=== PATIENT | male | born 1975 | race Caucasian/White ===

== ENCOUNTER 2018-11-05 13:05 | Emergency (ER) | payer SELFPAY ==
[~2018-11-05] VITALS: Ht 182.9 cm; Wt 63.5 kg
--- NOTE | 2018-11-05 13:29 | ED General ---
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 He noted a popping sensation. He's had pain with deep inspiration no shortness of breath. No cough or hemoptysis reported. No fever or chills. He states he has broken ribs in the past. Has history of insulin- dependent diabetes which she states has been well-controlled. He is here for evaluation of ribs only. Allergies and Home Medications Allergies Coded Allergies: aspirin (Unverified Adverse Reaction, Severe, swelling throat, 11/05/18) Home Medications Atorvastatin Calcium 20 Mg Tablet, 20 MG PO DAILY, (Reported) Cyclobenzaprine HCl 10 Mg Tablet, 10 MG PO Q8H PRN for SPASMS, (Reported) Duloxetine HCl 30 Mg Capsule.dr, 30 MG PO DAILY, (Reported) Gabapentin 100 Mg Capsule, 100 MG PO Q8H, (Reported) Insulin Aspart 100 Unit/1 Ml Susp, 8 UNIT SQ BIDAC, (Reported) Insulin Determir 1,000 Units/10 Ml Soln, 15 UNITS SQ BID, (Reported) Lisinopril 20 Mg Tablet, 20 MG PO HS, (Reported) Meloxicam 15 Mg Tablet, 15 MG PO DAILY, (Reported) Metformin HCl 500 Mg Tablet, 500 MG PO BID, (Reported) Ranitidine HCl 150 Mg Tablet, 300 MG PO DAILY, (Reported) Sennosides 8.6 Mg Tablet, 8.6 MG PO BID PRN for CONSTIPATION-1ST LINE, (Reported ) Tamsulosin HCl 0.4 Mg Cap, 0.4 MG PO DAILY, (Reported) Patient Home Medication List Home Medication List Reviewed: Yes Review of Systems Review of Systems Constitutional: No chills, No fever; malaise EENTM: see HPI Respiratory: see HPI Cardiovascular: no symptoms reported Gastrointestinal: no symptoms reported Genitourinary: no symptoms reported Musculoskeletal: no symptoms reported Skin: no symptoms reported Psychiatric/Neurological: No Symptoms Reported Hematologic/Lymphatic: No Symptoms Reported Past Mihjlul-Buqjpq-Vliryv Hx Past Med/Social Hx: Reviewed Nursing Past Med/Soc Hx Physical Exam Vital Signs Vital Signs - First Documented 11/05/18 13:10 Temp 98.8 Pulse 108 Resp 16 B/P (MAP) 128/82 (97) Pulse Ox 98 O2 Delivery Room Air Capillary Refill : Height, Weight, BMI Height: '" Weight: lbs. oz. kg; BMI Method: General Appearance: No Apparent Distress, Anxious, Cachetic Eyes: Bilateral Eye Normal Inspection, Bilateral Eye PERRL, Bilateral Eye EOMI , Bilateral Eye Abnormal EOM HEENT: PERRL/EOMI, TMs Normal, Normal ENT Inspection, Pharynx Normal Neck: Full Range of Motion, Normal Inspection, Non Tender, Supple, Carotid Bruit Respiratory: No Accessory Muscle Use, No Respiratory Distress, Decreased Breath Sounds (bilat), Rhonci Cardiovascular: Regular Rate, Rhythm, No Edema, No Gallop, No JVD, No Murmur, Normal Peripheral Pulses Gastrointestinal: Normal Bowel Sounds, No Organomegaly, No Pulsatile Mass, Non Tender, Soft Back: Normal Inspection, No CVA Tenderness Extremity: Normal Capillary Refill, Normal Inspection, Normal Range of Motion, Non Tender Neurologic/Psychiatric: Alert, Oriented x3, No Motor/Sensory Deficits Skin: Normal Color, Warm/Dry, Tattoos/Piercings Lymphatic: No Adenopathy Progress/Results/Core Measures Suspected Sepsis SIRS Temperature: Pulse: Respiratory Rate: Blood Pressure / Mean: Results/Orders My Orders Orders - MIKEY VIVAS MD Chest Pa/Lat (2 View) (11/05/18 13:25) Ribs 2-3 View Left (11/05/18 13:25) Vital Signs/I&O 11/05/18 13:10 Temp 98.8 Pulse 108 Resp 16 B/P (MAP) 128/82 (97) Pulse Ox 98 O2 Delivery Room Air Capillary Refill : Progress Note : Time: 13:29 Progress Note We'll limit evaluation to chest x-ray and rib x-rays per his request. 1412 we discussed his likely rib fracture, likely clinical course and need to follow-up his other medical conditions with his primary care physician. He takes responsibility for doing so. He understands and accepts the plan and agrees with it. Diagnostic Imaging Diagonstic Imaging: Xray (chest and left ribs) Comments NAME: ROBLES CHANDLER REC#: [id number] PT STATUS: REG ER : 1975 PHYSICIAN: MIKEY VIVAS MD ADMIT DATE: 11/05/18/ER FS Draft Date of Exam:11/05/18 CHEST PA/LAT (2 VIEW) INDICATION: Left rib pain. TIME OF EXAM: 01:21 p.m. COMPARISON: No prior studies are available for comparison. FINDINGS: Heart size is normal. Lungs are clear. No infiltrates are seen. There is no effusion or pneumothorax. IMPRESSION: No acute cardiopulmonary process is detected. Dictated on workstation # [id number] Dict: 11/05/18 1351 Trans: 11/05/18 1357 [id number] Interpreted by: DARYN CEEDÑO MD Electronically signed by: NAME: ROBLES CHANDLER [facility] REC#: [id number] PT STATUS: REG ER : 1975 PHYSICIAN: MIKEY VIVAS MD ADMIT DATE: 11/05/18/ER FS Draft Date of Exam:11/05/18 RIBS 2-3 VIEW LEFT INDICATION: Left rib pain. TIME OF EXAM: 01:25 p.m. FINDINGS: Multiple views of left ribs were obtained. There is an age-indeterminate fracture involving the anterior aspect of the left seventh rib near the costochondral junction. No other fractures are seen. Posterior ribs are unremarkable. There is no parenchymal contusion, effusion, or pneumothorax. IMPRESSION: Questionable fracture anterior aspect of left seventh rib, age indeterminate. The study is otherwise unremarkable. Dictated on workstation # [id number] Dict: 11/05/18 1352 Trans: 11/05/18 1403 [id number] Interpreted by: DARYN CEDEÑO MD Electronically signed by: Reviewed: Reviewed/Discussed Departure Impression Primary Impression: Closed rib fracture Qualified Codes: S22.32XA - Fracture of one rib, left side, initial encounter for closed fracture Disposition: HOME, SELF-CARE Condition: Stable Departure-Patient Inst. Decision time for Depature: 14:12 Referrals: NO,LOCAL PHYSICIAN (PCP/Family) Primary Care Physician 2-3 days, sooner as needed Patient Instructions: Rib Fracture (DC) Add. Discharge Instructions: Watch for sudden increase in pain or difficulty breathing. If this should occur , seek immediate care. All discharge instructions reviewed with patient and/or family. Voiced understanding. Scripts Hydrocodone Bit/Acetaminophen (Hydrocodone/Acetaminophen 5/325mg Tablet) 1 Tab Tab 1 EACH PO Q4-6HR PRN for PAIN-MODERATE MDD 10 for 3 Days, TAB Prov: MIKEY VIVAS MD 11/05/18 Hydrocodone Bit/Acetaminophen (Hydrocodone/Acetaminophen 5/325mg Tablet) 1 Tab Tab 1 EACH PO Q4-6HR PRN for PAIN-MODERATE MDD 10 for 3 Days, TAB Prov: MIKEY VIVAS MD 11/05/18 MIKEY VIVAS MD November 05, 2018 13:29
--- OUTSIDE RECORDS SUMMARY | 2018-11-05 13:31 | XMS REPORT ---
Author Author Tabby Bernal Organization [facility] Address [address] [place] [address] Care Team Providers Care Records Section Supervisor Name Role Phone GabeCarriTabby Unavailable PROBLEMS Type Condition ICD9-CM Code ADD11-CG Code Onset Dates Condition Status SNOMED Code Problem Hypertension I10 Active 27499634 Problem Diabetes E11.9 Active 709044672 Problem Constipation K59.00 Active 23038391 Problem Mixed hyperlipidemia E78.2 Active 868554195 Problem Seizure disorder G40.909 Active 750193002 Problem Neuropathy G62.9 Active 721389883 Problem GERD (gastroesophageal reflux disease) K21.9 Active 345376129 ALLERGIES No Information ENCOUNTERS Encounter Location Date Diagnosis [address] [place] [id number] Oct, [facility] [address] [place], [place] [phone] Aug, [facility] [address] [facility] [address] [place] [phone] Jun, [facility] [address] [place] [id number] May, [address] [place] [id number] Jan, Constipation K59.00 [address] [place] [id number] Dec, Diabetes E11.9 [facility] [address] [place] [id number] Dec, [address] [place] [id number] Dec, Diabetes E11.9 ; Hypertension I10 ; Neuropathy G62.9 ; Seizure disorder G40.909 ; Mixed hyperlipidemia E78.2 ; GERD (gastroesophageal reflux disease) K21.9 and Bilateral low back pain without sciatica, unspecified chronicity M54.5 [facility] [address] [place], [place] [phone] Mar, [facility] [address] [place] [phone] Mar, [facility] [address] [place] [phone] Dec, [place] [address] [place] [id number] Dec, Diabetes E11.9 ; Hypertension I10 ; Neuropathy G62.9 ; Seizure disorder G40.909 ; Mixed hyperlipidemia E78.2 ; GERD (gastroesophageal reflux disease) K21.9 and Tinea cruris B35.6 IMMUNIZATIONS No Known Immunizations SOCIAL HISTORY Never Assessed REASON FOR VISIT pap meds PLAN OF CARE VITAL SIGNS MEDICATIONS Unknown Medications RESULTS No Results PROCEDURES No Known procedures INSTRUCTIONS MEDICATIONS ADMINISTERED No Known Medications MEDICAL (GENERAL) HISTORY Type Description Date Medical History Hypertension Medical History Diabetes Medical History Neuropathy Medical History Seizure disorder Medical History Mixed hyperlipidemia Medical History GERD (gastroesophageal reflux disease) Surgical History cholecystectomy Hospitalization History diabetes 12/2016
--- OUTSIDE RECORDS SUMMARY | 2018-11-05 13:31 | XMS REPORT ---
Author Author Tabby Bernal [facility] Address [address] [place] [address] Care Team Providers Care Compensation Manager Name Role Phone Tabby Bernal Unavailable PROBLEMS Type Condition ICD9-CM Code ICU04-AV Code Onset Dates Condition Status SNOMED Code Problem Hypertension I10 Active 48714081 Problem Diabetes E11.9 Active 403350631 Problem Constipation K59.00 Active 43982705 Problem Mixed hyperlipidemia E78.2 Active 139512119 Problem Seizure disorder G40.909 Active 389858573 Problem Neuropathy G62.9 Active 572251740 Problem GERD (gastroesophageal reflux disease) K21.9 Active 699606738 ALLERGIES No Information ENCOUNTERS Encounter Location Date Diagnosis [facility] [address] [place], [place] [phone] Aug, [facility] [address] [place], [place] [phone] Jun, [facility] [address] [place] [phone] May, [address] [place] [id number] Jan, Constipation K59.00 [address] [place] [id number] Dec, Diabetes E11.9 [facility] [address] [place] [phone] Dec, [address] [place] [id number] Dec, Diabetes E11.9 ; Hypertension I10 ; Neuropathy G62.9 ; Seizure disorder G40.909 ; Mixed hyperlipidemia E78.2 ; GERD (gastroesophageal reflux disease) K21.9 and Bilateral low back pain without sciatica, unspecified chronicity M54.5 [facility] [address] [place] [id number] Mar, [facility] [address] [place] [id number] Mar, [facility] [address] [place] [id number] Dec, Anni [facility] [address] [place] [id number] Dec, Diabetes E11.9 ; Hypertension I10 ; Neuropathy G62.9 ; Seizure disorder G40.909 ; Mixed hyperlipidemia E78.2 ; GERD (gastroesophageal reflux disease) K21.9 and Tinea cruris B35.6 IMMUNIZATIONS No Known Immunizations SOCIAL HISTORY Never Assessed REASON FOR VISIT Medical records request PLAN OF CARE VITAL SIGNS MEDICATIONS Unknown [...]
--- OUTSIDE RECORDS SUMMARY | 2018-11-05 13:31 | XMS REPORT ---
Author Author Tabby Bernal Organization [facility] Address [address] [place] [address] Care Team Providers Care Inspector Pawnshop Detail Name Role Phone Tabby Bernal Unavailable PROBLEMS Type Condition ICD9-CM Code WQF77-DA Code Onset Dates Condition Status SNOMED Code Problem Hypertension I10 Active 14129065 Problem Constipation K59.00 Active 71877891 Problem Diabetes E11.9 Active 937841722 Problem Seizure disorder G40.909 Active 829627033 Problem Mixed hyperlipidemia E78.2 Active 832456114 Problem GERD (gastroesophageal reflux disease) K21.9 Active 783567470 Problem Neuropathy G62.9 Active 335524211 ALLERGIES No Information ENCOUNTERS Encounter Location Date Diagnosis [facility] [address] [place], [place] [phone] Jun, [facility] [address] [place], [place] [phone] May, [place] [address] [place] [id number] Jan, Constipation K59.[address] [place] [id number] Dec, Diabetes E11.9 [facility] [address] [place], [place] [id number] Dec, [place] [address] [place] [id number] Dec, Diabetes E11.9 ; Hypertension I10 ; Neuropathy G62.9 ; Seizure disorder G40.909 ; Mixed hyperlipidemia E78.2 ; GERD (gastroesophageal reflux disease) K21.9 and Bilateral low back pain without sciatica, unspecified chronicity M54.5 [facility] [address] [place], [place] [id number] Mar, [facility] [address] [place] [id number] Mar, [facility] [address] [place], [place] [id number] Dec, [address] [place] [id number] Dec, Diabetes E11.9 ; Hypertension I10 ; Neuropathy G62.9 ; Seizure disorder G40.909 ; Mixed hyperlipidemia E78.2 ; GERD (gastroesophageal reflux disease) K21.9 and Tinea cruris B35.6 IMMUNIZATIONS No Known Immunizations SOCIAL HISTORY Never Assessed REASON FOR VISIT pap samy PLAN OF CARE VITAL SIGNS MEDICATIONS Unknown [...]
--- OUTSIDE RECORDS SUMMARY | 2018-11-05 13:32 | XMS REPORT ---
Author Author Tabby Bernal [facility] Address [address] [place] [address] Care Team Providers Care Lunch Wagon Operator Name Role Phone Tabby Bernal Unavailable PROBLEMS Type Condition ICD9-CM Code VIR78-YH Code Onset Dates Condition Status SNOMED Code Problem Mixed hyperlipidemia E78.2 Active 703669827 Problem Hypertension I10 Active 21141214 Problem Neuropathy G62.9 Active 579230649 Problem Seizure disorder G40.909 Active 951975575 Problem Diabetes E11.9 Active 489993131 Problem GERD (gastroesophageal reflux disease) K21.9 Active 200165843 ALLERGIES No Information ENCOUNTERS Encounter Location Date Diagnosis [address] [place] [id number] Dec, Diabetes E11.9 [facility] [address] [place], [place] [id number] Dec, [address] [place] [id number] Dec, Diabetes E11.9 ; Hypertension I10 ; Neuropathy G62.9 ; Seizure disorder G40.909 ; Mixed hyperlipidemia E78.2 ; GERD (gastroesophageal reflux disease) K21.9 and Bilateral low back pain without sciatica, unspecified chronicity M54.5 [facility] [address] [place], [place] [id number] Mar, [facility] [address] [place] [id number] Mar, [facility] [address] [place], [place] [id number] Dec, [address] [place] [id number] Dec, Diabetes E11.9 ; Hypertension I10 ; Neuropathy G62.9 ; Seizure disorder G40.909 ; Mixed hyperlipidemia E78.2 ; GERD (gastroesophageal reflux disease) K21.9 and Tinea cruris B35.6 IMMUNIZATIONS No Known Immunizations SOCIAL HISTORY Never Assessed REASON FOR VISIT Lab results PLAN OF CARE VITAL SIGNS MEDICATIONS Medication Instructions Dosage Frequency Start Date End Date Duration Status Levemir 100 UNIT/ML Subcutaneous in evening 20 units Dec, 30 days Active RESULTS No Results PROCEDURES No Known procedures INSTRUCTIONS MEDICATIONS ADMINISTERED No Known Medications MEDICAL (GENERAL) HISTORY Type Description Date Surgical History cholecystectomy Hospitalization History diabetes 12/2016
--- OUTSIDE RECORDS SUMMARY | 2018-11-05 13:32 | XMS REPORT ---
Author Author Tabby Bernal [facility] Address [address] [place] [address] Care Team Providers Care Street Light Wirer Name Role Phone Tabby Bernal Unavailable PROBLEMS Type Condition ICD9-CM Code WXI18-NK Code Onset Dates Condition Status SNOMED Code Problem Hypertension I10 Active 17879010 Problem Constipation K59.00 Active 55564468 Problem Diabetes E11.9 Active 912886409 Problem Seizure disorder G40.909 Active 838783645 Problem Mixed hyperlipidemia E78.2 Active 181554893 Problem GERD (gastroesophageal reflux disease) K21.9 Active 003108472 Problem Neuropathy G62.9 Active 984035796 ALLERGIES No Information ENCOUNTERS Encounter Location Date Diagnosis [facility] [address] [place], [place] [phone] May, [address] [place] [id number] Jan, Constipation K59.00 [address] [place] [id number] Dec, Diabetes E11.9 [facility] [address] [place] [id number] Dec, [address] [place] [id number] Dec, Diabetes E11.9 ; Hypertension I10 ; Neuropathy G62.9 ; Seizure disorder G40.909 ; Mixed hyperlipidemia E78.2 ; GERD (gastroesophageal reflux disease) K21.9 and Bilateral low back pain without sciatica, unspecified chronicity M54.5 [facility] [address] [place] [id number] Mar, [facility] [address] [place] [id number] Mar, [facility] [address] [place] [id number] Dec, [facility] [address] [place] [id number] Dec, Diabetes E11.9 ; Hypertension I10 ; Neuropathy G62.9 ; Seizure disorder G40.909 ; Mixed hyperlipidemia E78.2 ; GERD (gastroesophageal reflux disease) K21.9 and Tinea cruris B35.6 IMMUNIZATIONS No Known Immunizations SOCIAL HISTORY Never Assessed REASON FOR VISIT PAP Meds PLAN OF CARE VITAL SIGNS MEDICATIONS Unknown [...]
--- OUTSIDE RECORDS SUMMARY | 2018-11-05 13:32 | XMS REPORT ---
Author Author Tabby Bernal [facility] Address [address] [place] [address] Care Team Providers Care Supervisor [employer] Name Role Phone Tabby Bernal Unavailable PROBLEMS Type Condition ICD9-CM Code QEL62-DQ Code Onset Dates Condition Status SNOMED Code Problem Mixed hyperlipidemia E78.2 Active 304956450 Problem Hypertension I10 Active 21467187 Problem Neuropathy G62.9 Active 927198651 Problem Seizure disorder G40.909 Active 266461514 Problem Diabetes E11.9 Active 880858217 Problem GERD (gastroesophageal reflux disease) K21.9 Active 708667925 ALLERGIES No Information ENCOUNTERS Encounter Location Date Diagnosis [facility] [address] [place], [place] [phone] Dec, [address] [place] [id number] Dec, Diabetes E11.9 ; Hypertension I10 ; Neuropathy G62.9 ; Seizure disorder G40.909 ; Mixed hyperlipidemia E78.2 ; GERD (gastroesophageal reflux disease) K21.9 and Bilateral low back pain without sciatica, unspecified chronicity M54.5 [facility] [address] [place] [id number] Mar, [facility] [address] [place] [id number] Mar, [facility] [address] [place], [place] [id number] Dec, [address] [place] [id number] Dec, Diabetes E11.9 ; Hypertension I10 ; Neuropathy G62.9 ; Seizure disorder G40.909 ; Mixed hyperlipidemia E78.2 ; GERD (gastroesophageal reflux disease) K21.9 and Tinea cruris B35.6 IMMUNIZATIONS No Known Immunizations SOCIAL HISTORY Never Assessed REASON FOR VISIT PLAN OF CARE VITAL SIGNS MEDICATIONS Unknown Medications RESULTS No Results PROCEDURES No Known procedures INSTRUCTIONS MEDICATIONS ADMINISTERED No Known Medications MEDICAL (GENERAL) HISTORY Type Description Date Surgical History cholecystectomy Hospitalization History diabetes 12/2016
--- OUTSIDE RECORDS SUMMARY | 2018-11-05 13:32 | XMS REPORT ---
Author Author Tabby Bernal [facility] Address [address] [place] [address] Care Team Providers Care Senior Sales Director Name Role Phone Tabby Bernal Unavailable PROBLEMS Type Condition ICD9-CM Code [id number] Code Onset Dates Condition Status SNOMED Code Problem Hypertension I10 Active 77654304 Problem Constipation K59.00 Active 56042002 Problem Diabetes E11.9 Active 519656247 Problem Seizure disorder G40.909 Active 439854283 Problem Mixed hyperlipidemia E78.2 Active 342279961 Problem GERD (gastroesophageal reflux disease) K21.9 Active 380617438 Problem Neuropathy G62.9 Active 875130624 ALLERGIES Substance Reaction Event Type Date Status Aspirin Unknown Drug Allergy Dec, Active ENCOUNTERS Encounter Location Date Diagnosis [address] [place] [id number] Jan, Constipation K59.00 [address] [id number] Dec, Diabetes E11.9 [facility] [address] [place], [place] [phone] Dec, [facility] [address] [place] [id number] Dec, Diabetes E11.9 ; Hypertension I10 ; Neuropathy G62.9 ; Seizure disorder G40.909 ; Mixed hyperlipidemia E78.2 ; GERD (gastroesophageal reflux disease) K21.9 and Bilateral low back pain without sciatica, unspecified chronicity M54.5 [facility] [address] [place], [place] [phone] Mar, [facility] [address] [place], [place] [id number] Mar, [facility] [address] [place], [place] [phone] Dec, [facility] [address] [place] [id number] 26 Ander, 2017 Diabetes E11.9 ; Hypertension I10 ; Neuropathy G62.9 ; Seizure disorder G40.909 ; Mixed hyperlipidemia E78.2 ; GERD (gastroesophageal reflux disease) K21.9 and Tinea cruris B35.6 IMMUNIZATIONS Vaccine Route Administration Date Status Toradol IM Intramuscular January 25, 2018 Administered SOCIAL HISTORY Never Assessed REASON FOR VISIT bp, nausea and headache PLAN OF CARE Activity Details Follow Up 4 Weeks Reason:f/u multiple problems Pending Test MRI : Lumbar and Thoracic Spines VITAL SIGNS Heart Rate 87 /min 2018-01-25 Respiratory Rate 16 /min 2018-01-25 Temperature 97.7 degrees Fahrenheit 2018-01-25 Oximetry 99 % 2018-01-25 BMI 17.72 kg/m2 2018-01-25 Height 74 in 2018-01-25 Weight 138 lbs 2018-01-25 Blood pressure systolic 136 mm Hg 2018-01-25 Blood pressure diastolic 87 mm Hg 2018-01-25 MEDICATIONS Medication Instructions Dosage Frequency Start Date End Date Duration Status Meloxicam 15 MG Orally Once a day 1 tablet 24h Dec, Aug, 30 day(s) Active Duloxetine HCl 30 MG Orally Once a day 1 capsule 24h Dec, 30 day(s) Active Lisinopril 20 MG Orally Once a day 1 tablet 24h 30 days Active Atorvastatin Calcium 20 MG Orally Once a day 1 tablet 24h Dec, 30 day(s) Active Ranitidine HCl 300 MG Orally Once a day 1 tablet at bedtime 24h Dec, 30 day(s) Active Cyclobenzaprine HCl 10 MG Orally Three times a day 1 tablet as needed 8h Dec, Apr, 10 days Active Phenytoin Sodium Extended 100 MG Orally Three times a day 1 capsule 8h 30 days Active Amitriptyline HCl 10 MG Orally Once a day at bedtime 1 tablet Dec, 30 day(s) Active Metformin HCl 500 MG Orally Twice a day 2 tablet with meals 12h 30 days Active Levemir 100 UNIT/ML Subcutaneous in evening 20 units Dec, 30 days Active RESULTS Name Result Date Reference Range Hemoglobin A1c 2018-01-25 Hemoglobin A1c >15.5 4.8-5.6 CBC with Differential/Platelet 2018-01-25 WBC 10.1 3.4-10.8 RBC 5.13 4.14-5.80 Hemoglobin 15.6 13.0-17.7 Hematocrit 48.7 37.5-51.0 MCV 95 79-97 MCH 30.4 26.6-33.0 MCHC 32.0 31.5-35.7 RDW 13.3 12.3-15.4 Platelets 440 150-379 Neutrophils 66 Not Estab. Lymphs 23 Not Estab. Monocytes 7 Not Estab. Eos 2 Not Estab. Basos 1 Not Estab. Immature Cells MACHINE SPRAYER Neutrophils (Absolute) 6.7 1.4-7.0 Lymphs (Absolute) 2.3 0.7-3.1 Monocytes(Absolute) 0.7 0.1-0.9 Eos (Absolute) 0.2 0.0-0.4 Baso (Absolute) 0.1 0.0-0.2 Immature Granulocytes 1 Not Estab. Immature Grans (Abs) 0.1 0.0-0.1 NRBC MACHINE SPRAYER Hematology Comments: MACHINE SPRAYER Microalb/Creat Ratio, Randm Ur 2018-01-25 Creatinine, Urine 32.5 Not Estab. Albumin, Urine 42.2 Not Estab. Alb/Creat Ratio 129.8 0.0-30.0 Lipid Panel 2018-01-25 Cholesterol, Total 222 100-199 Triglycerides 180 0-149 HDL Cholesterol 46 >39 VLDL Cholesterol Saeed 36 5-40 LDL Cholesterol Calc 140 0-99 Comment: MACHINE SPRAYER CMP (Comprehensive Metabolic Panel) 2018-01-25 Glucose 469 65-99 BUN 15 6-24 Creatinine 0.80 0.76-1.27 eGFR If NonAfricn Am 109 >59 eGFR If Africn Am 126 >59 BUN/Creatinine Ratio 19 9-20 Sodium 134 134-144 Potassium 4.3 3.5-5.2 Chloride 93 96-106 Carbon Dioxide, Total 22 20-29 Calcium 9.5 8.7-10.2 Protein, Total 7.2 6.0-8.5 Albumin 4.4 3.5-5.5 Globulin, Total 2.8 1.5-4.5 A/G Ratio 1.6 1.2-2.2 Bilirubin, Total 0.3 0.0-1.2 Alkaline Phosphatase 121 39-117 AST (SGOT) 9 0-40 ALT (SGPT) 15 0-44 TSH Rfx on Abnormal to Free T4 2018-01-25 TSH 0.900 0.450-4.500 PROCEDURES Procedure Date Ordered Result Body Site VENIPUNCT, ROUTINE January 25, 2018 Toradol January 25, 2018 Outside Labs Self-Pay Patients Only January 25, 2018 FOOT EXAM PERFORMED January 25, 2018 THERPROPHDIAG INJ SCIM THERAPEUTIC, PROPHYLACTIC, OR DIAGNOSTIC INJECTION ( SPECIFY SUBSTANCE OR DRUG); SUBCUTANEOUS OR INTRAMUSCULAR January 25, 2018 INSTRUCTIONS MEDICATIONS ADMINISTERED No Known Medications MEDICAL (GENERAL) HISTORY Type Description Date Medical History Hypertension Medical History Diabetes Medical History Neuropathy Medical History Seizure disorder Medical History Mixed hyperlipidemia Medical History GERD (gastroesophageal reflux disease) Surgical History cholecystectomy Hospitalization History diabetes 12/2016
--- OUTSIDE RECORDS SUMMARY | 2018-11-05 13:32 | XMS REPORT ---
Author Author Tabby Bernal [facility] Address [address] [place] [address] Care Team Providers Care Stations Superintendent Name Role Phone Tabby Bernal Unavailable PROBLEMS Type Condition ICD9-CM Code [id number] Code Onset Dates Condition Status SNOMED Code Problem Hypertension I10 Active 69217704 Problem Diabetes E11.9 Active 975825860 Problem Mixed hyperlipidemia E78.2 Active 459948307 Problem GERD (gastroesophageal reflux disease) K21.9 Active 790913572 Problem Neuropathy G62.9 Active 956913572 Problem Seizure disorder G40.909 Active 364680999 ALLERGIES Unknown Allergies SOCIAL HISTORY No smoking Hx information available PLAN OF CARE VITAL SIGNS MEDICATIONS Unknown Medications RESULTS No Results PROCEDURES No Known procedures IMMUNIZATIONS No Known Immunizations
--- OUTSIDE RECORDS SUMMARY | 2018-11-05 13:32 | XMS REPORT ---
Author Author Tabby Bernal [facility] Address [address] [place] [address] Care Team Providers Care Coil Cleaner Name Role Phone Tabby Bernal Unavailable PROBLEMS Type Condition ICD9-CM Code [id number] Code Onset Dates Condition Status SNOMED Code Problem Hypertension I10 Active 36503523 Problem Diabetes E11.9 Active 233659490 Problem Mixed hyperlipidemia E78.2 Active 018303605 Problem GERD (gastroesophageal reflux disease) K21.9 Active 815206097 Problem Neuropathy G62.9 Active 698026792 Problem Seizure disorder G40.909 Active 295408648 ALLERGIES Unknown Allergies SOCIAL HISTORY No smoking Hx information available PLAN OF CARE VITAL SIGNS MEDICATIONS Unknown Medications RESULTS No Results PROCEDURES No Known procedures IMMUNIZATIONS No Known Immunizations
--- OUTSIDE RECORDS SUMMARY | 2018-11-05 13:32 | XMS REPORT ---
Author Author Tabby Bernal [facility] Address [address] [place] [address] Care Team Providers Care Trestle Mainternance Laborer Name Role Phone Tabby Bernal Unavailable PROBLEMS Type Condition ICD9-CM Code [id number] Code Onset Dates Condition Status SNOMED Code Problem Hypertension I10 Active 23963373 Problem Diabetes E11.9 Active 461515813 Problem Mixed hyperlipidemia E78.2 Active 809377228 Problem GERD (gastroesophageal reflux disease) K21.9 Active 240101341 Problem Neuropathy G62.9 Active 969269852 Problem Seizure disorder G40.909 Active 312160972 ALLERGIES Unknown Allergies SOCIAL HISTORY No smoking Hx information available PLAN OF CARE VITAL SIGNS MEDICATIONS Medication Instructions Dosage Frequency Start Date End Date Duration Status Gemfibrozil 600 MG Orally Twice a day 1 tablet 12h Dec, 30 day( s) Active RESULTS No Results PROCEDURES No Known procedures IMMUNIZATIONS No Known Immunizations
--- OUTSIDE RECORDS SUMMARY | 2018-11-05 13:32 | XMS REPORT | Continuity of Care Document ---
Author Organization Unknown Address Unknown Allergies Active Description Code Type Severity Reaction Onset Reported/Identified Relationship to Patient Clinical Status Yes aspirin Drug Allergy N/A N/A 07/16/2013 Medications There is no data. Problems Date Dx Coded Attending Type Code Diagnosis Diagnosed By 07/16/2013 JOHNNIE CARLTON DO 250.60 DIABETES WITH NEUROLOGICAL MANIFESTATIONS TYPE II OR UNSPECIFIED TYPE NOT STATED UNCONTROLLED 07/16/2013 JOHNNIE CARLTON DO V15.81 PERSONAL HISTORY OF NONCOMPLIANCE WITH MEDICAL TREATMENT PRESENTING HAZARDS TO HEALTH Procedures There is no data. Results There is no data. Encounters ACCT No. Visit Date/Time Discharge Status Pt. Type Provider Facility Loc./Unit Complaint [id number] 07/16/2013 10:11:00 07/16/2013 23:59:59 CLS Outpatient JOHNNIE CARLTON DO
--- OUTSIDE RECORDS SUMMARY | 2018-11-05 13:32 | XMS REPORT ---
Author Author Tabby Bernal [facility] Address [address] [place] [address] Care Team Providers Care Securities Counselor Name Role Phone Tabby Bernal Unavailable PROBLEMS Type Condition ICD9-CM Code [id number] Code Onset Dates Condition Status SNOMED Code Problem Hypertension I10 Active 58698964 Problem Constipation K59.00 Active 67534910 Problem Diabetes E11.9 Active 373904339 Problem Seizure disorder G40.909 Active 275544153 Problem Mixed hyperlipidemia E78.2 Active 010555396 Problem GERD (gastroesophageal reflux disease) K21.9 Active 707621975 Problem Neuropathy G62.9 Active 357439886 ALLERGIES Substance Reaction Event Type Date Status Aspirin Unknown Drug Allergy Jan, Active ENCOUNTERS Encounter Location Date Diagnosis [address] [address] [id number] Jan, Constipation K59.00 [address] [address] [id number] Dec, Diabetes E11.9 [facility] [address] [place], [place] [phone] Dec, [facility] [address] [place] [id number] Dec, Diabetes E11.9 ; Hypertension I10 ; Neuropathy G62.9 ; Seizure disorder G40.909 ; Mixed hyperlipidemia E78.2 ; GERD (gastroesophageal reflux disease) K21.9 and Bilateral low back pain without sciatica, unspecified chronicity M54.5 [facility] [address] [place], [place] [phone] Mar, [facility] [address] [place], [place] [phone] Mar, [facility] [address] [place], [place] [id number] Dec, [facility] [address] [place] [id number] 26 [place], 2017 Diabetes E11.9 ; Hypertension I10 ; Neuropathy G62.9 ; Seizure disorder G40.909 ; Mixed hyperlipidemia E78.2 ; GERD (gastroesophageal reflux disease) K21.9 and Tinea cruris B35.6 IMMUNIZATIONS No Known Immunizations SOCIAL HISTORY Never Assessed REASON FOR VISIT Was seen on 01-25-18 after that he re started all his medication, now he is very very consipated since restarting medication, leg pain is gone PLAN OF CARE Activity Details Follow Up as scheduled Reason: VITAL SIGNS Heart Rate 106 /min 2018-02-09 BMI 18.08 kg/m2 2018-02-09 Height 74 in 2018-02-09 Weight 140.8 lbs 2018-02-09 Blood pressure systolic 144 mm Hg 2018-02-09 Blood pressure diastolic 113; 140 mm Hg 2018-02-09 MEDICATIONS Medication Instructions Dosage Frequency Start Date End Date Duration Status Lisinopril 20 MG Orally Once a day 1 tablet 24h 30 days Active Amitriptyline HCl 10 MG Orally Once a day at bedtime 1 tablet Dec, 30 day(s) Active Ranitidine HCl 300 MG Orally Once a day 1 tablet at bedtime 24h Dec, 30 day(s) Active Meloxicam 15 MG Orally Once a day 1 tablet 24h Dec, Aug, 30 day(s) Active Phenytoin Sodium Extended 100 MG Orally Three times a day 1 capsule 8h 30 days Active Metformin HCl 500 MG Orally Twice a day 2 tablet with meals 12h 30 days Active Cyclobenzaprine HCl 10 MG Orally Three times a day 1 tablet as needed 8h Dec, Apr, 10 days Active Duloxetine HCl 30 MG Orally Once a day 1 capsule 24h Dec, 30 day(s) Active Levemir 100 UNIT/ML Subcutaneous in evening 20 units Dec, 30 days Active Atorvastatin Calcium 20 MG Orally Once a day 1 tablet 24h Dec, 30 day(s) Active RESULTS No Results PROCEDURES No Known procedures INSTRUCTIONS MEDICATIONS ADMINISTERED No Known Medications MEDICAL (GENERAL) HISTORY Type Description Date Medical History Hypertension Medical History Diabetes Medical History Neuropathy Medical History Seizure disorder Medical History Mixed hyperlipidemia Medical History GERD (gastroesophageal reflux disease) Surgical History cholecystectomy Hospitalization History diabetes 12/2016
[2018-11-05] MEDS ORDERED: TAMS0.4C98 PO (13:54)
[2018-11-05] MEDS ORDERED: MELO15TA39 PO (13:54)
[2018-11-05] MEDS ORDERED: SENN-141 PO (13:54)
[2018-11-05] MEDS ORDERED: INSU100V16 SQ (13:54)
[2018-11-05] MEDS ORDERED: ATOR20TA66 PO (13:54)
[2018-11-05] MEDS ORDERED: DULO30CA3 PO (13:54)
[2018-11-05] MEDS ORDERED: CYCL10TA9 PO (13:54)
[2018-11-05] MEDS ORDERED: RANI-515 PO (13:54)
[2018-11-05] MEDS ORDERED: PHENYTOIN (13:54)
[2018-11-05] MEDS ORDERED: GABA-486 PO (13:54)
[2018-11-05] MEDS ORDERED: METF-397 PO (13:54)
[2018-11-05] MEDS ORDERED: INSU100V5 SQ (13:54)
[2018-11-05] MEDS ORDERED: LISI-552 PO (13:54)
--- NOTE | 2018-11-05 13:57 | Diagnostic Imaging Report ---
INDICATION: Left rib pain. TIME OF EXAM: 01:21 p.m. COMPARISON: No prior studies are available for comparison. FINDINGS: Heart size is normal. Lungs are clear. No infiltrates are seen. There is no effusion or pneumothorax. IMPRESSION: No acute cardiopulmonary process is detected. Dictated by: Dictated on workstation # [id number]
--- NOTE | 2018-11-05 14:03 | Diagnostic Imaging Report ---
INDICATION: Left rib pain. TIME OF EXAM: 01:25 p.m. FINDINGS: Multiple views of left ribs were obtained. There is an age-indeterminate fracture involving the anterior aspect of the left seventh rib near the costochondral junction. No other fractures are seen. Posterior ribs are unremarkable. There is no parenchymal contusion, effusion, or pneumothorax. IMPRESSION: Questionable fracture anterior aspect of left seventh rib, age indeterminate. The study is otherwise unremarkable. Dictated by: Dictated on workstation # [id number]
[2018-11-05] MEDS ORDERED: ACHD5005 PO ×2 (14:13→14:15)
[2018-11-05 14:22] VITALS: BP 122/79
== END 2018-11-05 14:22 | disposition home or self-care (01) ==
LOC: ER FS 13:07
DX: S22.32XA Fracture of one rib, left side, initial encounter for closed fracture (principal); Z79.4 Long term (current) use of insulin; Z88.6 Allergy status to analgesic agent; X50.1XXA Overexertion from prolonged static or awkward postures, initial encounter
CPT/HCPCS: 71046; 71100

== ENCOUNTER 2019-03-05 11:42 | Emergency (ER) | payer SELFPAY ==
[~2019-03-05] VITALS: Ht 182.9 cm; Wt 67.1 kg
[~2019-03-05 11:42] MED LIST: ACHD5005 PO; ATOR20TA66 PO; CYCL10TA9 PO; DULO30CA3 PO; GABA-486 PO; INSU100V16 SQ; INSU100V5 SQ; LISI-552 PO; MELO15TA39 PO; METF-397 PO; PHENYTOIN; RANI-515 PO; SENN-141 PO; TAMS0.4C98 PO
[2019-03-05] MEDS ORDERED: TETANUS,DIPTH,PERTUSS P/F (BOOSTRIX) 0.5 ML VIAL IM ONE (12:00)
[2019-03-05] MEDS ORDERED: HYDROcodone/APAP 7.5 MG/325 MG (LORTAB, LORCET PLUS) TABLET PO ONE (12:00)
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
[2019-03-05] MEDS ORDERED: LORazepam INJ 2 MG/ML (ATIVAN) VIAL ONE (12:57)
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
[2019-03-05] MEDS ORDERED: HYDR-4226 PO (13:59)
[2019-03-05 14:50] VITALS: BP 112/72
== END 2019-03-05 14:50 | disposition home or self-care (01) ==
LOC: EDUNIT# 11:42 → ER FS 11:44
DX: S09.90XA Unspecified injury of head, initial encounter (principal); S22.41XA Multiple fractures of ribs, right side, initial encounter for closed fracture; S51.801A Unspecified open wound of right forearm, initial encounter; S00.83XA Contusion of other part of head, initial encounter; I10 Essential (primary) hypertension; E78.00 Pure hypercholesterolemia, unspecified; G40.909 Epilepsy, unspecified, not intractable, without status epilepticus; E11.40 Type 2 diabetes mellitus with diabetic neuropathy, unspecified; K21.9 Gastro-esophageal reflux disease without esophagitis; F41.9 Anxiety disorder, unspecified; F32.9 Major depressive disorder, single episode, unspecified; F17.210 Nicotine dependence, cigarettes, uncomplicated; Z88.6 Allergy status to analgesic agent; Z79.4 Long term (current) use of insulin; Y04.0XXA Assault by unarmed brawl or fight, initial encounter
CPT/HCPCS: 70450; 70486; 71100; 72125; 90715

== ENCOUNTER 2019-08-10 12:47 | Emergency (ER) | payer SELFPAY ==
[~2019-08-10] VITALS: Ht 182 cm; Wt 54.0 kg
[~2019-08-10 12:47] MED LIST changes: +HYDR-4226 PO; -RANI-515 PO; +RANI-609 PO; -TAMS0.4C98 PO; +TMSL.4C PO
[2019-08-10 13:14] VITALS: BP 188/106
--- NOTE | 2019-08-10 13:17 | NUR ---
PT HAD A SIZURE LASTING APPX 15 SECS WHILE IN TRIAGE. S/O STATES HE HAS BEEN HAVING THEM MORE FREQUENTLY. HAS NOT BEEN TAKING HIS SIEZURE OR DIABETIC MEDS TO TO FINACHIAL REASONS. PT TAKEN TO ROOM 08.
[2019-08-10] MEDS ORDERED: NS IV 1000 ML 1,000 ML IV SCH ×2 (13:18→14:56)
[2019-08-10] MEDS ORDERED: inSUlin (REGULAR) HUMAN 1 UNIT/0.01 ML (CHARGE PER UNIT) SC STA ×2 (13:19→15:07)
[2019-08-10 13:37] LABS: BASOPHILS # (AUTO) 0.1 10^3/uL (0.0-0.1); BASOPHILS % (AUTO) 1 % (0-10); EOSINOPHILS # (AUTO) 0.2 10^3/uL (0.0-0.3); EOSINOPHILS % (AUTO) 2 % (0-10); HEMATOCRIT 44 % (40-54); HEMOGLOBIN 15.7 G/DL (13.3-17.7); LYMPHOCYTES # (AUTO) 2.3 X 10^3 (1.0-4.0); LYMPHOCYTES % (AUTO) 20 % (12-44); MEAN CORPUSCULAR HEMOGLOBIN 30 PG (25-34); MEAN CORPUSCULAR HGB CONC 36 G/DL (32-36); MEAN CORPUSCULAR VOLUME 84 FL (80-99); MEAN PLATELET VOLUME 10.6 FL (7.4-10.4); MONOCYTES % (AUTO) 9 % (0-12); NEUTROPHILS # (AUTO) 8.1 X 10^3 (1.8-7.8); NEUTROPHILS % (AUTO) 69 % (42-75); PLATELET COUNT 458 10^3/uL (130-400); RED CELL DISTRIBUTION WIDTH 13.1 % (10.0-14.5); WHITE BLOOD COUNT 11.8 10^3/uL (4.3-11.0)
[2019-08-10 13:56] LABS: CARBON DIOXIDE 23 MMOL/L (21-32); CHLORIDE 97 MMOL/L (98-107); CREATININE SERUM 1.17 MG/DL (0.60-1.30); POTASSIUM 3.8 MMOL/L (3.6-5.0); SODIUM 133 MMOL/L (135-145)
[2019-08-10 13:57] LABS: ALANINE AMINOTRANSFERASE 12 U/L (0-55); ALBUMIN 4.2 GM/DL (3.2-4.5); ALKALINE PHOSPHATASE 105 U/L (40-136); AMYLASE 105 U/L (25-125); BILIRUBIN,TOTAL 0.4 MG/DL (0.1-1.0); BUN/CREATININE RATIO 12; CALCIUM 9.5 MG/DL (8.5-10.1); GFR ESTIMATED > 60; LIPASE 154 U/L (8-78); TOTAL PROTEIN 7.2 GM/DL (6.4-8.2)
[2019-08-10 14:04] LABS: GLUCOSE 634 MG/DL (70-105)
[2019-08-10] MEDS ORDERED: LACTATED RINGERS 1,000 ML IV ONE (14:05)
[2019-08-10 14:38] LABS: BILIRUBIN,URINE NEGATIVE (NEGATIVE); CLARITY,URINE CLEAR; COLOR,URINE YELLOW; GLUCOSE, URINE (UA) 3+ (NEGATIVE); KETONES,URINE NEGATIVE (NEGATIVE); LEUKOCYTE ESTERASE ,URINE NEGATIVE (NEGATIVE); NITRITE,URINE NEGATIVE (NEGATIVE); PROTEIN,URINE NEGATIVE (NEGATIVE)
[2019-08-10 14:49] LABS: BACTERIA,URINE TRACE /HPF; WBC,URINE RARE /HPF
[2019-08-10] MEDS ORDERED: fentaNYL INJECTION 100 MCG/2 ML AMP IVP ONE (15:00)
--- NOTE | 2019-08-10 15:18 | Diagnostic Imaging Report ---
INDICATION: Pain all over, unable to swallow well. EXAMINATION: Chest dated 08/10/2019. Comparison to chest from 11/05/2018. FINDINGS: The lungs are minimally hyperinflated. Heart and pulmonary vasculature are stable. No focal infiltrates. No effusions. No pneumothorax. IMPRESSION: 1. Chronic change as above. Mild prominence of the pulmonary vasculature stable from previous, correlate clinically. 2. Not mentioned above there appears to be a fracture involving a right lateral rib in the lower chest but likely old. Dictated by: Dictated on workstation # [id number]
--- NOTE | 2019-08-10 15:19 | Diagnostic Imaging Report ---
INDICATION: Pain, unable to swallow for the last couple of days. Air pocket felt in the stomach region. EXAMINATION: Abdomen dated 08/10/2019. FINDINGS: Two views of the abdomen. Scattered air and stool throughout the colon is seen to the rectosigmoid. No free air. There are clips in the right upper quadrant. IMPRESSION: 1. Findings of mild constipation. Dictated by: Dictated on workstation # [id number]
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
[2019-08-10 15:40] LABS: AMPHETAMINE SCREEN, URINE POSITIVE (NEGATIVE); BARBITURATE SCREEN URINE NEGATIVE (NEGATIVE); BENZODIAZEPINES SCREEN URINE NEGATIVE (NEGATIVE); CANNABINOID SCREEN, URINE POSITIVE (NEGATIVE); COCAINE SCREEN URINE NEGATIVE (NEGATIVE); METHADONE STAT NEGATIVE (NEGATIVE); METHAMPHETAMINE SCREEN URINE S POSITIVE (NEGATIVE); OPIATE SCREEN URINE NEGATIVE (NEGATIVE); OXYCODONE STAT NEGATIVE (NEGATIVE); PROPOXYPHENE STAT NEGATIVE (NEGATIVE); TRICYCLIC ANTIDEPRESSANTS SCRE NEGATIVE (NEGATIVE)
== END 2019-08-10 15:30 | disposition left against medical advice (07) ==
LOC: EDUNIT# 12:47 → ER 12:48
DX: E10.65 Type 1 diabetes mellitus with hyperglycemia (principal); R10.84 Generalized abdominal pain; G40.909 Epilepsy, unspecified, not intractable, without status epilepticus; I10 Essential (primary) hypertension; E10.40 Type 1 diabetes mellitus with diabetic neuropathy, unspecified; E78.00 Pure hypercholesterolemia, unspecified; F41.9 Anxiety disorder, unspecified; F32.9 Major depressive disorder, single episode, unspecified; F17.210 Nicotine dependence, cigarettes, uncomplicated; Z79.4 Long term (current) use of insulin; Z88.6 Allergy status to analgesic agent
CPT/HCPCS: 36415; 71045; 74018; 80053; 80306; 80320; 81000; 82150; 82962; 83605; 83690; 83880; 85025; 87040; 87804; 93005; 96372; 96374

== ENCOUNTER 2019-09-07 15:25 | Observation (INO) | payer SELFPAY ==
[~2019-09-07] VITALS: Ht 182.9 cm; Wt 59.2 kg
--- NOTE | 2019-09-07 15:47 | ED General ---
General Stated Complaint: GEN PAIN/DIFFICULTY SWALLOWING NAUSEA WEAKNESS Source of Information: Patient, Family History of Present Illness Date Seen by Provider: Sep 07, 2019 Time Seen by Provider: 15:47 Initial Comments Patient is a 44-year-old male with past medical history significant for methamphetamine abuse, insulin-dependent diabetes, hypertension, and seizure disorder. He presents to the emergency department today complaining of hurting all over. He does not have any one area of more severe pain that another although he does complain of some swelling in the groin area and lower abdomen. Patient is accompanied by a significant other who also states he has been having seizures and he cannot afford his high blood pressure medicine or meds for diabetes or seizure disorder. Denies fever or chills but does endorse persistent nausea and vomiting over the last 3 days and inability to keep down any food or fluids. Allergies and Home Medications Allergies Coded Allergies: aspirin (Unverified Adverse Reaction, Severe, swelling throat, 11/05/18) Home Medications Atorvastatin Calcium 20 Mg Tablet, 20 MG PO DAILY, (Reported) Cyclobenzaprine HCl 10 Mg Tablet, 10 MG PO Q8H PRN for SPASMS, (Reported) Duloxetine HCl 30 Mg Capsule.dr, 30 MG PO DAILY, (Reported) Gabapentin 100 Mg Capsule, 100 MG PO Q8H, (Reported) Hydrocodone Bit/Acetaminophen 1 Tab Tab, 1 EACH PO Q4-6HR PRN for PAIN-MODERATE Prescribed by: MIKEY VIVAS on 11/05/18 1413 Hydrocodone Bit/Acetaminophen 1 Tab Tab, 1 EACH PO Q4-6HR PRN for PAIN-MODERATE Prescribed by: MIKEY VIVAS on 11/05/18 1415 Hydrocodone/Acetaminophen 1 Each Tablet, 1 TAB PO Q4-6HR Prescribed by: GUILLE CASTELAN on 03/05/19 1359 Insulin Aspart 100 Unit/1 Ml Susp, 8 UNIT SQ BIDAC, (Reported) Insulin Determir 1,000 Units/10 Ml Soln, 15 UNITS SQ BID, (Reported) Lisinopril 20 Mg Tablet, 20 MG PO HS, (Reported) Meloxicam 15 Mg Tablet, 15 MG PO DAILY, (Reported) Metformin HCl 500 Mg Tablet, 500 MG PO BID, (Reported) Ranitidine HCl 150 Mg Tablet, 300 MG PO DAILY, (Reported) Sennosides 8.6 Mg Tablet, 8.6 MG PO BID PRN for CONSTIPATION-1ST LINE, (Reported) Tamsulosin HCl 0.4 Mg Cap, 0.4 MG PO DAILY, (Reported) Patient Home Medication List Home Medication List Reviewed: Yes Review of Systems Review of Systems Constitutional: see HPI, dizziness EENTM: see HPI Respiratory: no symptoms reported Cardiovascular: no symptoms reported Gastrointestinal: see HPI Genitourinary: see HPI Musculoskeletal: no symptoms reported Skin: no symptoms reported Psychiatric/Neurological: Seizure All Other Systems Reviewed Negative Unless Noted: Yes Past Woxcglc-Nochja-Fetlgl Hx Patient Social History Type Used: Cigarettes 2nd Hand Smoke Exposure: Yes Recent Foreign Travel: No Contact w/Someone Who Travel: No Recent Hopitalizations: No Seasonal Allergies Seasonal Allergies: No Past Medical History Surgeries: Yes (Abscess buttocks-MRSA, jaw fx) Gallbladder Respiratory: No Cardiac: Yes High Cholesterol, Hypertension Neurological: Yes Neuropathy, Seizure Disorder Genitourinary: No Gastrointestinal: Yes Gastroesophageal Reflux Musculoskeletal: Yes (chronic pain/neuropathy also from "feet to shoulders") Endocrine: Yes Diabetes, Insulin dep HEENT: No Cancer: No Psychosocial: Yes Anxiety, Depression Integumentary: Yes (MRSA buttocks ) Blood Disorders: No Physical Exam Vital Signs Vital Signs - First Documented 09/07/19 16:19 Temp 37.0 Pulse 107 Resp 22 B/P (MAP) 153/105 (121) Pulse Ox 96 Capillary Refill : Height, Weight, BMI Height: 6'0" Weight: 148lbs. oz. 67.467402op; 16.00 BMI Method:Stated General Appearance: WD/WN, Anxious, Chronically ill, Cachetic HEENT: PERRL/EOMI, Pharynx Normal, Other (Mucous membranes dry) Neck: Supple Respiratory: Lungs Clear, Normal Breath Sounds Cardiovascular: Regular Rate, Rhythm, No Murmur Gastrointestinal: Soft, Other (diffusely tender over lower abdomen but no guarding or rebound tenderness) Extremity: Normal Capillary Refill Neurologic/Psychiatric: Alert, Oriented x3, No Motor/Sensory Deficits, Normal Mood/Affect Skin: Normal Color, Warm/Dry Progress/Results/Core Measures Suspected Sepsis SIRS Temperature: Pulse: Respiratory Rate: Laboratory Tests 09/07/19 16:33: White Blood Count 13.4H Blood Pressure / Mean: Laboratory Tests 09/07/19 16:33: Creatinine 0.59L, Platelet Count 545H, Total Bilirubin 0.2 Results/Orders Lab Results Laboratory Tests Test 09/07/19 16:33 09/07/19 17:55 Range/Units White Blood Count 13.4 H 4.3-11.0 10^3/uL Red Blood Count 4.74 4.35-5.85 10^6/uL Hemoglobin 14.3 13.3-17.7 G/DL Hematocrit 41 40-54 % Mean Corpuscular Volume 86 80-99 FL Mean Corpuscular Hemoglobin 30 25-34 PG Mean Corpuscular Hemoglobin Concent 35 32-36 G/DL Red Cell Distribution Width 12.2 10.0-14.5 % Platelet Count 545 H 130-400 10^3/uL Mean Platelet Volume 9.6 7.4-10.4 FL Neutrophils (%) (Auto) 67 42-75 % Lymphocytes (%) (Auto) 22 12-44 % Monocytes (%) (Auto) 8 0-12 % Eosinophils (%) (Auto) 2 0-10 % Basophils (%) (Auto) 1 0-10 % Neutrophils # (Auto) 9.0 H 1.8-7.8 X 10^3 Lymphocytes # (Auto) 2.9 1.0-4.0 X 10^3 Monocytes # (Auto) 1.1 H 0.0-1.0 X 10^3 Eosinophils # (Auto) 0.3 0.0-0.3 10^3/uL Basophils # (Auto) 0.1 0.0-0.1 10^3/uL Sodium Level 133 L 135-145 MMOL/L Potassium Level 4.1 3.6-5.0 MMOL/L Chloride Level 98 98-107 MMOL/L Carbon Dioxide Level 25 21-32 MMOL/L Anion Gap 10 5-14 MMOL/L Blood Urea Nitrogen 17 7-18 MG/DL Creatinine 0.59 L 0.60-1.30 MG/DL Estimat Glomerular Filtration Rate > 60 BUN/Creatinine Ratio 29 Glucose Level 304 H 70-105 MG/DL Calcium Level 9.3 8.5-10.1 MG/DL Corrected Calcium 9.5 8.5-10.1 MG/DL Magnesium Level 1.9 1.6-2.4 MG/DL Total Bilirubin 0.2 0.1-1.0 MG/DL Aspartate Amino Transf (AST/SGOT) 7 5-34 U/L Alanine Aminotransferase (ALT/SGPT) 9 0-55 U/L Alkaline Phosphatase 98 40-136 U/L Total Protein 6.6 6.4-8.2 GM/DL Albumin 3.7 3.2-4.5 GM/DL Lipase 41 8-78 U/L My Orders Orders - FEMRIN PUGH DO Ed Iv/Invasive Line Start (09/07/19 15:58) Cbc With Automated Diff (09/07/19 15:58) Comprehensive Metabolic Panel (09/07/19 15:58) Lipase (09/07/19 15:58) Urinalysis (09/07/19 15:58) Ns Iv 1000 Ml (Sodium Chloride 0.9%) (09/07/19 16:00) Magnesium (09/07/19 15:58) Phosphorus (09/07/19 15:58) Ondansetron Injection (Zofran Injectio (09/07/19 16:00) Lorazepam Injection (Ativan Injection) (09/07/19 16:00) Ct Abdomen/Pelvis W (09/07/19 17:12) Iohexol Injection (Omnipaque 350 Mg/Ml 1 (09/07/19 17:15) Received Contrast (Hold Metformin- Contr (09/07/19 17:15) Sodium Chloride Flush (Catheter Flush Sy (09/07/19 17:15) Ns (Ivpb) (Sodium Chloride 0.9% Ivpb Bag (09/07/19 17:15) Ns Iv 1000 Ml (Sodium Chloride 0.9%) (09/07/19 17:15) Medications Given in ED Current Medications Medications Dose Ordered Sig/Josef Route Start Time Stop Time Status Last Admin Dose Admin Iohexol 100 ml ONCE ONCE IV 09/07/19 17:15 09/07/19 17:16 DC 09/07/19 17:42 85 ML Lorazepam 1 mg ONCE ONCE IVP 09/07/19 16:00 09/07/19 16:01 DC 09/07/19 16:40 1 MG Ondansetron HCl 4 mg ONCE ONCE IVP 09/07/19 16:00 09/07/19 16:01 DC 09/07/19 16:40 4 MG Sodium Chloride 10 ml NEEDED PRN IV 09/07/19 17:15 09/07/19 17:42 10 ML Sodium Chloride 100 ml ONCE ONCE IV 09/07/19 17:15 09/07/19 17:16 DC 09/07/19 17:42 100 ML Vital Signs/I&O 09/07/19 16:19 Temp 37.0 Pulse 107 Resp 22 B/P (MAP) 153/105 (121) Pulse Ox 96 Capillary Refill : Progress Note : Time: 16:04 Progress Note Patient is seen and examined. Labs ordered along with IVF's and medications for symptom relief. Will give some ativan and zofran. 17:55: Patient is currently feeling improved and resting comfortably on the gurney. CT scan and UA results pending. THALIA to Dr. Smiley. Departure Impression Primary Impression: Diabetes mellitus Additional Impression: Seizure disorder Disposition: HOME, SELF-CARE Condition: Improved Departure-Patient Inst. Referrals: NO,LOCAL PHYSICIAN (PCP/Family) Primary Care Physician FERMIN PUGH DO Sep 07, 2019 15:47
[2019-09-07] MEDS ORDERED: ONDANSETRON 4 MG/2 ML (SDV) Z0FRAN IVP ONE (16:00)
[2019-09-07] MEDS ORDERED: LORazepam INJ 2 MG/ML (ATIVAN) VIAL IVP ONE (16:00)
[2019-09-07] MEDS: NS IV 1000 ML 1,000 ML IV SCH ×2 (16:40→23:00)
[2019-09-07 16:48] LABS: WHITE BLOOD COUNT 13.4 10^3/uL (4.3-11.0)
[2019-09-07 16:49] LABS: BASOPHILS # (AUTO) 0.1 10^3/uL (0.0-0.1); BASOPHILS % (AUTO) 1 % (0-10); EOSINOPHILS # (AUTO) 0.3 10^3/uL (0.0-0.3); EOSINOPHILS % (AUTO) 2 % (0-10); HEMATOCRIT 41 % (40-54); HEMOGLOBIN 14.3 G/DL (13.3-17.7); LYMPHOCYTES # (AUTO) 2.9 X 10^3 (1.0-4.0); LYMPHOCYTES % (AUTO) 22 % (12-44); MEAN CORPUSCULAR HEMOGLOBIN 30 PG (25-34); MEAN CORPUSCULAR HGB CONC 35 G/DL (32-36); MEAN CORPUSCULAR VOLUME 86 FL (80-99); MEAN PLATELET VOLUME 9.6 FL (7.4-10.4); MONOCYTES # (AUTO) 1.1 X 10^3 (0.0-1.0); MONOCYTES % (AUTO) 8 % (0-12); NEUTROPHILS % (AUTO) 67 % (42-75); PLATELET COUNT 545 10^3/uL (130-400); RED CELL DISTRIBUTION WIDTH 12.2 % (10.0-14.5)
[2019-09-07 17:07] LABS: CARBON DIOXIDE 25 MMOL/L (21-32); CHLORIDE 98 MMOL/L (98-107); POTASSIUM 4.1 MMOL/L (3.6-5.0); SODIUM 133 MMOL/L (135-145)
[2019-09-07 17:08] LABS: ALANINE AMINOTRANSFERASE 9 U/L (0-55); ALBUMIN 3.7 GM/DL (3.2-4.5); ALKALINE PHOSPHATASE 98 U/L (40-136); BILIRUBIN,TOTAL 0.2 MG/DL (0.1-1.0); BUN/CREATININE RATIO 29; CALCIUM 9.3 MG/DL (8.5-10.1); CREATININE SERUM 0.59 MG/DL (0.60-1.30); GFR ESTIMATED > 60; GLUCOSE 304 MG/DL (70-105); LIPASE 41 U/L (8-78); MAGNESIUM 1.9 MG/DL (1.6-2.4); TOTAL PROTEIN 6.6 GM/DL (6.4-8.2)
[2019-09-07] MEDS ORDERED: HOLD METFORMIN - RECEIVED CONTRAST 20 ML VIAL IV SCH (17:15)
[2019-09-07] MEDS ORDERED: IOHEXOL 350 MG/ML 100 ML (OMNIPAQUE 350) VIAL IV ONE (17:15)
[2019-09-07] MEDS ORDERED: CATHETER FLUSH 10 ML SYR IV PRN (17:15)
[2019-09-07] MEDS ORDERED: NS IV 1000 ML 1,000 ML IV SCH (17:15)
[2019-09-07] MEDS ORDERED: NS 100 ML (IVPB) BAG IV ONE (17:15)
--- NOTE | 2019-09-07 18:06 | Diagnostic Imaging Report ---
PROCEDURE: CT abdomen and pelvis with contrast. TECHNIQUE: Multiple contiguous axial images were obtained through the abdomen and pelvis after administration of intravenous contrast. Auto Exposure Controls were utilized during the CT exam to meet ALARA standards for radiation dose reduction. INDICATION: Nausea, vomiting and generalized abdominal pain all over for year. History of diabetic neuropathy and elevated white cell count. No normal bowel movement for 2 weeks. Previous cholecystectomy. FINDINGS: The lung bases are clear. The gallbladder is absent. The liver, spleen, pancreas, adrenal glands and kidneys are normal. Urinary bladder is mildly distended. Minimal arterial sclerosis is present. There are no aneurysms. No hernias are present. There is a questionable mass in the transverse colon just to the left of midline. No obstruction is present. There is no abnormal adenopathy. Small bowel loops in the left upper quadrant demonstrate mild wall thickening suggestive of an enteritis. The osseous structures appear normal. IMPRESSION: 1. There is a questionable mass in the transverse colon just to the left of midline. Recommend colonoscopy for further evaluation. 2. Small bowel loops in the left upper quadrant demonstrate wall thickening consistent with an enteritis. 3. The urinary bladder is mildly distended. Dictated by: Dictated on workstation # [id number]
[2019-09-07 18:07] LABS: BILIRUBIN,URINE NEGATIVE (NEGATIVE); CLARITY,URINE CLEAR; COLOR,URINE YELLOW; GLUCOSE, URINE (UA) 3+ (NEGATIVE); KETONES,URINE NEGATIVE (NEGATIVE); LEUKOCYTE ESTERASE ,URINE NEGATIVE (NEGATIVE); NITRITE,URINE NEGATIVE (NEGATIVE); PH,URINE 7.5 (5-9); PROTEIN,URINE NEGATIVE (NEGATIVE); SQUAMOUS EPITHELIAL CELL,UR RARE /HPF
--- NOTE | 2019-09-07 18:55 | Diagnostic Imaging Report ---
INDICATION: Generalized pain with nausea and vomiting for one year. FINDINGS: Frontal and lateral views of the chest demonstrate the lungs to be clear. Heart, mediastinum, pulmonary vascularity and the visualized bony thorax are normal. IMPRESSION: Normal chest. Dictated by: Dictated on workstation # [id number]
[2019-09-07 19:14] VITALS: BP_SYST 138; BP_SYST 175; BP_SYST 180; BP_DIAS 112; BP_DIAS 113; BP_DIAS 97
[2019-09-07] MEDS ORDERED: cloNIDine 0.1 MG (CATAPRES) TAB PO ONE (19:30)
--- NOTE | 2019-09-07 19:48 | NUR ---
pt refusing ems transport states significant other will take pt to [place] for admission.
[2019-09-07 22:07] VITALS: BP 162/99
[2019-09-07] MEDS ORDERED: diphenhydrAMINE 25 MG TAB (BENADRYL) PO PRN (22:15)
[2019-09-07] MEDS ORDERED: MELATONIN 3 MG TABLET PO PRN (22:15)
[2019-09-07] MEDS ORDERED: ONDANSETRON 4 MG/2 ML (SDV) Z0FRAN IV PRN (22:15)
[2019-09-07] MEDS ORDERED: ALPRAZolam 0.25 MG (XANAX) TAB PO PRN (22:15)
[2019-09-07] MEDS ORDERED: ONDANSETRON 4 MG (ZOFRAN) ORAL DISSOLVE TAB PO PRN (22:15)
[2019-09-07] MEDS ORDERED: NS IV ONE (22:15)
[2019-09-07] MEDS ORDERED: BISACODYL 10 MG SUPP (DULCOLAX) PR PRN (22:15)
[2019-09-07] MEDS ORDERED: ANTACID SUSP 30 ML UDC (MYLANTA) PO PRN (22:15)
[2019-09-07] MEDS ORDERED: guaiFENesin/DM (ROBITUSSIN DM) 10 ML UDC PO PRN (22:15)
[2019-09-07] MEDS ORDERED: ACETAMINOPHEN 325 MG TABLET PO PRN (22:15)
[2019-09-07] MEDS ORDERED: LEVETIRACETAM IV ONE (22:15)
[2019-09-07] MEDS ORDERED: polyethylene glycoL POWDER 17 GM (MIRALAX) PACK PO PRN (22:15)
[2019-09-07] MEDS ORDERED: ENOXAPARIN 40 MG/0.4 ML (LOVENOX) SYR SC SCH (22:15)
--- NOTE | 2019-09-07 22:20 | NUR ---
ROBLES CHANDLER SR admitted to room 416-1, with an admitting diagnosis of GASTROENTERITIS, on 09/07/19 from ED, ARRIVING BY PRIVATE VEHICLE, accompanied by [facility] IN W/C.ROBLES CHANDLER SR introduced to surroundings, call light, bed controls, phone, TV, temperature control, lights, meal times, smoking policy, visitor policy, side rail policy, bathrooms and showers. Patient Rights given to patient in the handbook. ROBLES CHANDLER SR verbalizes understanding that [facility] is not responsible for the loss or damage to any personal effects or valuables that are kept in the patients posession during their hospitalization.
[2019-09-07] MEDS ORDERED: LEVETIRACETAM INJECTION 1,000 MG in NS (IVPB) 100 ML IV SCH (22:30)
[2019-09-07] MEDS ORDERED: LEVETIRACETAM 500 MG/5 ML (KEPPRA) VIAL IV ONE (22:51)
[2019-09-07] MEDS ORDERED: NS IV 500 ML 500 ML ONE (22:57)
[2019-09-07] MEDS: LORazepam INJ 2 MG/ML (ATIVAN) VIAL IVP PRN (22:58)
[2019-09-08] VITALS: BP 126/81
[2019-09-08 00:57] LABS: PHOSPHORUS 3.5 MG/DL (2.3-4.7)
[2019-09-08] MEDS: hydrALAZINE (APESOLINE) 20 MG/ML VIAL IV PRN ×2 (04:54→12:19)
[2019-09-08 04:58] VITALS: BP 190/106
[2019-09-08 04:59] LABS: BASOPHILS # (AUTO) 0.1 10^3/uL (0.0-0.1); BASOPHILS % (AUTO) 0 % (0-10); EOSINOPHILS # (AUTO) 0.3 10^3/uL (0.0-0.3); EOSINOPHILS % (AUTO) 3 % (0-10); HEMATOCRIT 38 % (40-54); HEMOGLOBIN 13.3 G/DL (13.3-17.7); LYMPHOCYTES # (AUTO) 3.2 X 10^3 (1.0-4.0); LYMPHOCYTES % (AUTO) 28 % (12-44); MEAN CORPUSCULAR HEMOGLOBIN 30 PG (25-34); MEAN CORPUSCULAR HGB CONC 35 G/DL (32-36); MEAN CORPUSCULAR VOLUME 85 FL (80-99); MEAN PLATELET VOLUME 9.6 FL (7.4-10.4); MONOCYTES % (AUTO) 9 % (0-12); NEUTROPHILS # (AUTO) 7.1 X 10^3 (1.8-7.8); NEUTROPHILS % (AUTO) 61 % (42-75); PLATELET COUNT 482 10^3/uL (130-400); RED CELL DISTRIBUTION WIDTH 12.9 % (10.0-14.5); WHITE BLOOD COUNT 11.6 10^3/uL (4.3-11.0)
--- NOTE | 2019-09-08 05:04 | NUR ---
DR ZAMBRANO NOTIFIED OF CONSULT.
[2019-09-08] MEDS: LORazepam INJ 2 MG/ML (ATIVAN) VIAL IVP PRN (05:10)
[2019-09-08 05:25] LABS: BUN/CREATININE RATIO 16; CALCIUM 8.4 MG/DL (8.5-10.1); CARBON DIOXIDE 21 MMOL/L (21-32); CHLORIDE 104 MMOL/L (98-107); GFR ESTIMATED > 60; GLUCOSE 235 MG/DL (70-105); POTASSIUM 3.7 MMOL/L (3.6-5.0); SODIUM 136 MMOL/L (135-145)
[2019-09-08] MEDS: inSUlin ASPART (NovoLOG) 1 UNIT/0.01 ML (CHARGE PER UNIT) SC SCH ×2 (05:55→12:12)
[2019-09-08 06:45] VITALS: BP 160/100
--- NOTE | 2019-09-08 08:00 | NUR ---
B/P 179/107. GAVE AM BP MEDS. Addendum: 09/08/19 at 1215 by LAURA MCGRATH RN BRENDA FIERRO
[2019-09-08 08:18] VITALS: BP 158/104
--- NOTE | 2019-09-08 08:45 | NUR ---
DRESSING CHANGED LEFT FOOT. SATURATED WITH SEROSANG DRAINAGE. JORDAN JOHN. Addendum: 09/08/19 at 1215 by LAURA MCGRATH RN WRONG CHART
[2019-09-08] MEDS ORDERED: SENNOSIDES 8.6 MG (SENOKOT) TAB PO SCH (09:00)
[2019-09-08] MEDS ORDERED: LEVETIRACETAM INJECTION 1,000 MG in NS (IVPB) 100 ML IV SCH ×2 (09:00→13:00)
[2019-09-08] MEDS ORDERED: DOCUSATE SODIUM 100 MG (COLACE) CAP PO SCH (09:00)
--- NOTE | 2019-09-08 10:00 | NUR ---
DR. STEARNS HERE AND NOTIFIED OF ELEVATED B/P. Addendum: 09/08/19 at 1215 by LAURA MCGRATH RN BRENDA FIERRO
--- NOTE | 2019-09-08 10:30 | NUR ---
LASIX IV X1 AND IV CHANGED TO HL Addendum: 09/08/19 at 1214 by LAURA MCGRATH RN BRENDA FIERRO
[2019-09-08] MEDS: NS IV 1000 ML 1,000 ML IV SCH (11:54)
--- NOTE | 2019-09-08 12:00 | NUR ---
OXYIR 5MG PO FOR ABD PAIN.
--- NOTE | 2019-09-08 12:00 | NUR ---
B/P 181/118. APRESOLINE 10MG IV ORDERED.
[2019-09-08 12:16] VITALS: BP 181/118
--- NOTE | 2019-09-08 12:45 | History & Physical-Hospitalist ---
History of Present Illness HPI/Chief Complaint Jass Ward is a 44-year-old male with past medical history of hypertension, diabetes, seizure disorder, possible Crohn's, who presented to with generalized weakness. He reports that he has been going downhill over the past year. He has difficulty and pain with swallowing and is not able to eat much. He reports having nausea and vomiting with hematemesis. He reports having diarrhea and constipation with hematochezia. He reports having chills. He reports abdominal pain diffusely. He denies any chest pain or shortness of breath. He has not been on any medications for at least the past year. He has not been able to afford his medications and does not currently have a primary care physician. He reports that he had previously been prescribed Asacol for his Crohn's. He is not sure of the last time he had a colonoscopy. He has not been taking his antiseizure medications either. He does not drink alcohol. He denies any illicit drug use. Source: patient, family Exam Limitations: no limitations Date Seen 09/08/19 Time Seen by a Provider: 10:50 Attending Physician Alice Crum MD PCP No,Local Physician Referring Physician Date of Admission Sep 07, 2019 at 19:48 Home Medications & Allergies Home Medications Reviewed patient Home Medication Reconciliation performed by pharmacy medication reconciliations mechanical design technician and/or nursing. Patients Allergies have been reviewed. Allergies Allergies Coded Allergies aspirin (Unverified Adverse Reaction, Severe, swelling throat, 11/05/18) Past Mvpegor-Kihfkt-Lwtzcq Hx Past Med/Social Hx: Reviewed Nursing Past Med/Soc Hx Patient Social History Alcohol Use: Denies Use Recreational Drug Use: No Type Used: Cigarettes 2nd Hand Smoke Exposure: Yes Recent Foreign Travel: No Contact w/other who traveled: No Recent Hopitalizations: No Recent Infectious Disease Expo: No Seasonal Allergies Seasonal Allergies: No Past Medical History Surgeries: Gallbladder Cardiac: High Cholesterol, Hypertension Neurological: Neuropathy, Seizure Disorder Gastrointestinal: Gastroesophageal Reflux Endocrine: Diabetes, Insulin dep Psychosocial: Anxiety, Depression History of Blood Disorders: No Review of Systems Constitutional: chills, malaise, weakness, weight loss EENTM: throat pain Respiratory: no symptoms reported Cardiovascular: no symptoms reported Gastrointestinal: abdominal pain, constipation, diarrhea, dysphagia, hematemesis, nausea, vomiting Genitourinary: no symptoms reported Musculoskeletal: no symptoms reported Skin: no symptoms reported Psychiatric/Neurological: No Symptoms Reported Physical Exam Physical Exam Vital Signs Vital Signs - First Documented 09/07/19 09/07/19 16:19 19:55 Temp 37.0 Pulse 107 Resp 22 B/P (MAP) 153/105 (121) Pulse Ox 96 O2 Delivery Room Air Capillary Refill : Less Than 3 SecondsLess Than 3 Seconds Height, Weight, BMI Height: 6'0" Weight: 148lbs. oz. 67.066655yf; 17.69 BMI Method:Stated General Appearance: No Apparent Distress, Chronically ill, Cachetic HEENT: PERRL/EOMI, Other (Poor dentition) Neck: Normal Inspection, Supple Respiratory: Lungs Clear, Normal Breath Sounds, No Respiratory Distress Cardiovascular: Regular Rate, Rhythm, No Edema, No Murmur Gastrointestinal: Normal Bowel Sounds, Soft, Tenderness, Other (Scaphoid) Extremity: Normal Inspection, Non Tender, No Pedal Edema Neurologic/Psychiatric: Alert, Oriented x3, No Motor/Sensory Deficits, Normal Mood/Affect Skin: Normal Color, Warm/Dry Results Results/Procedures Labs Laboratory Tests 09/07/19 16:33 09/08/19 04:47 Patient resulted labs reviewed. Imaging: Reviewed Imaging Report Assessment/Plan Admission Diagnosis Failure to thrive Admission Status: Observation Assessment and Plan Failure to thrive in adult Possible Crohn's Severe protein calorie malnutrition Dysphagia Possible colonic mass CT abdomen with questionable enteritis and possible transverse colon mass Surgery consulted, appreciate assistance Will likely require endoscopic evaluation Consult nutrition with malnutrition Seizures Not taking meds at home Loaded with IV Keppra Continue oral Keppra Ativan as needed for breakthrough seizures Type II diabetes mellitus Levemir Sliding scale insulin Hypertension Hydralazine as needed DVT prophylaxis: Lovenox Diagnosis/Problems Diagnosis/Problems (1) Severe protein-calorie malnutrition Status: Chronic (2) Mass of colon Status: Acute (3) Enteritis Status: Acute (4) Dysphagia Status: Chronic (5) Failure to thrive in adult Status: Chronic (6) Seizure disorder Status: Acute Clinical Quality Measures DVT/VTE Risk/Contraindication: Risk Factor Score Per Nursin RFS Level Per Nursing on Admit: 4+=Very High ALICE CRUM MD Sep 08, 2019 12:45
[2019-09-08] MEDS: LEVETIRACETAM 1,000 MG (KEPPRA) TABLET PO ONE ×2 (12:50→12:54)
--- NOTE | 2019-09-08 12:50 | NUR ---
ATTEMPTED TO GIVE PT KEPRA PO ORDERED. THREW PILL AT THIS ARCHITECTURAL MANAGER STATING "I CAN'T FUCKING SWALLOW, HOW AM I SUPPOSED TO TAKE THIS?" RADAMES MITCHELL NOTIFIED AND KEGIOVANNI CHANGED TO IV.
--- NOTE | 2019-09-08 13:30 | NUR ---
DR. ZAMBRANO HERE AND SPOKE WITH PT. STATES PT REQUESTING TO GO AMA. PAPER TAKEN TO PT ROOM. PT CUSSING AND YELLING AT MYSELF AND SO IN ROOM. WANTING FOOD. INFORMED THAT WAS GOING TO LET HIM HAVE CLEAR LIQUIDS. BECAME VERBALLY BELIGERENT AND INFORMED HIM THAT WE WERE A ZERO TOLERANCE FACILITY. NURSING CONVEYOR MECHANIC NASIMA ON FLOOR. SPOKE WITH ATTENDING DR. CRUM AND CONCURS THAT WOULD HAVE TO REMAIN ON CLEAR LIQUID DIET AT THIS TIME. NASIMA NURSING CONVEYOR MECHANIC SPOKE WITH PT AND REMOVED IV. PT LEFT AMA. PPD ARRRIVED TO FLOOR AFTER PT HAD LEFT.
--- NOTE | 2019-09-08 13:40 | NUR ---
in room to speak with pt. pt demanding food. belligerent. using foul language with staff et family members. attempted to reinforce with pt that he needs clear liquid diet to prep for testing tomorrow. pt cont angry, yelling at staff. refuses to stay if he can't have food. dr fields et dr walker aware of situation. pt agrees to sign out ama. papers signed. pt refused wheelchair. gait unsteady. this rn et lesley rn remain at pt's side along with SO. pt ambulating in hallway across from pharmacy, gait very unsteady. this RN caught pt et guided him to the floor. he fell forward, no significant impact, but he laid face down on the floor for a couple of minutes, non-verbal. not responding to SO or staff. pt more alert, assisted to wheelchair et assisted to ER.
--- NOTE | 2019-09-08 13:55 | Consultation - Hospitalist ---
[facility] 09/08/19 1354: HPI History of Present Illness: HPI/Chief Complaint Jass Ward is a 44-year-old male with past medical history of hypertension, diabetes, seizure disorder, possible Crohn's, who presented to with generalized weakness. He reports that he has been going downhill over the past year. He has difficulty and pain with swallowing and is not able to eat much. He reports having nausea and vomiting with hematemesis. He reports having diarrhea and constipation with hematochezia. He reports having chills. He reports abdominal pain diffusely. He denies any chest pain or shortness of breath. He has not been on any medications for at least the past year. He has not been able to afford his medications and does not currently have a primary care physician. He reports that he had previously been prescribed Asacol for his Crohn's. He is not sure of the last time he had a colonoscopy. He has not been taking his antiseizure medications either. He does not drink alcohol. He denies any illicit drug use. Surgery was consulted for dysphagia, epigastric pain, and suspicious point in the transverse colon that was found on CT. Upon talking with the patient this morning at 1130, he seemed willing to undergo the appropriate diagnostic testing, EGD was agreed upon, as well as any other necessary tests. He states that he has the desired to get his medical care back under control and find a solution for his dysphagia. The patient states that he constantly has a metallic taste in his mouth, epigastric pain, progressive dysphagia, and weight loss exceeding 50 lbs due to his inability to eat. He did state that he had a colonoscopy four years ago for melena, but didn't state what was found. He is currently unable to afford medications, and is only able to use Sherri-Adams cold and flu + acid control for his symptoms, using it frequently to help his symptoms, but stating that it has become less effective. He states that his pain is a 10/10 at its worst and occasionally radiates to his back. He denies and hematemesis, but states that he experiences nausea, vomiting, constipation and diarrhea. Upon seeing the patient with Dr. Zambrano at 1322, he was belligerent. Plan of possible EGD and colonoscopy were recommended for the patient, he refused any further treatment at that time. Source: patient, family Exam Limitations: no limitations Date Seen 09/08/19 Attending Physician Alice Babcock MD PCP No,Local Physician Referring Physician Date of Admission Sep 07, 2019 at 19:48 Home Medications & Allergies Home Medications Reviewed patient Home Medication Reconciliation performed by pharmacy medication reconciliations vehicle glass technician and/or nursing. Patients Allergies have been reviewed. Allergies Allergies Coded Allergies aspirin (Unverified Adverse Reaction, Severe, swelling throat, 11/05/18) Past Veiobgo-Vgtdvc-Qxqerl Hx Past Med/Social Hx: Reviewed Nursing Past Med/Soc Hx Patient Social History Marrital Status: Number of Children: 2 Number of living children: 2 Employed/Student: unemployed Alcohol Use: Denies Use Recreational Drug Use: No Smoking Status: Current Everyday Smoker (Smoke 1 cigarette a day; 30 pack year history prior to two years ago) Cigaretts per day: 1 Type Used: Cigarettes 2nd Hand Smoke Exposure: Yes Recent Foreign Travel: No Contact w/other who traveled: No Recent Hopitalizations: No Recent Infectious Disease Expo: No Immunizations Up To Date Tetanus Booster (TDap): Unknown Seasonal Allergies Seasonal Allergies: No Past Medical History Surgeries: Gallbladder Cardiac: High Cholesterol, Hypertension Neurological: Neuropathy, Seizure Disorder Gastrointestinal: Gastroesophageal Reflux Musculoskeletal: Chronic Back Pain Endocrine: Diabetes, Insulin dep Are Your Blood Sugars Over 250: Yes (admission was 304 ) HEENT: Dysphagia Loss of Vision: Denies Hearing Impairment: Denies Psychosocial: Anxiety, Depression Several MRSA Positive Abscesses History of Blood Disorders: No Family History Cancer (Mother: Bone Cancer; Father: unspecified cancer), Diabetes (Mother) Review of Systems Constitutional: chills; No fever; malaise, weakness, weight loss (50 lbs past year ) EENTM: throat pain (swallowing food illicits pain ); No hearing loss, No blurred vision, No vision loss Respiratory: cough, short of breath Cardiovascular: chest pain (Acid Reflux ); No palpitations, No syncope Gastrointestinal: abdominal pain (Epigastric ), constipation, diarrhea, dysphagia; No hematemesis; heartburn, nausea, vomiting Genitourinary: No discharge; dysuria; No frequency, No hematuria, No hesitancy; other Musculoskeletal: back pain, muscle stiffness (In Upper and Lower Extremities ) Skin: other Psychiatric/Neurological: Anxiety, Depressed, Numbness, Weakness Physical Exam Physical Exam Vital Signs Vital Signs - First Documented 09/07/19 09/07/19 16:19 19:55 Temp 37.0 Pulse 107 Resp 22 B/P (MAP) 153/105 (121) Pulse Ox 96 O2 Delivery Room Air Capillary Refill : Less Than 3 SecondsLess Than 3 Seconds Height, Weight, BMI Height: 6'0" Weight: 148lbs. oz. [id number]; 17.69 BMI Method:Stated General Appearance: Chronically ill, Cachetic, Moderate Distress Eyes: Bilateral Eye PERRL, Bilateral Eye EOMI HEENT: PERRL/EOMI, Other (Poor dentition) Neck: Normal Inspection, Supple Respiratory: Lungs Clear, Normal Breath Sounds, No Accessory Muscle Use, No R espiratory Distress Cardiovascular: Regular Rate, Rhythm, No Edema, No Gallop, No Murmur, Normal Peripheral Pulses Gastrointestinal: Normal Bowel Sounds, No Organomegaly, No Pulsatile Mass, Soft, Tenderness, Other (Scaphoid) Extremity: Normal Capillary Refill, Normal Inspection, Non Tender, No Calf Tenderness, No Pedal Edema Neurologic/Psychiatric: Alert, Oriented x3, No Motor/Sensory Deficits, Normal Mood/Affect, dancing master II-XII Norm as Tested Skin: Normal Color, Warm/Dry Results Results/Procedures Labs Laboratory Tests 09/07/19 16:33 09/08/19 04:47 Patient resulted labs reviewed. Imaging: Reviewed Imaging Report Assessment/Plan Assessment and Plan Assess & Plan/Chief Complaint Progressive Dysphagia: - Start PPI, H2 abilio, and Carafate - EGD outpatient possible biopsy - Colonoscopy for suspicious CT finding Malnutrition: - IVF NS 100 mL/hr - Liquid Diet and progress as tolerated - Nutrition consult DM: - Restart insulin regiment and oral medication - AccuStick postprandial 2 hours - Diabetic Diet and education Seizure Disorder: - Restart Keppra and seizure maintenance. Clinical Quality Measures DVT/VTE Risk/Contraindication: Risk Factor Score Per Nursin RFS Level Per Nursing on Admit: 4+=Very High DANIKA ZAMBRANO DO 09/08/19 1417: HPI History of Present Illness: HPI/Chief Complaint When I saw pt he became very belligerent, stated he wasn't doing anything but eat and didn't want to answer any questions. Date Seen 09/08/19 at 13:[address] Oneill Past Apyhylb-Jiudrq-Dmgfth Hx Past Medical History Surgeries: Gallbladder Currently Using CPAP: No Currently Using BIPAP: No Cardiac: Hypertension Gastrointestinal: Crohns Disease Family History Cancer (Mother: Bone Cancer; Father: unspecified cancer), Diabetes (Mother) Physical Exam Physical Exam General Appearance: No Apparent Distress, Thin HEENT: Moist Mucous Membranes, Other (Poor dentition) Neck: Normal Inspection, Supple Respiratory: Lungs Clear, Normal Breath Sounds, No Accessory Muscle Use Cardiovascular: Regular Rate, Rhythm, No Murmur Gastrointestinal: Normal Bowel Sounds, Soft, Tenderness, Other (Scaphoid) Skin: Normal Color, Warm/Dry, Tattoos/Piercings Lymphatic: No Adenopathy (neck, axilla or groin) Assessment/Plan Assessment and Plan Assess & Plan/Chief Complaint Dysphagia Colon Mass Hx of Crohns Pt stated he wanted to eat and that was it. I went over his options; 1) do not ayde 2) start liquid diet and prep with plan for EGD and colonoscopy tomorrow 3) liquid diet (because of dysphagia) and schedule endoscopy as an outpt. Pt signed out AMA Supervisory-Addendum Brief Verification & Attestation Participated in pt care: history, MDM, physical Personally performed: exam, history, MDM Care discussed with: Medical Student Procedures: n/a Verification and Attestation of Medical Student E/M Service A medical student performed and documented this service. I then reviewed and verified all information documented by the medical student and made modifications to such information, when appropriate. I personally performed a physical exam, medical decision making and then discussed any differences between the notes and made revisions as necessary to create one note. Danika Zambrano , 09/08/19 , 14:18 [facility] Sep 08, 2019 13:54 DANIKA ZAMBRANO DO Sep 08, 2019 14:17
--- NOTE | 2019-09-08 14:43 | Discharge Summary ---
Discharge Summary Hospital Course Was the Problem List Reviewed?: Yes Problems/Dx: (1) Severe protein-calorie malnutrition Status: Chronic (2) Mass of colon Status: Acute (3) Enteritis Status: Acute (4) Dysphagia Status: Chronic (5) Failure to thrive in adult Status: Chronic (6) Seizure disorder Status: Acute Hospital Course Date of Admission: Sep 07, 2019 at 19:48 Admission Diagnosis : Failure to thrive in adult Family Physician/Provider: No,Local Physician Date of Discharge: 09/08/19 Discharge Diagnosis: Failure to thrive in adult Hospital Course: Jass Ward is a 44-year-old male who presented with weakness and was admitted with failure to thrive. He has had significant weight loss over the past year. He has many complaints including dysphagia, diarrhea, abdominal pain, hematemesis, and hematochezia. He had a CT abdomen which revealed a possible transverse colon mass. He reports that he has a history of Crohn's disease but has not been on any medications as he cannot afford them. He is also not following with her primary care physician. General surgery was consulted and plan to do an endoscopic evaluation. The patient was upset because he wanted to eat and decided to leave AGAINST MEDICAL ADVICE. His course was complicated by a seizure for which he has not been taking his antiepi leptic drugs at home and he was given Keppra while inpatient. Labs and Pending Lab Test: Laboratory Tests 09/07/19 16:33: White Blood Count 13.4H, Red Blood Count 4.74, Hemoglobin 14.3, Hematocrit 41, Mean Corpuscular Volume 86, Mean Corpuscular Hemoglobin 30, Mean Corpuscular Hemoglobin Concent 35, Red Cell Distribution Width 12.2, Platelet Count 545H, Mean Platelet Volume 9.6, Neutrophils (%) (Auto) 67, Lymphocytes (%) (Auto) 22, Monocytes (%) (Auto) 8, Eosinophils (%) (Auto) 2, Basophils (%) (Auto) 1, Neutrophils # (Auto) 9.0H, Lymphocytes # (Auto) 2.9, Monocytes # (Auto) 1.1H, Eosinophils # (Auto) 0.3, Basophils # (Auto) 0.1, Sodium Level 133L, Potassium Level 4.1, Chloride Level 98, Carbon Dioxide Level 25, Anion Gap 10, Blood Urea Nitrogen 17, Creatinine 0.59L, Estimat Glomerular Filtration Rate > 60, BUN/Creatinine Ratio 29, Glucose Level 304H, Calcium Level 9.3, Corrected Calcium 9.5, Phosphorus Level 3.5, Magnesium Level 1.9, Total Bilirubin 0.2, Aspartate Amino Transf (AST/SGOT) 7, Alanine Aminotransferase (ALT/SGPT) 9, Alkaline Phosphatase 98, Total Protein 6.6, Albumin 3.7, Lipase 41 09/07/19 17:55: Urine Color YELLOW, Urine Clarity CLEAR, Urine pH 7.5, Urine Specific [place] 1.015L, Urine Protein NEGATIVE, Urine Glucose (UA) 3+H, Urine Ketones NEGATIVE, Urine Nitrite NEGATIVE, Urine Bilirubin NEGATIVE, Urine Urobilinogen 0.2, Urine Leukocyte Esterase NEGATIVE, Urine RBC (Auto) NEGATIVE, Urine RBC NONE, Urine WBC NONE, Urine Squamous Epithelial Cells RARE, Urine Crystals NONE, Urine Bacteria NONE, Urine Casts NONE, Urine Mucus NEGATIVE, Urine Culture Indicated NO 09/07/19 18:38: Lactic Acid Level 0.56 09/08/19 04:47: White Blood Count 11.6H, Red Blood Count 4.49, Hemoglobin 13.3, Hematocrit 38L, Mean Corpuscular Volume 85, Mean Corpuscular Hemoglobin 30, Mean Corpuscular Hemoglobin Concent 35, Red Cell Distribution Width 12.9, Platelet Count 482H, Mean Platelet Volume 9.6, Neutrophils (%) (Auto) 61, Lymphocytes (%) (Auto) 28, Monocytes (%) (Auto) 9, Eosinophils (%) (Auto) 3, Basophils (%) (Auto) 0, Neutrophils # (Auto) 7.1, Lymphocytes # (Auto) 3.2, Monocytes # (Auto) 1.0, Eosi nophils # (Auto) 0.3, Basophils # (Auto) 0.1, Sodium Level 136, Potassium Level 3.7, Chloride Level 104, Carbon Dioxide Level 21, Anion Gap 11, Blood Urea Nitrogen 13, Creatinine 0.80, Estimat Glomerular Filtration Rate > 60, BUN/Creatinine Ratio 16, Glucose Level 235H, Calcium Level 8.4L, Thyroid Stimulating Hormone (TSH) 0.49, HIV (1&2) Ag and Ab Screen Referral [Pending] 09/08/19 11:54: Glucometer 113H 09/08/19 13:05: Erythrocyte Sedimentation Rate 9, Mean Blood Glucose [Pending], Hemoglobin A1c [Pending], Iron Level [Pending], Total Iron Binding Capacity [Pending], Unsa turated Iron Binding Capacity [Pending], Transferrin % Saturation [Pending], Ferritin [Pending], C-Reactive Protein High Sensitivity 0.14, Vitamin B12 Level [Pending], Vitamin D 25-Hydroxy [Pending] Home Meds Active [place] 5-325 Tablet (Hydrocodone/Acetaminophen) 1 Each Tablet 1 Tab PO Q4-6HR MDD 10 TABS 5 Days Hydrocodone/Acetaminophen 5/325mg Tablet (Acetaminophen/Hydrocodone Bitart) 1 Tab Tab 1 Each PO Q4-6HR PRN MDD 10 3 Days Hydrocodone/Acetaminophen 5/325mg Tablet (Acetaminophen/Hydrocodone Bitart) 1 Tab Tab 1 Each PO Q4-6HR PRN MDD 10 3 Days Reported Levemir (Insulin Determir) 1,000 Units/10 Ml Soln 15 Units SQ BID Novolog (Insulin Aspart) 100 Unit/1 Ml Susp 8 Unit SQ BIDAC Senna (Sennosides) 8.6 Mg Tablet 8.6 Mg PO BID PRN Flomax (Tamsulosin HCl) 0.4 Mg Cap 0.4 Mg PO DAILY Gabapentin 100 Mg Capsule 100 Mg PO Q8H [Phenytoin] Cyclobenzaprine HCl 10 Mg Tablet 10 Mg PO Q8H PRN Cymbalta (Duloxetine HCl) 30 Mg Capsule.dr 30 Mg PO DAILY Metformin HCl 500 Mg Tablet 500 Mg PO BID Lisinopril 20 Mg Tablet 20 Mg PO HS Acid Loom Operator (RANITIDINE) (Ranitidine HCl) 150 Mg Tablet 300 Mg PO DAILY Meloxicam 15 Mg Tablet 15 Mg PO DAILY Atorvastatin Calcium 20 Mg Tablet 20 Mg PO DAILY Assessment/Pt Instructions Patient left AGAINST MEDICAL ADVICE Discharge Planning: <30 minutes discharge planning Discharge Instructions Pneumonia Vaccine Order Indica: Yes Consultations General surgery Discharge Physical Examination Vital Signs Vital Signs Date Time Temp Pulse Resp B/P (MAP) Pulse Ox O2 Delivery O2 Flow Rate FiO2 09/08/19 12:16 36.6 91 20 181/118 (139) 97 Room Air Allergies: Coded Allergies: aspirin (Unverified Adverse Reaction, Severe, swelling throat, 11/05/18) Discharge Summary Date of Admission Sep 07, 2019 at 19:48 Date of Discharge Sep 08, 2019 at 13:57 Discharge Date: Sep 08, 2019 Discharge Time: 13:57 Admission Diagnosis Failure to thrive Consults/Procedures [facility] [place] General surgery Discharge Diagnosis Failure to thrive in adult (1) Severe protein-calorie malnutrition Status: Chronic (2) Mass of colon Status: Acute (3) Enteritis Status: Acute (4) Dysphagia Status: Chronic (5) Failure to thrive in adult Status: Chronic (6) Seizure disorder Status: Acute Clinical Quality Measures DVT/VTE Risk/Contraindication: Risk Factor Score Per Nursin RFS Level Per Nursing on Admit: 4+=Very High BERNARDO CRUM MD Sep 08, 2019 14:43
[2019-09-08] MEDS ORDERED: LEVETIRACETAM 1,000 MG (KEPPRA) TABLET PO SCH (21:00)
--- OUTSIDE RECORDS SUMMARY | 2019-09-11 02:05 | XMS REPORT ---
Author Author Jass Merrill Organization [facility] Address [address] [place] [address] Care Team Providers Care Probation Manager Name Role Phone CATHY Merrill Unavailable PROBLEMS Type Condition ICD9-CM Code [id number] Code Onset Dates Condition S tatus SNOMED Code Problem Hematuria, unspecified R31.9 October, 0 94167144 Problem Staph skin infection 686.9 Mar, 0 311902774 Problem Epigastric pain R10.13 October, 0 7 7025278 Problem Diabetes mellitus type II, uncontrolled 250.02 Jun, 0 197389083 Problem Diverticulosis 562.10 May, 0 39 9275265 Problem Chronic abdominal pain 789.00 October, 0 318451070 Problem Epigastric pain 789.06 October, 0 7 6061779 Problem Pain in joint, lower leg M25.569 10 Aug, 2010 0 176923250 Problem Seizure disorder G40.909 October, 0 759566033 Problem Cigarette nicotine dependence, uncomplicated F17.2 10 Jan, 0 633950314 Problem Abscess L02.91 Aug, 0 0426318 6 Problem Tobacco use Z72.0 Jan, 0 95567 3000 Problem HTN (hypertension) I10 10 Aug, 2010 0 58351834 Problem Seizure disorder 345.90 October, 0 361219764 Problem HTN (hypertension) 401.9 10 Aug, 2010 0 57395663 Problem Personal history of noncompl iance with medical treatment, presenting hazards to health V15.81 Active 961677225 Problem Abscess 682.9 Aug, 0 5790158 6 Problem Pain in joint, lower leg 719.46 10 Aug, 2010 0 472209343 Problem Nausea with vomiting 787.01 October, 0 75101622 Problem Diabetes with neurological m anifestations, type II or unspecified type, not stated as uncontrolled 250.60 Active 4 77546222 Problem Cellulitis L03.90 03 Mar, 2011 0 829780 006 Problem Hematuria, unspecified 599.70 October, 0 98712751 Problem Leukocytosis D72.829 October, 0 1115 02184 Problem Diverticulosis K57.90 May, 0 39 4445892 Problem Diabetes mellitus type II, uncontrolled E11.65 Jun, 0 533702528 Problem Staple removal V58.32 Dec, 0 30 522484 Problem Uncontrolled type 2 diabetes mellitus with hyperglycemia E11.65 Active 189909566 Problem Cellulitis 682.9 Mar, 0 950363 006 Problem Diabetic polyneuropathy associated with type 2 d iabetes mellitus E11.42 Active 49824696 Problem Leukocytosis 288.60 October, 0 1115 71969 Problem Tobacco use 305.1 Jan, 0 47832 3000 Problem Staph skin infection L08.9 Mar, 0 036375563 Problem Chronic abdominal pain R10.9 October, 0 821481342 Problem Nausea with vomiting R11.2 October, 0 42208673 Problem Cigarette nicotine dependence, uncomplicated 305.1 Jan, 0 480128308 ALLERGIES No Information ENCOUNTERS Encounter Location Date Diagnosis [address] [place] [address] Aug, [address] [place] [address] Aug, Uncontrolled type 2 diabetes mellitus with hyperglycemia E11.65 and Diabetic polyneuropathy associated with type 2 diabetes mellitus E11.42 [facility] [place] [address] [id number] [place] [address] Jun, [facility] [place] [address] [id number] [place] [address] Mar, [facility] [place] [id number] [place] [address] 14 Oct, 2014 [facility] [place] [address] [id number] [place] [address] Oct, [facility] [place] [address] [id number] [place] [address] Aug, [facility] [place] [address] [facility] [id number] [place] [address] Jul, [facility] [place] [address] [facility] [id number] [place] [address] Jul, IMMUNIZATIONS No Known Immunizations SOCIAL HISTORY Never Assessed REASON FOR VISIT PLAN OF CARE VITAL SIGNS MEDICATIONS Unknown Medications RESULTS No Results PROCEDURES No Known procedures INSTRUCTIONS MEDICATIONS ADMINISTERED No Known Medications MEDICAL (GENERAL) HISTORY Type Description Date Medical History DM 2 Medical History HTN Medical History seizures Medical History neuropathy Medical History depression Medical History Crohns Medical History GERD Medical History sleep disorder Medical History broken ribs Surgical History MRSA, wound, cut out infection Surgical History colonoscopy Surgical History cholecystectomy Surgical History EGD Hospitalization History surgeries Hospitalization History MRSA
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
== END 2019-09-08 13:57 | disposition left against medical advice (07) ==
LOC: EDUNIT# 15:25 → ER FS 15:28 → 4TH 19:48
PROVIDERS: ADMIT Internal Medicine; ATTEND Internal Medicine
DX: R62.7 Adult failure to thrive (principal); E43 Unspecified severe protein-calorie malnutrition; K63.89 Other specified diseases of intestine; K52.9 Noninfective gastroenteritis and colitis, unspecified; R13.10 Dysphagia, unspecified; G40.909 Epilepsy, unspecified, not intractable, without status epilepticus; E11.40 Type 2 diabetes mellitus with diabetic neuropathy, unspecified; K21.9 Gastro-esophageal reflux disease without esophagitis; I10 Essential (primary) hypertension; E78.00 Pure hypercholesterolemia, unspecified; F41.9 Anxiety disorder, unspecified; F32.9 Major depressive disorder, single episode, unspecified; Z79.4 Long term (current) use of insulin; Z79.891 Long term (current) use of opiate analgesic; Z79.899 Other long term (current) drug therapy; Z88.6 Allergy status to analgesic agent; Z68.1 Body mass index [BMI] 19.9 or less, adult; Z87.19 Personal history of other diseases of the digestive system
CPT/HCPCS: 36415; 71046; 74177; 80048; 80053; 81000; 82306; 82607; 82728; 82962; 83036; 83540; 83605; 83690; 83735; 84100; 84443; 85025; 85652; 86141; 86703; G0378

== ENCOUNTER 2019-09-08 14:04 | Inpatient (IN) | payer SELFPAY ==
[~2019-09-08] VITALS: Ht 182.9 cm; Wt 62.8 kg
[2019-09-08] MEDS ORDERED: LACTATED RINGERS 1,000 ML IV ONE (14:30)
--- NOTE | 2019-09-08 14:32 | NUR ---
Pt attempts to leave AMA et refuses to sign AMA papers. This RN dc'd iv to L a/c. Family member, provider, casting house laborer, et this RN attempt to de-escalate pt. Pt amb to back to room #5 with staff assist et agrees to further evaluation et tx.
[2019-09-08 14:38] LABS: BASOPHILS # (AUTO) 0.1 10^3/uL (0.0-0.1); BASOPHILS % (AUTO) 1 % (0-10); EOSINOPHILS # (AUTO) 0.2 10^3/uL (0.0-0.3); EOSINOPHILS % (AUTO) 1 % (0-10); HEMATOCRIT 43 % (40-54); HEMOGLOBIN 15.2 G/DL (13.3-17.7); LYMPHOCYTES # (AUTO) 3.2 X 10^3 (1.0-4.0); LYMPHOCYTES % (AUTO) 19 % (12-44); MEAN CORPUSCULAR HEMOGLOBIN 30 PG (25-34); MEAN CORPUSCULAR HGB CONC 36 G/DL (32-36); MEAN CORPUSCULAR VOLUME 84 FL (80-99); MEAN PLATELET VOLUME 10.1 FL (7.4-10.4); MONOCYTES # (AUTO) 1.3 X 10^3 (0.0-1.0); MONOCYTES % (AUTO) 7 % (0-12); NEUTROPHILS # (AUTO) 12.7 X 10^3 (1.8-7.8); NEUTROPHILS % (AUTO) 73 % (42-75); PLATELET COUNT 556 10^3/uL (130-400); WHITE BLOOD COUNT 17.5 10^3/uL (4.3-11.0)
[2019-09-08] MEDS ORDERED: LORazepam INJ 2 MG/ML (ATIVAN) VIAL ONE (14:41)
[2019-09-08] MEDS ORDERED: LORazepam INJ 2 MG/ML (ATIVAN) VIAL IVP ONE (14:45)
[2019-09-08] MEDS ORDERED: NICOTINE 21 MG (NICODERM) PATCH TD ONE (14:45)
[2019-09-08 14:50] LABS: ALANINE AMINOTRANSFERASE 8 U/L (0-55); ALBUMIN 3.8 GM/DL (3.2-4.5); ALKALINE PHOSPHATASE 81 U/L (40-136); BILIRUBIN,TOTAL 0.4 MG/DL (0.1-1.0); BUN/CREATININE RATIO 15; CARBON DIOXIDE 20 MMOL/L (21-32); CHLORIDE 103 MMOL/L (98-107); CREATININE SERUM 0.75 MG/DL (0.60-1.30); GFR ESTIMATED > 60; GLUCOSE 103 MG/DL (70-105); POTASSIUM 3.5 MMOL/L (3.6-5.0); SODIUM 136 MMOL/L (135-145); TOTAL PROTEIN 6.6 GM/DL (6.4-8.2)
[2019-09-08 15:00] LABS: BAND NEUTROPHILS 0 %; BASOPHILS % (MANUAL) 0 %; EOSINOPHILS % (MANUAL) 1 %; LYMPHOCYTES % (MANUAL) 25 %; MONOCYTES % (MANUAL) 5 %; NEUTROPHILS % (MANUAL) 69 %; RBC MORPH NORMAL
--- NOTE | 2019-09-08 15:53 | NUR ---
1553: Called to pt room by family members r/t seizure like activity. Upon entering room, pt in position with clenched extremities. 1559: Pt remains in position. Pt alert to person, place, time, et situation with no distress noted. 3mm PERRLA. Provider in room with pt.
[2019-09-08] MEDS: LORazepam INJ 2 MG/ML (ATIVAN) VIAL IVP PRN (16:02)
--- NOTE | 2019-09-08 16:08 | ED General ---
General Chief Complaint: Dizziness/Syncope Stated Complaint: SYNCOPE, COLON MASS, AGITATION Nursing Triage Note: Pt assisted to room #6 via w/c by laborer hide house et [place] police dept. grease refining supervisor reports pt was admitted to #416 awaiting EGD surgical procedure to be preformed by Dr. Harper on this day. grease refining supervisor reports pt became aggressive and belligerent d/t clear liquid diet et signed out AMA. While ambulating out of room #416 pt experienced syncopal episode and was assisted to floor by loco sup. RN. Upon arrival pt a&ox4 with hostile et agitated demeanor noted. Provider in room during triage. Nursing Sepsis Screen: No Definite Risk Source of Information: Patient, Family Exam Limitations: No Limitations History of Present Illness Date Seen by Provider: Sep 08, 2019 Time Seen by Provider: 14:04 Initial Comments Patient here with nursing curing room supervisor after he left AMA from the floor a few minutes earlier. He is apparently admitted for surgical evaluation for mass in his transverse colon as well as seizure disorder. He was quite angry because he could not eat and got quite belligerent on the floor per nursing report and then decided to leave AMA. He refused wheelchair or assistance and was walking out when he was getting weaker and weaker and ultimately had near syncopal episode. He was guided to the ground by the nurse. No injury and nothing had a hard on the syncopal episode. He was brought to the emergency department for further evaluation. In review of his records, he was admitted through [facility] and had CT scan done. There is question of Crohn's disease and then mass in the transverse colon. Also had some difficulty with swallowing. Patient is still quite agitated. The nurses were unable to start IV and he ultimately decided to leave again but made it about 5 feet before he became quite weak again. His girlfriend was able to talk him into staying and patient was unable to ambulate out anyway. Ultimately placed back in bed and we reestablished line. Patient is quite agitated and wants to smoke. He ultimately relented due to weakness with the understanding that we would treat anxiety with Ativan. He denies new complaints from history this morning or last night. Timing/Duration: 1/2 Hour Severity: Moderate, Severe Modifying Factors: worse with Movement Associated Systoms: No Fever/Chills; Syncope, Weakness Allergies and Home Medications Allergies Coded Allergies: aspirin (Unverified Adverse Reaction, Severe, swelling throat, 11/05/18) Home Medications Atorvastatin Calcium 20 Mg Tablet, 20 MG PO DAILY, (Reported) Cyclobenzaprine HCl 10 Mg Tablet, 10 MG PO Q8H PRN for SPASMS, (Reported) Duloxetine HCl 30 Mg Capsule.dr, 30 MG PO DAILY, (Reported) Gabapentin 100 Mg Capsule, 100 MG PO Q8H, (Reported) Hydrocodone Bit/Acetaminophen 1 Tab Tab, 1 EACH PO Q4-6HR PRN for PAIN-MODERATE Prescribed by: MIKEY VIVAS on 11/05/18 1413 Hydrocodone Bit/Acetaminophen 1 Tab Tab, 1 EACH PO Q4-6HR PRN for PAIN-MODERATE Prescribed by: MIKEY VIVAS on 11/05/18 1415 Hydrocodone/Acetaminophen 1 Each Tablet, 1 TAB PO Q4-6HR Prescribed by: GUILLE CASTELAN on 03/05/19 1359 Insulin Aspart 100 Unit/1 Ml Susp, 8 UNIT SQ BIDAC, (Reported) Insulin Determir 1,000 Units/10 Ml Soln, 15 UNITS SQ BID, (Reported) Lisinopril 20 Mg Tablet, 20 MG PO HS, (Reported) Meloxicam 15 Mg Tablet, 15 MG PO DAILY, (Reported) Metformin HCl 500 Mg Tablet, 500 MG PO BID, (Reported) Ranitidine HCl 150 Mg Tablet, 300 MG PO DAILY, (Reported) Sennosides 8.6 Mg Tablet, 8.6 MG PO BID PRN for CONSTIPATION-1ST LINE, (Reported) Tamsulosin HCl 0.4 Mg Cap, 0.4 MG PO DAILY, (Reported) Patient Home Medication List Home Medication List Reviewed: Yes Review of Systems Review of Systems Constitutional: see HPI; No chills, No fever; weakness EENTM: no symptoms reported Respiratory: no symptoms reported Cardiovascular: see HPI Gastrointestinal: see HPI, abdominal pain Psychiatric/Neurological: See HPI, Emotional Problems; Denies Headache; Weakness Difficult review of systems due to patient's compliance with answering questions. Past Xeyugvu-Rjgkhd-Qhqafc Hx Past Med/Social Hx: Reviewed Nursing Past Med/Soc Hx Patient Social History Alcohol Use: Denies Use Recreational Drug Use: Yes Drug of Choice: HX METH Smoking Status: Current Everyday Smoker Type Used: Cigarettes 2nd Hand Smoke Exposure: Yes Recent Foreign Travel: No Contact w/Someone Who Travel: No Recent Infectious Disease Expo: No Recent Hopitalizations: No Seasonal Allergies Seasonal Allergies: No Past Medical History Surgeries: Yes (Abscess buttocks-MRSA, jaw fx) Gallbladder Respiratory: No Cardiac: Yes High Cholesterol, Hypertension Neurological: Yes Neuropathy, Seizure Disorder Genitourinary: No Gastrointestinal: Yes Gastroesophageal Reflux Musculoskeletal: Yes (chronic pain/neuropathy also from "feet to shoulders") Endocrine: Yes Diabetes, Insulin dep HEENT: No Cancer: No Psychosocial: Yes Anxiety, Depression Integumentary: Yes (MRSA buttocks ) Blood Disorders: No Family Medical History Reviewed Nursing Family Hx Physical Exam Vital Signs Vital Signs - First Documented 09/08/19 14:04 Temp 36.8 Pulse 93 Resp 18 B/P (MAP) 136/96 (109) Pulse Ox 96 O2 Delivery Room Air Capillary Refill : Less Than 3 Seconds Height, Weight, BMI Height: 6'0" Weight: 148lbs. oz. 67.443390mf; 21.00 BMI Method:Stated General Appearance: Anxious, Chronically ill, Thin, Other (irritable and lucille etimes belligerent) HEENT: PERRL/EOMI, Pharynx Normal Neck: Non Tender, Supple Respiratory: Lungs Clear, Normal Breath Sounds Cardiovascular: Regular Rate, Rhythm, No Murmur Gastrointestinal: Non Tender, Soft Back: Normal Inspection, No CVA Tenderness, No Vertebral Tenderness Extremity: Normal Range of Motion, Non Tender Neurologic/Psychiatric: Alert, Oriented x3 Skin: Normal Color, Warm/Dry Progress/Results/Core Measures Suspected Sepsis Recent Fever Within 48 Hours: No Infection Criteria Present: None New/Unexplained Altered Menta: No Sepsis Screen: No Definite Risk SIRS Temperature: Pulse: 93 Respiratory Rate: 18 Laboratory Tests 09/08/19 14:08: White Blood Count 17.5H Blood Pressure 136 /96 Mean: 109 Laboratory Tests 09/08/19 14:08: Creatinine 0.75, Platelet Count 556H, Total Bilirubin 0.4 Results/Orders Lab Results Laboratory Tests Test 09/08/19 14:08 09/08/19 14:10 Range/Units White Blood Count 17.5 H 4.3-11.0 10^3/uL Red Blood Count 5.05 4.35-5.85 10^6/uL Hemoglobin 15.2 13.3-17.7 G/DL Hematocrit 43 40-54 % Mean Corpuscular Volume 84 80-99 FL Mean Corpuscular Hemoglobin 30 25-34 PG Mean Corpuscular Hemoglobin Concent 36 32-36 G/DL Red Cell Distribution Width 13.0 10.0-14.5 % Platelet Count 556 H 130-400 10^3/uL Mean Platelet Volume 10.1 7.4-10.4 FL Neutrophils (%) (Auto) 73 42-75 % Lymphocytes (%) (Auto) 19 12-44 % Monocytes (%) (Auto) 7 0-12 % Eosinophils (%) (Auto) 1 0-10 % Basophils (%) (Auto) 1 0-10 % Neutrophils # (Auto) 12.7 H 1.8-7.8 X 10^3 Lymphocytes # (Auto) 3.2 1.0-4.0 X 10^3 Monocytes # (Auto) 1.3 H 0.0-1.0 X 10^3 Eosinophils # (Auto) 0.2 0.0-0.3 10^3/uL Basophils # (Auto) 0.1 0.0-0.1 10^3/uL Neutrophils % (Manual) 69 % Lymphocytes % (Manual) 25 % Monocytes % (Manual) 5 % Eosinophils % (Manual) 1 % Basophils % (Manual) 0 % Band Neutrophils 0 % Blood Morphology Comment NORMAL Sodium Level 136 135-145 MMOL/L Potassium Level 3.5 L 3.6-5.0 MMOL/L Chloride Level 103 98-107 MMOL/L Carbon Dioxide Level 20 L 21-32 MMOL/L Anion Gap 13 5-14 MMOL/L Blood Urea Nitrogen 11 7-18 MG/DL Creatinine 0.75 0.60-1.30 MG/DL Estimat Glomerular Filtration Rate > 60 BUN/Creatinine Ratio 15 Glucose Level 103 70-105 MG/DL Calcium Level 9.0 8.5-10.1 MG/DL Corrected Calcium 9.2 8.5-10.1 MG/DL Total Bilirubin 0.4 0.1-1.0 MG/DL Aspartate Amino Transf (AST/SGOT) 11 5-34 U/L Alanine Aminotransferase (ALT/SGPT) 8 0-55 U/L Alkaline Phosphatase 81 40-136 U/L C-Reactive Protein High Sensitivity 0.15 0.00-0.50 MG/DL Total Protein 6.6 6.4-8.2 GM/DL Albumin 3.8 3.2-4.5 GM/DL Glucometer 105 70-110 MG/DL My Orders Orders - KERI TAVAREZ MD Lactated Ringers (Lr 1000 Ml Iv Solution (09/08/19 14:30) Cbc With Automated Diff (09/08/19 14:31) Comprehensive Metabolic Panel (09/08/19 14:31) Hs C Reactive Protein (09/08/19 14:31) Manual Differential (09/08/19 14:08) Lorazepam Injection (Ativan Injection) (09/08/19 14:45) Nicotine Patch (Nicoderm Patch) (09/08/19 14:45) Lorazepam Injection (Ativan Injection) (09/08/19 14:41) Medications Given in ED Current Medications Medications Dose Ordered Sig/Josef Route Start Time Stop Time Status Last Admin Dose Admin Lactated Ringer's 1,000 ml @ 0 mls/hr Q0M ONCE IV 09/08/19 14:30 09/08/19 14:31 DC 09/08/19 14:49 0 MLS/HR Lorazepam 0.5 mg ONCE ONCE IVP 09/08/19 14:45 09/08/19 14:46 DC 09/08/19 14:49 0.5 MG Nicotine 21 mg ONCE ONCE TD 09/08/19 14:45 09/08/19 14:46 DC 09/08/19 15:04 21 MG Vital Signs/I&O 09/08/19 14:04 Temp 36.8 Pulse 93 Resp 18 B/P (MAP) 136/96 (109) Pulse Ox 96 O2 Delivery Room Air Capillary Refill : Less Than 3 Seconds Blood Pressure Mean: 109 Progress Note : Progress Note Seen and evaluated. I did discuss the case with Dr. Babcock as well as Dr. Solitario at approximately 1445. Patient will stay. Ativan 0.5 mg IV and nicotine patch ordered. We will recheck labs and give 1 L bolus of LR. He has elected to stay although still is somewhat agitated. 1615: Patient had episode of shaking that may or may not have been a seizure but we went ahead and gave 0.5 of Ativan IV. This seems to have helped. Patient then transferred to the floor. Sliding scale insulin ordered. Admit, inpatient status. Colonoscopy prep ordered. Patient agreed to plan. Departure Communication (Admissions) Time/Spoke to Admitting Phy: 14:45 Time/Spoke to Consulting Phy: 14:45 Impression Primary Impression: Abdominal mass Qualified Codes: R19.00 - Intra-abdominal and pelvic swelling, mass and lump, unspecified site Additional Impression: Syncope Qualified Codes: R55 - Syncope and collapse Disposition: 01 HOME, SELF-CARE Condition: Stable Admissions Decision to Admit Reason: Admit from ER (General) Decision to Admit/Date: Sep 08, 2019 Time/Decision to Admit Time: 14:45 Departure-Patient Inst. Referrals: NO,LOCAL PHYSICIAN (PCP/Family) Primary Care Physician KERI TAVAREZ MD Sep 08, 2019 16:08
[2019-09-08 16:15] VITALS: BP 193/102
--- NOTE | 2019-09-08 16:29 | NUR ---
ROBLES CHANDLER SR admitted to room 408-1, with an admitting diagnosis of SYNCOPE, COLON MASS, AND AGITATION, on 09/08/19 from ED via BED, accompanied by STAFF. ROBLES CHANDLER SR introduced to surroundings, call light, bed controls, phone, TV, temperature control, lights, meal times, smoking policy, visitor policy, side rail policy, bathrooms and showers. Patient Rights given to patient in the handbook. ROBLES CHANDLER SR verbalizes understanding that [facility] is not responsible for the loss or damage to any personal effects or valuables that are kept in the patients posession during their hospitalization. The following Patient Care Plans were discussed with the PATIENT: Discharge Planning, INJURY, PAIN AND KNOWLEDGE. ROBLES CHANDLER SR verbalizes understanding of Interdisciplinary Patient Education.
[2019-09-08] MEDS ORDERED: LORazepam INJ 2 MG/ML (ATIVAN) VIAL IV PRN (16:30)
--- NOTE | 2019-09-08 16:30 | NUR ---
PATIENT IS NOT COOPERATIVE WITH ADMISSION PROCESS, NURSE USED MEDICAL CHART FROM [facility] TODAY TO GET INFORMATION
[2019-09-08] MEDS: LACTATED RINGERS 1,000 ML IV SCH (16:32)
--- NOTE | 2019-09-08 17:30 | NUR ---
DR ZAMBRANO NOTIFIED OF ADMISSION AND ORDERS GIVEN TO SCHEDULE EDG AND COLONOSCOPY FOR AM
--- NOTE | 2019-09-08 17:33 | NUR ---
AGITATED, STATES HE IS LEAVING, REFUSED CLEAR LIQUID DIET, BED RAILS PADDED, SEIZURE PRECAUTION, LR INFUSING AT 125 ML HOUR, PATIENT ORIENTED TO ROOM AND EGD AND COLONOSCOPY PREP, CALL LIGHT WITHIN REACH
[2019-09-08] MEDS ORDERED: MELATONIN 3 MG TABLET PO PRN (18:00)
[2019-09-08] MEDS ORDERED: ACETAMINOPHEN 325 MG TABLET PO PRN (18:00)
[2019-09-08] MEDS ORDERED: diphenhydrAMINE 50 MG/ML INJ (BENADRYL) IVP PRN (18:00)
[2019-09-08] MEDS ORDERED: ANTACID SUSP 30 ML UDC (MYLANTA) PO PRN (18:00)
[2019-09-08] MEDS ORDERED: polyethylene glycoL Bowel Prep(MIRALAX) 238 GM PO SCH (18:00)
[2019-09-08] MEDS ORDERED: LORazepam INJ 2 MG/ML (ATIVAN) VIAL IVP PRN (18:00)
[2019-09-08] MEDS ORDERED: ONDANSETRON 4 MG (ZOFRAN) ORAL DISSOLVE TAB PO PRN (18:00)
[2019-09-08] MEDS ORDERED: inSUlin ASPART (NovoLOG) 1 UNIT/0.01 ML (CHARGE PER UNIT) SC SCH (18:00)
--- NOTE | 2019-09-08 18:00 | NUR ---
PATIENT ASLEEP WITH COVERS OVER HEAD, DOES NOT WANT HIM WOKE UP TO START MIRALAX BOWEL PREP. WILL CHECK BACK
[2019-09-08 18:28] VITALS: BP 193/102
[2019-09-08] MEDS: inSUlin ASPART (NovoLOG) 1 UNIT/0.01 ML (CHARGE PER UNIT) SC SCH ×2 (18:33→21:31)
[2019-09-08] MEDS: LEVETIRACETAM INJECTION 1,000 MG in NS (IVPB) 100 ML IV SCH (18:34)
[2019-09-08 19:54] VITALS: BP 163/106
[2019-09-08] MEDS: PANTOPRAZOLE 40 MG (PROTONIX) VIAL IV SCH (20:24)
[2019-09-08] MEDS ORDERED: ENOXAPARIN 40 MG/0.4 ML (LOVENOX) SYR SC SCH (21:00)
[2019-09-08] MEDS: ONDANSETRON 4 MG/2 ML (SDV) Z0FRAN IV PRN (21:25)
[2019-09-09] VITALS (8 sets, daily range): BP systolic 108–178; BP diastolic 60–97
[2019-09-09] MEDS: LACTATED RINGERS 1,000 ML IV SCH ×3 (01:19→16:00)
[2019-09-09 05:35] LABS: BASOPHILS # (AUTO) 0.1 10^3/uL (0.0-0.1); BASOPHILS % (AUTO) 1 % (0-10); EOSINOPHILS # (AUTO) 0.3 10^3/uL (0.0-0.3); EOSINOPHILS % (AUTO) 3 % (0-10); HEMATOCRIT 38 % (40-54); HEMOGLOBIN 12.9 G/DL (13.3-17.7); LYMPHOCYTES # (AUTO) 3.1 X 10^3 (1.0-4.0); LYMPHOCYTES % (AUTO) 33 % (12-44); MEAN CORPUSCULAR HEMOGLOBIN 30 PG (25-34); MEAN CORPUSCULAR HGB CONC 34 G/DL (32-36); MEAN CORPUSCULAR VOLUME 86 FL (80-99); MEAN PLATELET VOLUME 10.1 FL (7.4-10.4); MONOCYTES # (AUTO) 0.8 X 10^3 (0.0-1.0); MONOCYTES % (AUTO) 8 % (0-12); NEUTROPHILS # (AUTO) 5.3 X 10^3 (1.8-7.8); NEUTROPHILS % (AUTO) 56 % (42-75); PLATELET COUNT 479 10^3/uL (130-400); RED CELL DISTRIBUTION WIDTH 12.8 % (10.0-14.5); WHITE BLOOD COUNT 9.6 10^3/uL (4.3-11.0)
[2019-09-09] MEDS: ONDANSETRON 4 MG/2 ML (SDV) Z0FRAN IV PRN (05:37)
[2019-09-09 06:12] LABS: ALANINE AMINOTRANSFERASE 7 U/L (0-55); ALBUMIN 3.2 GM/DL (3.2-4.5); ALKALINE PHOSPHATASE 69 U/L (40-136); BILIRUBIN,TOTAL 0.5 MG/DL (0.1-1.0); BUN/CREATININE RATIO 15; CALCIUM 8.7 MG/DL (8.5-10.1); CARBON DIOXIDE 24 MMOL/L (21-32); CHLORIDE 104 MMOL/L (98-107); CREATININE SERUM 0.73 MG/DL (0.60-1.30); GFR ESTIMATED > 60; GLUCOSE 108 MG/DL (70-105); POTASSIUM 3.5 MMOL/L (3.6-5.0); SODIUM 137 MMOL/L (135-145); TOTAL PROTEIN 5.4 GM/DL (6.4-8.2)
[2019-09-09] MEDS: PANTOPRAZOLE 40 MG (PROTONIX) VIAL IV SCH ×2 (06:17→16:00)
[2019-09-09] MEDS: inSUlin ASPART (NovoLOG) 1 UNIT/0.01 ML (CHARGE PER UNIT) SC SCH ×2 (06:17→13:03)
[2019-09-09] MEDS: LEVETIRACETAM INJECTION 1,000 MG in NS (IVPB) 100 ML IV SCH (08:12)
[2019-09-09] MEDS ORDERED: PATCH REMOVAL TP SCH (09:00)
[2019-09-09] MEDS ORDERED: NICOTINE 21 MG (NICODERM) PATCH TD SCH (09:00)
--- NOTE | 2019-09-09 09:00 | Occ Therapy Progress Note ---
Therapy Progress Note OT order received, chart reviewed. OT to attempt evaluation. Pt. light on. OT answered call light. Pt. rocking in bed back/forth. Requested Ativan. Nursing notified. Will attempt back when pt. more calm. 1, visit [id number] MIGUEL A CASAS OT Sep 09, 2019 09:00
[2019-09-09] MEDS: LORazepam INJ 2 MG/ML (ATIVAN) VIAL IVP PRN (09:13)
--- NOTE | 2019-09-09 10:03 | Physical Therapy Progress Note ---
Therapy Progress Note Patient's family adamantly declined PT secondary to patient resting and they did not want him disturbed. Dr. Robles notified. 1 ref ([phone]) JUAN ANTONIO BARRETT PT Sep 09, 2019 10:03
--- NOTE | 2019-09-09 11:17 | Physical Therapy Progress Note ---
Therapy Progress Note Patient adamantly declined PT intervention. notified. PT to dismiss patient from services at this time. 1 ref ([phone]) JUAN ANTONIO BARRETT PT Sep 09, 2019 11:17
--- NOTE | 2019-09-09 11:22 | History & Physical-Hospitalist ---
History of Present Illness HPI/Chief Complaint 44-year-old male who was admitted to the hospital yesterday due to weakness, nausea, intermittent constipation and diarrhea with hematochezia. He left AMA prior to EGD being able to be done because he wanted to eat. In an attempt to leave he was too weak to get to his car and had a near syncopal episode and so was brought back to the emergency room. He attempted to leave AMA from the emergency room again but was too weak to walk himself out. He was admitted after his girlfriend talked into staying. Imaging that was done on first presentation revealed a possible transverse colon mass. A bowel prep was ordered for colonoscopy today but he refused to drink it yesterday. He is currently nothing by mouth in preparation for EGD. He will not answer my questions and only states he is irritated. Source: patient Date Seen 09/09/19 Time Seen by a Provider: 10:30 Attending Physician Alice Babcock MD PCP No,Local Physician Referring Physician Date of Admission Sep 08, 2019 at 14:58 Home Medications & Allergies Home Medications Reviewed patient Home Medication Reconciliation performed by pharmacy medication reconciliations management technician and/or nursing. Patients Allergies have been reviewed. Allergies Allergies Coded Allergies aspirin (Unverified Adverse Reaction, Severe, swelling throat, 11/05/18) Past Bxxpuwg-Mlkldp-Ocammx Hx Past Med/Social Hx: Reviewed Nursing Past Med/Soc Hx Patient Social History Alcohol Use: Denies Use Recreational Drug Use: Yes Drug of Choice: HX METH Smoking Status: Current Everyday Smoker Type Used: Cigarettes 2nd Hand Smoke Exposure: Yes Recent Foreign Travel: No Contact w/other who traveled: No Recent Hopitalizations: No Recent Infectious Disease Expo: No Seasonal Allergies Seasonal Allergies: No Past Medical History Surgeries: Gallbladder Cardiac: High Cholesterol, Hypertension Neurological: Neuropathy, Seizure Disorder Gastrointestinal: Gastroesophageal Reflux Endocrine: Diabetes, Insulin dep Psychosocial: Anxiety, Depression History of Blood Disorders: No Family History Reviewed Nursing Family Hx Review of Systems ROS-Unable to Obtain: limited due to agitation Constitutional: weight loss Gastrointestinal: No abdominal pain Psychiatric/Neurological: See HPI Physical Exam Physical Exam Vital Signs Vital Signs - First Documented 09/08/19 09/09/19 14:04 13:30 Temp 36.8 Pulse 93 Resp 18 B/P (MAP) 136/96 (109) Pulse Ox 96 O2 Delivery Room Air O2 Flow Rate 10 Capillary Refill : Less Than 3 SecondsLess Than 3 Seconds Height, Weight, BMI Height: 6'0" Weight: 148lbs. oz. 67.276257uv; 18.77 BMI Method:Stated General Appearance: No Apparent Distress, Chronically ill, Thin Respiratory: Lungs Clear, No Respiratory Distress Cardiovascular: Regular Rate, Rhythm, No Murmur Gastrointestinal: Normal Bowel Sounds, Non Tender, Soft Extremity: No Calf Tenderness, No Pedal Edema Neurologic/Psychiatric: Alert, Oriented x3, Normal Mood/Affect Results Results/Procedures Labs Laboratory Tests 09/08/19 14:08 09/09/19 04:20 Patient resulted labs reviewed. Imaging: Reviewed Imaging Report Assessment/Plan Admission Diagnosis Failure to thrive in adult Possible Crohn's Severe protein calorie malnutrition Dysphagia Possible colonic mass CT abdomen with questionable enteritis and possible transverse colon mass on 09/06 - Plan for EGD today with Dr Solitario - Unable to do colonoscopy as he refused the prep - Will need as an outpatient Surgery consulted, appreciate assistance Consult nutrition with malnutrition -PT/OT Seizures Not taking meds at home Continue Keppra Ativan as needed for breakthrough seizures Type II diabetes mellitus Levemir Sliding scale insulin Hypertension Hydralazine as needed DVT prophylaxis: Lovenox Admission Status: Observation Clinical Quality Measures DVT/VTE Risk/Contraindication: Risk Factor Score Per Nursin RFS Level Per Nursing on Admit: 4+=Very High ANUP MARTINEZ MD Sep 09, 2019 11:22
[2019-09-09] MEDS ORDERED: BISACODYL 5 MG (DULCOLAX) TABLET PO SCH ×2 (12:00→15:00)
[2019-09-09 12:28] LABS: AMPHETAMINE SCREEN, URINE POSITIVE (NEGATIVE); BARBITURATE SCREEN URINE NEGATIVE (NEGATIVE); BENZODIAZEPINES SCREEN URINE POSITIVE (NEGATIVE); CANNABINOID SCREEN, URINE POSITIVE (NEGATIVE); COCAINE SCREEN URINE NEGATIVE (NEGATIVE); METHADONE STAT NEGATIVE (NEGATIVE); METHAMPHETAMINE SCREEN URINE S POSITIVE (NEGATIVE); OPIATE SCREEN URINE NEGATIVE (NEGATIVE); OXYCODONE STAT POSITIVE (NEGATIVE); PROPOXYPHENE STAT NEGATIVE (NEGATIVE); TRICYCLIC ANTIDEPRESSANTS SCRE NEGATIVE (NEGATIVE)
[2019-09-09] MEDS ORDERED: MIDAZOLAM 2 MG/2 ML (VERSED) VIAL ONE (13:07)
[2019-09-09] MEDS ORDERED: proPOfol 200 MG/20 ML (DIPRIVAN) VIAL IV ONE (13:07)
--- NOTE | 2019-09-09 13:14 | Progress Note - Surgery ---
Subjective Time Seen by a Provider: 13:01 Subjective/Events-last exam Pt seen and examined, still has some abdominal pain and mainly complains of weakness. Review of Systems General: Fatigue, Malaise Pulmonary: No Dyspnea, No Cough Cardiovascular: No: Chest Pain, Palpitations Gastrointestinal: Nausea, Vomiting, Abdominal Pain Objective Exam Vital Signs Date Time Temp Pulse Resp B/P (MAP) Pulse Ox O2 Delivery O2 Flow Rate FiO2 09/09/19 12:00 36.9 75 20 157/97 (117) 97 Room Air 09/09/19 08:00 98 Room Air 09/09/19 08:00 37.2 88 20 161/94 (116) 98 Room Air 09/09/19 06:14 36.8 09/09/19 05:37 36.8 09/09/19 04:00 36.8 94 18 130/88 (102) 98 Room Air 09/09/19 00:00 36.8 93 18 139/92 (108) 98 09/08/19 22:43 36.9 09/08/19 22:12 36.9 09/08/19 20:30 98 Room Air 09/08/19 19:54 36.9 94 22 163/106 (125) 98 Room Air 09/08/19 18:28 36.7 89 18 193/102 99 Room Air 09/08/19 18:00 Room Air 09/08/19 16:15 36.7 89 18 193/102 (132) 99 Room Air 09/08/19 16:10 36.8 94 18 182/119 (109) 98 Room Air 09/08/19 14:04 36.8 93 18 136/96 (109) 96 Room Air I & O 09/09/19 07:00 Intake Total 1100 ml Balance 1100 ml Capillary Refill : Less Than 3 SecondsLess Than 3 Seconds General Appearance: Anxious, Chronically ill, Thin, Other (irritable and sometimes belligerent) HEENT: PERRL/EOMI, Pharynx Normal Respiratory: Lungs Clear, Normal Breath Sounds Cardiovascular: Regular Rate, Rhythm, No Murmur Gastrointestinal: soft; No distended; tenderness (mild diffuse) Neurologic/Psychiatric: Alert, Oriented x3 Skin: Cool, Pallor, Tattoos/Piercings Results Lab Laboratory Tests 09/08/19 14:08: White Blood Count 17.5H, Red Blood Count 5.05, Hemoglobin 15.2, Hematocrit 43, Mean Corpuscular Volume 84, Mean Corpuscular Hemoglobin 30, Mean Corpuscular Hemoglobin Concent 36, Red Cell Distribution Width 13.0, Platelet Count 556H, Mean Platelet Volume 10.1, Neutrophils (%) (Auto) 73, Lymphocytes (%) (Auto) 19, Monocytes (%) (Auto) 7, Eosinophils (%) (Auto) 1, Basophils (%) (Auto) 1, Neutrophils # (Auto) 12.7H, Lymphocytes # (Auto) 3.2, Monocytes # (Auto) 1.3H, Eosinophils # (Auto) 0.2, Basophils # (Auto) 0.1, Neutrophils % (Manual) 69, Lymphocytes % (Manual) 25, Monocytes % (Manual) 5, Eosinophils % (Manual) 1, Basophils % (Manual) 0, Band Neutrophils 0, Blood Morphology Comment NORMAL, Sodium Level 136, Potassium Level 3.5L, Chloride Level 103, Carbon Dioxide Level 20L, Anion Gap 13, Blood Urea Nitrogen 11, Creatinine 0.75, Estimat Glomerular Filtration Rate > 60, BUN/Creatinine Ratio 15, Glucose Level 103, Calcium Level 9.0, Corrected Calcium 9.2, Total Bilirubin 0.4, Aspartate Amino Transf (AST/SGOT) 11, Alanine Aminotransferase (ALT/SGPT) 8, Alkaline Phosphatase 81, C-Reactive Protein High Sensitivity 0.15, Total Protein 6.6, Albumin 3.8 09/08/19 14:10: Glucometer 105 09/08/19 21:01: Glucometer 127H 09/09/19 04:20: White Blood Count 9.6, Red Blood Count 4.38, Hemoglobin 12.9L, Hematocrit 38L, Mean Corpuscular Volume 86, Mean Corpuscular Hemoglobin 30, Mean Corpuscular Hemoglobin Concent 34, Red Cell Distribution Width 12.8, Platelet Count 479H, Mean Platelet Volume 10.1, Neutrophils (%) (Auto) 56, Lymphocytes (%) (Auto) 33, Monocytes (%) (Auto) 8, Eosinophils (%) (Auto) 3, Basophils (%) (Auto) 1, Neutrophils # (Auto) 5.3, Lymphocytes # (Auto) 3.1, Monocytes # (Auto) 0.8, Eosinophils # (Auto) 0.3, Basophils # (Auto) 0.1, Sodium Level 137, Potassium Level 3.5L, Chloride Level 104, Carbon Dioxide Level 24, Anion Gap 9, Blood Urea Nitrogen 11, Creatinine 0.73, Estimat Glomerular Filtration Rate > 60, BUN/Creatinine Ratio 15, Glucose Level 108H, Calcium Level 8.7, Corrected Calcium 9.3, Total Bilirubin 0.5, Aspartate Amino Transf (AST/SGOT) 13, Alanine Aminotransferase (ALT/SGPT) 7, Alkaline Phosphatase 69, Total Protein 5.4L, Albumin 3.2 09/09/19 08:21: Glucometer 109 09/09/19 12:08: Urine Opiates Screen NEGATIVE, Urine Oxycodone Screen POSITIVEH, Urine Methadone Screen NEGATIVE, Urine Propoxyphene Screen NEGATIVE, Urine Barbiturates Screen NEGATIVE, Ur Tricyclic Antidepressants Screen NEGATIVE, Urine Phencyclidine Screen NEGATIVE, Urine Amphetamines Screen POSITIVEH, Urine Methamphetamines Screen POSITIVEH, Urine Benzodiazepines Screen POSITIVEH, Urine Cocaine Screen NEGATIVE, Urine Cannabinoids Screen POSITIVEH Assessment/Plan Assessment/Plan Assessment/Plan Dysphagia ??Colon mass Pt refused to do prep yesterday, so can't do colonoscopy but will do EGD. All questions answered to his satisfaction, discussed risks and complications not limited to pain, bleeding, esophageal perforation. Clinical Quality Measures DVT/VTE Risk/Contraindication: Risk Factor Score Per Nursin RFS Level Per Nursing on Admit: 4+=Very High DANIKA ZAMBRANO DO Sep 09, 2019 13:14
--- NOTE | 2019-09-09 13:40 | Progress Note-Post Operative ---
Post-Operative Progess Note Surgeon (s)/Ventilating Equipment Installer (s) Surgeon DANIKA ZAMBRANO DO Ventilating Equipment Installer: none Pre-Operative Diagnosis Dysphagia Post-Operative Diagnosis Esophageal ulceration Gastritis Hiatal hernia Procedure & Operative Findings Date of Procedure 09/09/19 Procedure Performed/Findings EGD with bx and brushings Anesthesia Type IV sedation by Anesthesia Estimated Blood Loss Estimated blood loss (mL): scant Specimens/Packing Specimens Removed antral bx Body of stomach bx Lower esophagus bx Esophageal brushings DANIKA ZAMBRANO DO Sep 09, 2019 13:40
--- NOTE | 2019-09-09 13:56 | Anesthesia-General Post-Op ---
MAC Patient Condition Mental Status/LOC: Same as Preop Cardiovascular: Satisfactory Nausea/Vomiting: Absent Respiratory: Satisfactory Pain: Controlled Complications: Absent Post Op Complications Complications None Follow Up Care/Instructions Patient Instructions None needed. Anesthesiology Discharge Order Discharge Order Patient is doing well, no complaints, stable vital signs, no apparent adverse anesthesia problems. TITI WATSON DO Sep 09, 2019 13:56
[2019-09-09] MEDS ORDERED: HURRICAINE EXT TUBE (BENZOCAINE) XX PRN (14:15)
--- NOTE | 2019-09-09 14:26 | NUR ---
SPOKE WITH THE PTS TO COMPLETE THE MED REC. SHE INDICATED THE PT DID NOT TAKE ANY PRESCRIPTION OR OTC MEDS AT THIS TIME. I DID UPDATE THE PREFERRED PHARMACY
--- NOTE | 2019-09-09 14:26 | NUR ---
"RD ASSESSMENT PMHx: hypercholesterolemia; HTN; GERD; DM; hx of methamphetamine use PT INTERACTION: Pt was very asleep during consult for MST score. Note present at bedside. states pt's current appetite as poor, and has been for the past 3d. Note pt had refused 1 meal, per chart review. states pt follows regular diet at home, and has some difficulty chewing/swallowing food. would not elaborate on those issues. states pt has had some recent issues with nausea/vomiting. states pt has had no recent issues with constipation/diarrhea and that his last BM was 3/7. states pt has had some recent wt loss, but unsure of amount/timeframe. Note unable to determine recent wt hx, per chart review. states pt's current DM management is pretty good, with averages between 120-130. Note unable to determine recent HbA1c, per chart review. Note unable to assess nutrition from visual exam, as pt was covered heavily under blankets. Note pt has BMI of 18.8, which is within normal range given pt age. However it is on the lower end of the normal range. Though pt has had poor PO intake, given unknown wt hx and difficulty to perform visual exam, pt does not meet criteria for malnutrition per ASPEN guidelines. ABNORMAL NUTRITION-RELATED LAB VALUES LOW: K 3.5; Pro 5.4; HIGH: glu 108 Est. kcal needs: 1459-4163 kcal | 25-30 kcal/kg Est. Pro needs: 50-63 g Pro | 0.8-1.0 g Pro/kg PES STATEMENT: Inadequate oral intake (NI-2.1) related to loss of appetite | nausea | vomiting | NPO status as evidenced by pt () interview | chart review | Pt refused 1meal INTERVENTION: Note pt currently NPO. When medically able, would recommend advancing to consistent CHO diet, based on level of glucose control. Pt may benefit from nutrition supplementation if PO intake remains low after diet advancement. Will continue to follow and reassess as pt needs, intake, and status change. MONITOR/EVALUATE: PO Intake; Plan of Care; Hydration Status; Weight Status; Lab Values Yrn Patel, MS, RD, LD"
--- NOTE | 2019-09-09 15:05 | Occ Therapy Progress Note ---
Therapy Progress Note Pt. had procedure this afternoon. Will attempt back in a.m. 1505 MIGUEL A CASAS OT Sep 09, 2019 15:05
[2019-09-09] MEDS ORDERED: SUCRALFATE 1 GM (CARAFATE) TAB PO SCH (16:00)
--- NOTE | 2019-09-09 16:05 | NUR ---
Pt requested IV be taken out and requested to leave AMA. This RN notified pump house operator and took proper paperwork in to patient. This RN removed pt's IV and requested that pt sign AMA paperwork, pt refused to sign. This RN further explained to pt and asked of pt if he understood that he was leaving against medical advice, pt verbally confirmed that he understood. This RN notified pump house operator that he was refusing to sign, this RN got a second nurse witness on documentation. This RN asked pt if he would like to go down in a wheelchair, pt refused. This RN walked pt out.
--- NOTE | 2019-09-09 16:15 | NUR ---
This RN notified Dr. Robles that pt left AMA.
[2019-09-09] MEDS ORDERED: ENOXAPARIN 30 MG/0.3 ML (LOVENOX) SYR SC SCH (21:00)
--- NOTE | 2019-09-09 22:12 | OPERATIVE REPORT ---
DATE OF SERVICE: PREOPERATIVE DIAGNOSIS: Dysphagia. POSTOPERATIVE DIAGNOSES: Gastritis, hiatal hernia, esophagitis with esophageal ulcers. PROCEDURE: EGD with biopsy and EGD with brushing. SURGEON: Mian Solitario DO SHIPWRIGHT HELPER: None. ANESTHESIA: IV sedation by the anesthesiologist. BLOOD LOSS: Scant. FLUIDS: Per anesthesia. SPECIMEN: Biopsy from the antrum, biopsy from the body of stomach and biopsy from the lower esophagus. INDICATION FOR PROCEDURE: The patient is a 44-year-old male, who has been having some dysphagia, needed a workup. FINDINGS: The patient had esophageal ulcers, some mild gastritis and a mild hiatal hernia, did some brushings in the esophagus. PROCEDURE NOTE: After informed consent was obtained, the patient was brought to the endoscopy suite, placed in bed in left lateral decubitus position. He was administered IV sedation by the anesthesiologist who then monitored his vitals the entire time, heart rate, blood pressure and pulse ox and the scope was inserted down the mouth and through the esophagus into the lower portion of the esophagus, saw severe esophagitis and ulcerations. Pushed pass this into the stomach, saw some mild gastritis; pushed towards the antrum, did a biopsy of the antrum, pushing the duodenum, duodenum looked fine, did a biopsy of body of stomach and then retroflexed the scope, saw a small hiatal hernia and then pulled the scope up into the esophagus and did biopsies in the lower esophagus and then because of there were likely some plaques, did not quite looked like Deborah but just to be safe, we did some brushing in this area. At this point, then pushed the scope into the stomach, suctioned the air out of the stomach and then pulled the scope up the esophagus and out the mouth. The patient tolerated the procedure and was recovered in endoscopy suite. Job ID: [id number] DocumentID: [id number] Dictated Date: 09/09/2019 15:55:05 Search Marketing Coordinator Date: 09/09/2019 22:12:23 Dictated By: MIAN SOLITARIO DO
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
--- NOTE | 2019-09-17 08:51 | Physician Query Clarification ---
PQ-Further Specificity Admission/Discharge Admission Date: Sep 08, 2019 at 14:58 Discharge Date: Sep 09, 2019 at 16:05 The medical record reflects the following clinical scenario: History/Risk Factors: GERD, Diabetes, HTN, seizure disorder Clinical Findings: weakness, near syncope, nausea, intermittent constipation, diarrhea with hematochezia, esophageal brushings - xavier Treatment: IVF, IVP Ativan, IV zofran, IV Protonix Question: Can you further specify the etiology of the hematochezia per the clinical indicators above? Please document a response in the Progress Notes or Discharge Summary. 1. Xavier esophagitis 2. esophageal ulcer 3. mass transverse colon 4. gastritis 5. hematochezia etiology undetermined 6. Other, with explanation of the clinical findings. 7. Clinically undetermined, no explanation for the clinical findings. PHYSICIAN RESPONSE Can you specify per above: Clinically undetermined (it is possible that the Esophageal xavier and ulcers could cause hematochezia, it is more likely something from the lower GI tract. However, pt left AMA and refused to do the colon prep and therefore colonscopy was not performed. He was made aware that something serious could be going on in the Colon. In addition patient has a history of Crohn's and is not taking his medications.) Please remember a lack of response to the above will prompt a phone page by CDI/Coding staff. In responding to this query, please exercise your independent professional judgment. The purpose of this communication is to more accurately reflect the complexity of your patients condition. The fact that a question is asked does not imply that any particular answer is desired or expected. Thank you for your timely response to this clarification. Requestors name: Mirela THIS PHYSICIAN QUERY FORM IS A PERMANENT PART OF THE MEDICAL RECORD MIRELA HARDING Sep 17, 2019 08:51 DANIKA ZAMBRANO DO Sep 17, 2019 13:16
--- NOTE | 2019-09-18 17:20 | Physician Query-Final Dx ---
CASEY CEDEÑO 09/18/19 1720: Final Diagnosis Give Final Diagnosis Please give Final Diagnosis DANIKA ZAMBRANO DO 09/19/19 1336: Final Diagnosis Give Final Diagnosis Esophageal Ulcers Esophageal Candidiasis Hematochezia Hx of Crohn's CASEY CEDEÑO Sep 18, 2019 17:20 DANIKA ZAMBRANO DO Sep 19, 2019 13:36
== END 2019-09-09 16:05 | disposition left against medical advice (07) | DRG 377 ==
LOC: EDUNIT# 14:04 → ER 14:05 → 4TH 14:58
PROVIDERS: ADMIT Internal Medicine; ATTEND Internal Medicine
PROC: 0DB68ZX Excision of Stomach, Via Natural or Artificial Opening Endoscopic, Diagnostic (ICD-10-PCS; 2019-09-09)
PROC: 0DB38ZX Excision of Lower Esophagus, Via Natural or Artificial Opening Endoscopic, Diagnostic (ICD-10-PCS; 2019-09-09)
PROC: 0DD38ZX Extraction of Lower Esophagus, Via Natural or Artificial Opening Endoscopic, Diagnostic (ICD-10-PCS; 2019-09-09)
PROC: 0DB78ZX Excision of Stomach, Pylorus, Via Natural or Artificial Opening Endoscopic, Diagnostic (ICD-10-PCS; principal; 2019-09-09 13:10)
DX: K92.1 Melena (principal); K63.9 Disease of intestine, unspecified; K22.10 Ulcer of esophagus without bleeding; K29.70 Gastritis, unspecified, without bleeding; B37.81 Candidal esophagitis; E43 Unspecified severe protein-calorie malnutrition; K50.90 Crohn's disease, unspecified, without complications; G40.909 Epilepsy, unspecified, not intractable, without status epilepticus; F17.210 Nicotine dependence, cigarettes, uncomplicated; R13.10 Dysphagia, unspecified; K44.9 Diaphragmatic hernia without obstruction or gangrene; K21.9 Gastro-esophageal reflux disease without esophagitis; E11.9 Type 2 diabetes mellitus without complications; F41.9 Anxiety disorder, unspecified; F32.9 Major depressive disorder, single episode, unspecified; I10 Essential (primary) hypertension; E78.00 Pure hypercholesterolemia, unspecified; Z79.4 Long term (current) use of insulin; Z91.14 Patient's other noncompliance with medication regimen
CPT/HCPCS: 36415; 80053; 80306; 80307; 82962; 85007; 85025; 85027; 86141; 87101; 87106; 88305; 88312; 88342; 96361; 96374

== ENCOUNTER 2019-09-11 14:40 | Emergency (ER) | payer SELFPAY ==
[~2019-09-11] VITALS: Ht 182.8 cm; Wt 71.0 kg
[2019-09-11 14:40] VITALS: BP 195/101
[2019-09-11] MEDS ORDERED: LABETALOL HCL 20 MG/4 ML VIAL IV STA (14:53)
--- NOTE | 2019-09-11 15:01 | ED Neurological Problem ---
General Stated Complaint: SEIZURE History of Present Illness Date Seen by Provider: Sep 11, 2019 Time Seen by Provider: 14:50 Initial Comments This patient is a 44-year-old male that presents to the emergency department with complaint of questionable seizure. And hypertension. Patient reportedly has a long history of noncompliance and has a history of seizures. Patient really recently left AMA from [facility]. On Monday this past week. Patient apparently got up to go to the bathroom and stumbled and the nurse had a syncopal episode versus seizure like activity. But they do not describe any convulsions per family. EMS report describes the patient is being postictal with confusion upon their arrival. This slowly improved his mental status. Patient does somewhat appear to be altered but answers questions appropriately. Concerning possible might be medicated but EMS did not give patient medications. Patient has significant high blood pressure 212/110 bilaterally. Patient again has a history of noncompliance with medications. We'll do a medical evaluation treatment is needed. Timing/Duration: 1/2 hour Severity: severe Associated Symptoms: confusion, loss of consciousness, seizures Allergies and Home Medications Allergies Coded Allergies: aspirin (Unverified Adverse Reaction, Severe, swelling throat, 11/05/18) Home Medications No Active Prescriptions or Reported Meds Patient Home Medication List Home Medication List Reviewed: Yes Review of Systems Review of Systems Constitutional: No no symptoms reported; see HPI; No chills, No diaphoresis, No dizziness, No fever, No malaise; weakness; No weight gain, No weight loss, No other Eyes: Denies No Symptoms Reported; See HPI; Denies Blindness, Denies Blurred Vision, Denies Drainage, Denies Decreased Acuity, Denies Foreign Body Sensation, Denies Inflammation, Denies Pain, Denies Photophobia, Denies Previous Injury, Denies Shadows, Denies Tunnel Vision, Denies Vision Changes, Denies Contact Lenses, Denies Glasses, Denies Other Ears, Nose, Mouth, Throat: no symptoms reported; denies see HPI, denies ear pain, denies ear discharge, denies nose pain, denies nose discharge, denies epistaxis, denies mouth pain, denies mouth swelling, denies loose teeth, denies throat pain, denies throat swelling Respiratory: no symptoms reported; No see HPI, No cough, No dyspnea on exertion, No hemoptysis, No orthopnea, No phlegm, No short of breath, No stridor, No wheezing, No other Cardiovascular: no symptoms reported; No see HPI, No chest pain, No edema, No Hx of Intervention, No palpitations; syncope; No vascular heart diseas, No other Gastrointestinal: No RUQ, No LUQ, No RLQ, No LLQ; no symptoms reported; No see HPI, No abdominal pain, No constipation, No diarrhea, No dysphagia, No hematemesis, No heartburn, No jaundice, No loss of appetite, No melena, No nausea, No vomiting, No other Psychiatric/Neurological: Denies No Symptoms Reported; See HPI; Denies Anxiety, Denies Depressed, Denies Emotional Problems, Denies Cognitive Dysfunction, Denies Headache, Denies Numbness, Denies [place] Seizures, Denies Tingling; Tonic Clonic Seizures; Denies Unable to Move Lower Ext, Denies Unable to Move Upper Ext, Denies Weakness, Denies Other All Other Systems Reviewed Negative Unless Noted: Yes (Negative excepted noted.) Past [place]-Evlwxq-Eqpfej Hx Patient Social History Drug of Choice: HX METH Type Used: Cigarettes 2nd Hand Smoke Exposure: Yes Recent Foreign Travel: Yes Recent Hopitalizations: No Seasonal Allergies Seasonal Allergies: No Past Medical History Surgeries: Yes (Abscess buttocks-MRSA, jaw fx) Gallbladder Respiratory: No Cardiac: Yes High Cholesterol, Hypertension Neurological: Yes Neuropathy, Seizure Disorder Genitourinary: No Gastrointestinal: Yes Gastroesophageal Reflux Musculoskeletal: Yes (chronic pain/neuropathy also from "feet to shoulders") Endocrine: Yes Diabetes, Insulin dep HEENT: No Cancer: No Psychosocial: Yes Anxiety, Depression Integumentary: Yes (MRSA buttocks ) Blood Disorders: No Physical Exam Vital Signs Vital Signs - First Documented Capillary Refill : Height, Weight, BMI Height: 6'0" Weight: 148lbs. oz. [id number]; 18.77 BMI Method:Stated General Appearance: WD/WN, no apparent distress, thin HEENT: PERRL/EOMI, normal ENT inspection, TMs normal, pharynx normal Neck: non-tender, full range of motion, supple, normal inspection Respiratory: chest non-tender, lungs clear, normal breath sounds, no respiratory distress, no accessory muscle use Cardiovascular: normal peripheral pulses, regular rate, rhythm, no edema, no gallop, no JVD, no murmur Gastrointestinal: normal bowel sounds, non tender, soft, no organomegaly, no pulsatile mass Back: normal inspection, no CVA tenderness, no vertebral tenderness, CVA tenderness (R), CVA tenderness (L) Extremities: normal range of motion, non-tender, normal inspection, no pedal edema, no calf tenderness, normal capillary refill, pelvis stable 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, no motor/sensory deficits, alert, oriented x 3, depressed affect Crainal Nerves: abnormal speech Progress/Results/Core Measures Results/Orders Lab Results Laboratory Tests Test 09/11/19 15:05 09/11/19 15:20 Range/Units White Blood Count 12.2 H 4.3-11.0 10^3/uL Red Blood Count 4.58 4.35-5.85 10^6/uL Hemoglobin 13.4 13.3-17.7 G/DL Hematocrit 39 L 40-54 % Mean Corpuscular Volume 86 80-99 FL Mean Corpuscular Hemoglobin 29 25-34 PG Mean Corpuscular Hemoglobin Concent 34 32-36 G/DL Red Cell Distribution Width 12.4 10.0-14.5 % Platelet Count 493 H 130-400 10^3/uL Mean Platelet Volume 9.7 7.4-10.4 FL Neutrophils (%) (Auto) 72 42-75 % Lymphocytes (%) (Auto) 18 12-44 % Monocytes (%) (Auto) 8 0-12 % Eosinophils (%) (Auto) 1 0-10 % Basophils (%) (Auto) 0 0-10 % Neutrophils # (Auto) 8.8 H 1.8-7.8 X 10^3 Lymphocytes # (Auto) 2.1 1.0-4.0 X 10^3 Monocytes # (Auto) 1.0 0.0-1.0 X 10^3 Eosinophils # (Auto) 0.1 0.0-0.3 10^3/uL Basophils # (Auto) 0.1 0.0-0.1 10^3/uL Prothrombin Time 12.6 12.2-14.7 SEC INR Comment 0.9 0.8-1.4 Activated Partial Thromboplast Time 26 24-35 SEC D-Dimer 0.66 H 0.00-0.49 UG/ML Sodium Level 137 135-145 MMOL/L Potassium Level 4.0 3.6-5.0 MMOL/L Chloride Level 98 98-107 MMOL/L Carbon Dioxide Level 28 21-32 MMOL/L Anion Gap 11 5-14 MMOL/L Blood Urea Nitrogen 9 7-18 MG/DL Creatinine 0.55 L 0.60-1.30 MG/DL Estimat Glomerular Filtration Rate > 60 BUN/Creatinine Ratio 16 Glucose Level 310 H 70-105 MG/DL Glucometer 311 H 70-110 MG/DL Calcium Level 9.6 8.5-10.1 MG/DL Corrected Calcium 9.7 8.5-10.1 MG/DL Total Bilirubin 0.2 0.1-1.0 MG/DL Aspartate Amino Transf (AST/SGOT) 9 5-34 U/L Alanine Aminotransferase (ALT/SGPT) 11 0-55 U/L Alkaline Phosphatase 99 40-136 U/L Troponin I < 0.30 <0.30 NG/ML Total Protein 6.6 6.4-8.2 GM/DL Albumin 3.9 3.2-4.5 GM/DL Urine Color YELLOW Urine Clarity CLEAR Urine pH 7.5 5-9 Urine Specific [place] 1.015 L 1.016-1.022 Urine Protein NEGATIVE NEGATIVE Urine Glucose (UA) 3+ H NEGATIVE Urine Ketones NEGATIVE NEGATIVE Urine Nitrite NEGATIVE NEGATIVE Urine Bilirubin NEGATIVE NEGATIVE Urine Urobilinogen 0.2 < = 1.0 MG/DL Urine Leukocyte Esterase NEGATIVE NEGATIVE Urine RBC (Auto) NEGATIVE NEGATIVE Urine RBC RARE /HPF Urine WBC RARE /HPF Urine Squamous Epithelial Cells RARE /HPF Urine Crystals NONE /LPF Urine Bacteria NEGATIVE /HPF Urine Casts NONE /LPF Urine Mucus NONE /LPF Urine Culture Indicated NO Urine Opiates Screen NEGATIVE NEGATIVE Urine Oxycodone Screen NEGATIVE NEGATIVE Urine Methadone Screen NEGATIVE NEGATIVE Urine Propoxyphene Screen NEGATIVE NEGATIVE Urine Barbiturates Screen NEGATIVE NEGATIVE Ur Tricyclic Antidepressants Screen NEGATIVE NEGATIVE Urine Phencyclidine Screen NEGATIVE NEGATIVE Urine Amphetamines Screen NEGATIVE NEGATIVE Urine Methamphetamines Screen NEGATIVE NEGATIVE Urine Benzodiazepines Screen NEGATIVE NEGATIVE Urine Cocaine Screen NEGATIVE NEGATIVE Urine Cannabinoids Screen POSITIVE H NEGATIVE My Orders Orders - FERMIN SCHULTZ MD Code/Resuscitation (09/11/19 14:53) Cbc With Automated Diff (09/11/19 14:53) Protime With Inr (09/11/19 14:53) Partial Thromboplastin Time (09/11/19 14:53) Comprehensive Metabolic Panel (09/11/19 14:53) Fibrin Degradation Products (09/11/19 14:53) Troponin I Fs (09/11/19 14:53) Ua Culture If Indicated (09/11/19 14:53) Chest 1 View Ap/Pa Only (09/11/19 14:53) Catheter(Urinary) Insert & Ass 03,15 (09/11/19 14:53) Ekg Tracing (09/11/19 14:53) Nothing By Mouth (09/11/19 Dinner) Accucheck Stat ONCE (09/11/19 14:53) Ed Iv/Invasive Line Start (09/11/19 14:53) Ed Iv/Invasive Line Start (09/11/19 14:53) Vital Signs Stroke Patient Q15M (09/11/19 14:53) Ct Head Wo-R/O Stroke (09/11/19 14:53) O2 (09/11/19 14:53) Labetalol Injection (Normodyne Injection (09/11/19 14:53) Monitor-Rhythm Ecg Trace Only (09/11/19 14:53) Dysphagia Screening Tool (09/11/19 14:53) Lipid Panel (09/12/19 06:00) Drug Screen Stat (Urine) (09/11/19 15:36) Vital Signs/I&O 09/11/19 09/11/19 09/11/19 14:40 14:40 14:40 Temp 36.3 36.3 Pulse 92 92 92 Resp 14 14 14 B/P (MAP) 195/101 195/101 (132) 195/101 (132) Pulse Ox 96 96 96 O2 Delivery Room Air Room Air Progress Progress Note : Progress Note 1535 Bp improved 184/90 after Labetolol 20mg IVP 1600 negative evaluation in the emergency department. Patient's blood pressures much improved is 151/79. Patient had questionable seizure activity prior to arrival. The negative evaluation emergency Department negative CT scan and negative evaluation patient has been verbally abusive to staff using significant found language and noncompliant. I did try to discuss with patient at the bedside about his negative evaluation. The patient is demanding to be released from the hospital. Again patient went AMA against medical advise from [facility] 3 days ago. Advised patient to continue his Dilantin medication as prescribed and follow up with his primary care physician patient states "he doesn't give a Damn" "Get me out of the hospital". Patient be discharged per his request. Initial ECG Impression Date: Sep 11, 2019 Initial ECG Impression Time: 15:04 Initial ECG Rate: 85 Initial ECG Rhythm: Normal Sinus Initial ECG Intervals: Normal Initial ECG Impression: Normal, Nonspecific Changes Comment Sinus rhythm with a heart rate of 85 nonspecific EKG changes. Departure Impression Primary Impression: Seizure disorder Additional Impressions: Noncompliance Marijuana use Hypertension Disposition: 01 HOME, SELF-CARE Condition: Improved Departure-Patient Inst. Referrals: NO,LOCAL PHYSICIAN (PCP) Primary Care Physician Patient Instructions: Drug Abuse Treatment, Epilepsy in Adults, DASH Diet, High Blood Pressure in Adults Add. Discharge Instructions: Continue with her home medications. He needs to be very serious about her medical care and take medications as prescribed because he can from having seizures and hypertension which could also cause strokes. Follow-up with your local primary care physician as instructed. Scripts No Active Prescriptions or Reported Meds FERMIN SCHULTZ MD Sep 11, 2019 15:01
[2019-09-11 15:18] LABS: HEMATOCRIT 39 % (40-54); HEMOGLOBIN 13.4 G/DL (13.3-17.7); MEAN CORPUSCULAR HEMOGLOBIN 29 PG (25-34); MEAN CORPUSCULAR HGB CONC 34 G/DL (32-36); MEAN CORPUSCULAR VOLUME 86 FL (80-99); MEAN PLATELET VOLUME 9.7 FL (7.4-10.4); PLATELET COUNT 493 10^3/uL (130-400); RED CELL DISTRIBUTION WIDTH 12.4 % (10.0-14.5); WHITE BLOOD COUNT 12.2 10^3/uL (4.3-11.0)
[2019-09-11 15:19] LABS: BASOPHILS # (AUTO) 0.1 10^3/uL (0.0-0.1); BASOPHILS % (AUTO) 0 % (0-10); EOSINOPHILS # (AUTO) 0.1 10^3/uL (0.0-0.3); EOSINOPHILS % (AUTO) 1 % (0-10); LYMPHOCYTES # (AUTO) 2.1 X 10^3 (1.0-4.0); LYMPHOCYTES % (AUTO) 18 % (12-44); MONOCYTES % (AUTO) 8 % (0-12); NEUTROPHILS # (AUTO) 8.8 X 10^3 (1.8-7.8); NEUTROPHILS % (AUTO) 72 % (42-75)
--- NOTE | 2019-09-11 15:35 | Diagnostic Imaging Report ---
EXAMINATION: Chest, one view, at 3:23 PM. INDICATION: Seizure. FINDINGS: The heart size is within normal limits and stable when compared to 09/07/2019. The lungs are clear. There is no evidence for failure, pneumonia, or pleural effusion. The mediastinum is not widened. The osseous structures are intact. IMPRESSION: There is no evidence for active disease. Dictated by: Dictated on workstation # [id number]
[2019-09-11 15:36] LABS: BILIRUBIN,URINE NEGATIVE (NEGATIVE); CLARITY,URINE CLEAR; COLOR,URINE YELLOW; GLUCOSE, URINE (UA) 3+ (NEGATIVE); KETONES,URINE NEGATIVE (NEGATIVE); NITRITE,URINE NEGATIVE (NEGATIVE); PH,URINE 7.5 (5-9); PROTEIN,URINE NEGATIVE (NEGATIVE)
[2019-09-11 15:37] LABS: BACTERIA,URINE NEGATIVE /HPF; LEUKOCYTE ESTERASE ,URINE NEGATIVE (NEGATIVE); RBC,URINE RARE /HPF; SQUAMOUS EPITHELIAL CELL,UR RARE /HPF; WBC,URINE RARE /HPF
--- NOTE | 2019-09-11 15:38 | Diagnostic Imaging Report ---
PROCEDURE: CT head wo r/o stroke. TECHNIQUE: Multiple contiguous axial images were obtained through the brain without the use of intravenous contrast. Auto Exposure Controls were utilized during the CT exam to meet ALARA standards for radiation dose reduction. INDICATION: Altered mental status. FINDINGS: There is no mass, shift of the midline, or hemorrhage to suggest an acute intracranial abnormality. The ventricles are not abnormally dilated and stable in size when compared to the prior exam of 03/05/2019. The bone windows show no evidence for a fracture or for a destructive lesion. The orbits and sinuses are not visualized in their entirety; where visualized, there is no acute abnormality. IMPRESSION: There is no evidence for an acute intracranial abnormality. When compared to the previous study, there has been no significant change. Dictated by: Dictated on workstation # [id number]
[2019-09-11 15:39] LABS: AMPHETAMINE SCREEN, URINE NEGATIVE (NEGATIVE); BARBITURATE SCREEN URINE NEGATIVE (NEGATIVE); BENZODIAZEPINES SCREEN URINE NEGATIVE (NEGATIVE); CANNABINOID SCREEN, URINE POSITIVE (NEGATIVE); COCAINE SCREEN URINE NEGATIVE (NEGATIVE); METHADONE STAT NEGATIVE (NEGATIVE); METHAMPHETAMINE SCREEN URINE S NEGATIVE (NEGATIVE); OPIATE SCREEN URINE NEGATIVE (NEGATIVE); OXYCODONE STAT NEGATIVE (NEGATIVE); PROPOXYPHENE STAT NEGATIVE (NEGATIVE); TRICYCLIC ANTIDEPRESSANTS SCRE NEGATIVE (NEGATIVE)
[2019-09-11 15:40] LABS: BUN/CREATININE RATIO 16; CARBON DIOXIDE 28 MMOL/L (21-32); CHLORIDE 98 MMOL/L (98-107); CREATININE SERUM 0.55 MG/DL (0.60-1.30); GFR ESTIMATED > 60; SODIUM 137 MMOL/L (135-145)
[2019-09-11 15:41] LABS: ALANINE AMINOTRANSFERASE 11 U/L (0-55); ALBUMIN 3.9 GM/DL (3.2-4.5); ALKALINE PHOSPHATASE 99 U/L (40-136); BILIRUBIN,TOTAL 0.2 MG/DL (0.1-1.0); CALCIUM 9.6 MG/DL (8.5-10.1); GLUCOSE 310 MG/DL (70-105); TOTAL PROTEIN 6.6 GM/DL (6.4-8.2)
--- NOTE | 2019-09-11 15:45 | NUR ---
Pt resting comfortably and sleeping at this time.
[2019-09-11 15:56] LABS: INR 0.9 (0.8-1.4); PROTHROMBIN TIME PATIENT 12.6 SEC (12.2-14.7)
[2019-09-11 15:57] LABS: FIBRIN DEGRADATION PRODUCTS 0.66 UG/ML (0.00-0.49)
--- NOTE | 2019-09-11 15:58 | NUR ---
This RN made pt contact as I heard what I believe to be moaning. This RN question, "why in the world are ya moaning man?" Pt aggressively replied, "because Im hurting and need some fucking pain meds. Why the fuck you think?!" This RN instructed the pt not to yell or be rude as I was merely asking. Pt replied, "get the fuck away from me! Get the fuck out!"
--- NOTE | 2019-09-11 16:02 | NUR ---
This RN overheard patient cussing and yelling at SAMAN [place]. Doctor was notified.
--- NOTE | 2019-09-11 16:04 | NUR ---
PT WAS OVERHEARD YELLING AT [facility] PROFANITIES AND BEING RUDE. PT WAS GIVEN PAPER SCRUBS BY THIS RN.
--- NOTE | 2019-09-11 16:04 | NUR ---
Doctor in to speak with pt regarding results and possible discharge. Pt changed into the provided paper scrubs and began to ambulate to the exit. This RN notified pt, "Just wait in your room and I will bring in your discharge papers." Pt replied, "I dont care!" Pt continued to the waiting room.
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
== END 2019-09-11 16:05 | disposition home or self-care (01) ==
LOC: EDUNIT# 14:49 → ER FS 14:50
DX: G40.909 Epilepsy, unspecified, not intractable, without status epilepticus (principal); F12.10 Cannabis abuse, uncomplicated; I10 Essential (primary) hypertension; E11.40 Type 2 diabetes mellitus with diabetic neuropathy, unspecified; E78.00 Pure hypercholesterolemia, unspecified; Z91.14 Patient's other noncompliance with medication regimen; Z88.6 Allergy status to analgesic agent; Z77.22 Contact with and (suspected) exposure to environmental tobacco smoke (acute) (chronic)
CPT/HCPCS: 36415; 70450; 71045; 80053; 80306; 81000; 82962; 84484; 85025; 85379; 85610; 85730; 93005; 93041

== ENCOUNTER 2020-07-14 21:30 | Emergency (ER) | payer SELFPAY ==
[~2020-07-14] VITALS: Ht 182.9 cm; Wt 68.0 kg
[~2020-07-14 21:30] MED LIST changes: -SENN-141 PO; +SENN-234 PO
[2020-07-14] MEDS ORDERED: LACTATED RINGERS 1,000 ML IV STA ×2 (21:32→22:20)
--- NOTE | 2020-07-14 21:36 | ED Neurological Problem ---
General Stated Complaint: AMS History of Present Illness Date Seen by Provider: Jul 14, 2020 Time Seen by Provider: 21:36 Initial Comments 45-year-old male brought in by EMS. EMS. Reports her called out for altered mental status/decreased responsiveness. Patient has a seizure history and reports that he thinks he had 3 or 4 seizures. When patient arrived he had decreased responsive was postictal but quickly became more alert and orientated. Patient complains of generalized body aches and pain. Patient does not complain of any fevers or chills but history is somewhat limited due to his clinical condition. He did have what appeared to be spasms more than seizure while here in the ER as. He was complaining of pain as a spasm was happening and was communicating with us. This patient became more awake he did admit to having episodes of vomiting for at least a year that he is diabetic and has not been taking her insulin regularly Allergies and Home Medications Allergies Coded Allergies: aspirin (Unverified Adverse Reaction, Severe, swelling throat, 11/05/18) Home Medications No Active Prescriptions or Reported Meds Patient Home Medication List Home Medication List Reviewed: Yes Review of Systems Review of Systems Constitutional: see HPI, weakness Eyes: No Symptoms Reported Ears, Nose, Mouth, Throat: no symptoms reported Respiratory: No cough, No short of breath Cardiovascular: No chest pain, No palpitations Gastrointestinal: nausea, vomiting Genitourinary: no symptoms reported Musculoskeletal: see HPI Skin: no symptoms reported Psychiatric/Neurological: See HPI Past Elernfx-Lbcfoh-Wdjqaa Hx Past Med/Social Hx: Reviewed Nursing Past Med/Soc Hx Patient Social History Drug of Choice: HX METH Type Used: Cigarettes 2nd Hand Smoke Exposure: Yes Recent Hopitalizations: No Immunizations Up To Date Tetanus Booster (TDap): Unknown Seasonal Allergies Seasonal Allergies: No Past Medical History Surgeries: Yes (Abscess buttocks-MRSA, jaw fx) Gallbladder Respiratory: No Currently Using CPAP: No Currently Using BIPAP: No Cardiac: Yes Hypertension Neurological: Yes Neuropathy, Seizure Disorder Genitourinary: No Gastrointestinal: Yes Crohns Disease Musculoskeletal: Yes (chronic pain/neuropathy also from "feet to shoulders") Chronic Back Pain Endocrine: Yes Diabetes, Insulin dep HEENT: No Dysphagia Loss of Vision: Denies Hearing Impairment: Denies Cancer: No Psychosocial: Yes Anxiety, Depression Integumentary: Yes (MRSA buttocks ) Blood Disorders: No Physical Exam Vital Signs Vital Signs - First Documented 07/14/20 21:49 Temp 36.6 Pulse 108 Resp 16 B/P (MAP) 185/124 (144) Pulse Ox 100 O2 Delivery Non Rebreather O2 Flow Rate 15.00 Capillary Refill : Height, Weight, BMI Height: 6'0" Weight: 148lbs. oz. 67.007466mu; 21.00 BMI Method:Stated General Appearance: moderate distress, cachetic, other (initially postictal but symptoms rapidly improved) HEENT: PERRL/EOMI Respiratory: lungs clear, normal breath sounds Cardiovascular: normal peripheral pulses, tachycardia Gastrointestinal: soft, tenderness (mild diffuse) Neurologic/Psychiatric: other (initially postictal, more alert and orientated throughout his stay) Skin: tattoos/piercings Focused Exam Lactate Level 07/14/20 21:35: Lactic Acid Level 2.69*H Cardiovascular: Tachycardia Capillary Refill: Less Than 3 Seconds Lactic Acid Level Laboratory Tests Test 07/14/20 21:35 Lactic Acid Level 2.69 MMOL/L (0.50-2.00) *H Within 3hrs of presentation: Admin fluids, Admin ABX, Focus exam, Lactate level Progress/Results/Core Measures Results/Orders Lab Results Laboratory Tests Test 07/14/20 21:35 07/14/20 22:08 07/14/20 23:14 Range/Units White Blood Count 26.4 H 4.3-11.0 10^3/uL Red Blood Count 5.79 4.35-5.85 10^6/uL Hemoglobin 16.9 13.3-17.7 G/DL Hematocrit 49 40-54 % Mean Corpuscular Volume 84 80-99 FL Mean Corpuscular Hemoglobin 29 25-34 PG Mean Corpuscular Hemoglobin Concent 35 32-36 G/DL Red Cell Distribution Width 12.5 10.0-14.5 % Platelet Count 577 H 130-400 10^3/uL Mean Platelet Volume 10.1 7.4-10.4 FL Immature Granulocyte % (Auto) 1 % Neutrophils (%) (Auto) 78 H 42-75 % Lymphocytes (%) (Auto) 6 L 12-44 % Monocytes (%) (Auto) 6 0-12 % Eosinophils (%) (Auto) 9 0-10 % Basophils (%) (Auto) 1 0-10 % Neutrophils # (Auto) 20.5 H 1.8-7.8 X 10^3 Lymphocytes # (Auto) 1.7 1.0-4.0 X 10^3 Monocytes # (Auto) 1.5 H 0.0-1.0 X 10^3 Eosinophils # (Auto) 2.4 H 0.0-0.3 10^3/uL Basophils # (Auto) 0.1 0.0-0.1 10^3/uL Immature Granulocyte # (Auto) 0.2 H 0.0-0.1 10^3/uL Neutrophils % (Manual) 77 % Lymphocytes % (Manual) 8 % Monocytes % (Manual) 6 % Eosinophils % (Manual) 2 % Basophils % (Manual) 0 % Metamyelocytes % 1 % Band Neutrophils 6 % Blood Gas Puncture Site LT RADIAL Blood Gas Patient Temperature 36.6 Arterial Blood pH 7.46 H 7.37-7.43 Arterial Blood Partial Pressure CO2 53 H 35-45 MMHG Arterial Blood Partial Pressure O2 291 H 79-93 MMHG Arterial Blood HCO3 38 H 23-27 MMOL/L Arterial Blood Total CO2 39.3 H 21.0-31.0 MMOL/L Arterial Blood Oxygen Saturation 100 94-100 % Arterial Blood Base Excess 11.9 H -2.5-2.5 MMOL/L Bryan Test NEG Blood Gas Ventilator Setting NO Blood Gas Inspired Oxygen 15 NRB Sodium Level 138 135-145 MMOL/L Potassium Level 4.2 3.6-5.0 MMOL/L Chloride Level 93 L 98-107 MMOL/L Carbon Dioxide Level 29 21-32 MMOL/L Anion Gap 16 H 5-14 MMOL/L Blood Urea Nitrogen 30 H 7-18 MG/DL Creatinine 0.90 0.60-1.30 MG/DL Estimat Glomerular Filtration Rate > 60 BUN/Creatinine Ratio 33 Glucose Level 518 *H 70-105 MG/DL Lactic Acid Level 2.69 *H 0.50-2.00 MMOL/L Calcium Level 9.7 8.5-10.1 MG/DL Corrected Calcium 9.6 8.5-10.1 MG/DL Magnesium Level 2.1 1.6-2.4 MG/DL Total Bilirubin 0.4 0.1-1.0 MG/DL Aspartate Amino Transf (AST/SGOT) 10 5-34 U/L Alanine Aminotransferase (ALT/SGPT) 12 0-55 U/L Alkaline Phosphatase 132 40-136 U/L C-Reactive Protein 0.76 H <0.50 MG/DL Total Protein 7.3 6.4-8.2 GM/DL Albumin 4.1 3.2-4.5 GM/DL Serum Alcohol < 10 <10 MG/DL Glucometer 402 *H 399 H 70-110 MG/DL My Orders Orders - SMART,PA L DO Accucheck Stat ONCE (07/14/20 21:32) Ed Iv/Invasive Line Start (07/14/20 21:32) Vital Signs (07/14/20 21:32) Ekg Tracing (07/14/20 21:32) Catheter(Urinary) Insert & Ass 03,15 (07/14/20 21:32) O2 (07/14/20 21:32) Monitor-Rhythm Ecg Trace Only (07/14/20 21:32) End Tidal Co2 (07/14/20 21:32) Alcohol (07/14/20 21:32) Ammonia (07/14/20 21:32) Cbc With Automated Diff (07/14/20 21:32) Comprehensive Metabolic Panel (07/14/20 21:32) Lactic Acid Analyzer (07/14/20 21:32) Procalcitonin (Pct) (07/14/20 21:32) Ua Culture If Indicated (07/14/20 21:32) Blood Culture (07/14/20 21:32) Crp Fs (07/14/20 21:32) Arterial Blood Gas (07/14/20 21:32) Ct Head Wo-R/O Stroke (07/14/20 21:32) Chest 1 View Ap/Pa Only (07/14/20 21:32) Lactated Ringers (Lr 1000 Ml Iv Solution (07/14/20 21:32) Levetiracetam Injection (Keppra Injectio (07/14/20 21:45) Pantoprazole Injection (Protonix Injecti (07/14/20 21:45) Promethazine Injection (Phenergan Injec (07/14/20 21:49) Manual Differential (07/14/20 21:35) Magnesium (07/14/20 21:56) Creatine Kinase (07/14/20 21:56) Arterial Blood Gas (07/14/20 22:17) Insulin Regular Drip (Myxredlin 100 Unit (07/14/20 22:30) Lactated Ringers (Lr 1000 Ml Iv Solution (07/14/20 22:20) Drug Screen Stat (Urine) (07/14/20 22:26) Cefepime Injection (Maxipime Injection) (07/14/20 22:45) Medications Given in ED Current Medications Medications Dose Ordered Sig/Josef Route Start Time Stop Time Status Last Admin Dose Admin Cefepime HCl 1000 mg/Sterile Water 10 ml @ 200 mls/hr ONCE ONCE IV 07/14/20 22:45 07/14/20 22:47 DC 07/14/20 22:44 200 MLS/HR Levetiracetam 1000 mg/Sodium Chloride 110 ml @ 440 mls/hr ONCE ONCE IV 07/14/20 21:45 07/14/20 21:59 DC 07/14/20 22:13 440 MLS/HR Pantoprazole 40 mg ONCE ONCE IV 07/14/20 21:45 07/14/20 21:46 DC 07/14/20 22:13 40 MG Vital Signs/I&O 07/14/20 21:49 Temp 36.6 Pulse 108 Resp 16 B/P (MAP) 185/124 (144) Pulse Ox 100 O2 Delivery Non Rebreather O2 Flow Rate 15.00 Progress Progress Note : Time: 23:42 Progress Note Patient with no further seizure activity while in the ER following treatment. Patient was given Keppra 1 g, cefepime, Phenergan, IV fluids and started on insulin drip. Discussed with and we will transfer patient to [facility] for further treatment per her request and to see neurologist for his seizure since he is currently not on any seizure medication or diabetic medication. Patient was much more alert upon transfer and stable. Called and discussed with [facility] and patient was accepted by Dr. Estrella Initial ECG Impression Date: Jul 14, 2020 Initial ECG Impression Time: 21:30 Initial ECG Rhythm: S.Tach Initial ECG Intervals: QT (494) Initial ECG Impression: Nonspecific Changes Comment sinus tach, borderline qt, non specific changes,no acute changes Diagnostic Imaging Diagonstic Imaging: CT Plain Films/CT/US/NM/MRI: head Comments no acute cranial abnormality Reviewed: Reviewed [facility] Critical Care Note Critical Care Total Time (minutes) 30 minutes Departure Impression Primary Impression: Seizure disorder Additional Impressions: Diabetes mellitus Qualified Codes: E13.65 - Other specified diabetes mellitus with hyperglycemia Elevated white blood cell count, unspecified Qualified Codes: D72.829 - Elevated white blood cell count, unspecified Disposition: 02 XFER SHT-TRM HOSP Condition: Stable Transfer Transfer Reason: Patient preference Time Spoke to Accepting Phy: 23:35 Transfer Facility: [facility] Method of Transfer: EMS Departure-Patient Inst. Referrals: NO,LOCAL PHYSICIAN (PCP/Family) Primary Care Physician Scripts No Active Prescriptions or Reported Meds PA SMART DO Jul 14, 2020 21:36
[2020-07-14] MEDS ORDERED: PANTOPRAZOLE 40 MG (PROTONIX) VIAL IV ONE (21:45)
[2020-07-14] MEDS ORDERED: LEVETIRACETAM INJECTION 1,000 MG in NS (IVPB) 100 ML IV ONE (21:45)
[2020-07-14 21:47] LABS: HEMATOCRIT 49 % (40-54); HEMOGLOBIN 16.9 G/DL (13.3-17.7); MEAN CORPUSCULAR HEMOGLOBIN 29 PG (25-34); MEAN CORPUSCULAR HGB CONC 35 G/DL (32-36); MEAN CORPUSCULAR VOLUME 84 FL (80-99); PLATELET COUNT 577 10^3/uL (130-400); WHITE BLOOD COUNT 26.4 10^3/uL (4.3-11.0)
[2020-07-14 21:48] LABS: MEAN PLATELET VOLUME 10.1 FL (7.4-10.4)
[2020-07-14 21:49] LABS: BASOPHILS % (AUTO) 1 % (0-10); EOSINOPHILS % (AUTO) 9 % (0-10); LYMPHOCYTES % (AUTO) 6 % (12-44); MONOCYTES % (AUTO) 6 % (0-12); NEUTROPHILS % (AUTO) 78 % (42-75)
[2020-07-14] MEDS ORDERED: PROMETHAZINE INJ 25 MG/ML (PHENERGAN) AMP IVP STA (21:49)
[2020-07-14 21:50] LABS: BASOPHILS # (AUTO) 0.1 10^3/uL (0.0-0.1); EOSINOPHILS # (AUTO) 2.4 10^3/uL (0.0-0.3); LYMPHOCYTES # (AUTO) 1.7 X 10^3 (1.0-4.0); MONOCYTES # (AUTO) 1.5 X 10^3 (0.0-1.0); NEUTROPHILS # (AUTO) 20.5 X 10^3 (1.8-7.8)
--- NOTE | 2020-07-14 22:05 | Diagnostic Imaging Report ---
INDICATION: Altered mental status. Frontal chest obtained at 09:40 p.m. and compared to 09/11/2019. Heart and mediastinal silhouette are normal in appearance. The lungs are clear. There is no pneumothorax or pleural fluid. IMPRESSION: Negative chest. Dictated by: Dictated on workstation # [id number]
[2020-07-14 22:15] LABS: BUN/CREATININE RATIO 33; CARBON DIOXIDE 29 MMOL/L (21-32); CHLORIDE 93 MMOL/L (98-107); GFR ESTIMATED > 60; POTASSIUM 4.2 MMOL/L (3.6-5.0); SODIUM 138 MMOL/L (135-145)
[2020-07-14] MEDS ORDERED: POTASSIUM CL 10MEQ/50ML IVPB 50 ML IV SCH (22:15)
[2020-07-14] MEDS ORDERED: MAGNESIUM 1 GM/100 ML IVPB 100 ML IV ONE (22:15)
[2020-07-14 22:16] LABS: ALANINE AMINOTRANSFERASE 12 U/L (0-55); ALKALINE PHOSPHATASE 132 U/L (40-136); BILIRUBIN,TOTAL 0.4 MG/DL (0.1-1.0); CALCIUM 9.7 MG/DL (8.5-10.1); GLUCOSE 518 MG/DL (70-105); TOTAL PROTEIN 7.3 GM/DL (6.4-8.2)
[2020-07-14 22:17] LABS: ALBUMIN 4.1 GM/DL (3.2-4.5); MAGNESIUM 2.1 MG/DL (1.6-2.4)
[2020-07-14 22:19] LABS: BAND NEUTROPHILS 6 %; BASOPHILS % (MANUAL) 0 %; EOSINOPHILS % (MANUAL) 2 %; LYMPHOCYTES % (MANUAL) 8 %; METAMYELOCYTES % 1 %; MONOCYTES % (MANUAL) 6 %; NEUTROPHILS % (MANUAL) 77 %
[2020-07-14 22:26] LABS: ABG BASE EXCESS 11.9 MMOL/L (-2.5-2.5); ABG OXYGEN SATURATION 100 % (94-100); ABG PCO2 53 MMHG (35-45); ABG PH 7.46 (7.37-7.43); ABG PO2 291 MMHG (79-93); ABG TCO2 39.3 MMOL/L (21.0-31.0)
[2020-07-14 22:27] LABS: ALLENS TEST NEG; INSPIRED O2 15 NRB; VENTILATOR NO
[2020-07-14 22:28] LABS: PATIENT TEMP 36.6
[2020-07-14] MEDS ORDERED: CEFEPIME INJECTION 1,000 MG in WATER (STERILE) FOR INJECTION 10 ML IV ONE (22:45)
--- NOTE | 2020-07-15 00:20 | NUR ---
ems here report and care given
[2020-07-15 00:25] VITALS: BP 189/99
--- NOTE | 2020-07-15 08:56 | Diagnostic Imaging Report ---
PROCEDURE: CT head wo r/o stroke. TECHNIQUE: Multiple contiguous axial images were obtained through the brain without the use of intravenous contrast. Auto Exposure Controls were utilized during the CT exam to meet ALARA standards for radiation dose reduction. INDICATION: Multiple seizures There is no mass, shift of the midline or hemorrhage to suggest an acute intracranial abnormality. The ventricles are not abnormally dilated and stable in size when compared to the prior exam of 09/11/2019. The bone windows show no evidence for a fracture or for a destructive lesion. The orbits are symmetrical and within normal limits. The sinuses are generally clear. IMPRESSION: 1. There is no evidence for an acute intracranial abnormality. 2. If clinical concern regarding an underlying abnormality persists, then MRI would be recommended for further study. 3. I agree with [facility] interpretation of this exam. Dictated by: Dictated on workstation # [id number]
[2020-07-15 09:16] LABS: AMMONIA 37 UMOL/L (11-32)
== END 2020-07-15 00:25 | disposition short-term general hospital (02) ==
LOC: EDUNIT# 21:30 → ER FS 21:31
DX: G40.909 Epilepsy, unspecified, not intractable, without status epilepticus (principal); E11.9 Type 2 diabetes mellitus without complications; D72.829 Elevated white blood cell count, unspecified; Z77.22 Contact with and (suspected) exposure to environmental tobacco smoke (acute) (chronic); Z88.8 Allergy status to other drugs, medicaments and biological substances
CPT/HCPCS: 36415; 70450; 71045; 80053; 82140; 82550; 82805; 82962 ×2; 83605; 83735; 84145; 85007; 85027; 86141; 87040; 99285; G0480; 80320; 93005

== ENCOUNTER 2020-09-14 11:21 | Observation (INO) | payer SELFPAY ==
[~2020-09-14] VITALS: Ht 182.9 cm; Wt 54.4 kg
[~2020-09-14 11:21] MED LIST changes: -LISI-552 PO; +LISI20TA26 PO
[2020-09-14 12:04] LABS: HEMATOCRIT 44 % (40-54); HEMOGLOBIN 14.9 G/DL (13.3-17.7); MEAN CORPUSCULAR HEMOGLOBIN 29 PG (25-34); MEAN CORPUSCULAR HGB CONC 34 G/DL (32-36); MEAN CORPUSCULAR VOLUME 87 FL (80-99); MEAN PLATELET VOLUME 10.2 FL (7.4-10.4); PLATELET COUNT 654 10^3/uL (130-400); WHITE BLOOD COUNT 15.1 10^3/uL (4.3-11.0)
[2020-09-14 12:05] LABS: BASOPHILS # (AUTO) 0.1 10^3/uL (0.0-0.1); BASOPHILS % (AUTO) 1 % (0-10); EOSINOPHILS % (AUTO) 0 % (0-10); LYMPHOCYTES # (AUTO) 1.7 X 10^3 (1.0-4.0); LYMPHOCYTES % (AUTO) 11 % (12-44); MONOCYTES # (AUTO) 1.1 X 10^3 (0.0-1.0); MONOCYTES % (AUTO) 7 % (0-12); NEUTROPHILS # (AUTO) 12.1 X 10^3 (1.8-7.8); NEUTROPHILS % (AUTO) 80 % (42-75)
--- NOTE | 2020-09-14 12:06 | ED General ---
General Chief Complaint: Neurological Problems Stated Complaint: AMS; SEIZURES; HYPERGLYCEMIA Nursing Triage Note: PT ARRIVED BY [facility] ([facility]) WITH CHIEF COMPLAINT OF ALTERED MENTAL STATUS, VOMITING/NAUSEA, HIGH BLOOD SUGAR (OVER 400 -410 PER EMS), AND SEIZURE LIKE ACITIVITY. PER EMS, PT HAD 3 EPISODES OF SEIZURE LIKE ACTIVITY SO A TOTAL OF 3 MG OF ATIVAN WAS GIVEN IV. IV WAS STARTED IN LEFT AC (20 GAUGE). VITAL SIGNS WERE DONE ON ARRIVAL, BLOOD WAS DRAWN. PT STARTED TO FEEL BAD 3 DAYS AGO. TODAY AT 0900 3-4 SEIZURES OCCURRED. PT HAS NOT BEEN TAKING MEDS DUE TO VOMITING. PT DID SMOKE MARIJUANA TODAY AND HE SMOKES 2-3 CIGARETTES A DAY. PT WAS HYPERTENSIVE FOR EMS 193/129. PT WAS ALERT AND ARROUSABLE BY NAME. PT DOES SEEM A LITTLE SEDATED FROM ATIVAN. REPORT WAS GIVEN TO PROVIDER. Nursing Sepsis Screen: No Definite Risk Source of Information: Patient, EMS, Old Records History of Present Illness Date Seen by Provider: Sep 14, 2020 Time Seen by Provider: 11:21 Initial Comments 45 yo male presents by EMS with complaints of n/v/d and elevated glucose. He has been having decreased mental status and reports that he has a history of seizures. He feels like he has had increased seizure activity recently. He had called EMS because he was not feeling well for the last several days. He denies missing any doses of medication but from reviewing his chart has a chronic history of noncompliance with medications. He reports a history of Crohn's and states that his abdomen has been hurting and he has had over 3 episodes of diarrhea a day for the last several days. He thinks he seen some blood in his diarrhea. He usually follows with Dr. Ariza for care. He does use marijuana regularly. He was having spasms and jerking motions of his arms so EMS gave him 3 mg of Ativan for "seizure activity". He continues to have spasms here in ED but is awake and speaking while having the spasms. Timing/Duration: 3-4 Days Allergies and Home Medications Allergies Coded Allergies: Penicillins (Verified Allergy, Unknown, 09/14/20) aspirin (Unverified Adverse Reaction, Severe, swelling throat, 11/05/18) shellfish derived (Unverified Adverse Reaction, Severe, THROAT SWELLING, 09/14/20) Home Medications No Active Prescriptions or Reported Meds Patient Home Medication List Home Medication List Reviewed: Yes Review of Systems Review of Systems Constitutional: No chills, No diaphoresis, No fever; malaise EENTM: no symptoms reported Respiratory: no symptoms reported Cardiovascular: no symptoms reported Gastrointestinal: abdominal pain (diffuse pain), diarrhea (more than 3 episodes a day), nausea, vomiting Genitourinary: no symptoms reported Musculoskeletal: no symptoms reported Skin: no symptoms reported Psychiatric/Neurological: See HPI, Seizure (increased jerking movements of body) Hematologic/Lymphatic: No Symptoms Reported Immunological/Allergic: no symptoms reported Past Epfcxtw-Hgkxzd-Djvxyf Hx Past Med/Social Hx: Reviewed Nursing Past Med/Soc Hx Patient Social History Alcohol Use: Denies Use Drug of Choice: HX METH Type Used: Cigarettes 2nd Hand Smoke Exposure: Yes Recent Infectious Disease Expo: No Recent Hopitalizations: No Immunizations Up To Date Tetanus Booster (TDap): Unknown Seasonal Allergies Seasonal Allergies: No Past Medical History Surgeries: Yes (Abscess buttocks-MRSA, jaw fx) Gallbladder Respiratory: No Currently Using CPAP: No Currently Using BIPAP: No Cardiac: Yes Hypertension Neurological: Yes Neuropathy, Seizure Disorder Genitourinary: No Gastrointestinal: Yes Crohns Disease Musculoskeletal: Yes (chronic pain/neuropathy also from "feet to shoulders") Chronic Back Pain Endocrine: Yes Diabetes, Insulin dep HEENT: No Dysphagia Loss of Vision: Denies Hearing Impairment: Denies Cancer: No Psychosocial: Yes Anxiety, Depression Integumentary: Yes (MRSA buttocks ) Blood Disorders: No Physical Exam Vital Signs Vital Signs - First Documented 09/14/20 11:21 Temp 36.4 Pulse 113 Resp 18 B/P (MAP) 169/112 (131) Pulse Ox 98 O2 Delivery Room Air Capillary Refill : Less Than 3 Seconds Height, Weight, BMI Height: 6'0" Weight: 148lbs. oz. 67.280469ht; 16.00 BMI Method:Stated General Appearance: Chronically ill, Thin, Other (multiple tattoos, disheveled appearance, somnolent) HEENT: PERRL/EOMI, Pharynx Normal; No Moist Mucous Membranes (slightly dry mucous membranes) Neck: Full Range of Motion, Normal Inspection, Non Tender, Supple Respiratory: Chest Non Tender, Lungs Clear, Normal Breath Sounds, No Accessory Muscle Use, No Respiratory Distress Cardiovascular: Regular Rate, Rhythm, No Murmur, Normal Peripheral Pulses Gastrointestinal: No Pulsatile Mass, Soft, Abnormal Bowel Sounds (hypoactive); No Distended, No Guarding, No Rebound; Tenderness (diffuse tender to palpation) Rectal: Normal Exam (yellow/brown colored stool), Normal Rectal Tone, Heme Negative Stool Extremity: Normal Capillary Refill, No Pedal Edema Neurologic/Psychiatric: Other (pt is somnolent and falls asleep easily during exam. He has some spasms/jerking movements of his arms like what EMS was calling seizure activity but he remained talking and interacting with staff while having these movements) Skin: Warm/Dry Progress/Results/Core Measures Suspected Sepsis Recent Fever Within 48 Hours: No Infection Criteria Present: None New/Unexplained Altered Menta: No Sepsis Screen: No Definite Risk SIRS Temperature: Pulse: 113 Respiratory Rate: 18 Laboratory Tests 09/14/20 11:30: White Blood Count 15.1H Blood Pressure 169 /112 Mean: 131 Laboratory Tests 09/14/20 11:30: Creatinine 0.84, Platelet Count 654H, Total Bilirubin 0.3 Results/Orders Lab Results Laboratory Tests Test 09/14/20 11:30 09/14/20 13:05 09/14/20 13:08 09/14/20 14:03 Range/Units White Blood Count 15.1 H 4.3-11.0 10^3/uL Red Blood Count 5.12 4.35-5.85 10^6/uL Hemoglobin 14.9 13.3-17.7 G/DL Hematocrit 44 40-54 % Mean Corpuscular Volume 87 80-99 FL Mean Corpuscular Hemoglobin 29 25-34 PG Mean Corpuscular Hemoglobin Concent 34 32-36 G/DL Red Cell Distribution Width 13.5 10.0-14.5 % Platelet Count 654 H 130-400 10^3/uL Mean Platelet Volume 10.2 7.4-10.4 FL Immature Granulocyte % (Auto) 0 % Neutrophils (%) (Auto) 80 H 42-75 % Lymphocytes (%) (Auto) 11 L 12-44 % Monocytes (%) (Auto) 7 0-12 % Eosinophils (%) (Auto) 0 0-10 % Basophils (%) (Auto) 1 0-10 % Neutrophils # (Auto) 12.1 H 1.8-7.8 X 10^3 Lymphocytes # (Auto) 1.7 1.0-4.0 X 10^3 Monocytes # (Auto) 1.1 H 0.0-1.0 X 10^3 Eosinophils # (Auto) 0.0 0.0-0.3 10^3/uL Basophils # (Auto) 0.1 0.0-0.1 10^3/uL Immature Granulocyte # (Auto) 0.1 0.0-0.1 10^3/uL Neutrophils % (Manual) 72 % Lymphocytes % (Manual) 15 % Monocytes % (Manual) 7 % Eosinophils % (Manual) 2 % Basophils % (Manual) 0 % Band Neutrophils 3 % Atypical Lymphocytes 1 % Sodium Level 136 135-145 MMOL/L Potassium Level 3.7 3.6-5.0 MMOL/L Chloride Level 91 L 98-107 MMOL/L Carbon Dioxide Level 29 21-32 MMOL/L Anion Gap 16 H 5-14 MMOL/L Blood Urea Nitrogen 28 H 7-18 MG/DL Creatinine 0.84 0.60-1.30 MG/DL Estimat Glomerular Filtration Rate > 60 BUN/Creatinine Ratio 33 Glucose Level 464 *H 70-105 MG/DL Calcium Level 9.6 8.5-10.1 MG/DL Corrected Calcium 8.5-10.1 MG/DL Total Bilirubin 0.3 0.1-1.0 MG/DL Aspartate Amino Transf (AST/SGOT) 15 5-34 U/L Alanine Aminotransferase (ALT/SGPT) 17 0-55 U/L Alkaline Phosphatase 126 40-136 U/L Total Protein 8.0 6.4-8.2 GM/DL Albumin 4.6 H 3.2-4.5 GM/DL Lipase 27 8-78 U/L Serum Alcohol < 10 <10 MG/DL Urine Color YELLOW Urine Clarity CLEAR Urine pH 6.0 5-9 Urine Specific [place] 1.025 H 1.016-1.022 Urine Protein 2+ H NEGATIVE Urine Glucose (UA) 3+ H NEGATIVE Urine Ketones NEGATIVE NEGATIVE Urine Nitrite NEGATIVE NEGATIVE Urine Bilirubin NEGATIVE NEGATIVE Urine Urobilinogen 0.2 < = 1.0 MG/DL Urine Leukocyte Esterase NEGATIVE NEGATIVE Urine RBC (Auto) NEGATIVE NEGATIVE Urine RBC NONE /HPF Urine WBC RARE /HPF Urine Squamous Epithelial Cells 0-2 /HPF Urine Crystals NONE /LPF Urine Bacteria MODERATE H /HPF Urine Casts NONE /LPF Urine Mucus NEGATIVE /LPF Urine Culture Indicated NO Urine Opiates Screen NEGATIVE NEGATIVE Urine Oxycodone Screen NEGATIVE NEGATIVE Urine Methadone Screen NEGATIVE NEGATIVE Urine Propoxyphene Screen NEGATIVE NEGATIVE Urine Barbiturates Screen POSITIVE H NEGATIVE Ur Tricyclic Antidepressants Screen NEGATIVE NEGATIVE Urine Phencyclidine Screen NEGATIVE NEGATIVE Urine Amphetamines Screen POSITIVE H NEGATIVE Urine Methamphetamines Screen POSITIVE H NEGATIVE Urine Benzodiazepines Screen POSITIVE H NEGATIVE Urine Cocaine Screen NEGATIVE NEGATIVE Urine Cannabinoids Screen POSITIVE H NEGATIVE Blood Gas Puncture Site RT RADIAL Blood Gas Patient Temperature 36.4 Arterial Blood pH 7.46 H 7.37-7.43 Arterial Blood Partial Pressure CO2 45 35-45 MMHG Arterial Blood Partial Pressure O2 52 L 79-93 MMHG Arterial Blood HCO3 32 H 23-27 MMOL/L Arterial Blood Total CO2 33.4 H 21.0-31.0 MMOL/L Arterial Blood Oxygen Saturation 88 L 94-100 % Arterial Blood Base Excess 7.2 H -2.5-2.5 MMOL/L Bryan Test OK Blood Gas Ventilator Setting NO Blood Gas Inspired Oxygen ROOM AIR Glucometer 434 *H 70-110 MG/DL My Orders Orders - RENETTA COREAS MD Comprehensive Metabolic Panel (09/14/20 11:52) Lipase (09/14/20 11:52) Ua Culture If Indicated (09/14/20 11:52) Ed Iv/Invasive Line Start (09/14/20 11:52) Cbc With Automated Diff (09/14/20 11:52) Fecal Occult Bedside (09/14/20 11:52) Drug Screen Stat (Urine) (09/14/20 11:52) Manual Differential (09/14/20 11:30) Ct Head Wo (09/14/20 12:06) Ct Chest/Abdomen/Pelvis W (09/14/20 12:06) Hydralazine Injection (Apresoline Inject (09/14/20 12:08) Arterial Blood Gas (09/14/20 12:45) Ns Iv 1000 Ml (Sodium Chloride 0.9%) (09/14/20 12:46) Hennessy Cath (09/14/20 12:53) Iohexol Injection (Omnipaque 350 Mg/Ml 1 (09/14/20 13:15) Received Contrast (Hold Metformin- Contr (09/14/20 13:15) Sodium Chloride Flush (Catheter Flush Sy (09/14/20 13:15) Ns (Ivpb) (Sodium Chloride 0.9% Ivpb Bag (09/14/20 13:15) Labetalol Injection (Normodyne Injection (09/14/20 13:44) O2 (09/14/20 13:44) Ns Iv 1000 Ml (Sodium Chloride 0.9%) (09/14/20 13:44) Accucheck Stat ONCE (09/14/20 14:00) Alcohol (09/14/20 14:01) Pantoprazole Injection (Protonix Injecti (09/14/20 14:02) Insulin (Regular) Human (Novolin R (Per (09/14/20 14:02) Ns Iv 1000 Ml (Sodium Chloride 0.9%) (09/14/20 14:45) Medications Given in ED Current Medications Medications Dose Ordered Sig/Josef Route Start Time Stop Time Status Last Admin Dose Admin Iohexol 85 ml ONCE ONCE IV 09/14/20 13:15 09/14/20 13:16 DC 09/14/20 13:12 85 ML Sodium Chloride 10 ml NEEDED PRN IV 09/14/20 13:15 09/14/20 15:01 DC 09/14/20 13:12 10 ML Sodium Chloride 100 ml ONCE ONCE IV 09/14/20 13:15 09/14/20 13:16 DC 09/14/20 13:12 80 ML Vital Signs/I&O 09/14/20 09/14/20 09/14/20 11:21 13:12 14:35 Temp 36.4 Pulse 113 110 94 Resp 18 20 B/P (MAP) 169/112 (131) 129/83 (98) 182/122 Pulse Ox 98 99 100 O2 Delivery Room Air Room Air Room Air Capillary Refill : Less Than 3 Seconds Blood Pressure Mean: 131 Point of Care Testing Fecal Occult: Negative Progress Note #1: Progress Note Obtain basic labs as well as Hemoccult since she reports having diarrhea with more than 3 episodes a day and having blood in his stool as an exacerbation of his Crohn's disease. He also states he has been having nausea and vomiting but told me that he was having no difficulty keeping his medications down, but then states he may have vomited medicine up rather than kept anything down. He states that he has been checking his sugars at home and they have been around 150-200. However for EMS they were 450-500. He denies having any specialist for his Crohn's and states he just follows with Dr. Ariza. It is difficult to obtain history from the patient as he is somnolent and easily falls back to sleep. This is likely due to the 3 mg of Ativan administered by EMS in route to the ED. From reviewing his prior medical records he has a history of hypertension and noncompliance. His initial blood pressure when I was in the room with him was 213/110. Will order dose of hydralazine 10 mg to try and help with his blood pressure. Continue with IV fluids to help with his elevated glucose reported by EMS. CT scan of his chest due to his elevated blood pressure, abdomen and pelvis due to his history of Crohn's and complaint of increased nausea vomiting diarrhea with pain. Ordered a CT of his head without contrast due to his complaint of increased seizure activity and decreased mental status. Differential diagnosis includes diabetic ketoacidosis, medication noncompliance, hypertensive urgency with encephalopathy, Crohn's exacerbation, seizure disorder with worsening seizures, marijuana related hyperemesis. Progress Note #2: Progress Note Labs show elevated WBC to 15.1. Chemistry shows glucose elevated as well as mild elevation of BUN to 28 but Cr ok. He had mild improvement of his blood pressure with a dose of hydralazine. He continues to be tachycardic despite IV fluid hydration of the liter from EMS. We will repeat a liter of normal saline. We will try to dose of labetalol to help with blood pressure. The CT of his head did not demonstrate any acute significant abnormality. He has not been able to urinate yet so we will order to have a Hennessy to monitor urine output and obtain a urine specimen to look for ketones and infection. Progress Note #3: Progress Note Urinalysis showed mild elevation of specific gravity of 1.025. He had no ketones but did have glucose. He has positive urine drug screen for marijuana as well as methamphetamines benzodiazepines which EMS gave and barbiturates. He admits to using methamphetamines when asked about the drug use and states that he uses it to help him go to the bathroom when he is constipated. Counseled that with his elevated blood pressure and glucose we will check about possible observation stay in the hospital also to continue medication and fluids. The CT scan did not demonstrate any acute significant normality other than thickening of the distal esophagus consistent with GERD and reflux. Add on a dose of Protonix. 1414 d/w Dr. Reyes for the [facility] service since patient reports he follows with Dr. Ariza. She was agreeable to an observation stay on telemetry to help manage his diabetes, blood pressure, hydrate. Will place on a sliding scale insulin order set and monitor his blood pressures. Diagnostic Imaging Diagonstic Imaging: CT Plain Films/CT/US/NM/MRI: head Comments [facility], [place] NAME: JAMEL CHANDLERHIRAM Acosta MED REC#: [id number] PT STATUS: REG ER : 1975 PHYSICIAN: RENETTA COREAS MD ADMIT DATE: 09/14/20/ER FS Signed Date of Exam:09/14/20 CT HEAD WO PROCEDURE: CT head without contrast. TECHNIQUE: Multiple contiguous axial images were obtained through the brain without the use of intravenous contrast. Auto Exposure Controls were utilized during the CT exam to meet ALARA standards for radiation dose reduction. INDICATION: Seizure. Comparison made with prior examination of 07/14/2020. FINDINGS: The ventricles and sulci are within normal limits. There is no hydrocephalus or cerebral edema. There is no midline shift or mass effect. There is no intracranial mass, hemorrhage, or extra-axial fluid collection. The visualized paranasal sinuses and mastoid air cells are clear. There are no regional areas of decreased attenuation appreciated to suggest an acute CVA. IMPRESSION: No acute intracranial abnormality. Dictated by: Dictated on workstation # [id number] Dict: 09/14/20 1312 Trans: 09/14/20 1314 CVB [id number] Interpreted by: MICHELLE AGUILERA MD Electronically signed by: MICHELLE AGUILERA MD 09/14/20 1314 Diagonstic Imaging: CT Plain Films/CT/US/NM/MRI: chest, abdomen, pelvis Comments NAME: JAMEL CHANDLERHIRAM Acosta MED REC#: [id number] PT STATUS: REG ER : 1975 PHYSICIAN: RENETTA COREAS MD ADMIT DATE: 09/14/20/ER FS Draft Date of Exam:09/14/20 CT CHEST/ABDOMEN/PELVIS W PROCEDURE: CT chest, abdomen, and pelvis with contrast. TECHNIQUE: Multiple contiguous axial images were obtained through the chest, abdomen, and pelvis after the administration of intravenous contrast. Auto Exposure Controls were utilized during the CT exam to meet ALARA standards for radiation dose reduction. INDICATION: Altered mental status. Hypertension. Abdominal pain. COMPARISON: CT abdomen and pelvis with IV contrast 09/07/2019. FINDINGS: CT CHEST: Lungs are clear. No pleural effusion or pneumothorax. No endobronchial lesions. No mediastinal, hilar or axillary lymphadenopathy. Normal caliber thoracic aorta. Normal heart size. No pericardial effusion. Nonspecific diffuse thickening of the esophagus. No acute osseous findings. CT ABDOMEN AND PELVIS: Cholecystectomy. The liver, pancreas, spleen, adrenals, kidneys and collecting systems are negative. Distended urinary bladder. The appendix is not identified and may be surgically absent. No suspicious inflammatory findings in the region of the cecum. No free intraperitoneal air or fluid. No lymphadenopathy. No evidence of bowel obstruction or inflammation. No acute osseous findings. IMPRESSION: 1. Diffuse nonspecific esophageal wall thickening. No evidence of obstruction. 2. No acute CT findings of the abdomen or pelvis. 3. The lungs are clear. Dictated on workstation # [id number] Dict: 09/14/20 1337 Trans: 09/14/20 1358 CV [id number] Interpreted by: TRICIA ETIENNE MD Electronically signed by: Departure Communication (Admissions) Time/Spoke to Admitting Phy: 14:14 d/w Dr. Reyes for [facility] with him having elevated blood pressue despite medicines, elevated glucose, dehydration, polysubstance abuse. Observation status to give fluids and try to improve blood pressure and glucose. Impression Primary Impression: Hypertensive urgency Additional Impressions: Hyperglycemia due to diabetes mellitus Nausea vomiting and diarrhea Dehydration Hypertension Qualified Codes: I10 - Essential (primary) hypertension Methamphetamine abuse Marijuana abuse Disposition: 30 STILL A PATIENT Condition: Stable Admissions Decision to Admit Reason: Admit from ER (General) Decision to Admit/Date: Sep 14, 2020 Time/Decision to Admit Time: 14:14 Departure-Patient Inst. Referrals: NO,LOCAL PHYSICIAN (PCP/Family) Primary Care Physician Scripts No Active Prescriptions or Reported Meds RENETTA COREAS MD Sep 14, 2020 12:06
[2020-09-14] MEDS ORDERED: hydrALAZINE (APESOLINE) 20 MG/ML VIAL IV STA (12:08)
[2020-09-14 12:25] LABS: CARBON DIOXIDE 29 MMOL/L (21-32); CHLORIDE 91 MMOL/L (98-107); POTASSIUM 3.7 MMOL/L (3.6-5.0); SODIUM 136 MMOL/L (135-145)
[2020-09-14 12:26] LABS: BUN/CREATININE RATIO 33; CREATININE SERUM 0.84 MG/DL (0.60-1.30); GFR ESTIMATED > 60
[2020-09-14 12:27] LABS: ALANINE AMINOTRANSFERASE 17 U/L (0-55); ALBUMIN 4.6 GM/DL (3.2-4.5); ALKALINE PHOSPHATASE 126 U/L (40-136); BILIRUBIN,TOTAL 0.3 MG/DL (0.1-1.0); CALCIUM 9.6 MG/DL (8.5-10.1); GLUCOSE 464 MG/DL (70-105); LIPASE 27 U/L (8-78)
[2020-09-14 12:36] LABS: ATYPICAL LYMPHOCYTES 1 %; BAND NEUTROPHILS 3 %; BASOPHILS % (MANUAL) 0 %; EOSINOPHILS % (MANUAL) 2 %; LYMPHOCYTES % (MANUAL) 15 %; MONOCYTES % (MANUAL) 7 %; NEUTROPHILS % (MANUAL) 72 %
[2020-09-14] MEDS ORDERED: NS IV 1000 ML 1,000 ML IV STA ×2 (12:46→13:44)
--- NOTE | 2020-09-14 13:14 | Diagnostic Imaging Report ---
PROCEDURE: CT head without contrast. TECHNIQUE: Multiple contiguous axial images were obtained through the brain without the use of intravenous contrast. Auto Exposure Controls were utilized during the CT exam to meet ALARA standards for radiation dose reduction. INDICATION: Seizure. Comparison made with prior examination of 07/14/2020. FINDINGS: The ventricles and sulci are within normal limits. There is no hydrocephalus or cerebral edema. There is no midline shift or mass effect. There is no intracranial mass, hemorrhage, or extra-axial fluid collection. The visualized paranasal sinuses and mastoid air cells are clear. There are no regional areas of decreased attenuation appreciated to suggest an acute CVA. IMPRESSION: No acute intracranial abnormality. Dictated by: Dictated on workstation # [id number]
[2020-09-14 13:15] LABS: ABG BASE EXCESS 7.2 MMOL/L (-2.5-2.5); ABG OXYGEN SATURATION 88 % (94-100); ABG PCO2 45 MMHG (35-45); ABG PH 7.46 (7.37-7.43); ABG PO2 52 MMHG (79-93); ABG TCO2 33.4 MMOL/L (21.0-31.0); ALLENS TEST OK
[2020-09-14] MEDS ORDERED: NS 100 ML (IVPB) BAG IV ONE (13:15)
[2020-09-14] MEDS ORDERED: HOLD METFORMIN - RECEIVED CONTRAST 20 ML VIAL IV SCH (13:15)
[2020-09-14] MEDS ORDERED: IOHEXOL 350 MG/ML 100 ML (OMNIPAQUE 350) VIAL IV ONE (13:15)
[2020-09-14] MEDS ORDERED: CATHETER FLUSH 10 ML SYR IV PRN ×2 (13:15→16:45)
[2020-09-14 13:16] LABS: INSPIRED O2 ROOM AIR; PATIENT TEMP 36.4; VENTILATOR NO
[2020-09-14 13:33] LABS: COLOR,URINE YELLOW
[2020-09-14 13:34] LABS: BACTERIA,URINE MODERATE /HPF; BILIRUBIN,URINE NEGATIVE (NEGATIVE); CLARITY,URINE CLEAR; GLUCOSE, URINE (UA) 3+ (NEGATIVE); KETONES,URINE NEGATIVE (NEGATIVE); LEUKOCYTE ESTERASE ,URINE NEGATIVE (NEGATIVE); NITRITE,URINE NEGATIVE (NEGATIVE); PROTEIN,URINE 2+ (NEGATIVE); SQUAMOUS EPITHELIAL CELL,UR 0-2 /HPF; WBC,URINE RARE /HPF
[2020-09-14 13:35] LABS: AMPHETAMINE SCREEN, URINE POSITIVE (NEGATIVE); BENZODIAZEPINES SCREEN URINE POSITIVE (NEGATIVE); CANNABINOID SCREEN, URINE POSITIVE (NEGATIVE); METHAMPHETAMINE SCREEN URINE S POSITIVE (NEGATIVE)
[2020-09-14 13:36] LABS: BARBITURATE SCREEN URINE POSITIVE (NEGATIVE); COCAINE SCREEN URINE NEGATIVE (NEGATIVE); METHADONE STAT NEGATIVE (NEGATIVE); OPIATE SCREEN URINE NEGATIVE (NEGATIVE); OXYCODONE STAT NEGATIVE (NEGATIVE); PROPOXYPHENE STAT NEGATIVE (NEGATIVE); TRICYCLIC ANTIDEPRESSANTS SCRE NEGATIVE (NEGATIVE)
[2020-09-14] MEDS ORDERED: LABETALOL HCL 20 MG/4 ML VIAL IV STA (13:44)
--- NOTE | 2020-09-14 13:59 | Diagnostic Imaging Report ---
PROCEDURE: CT chest, abdomen, and pelvis with contrast. TECHNIQUE: Multiple contiguous axial images were obtained through the chest, abdomen, and pelvis after the administration of intravenous contrast. Auto Exposure Controls were utilized during the CT exam to meet ALARA standards for radiation dose reduction. INDICATION: Altered mental status. Hypertension. Abdominal pain. COMPARISON: CT abdomen and pelvis with IV contrast 09/07/2019. FINDINGS: CT CHEST: Lungs are clear. No pleural effusion or pneumothorax. No endobronchial lesions. No mediastinal, hilar or axillary lymphadenopathy. Normal caliber thoracic aorta. Normal heart size. No pericardial effusion. Nonspecific diffuse thickening of the esophagus. No acute osseous findings. CT ABDOMEN AND PELVIS: Cholecystectomy. The liver, pancreas, spleen, adrenals, kidneys and collecting systems are negative. Distended urinary bladder. The appendix is not identified and may be surgically absent. No suspicious inflammatory findings in the region of the cecum. No free intraperitoneal air or fluid. No lymphadenopathy. No evidence of bowel obstruction or inflammation. No acute osseous findings. IMPRESSION: 1. Diffuse nonspecific esophageal wall thickening. No evidence of obstruction. 2. No acute CT findings of the abdomen or pelvis. 3. The lungs are clear. Dictated by: Dictated on workstation # [id number]
[2020-09-14] MEDS ORDERED: inSUlin (REGULAR) HUMAN 1 UNIT/0.01 ML (CHARGE PER UNIT) SC STA (14:02)
[2020-09-14] MEDS ORDERED: PANTOPRAZOLE 40 MG (PROTONIX) VIAL IV STA (14:02)
[2020-09-14] MEDS ORDERED: NS IV 1000 ML 1,000 ML IV SCH (14:45)
[2020-09-14] MEDS: NS IV 1000 ML 1,000 ML IV SCH ×2 (16:43→23:33)
[2020-09-14] MEDS ORDERED: ONDANSETRON 4 MG/2 ML (SDV) Z0FRAN IV PRN (16:45)
[2020-09-14] MEDS ORDERED: LABETALOL HCL 20 MG/4 ML VIAL IV PRN (16:45)
[2020-09-14] MEDS ORDERED: VENlafaxine XR 37.5 MG (EFFEXOR XR) CAP PO SCH (18:00)
[2020-09-14] MEDS ORDERED: PHEN100C4 PO (18:01)
[2020-09-14] MEDS ORDERED: OMEP40CA27 PO (18:01)
[2020-09-14] MEDS ORDERED: VENL37.52 PO (18:01)
[2020-09-14] MEDS ORDERED: NF-VITD400 PO (18:02)
[2020-09-14] MEDS ORDERED: AMOX250C PO (18:02)
[2020-09-14] MEDS ORDERED: ATOR20TA49 PO (18:02)
[2020-09-14] MEDS ORDERED: INSU100V6 SQ (18:02)
[2020-09-14] MEDS ORDERED: METF-397 PO (18:02)
[2020-09-14] MEDS ORDERED: INSU100V16 SQ (18:02)
[2020-09-14] MEDS ORDERED: LISI40TA9 PO (18:02)
[2020-09-14 20:00] VITALS: BP 122/68
[2020-09-14] MEDS ORDERED: DOCUSATE SODIUM 100 MG (COLACE) CAP PO PRN (20:00)
[2020-09-14] MEDS ORDERED: polyethylene glycoL POWDER 17 GM (MIRALAX) PACK PO PRN (20:00)
[2020-09-14] MEDS ORDERED: ACETAMINOPHEN 325 MG TABLET PO PRN (20:00)
[2020-09-14] MEDS ORDERED: SENNA W/DOCUSATE (SENOKOT S) TABLET PO PRN (20:00)
[2020-09-14] MEDS ORDERED: PHENYTOIN 100 MG (DILANTIN) CAP PO SCH (21:00)
[2020-09-14] MEDS ORDERED: inSUlin ASPART (NovoLOG) 1 UNIT/0.01 ML (CHARGE PER UNIT) SC SCH (21:00)
[2020-09-14] MEDS ORDERED: PANTOPRAZOLE 40 MG (PROTONIX) VIAL IV SCH (21:00)
[2020-09-14] MEDS: inSUlin ASPART (NovoLOG) 1 UNIT/0.01 ML (CHARGE PER UNIT) SC SCH (21:02)
[2020-09-14 23:20] VITALS: BP 113/72
[2020-09-15 04:15] VITALS: BP 144/84
[2020-09-15] MEDS: NS IV 1000 ML 1,000 ML IV SCH (05:22)
[2020-09-15 05:43] LABS: BASOPHILS # (AUTO) 0.1 10^3/uL (0.0-0.1); BASOPHILS % (AUTO) 1 % (0-10); EOSINOPHILS # (AUTO) 0.2 10^3/uL (0.0-0.3); EOSINOPHILS % (AUTO) 2 % (0-10); HEMATOCRIT 36 % (40-54); LYMPHOCYTES # (AUTO) 1.7 10^3/uL (1.0-4.0); LYMPHOCYTES % (AUTO) 18 % (12-44); MEAN CORPUSCULAR HEMOGLOBIN 29 pg (25-34); MEAN CORPUSCULAR HGB CONC 34 g/dL (32-36); MEAN CORPUSCULAR VOLUME 88 fL (80-99); MEAN PLATELET VOLUME 10.6 fL (9.0-12.2); MONOCYTES # (AUTO) 0.8 10^3/uL (0.0-1.0); MONOCYTES % (AUTO) 9 % (0-12); NEUTROPHILS # (AUTO) 6.9 10^3/uL (1.8-7.8); NEUTROPHILS % (AUTO) 71 % (42-75); PLATELET COUNT 510 10^3/uL (130-400); WHITE BLOOD COUNT 9.8 10^3/uL (4.3-11.0)
[2020-09-15 06:15] LABS: ALANINE AMINOTRANSFERASE 15 U/L (0-55); ALBUMIN 3.5 GM/DL (3.2-4.5); ALKALINE PHOSPHATASE 80 U/L (40-136); BILIRUBIN,TOTAL 0.3 MG/DL (0.1-1.0); BUN/CREATININE RATIO 29; CALCIUM 8.2 MG/DL (8.5-10.1); CARBON DIOXIDE 21 MMOL/L (21-32); CHLORIDE 111 MMOL/L (98-107); CREATININE SERUM 0.79 MG/DL (0.60-1.30); GFR ESTIMATED > 60; GLUCOSE 64 MG/DL (70-105); POTASSIUM 3.2 MMOL/L (3.6-5.0); SODIUM 142 MMOL/L (135-145); TOTAL PROTEIN 6.2 GM/DL (6.4-8.2)
[2020-09-15] MEDS: inSUlin ASPART (NovoLOG) 1 UNIT/0.01 ML (CHARGE PER UNIT) SC SCH (06:46)
[2020-09-15 08:00] VITALS: BP 162/87
[2020-09-15] MEDS ORDERED: lisINopril 40 MG (PRINIVIL) TABLET PO SCH (09:00)
[2020-09-15] MEDS ORDERED: NON-FORMULARY MEDICATION 1 EA EA (Omeprazole 40 MG) PO SCH (09:00)
[2020-09-15] MEDS ORDERED: TAMSULOSIN 0.4 MG (FLOMAX) CAP PO SCH (18:00)
== END 2020-09-15 09:30 | disposition home or self-care (01) ==
LOC: EDUNIT# 11:21 → ER FS 11:22 → 4TH 14:14 → ER FS 15:01 → 4TH 17:34
PROVIDERS: ADMIT Family Medicine; ATTEND Family Medicine
DX: I16.0 Hypertensive urgency (principal); R41.82 Altered mental status, unspecified; G40.909 Epilepsy, unspecified, not intractable, without status epilepticus; E11.40 Type 2 diabetes mellitus with diabetic neuropathy, unspecified; E11.65 Type 2 diabetes mellitus with hyperglycemia; I10 Essential (primary) hypertension; G89.29 Other chronic pain; M54.9 Dorsalgia, unspecified; R19.7 Diarrhea, unspecified; K50.90 Crohn's disease, unspecified, without complications; E86.0 Dehydration; F17.210 Nicotine dependence, cigarettes, uncomplicated; F32.9 Major depressive disorder, single episode, unspecified; F41.9 Anxiety disorder, unspecified; F12.90 Cannabis use, unspecified, uncomplicated; F19.10 Other psychoactive substance abuse, uncomplicated; Z88.0 Allergy status to penicillin; Z88.6 Allergy status to analgesic agent; Z91.013 Allergy to seafood; Z20.822 Contact with and (suspected) exposure to COVID-19
CPT/HCPCS: 36415; 51702; 70450; 71260; 74177; 80053 ×2; 80306; 81000; 82274; 82805; 82962; 83690; 85007; 85025; 85027; 99285; G0378; G0480; U0002; 80320; 87635

== ENCOUNTER 2020-10-15 17:56 | Emergency (ER) | payer SELFPAY ==
[~2020-10-15] VITALS: Ht 182.9 cm; Wt 54.4 kg
[~2020-10-15 17:56] MED LIST changes: +AMOX250C PO; +ATOR20TA49 PO; +INSU100V6 SQ; +LISI40TA9 PO; +NF-VITD400 PO; +OMEP40CA27 PO; +PHEN100C4 PO; +VENL37.52 PO
[2020-10-15] MEDS ORDERED: ONDANSETRON 4 MG/2 ML (SDV) Z0FRAN IVP STA (18:16)
[2020-10-15] MEDS ORDERED: NS IV 1000 ML 1,000 ML IV STA (18:16)
[2020-10-15] MEDS ORDERED: PANTOPRAZOLE 40 MG (PROTONIX) VIAL IV STA (18:16)
[2020-10-15] MEDS ORDERED: LORazepam INJ 2 MG/ML (ATIVAN) VIAL IVP STA (18:16)
[2020-10-15] MEDS ORDERED: hydrALAZINE (APESOLINE) 20 MG/ML VIAL IV STA (18:16)
--- NOTE | 2020-10-15 18:20 | ED General ---
General Chief Complaint: Cardiac/General Problems Stated Complaint: HYPERGLYCEMIA Source of Information: Patient, EMS, Old Records History of Present Illness Date Seen by Provider: Oct 15, 2020 Time Seen by Provider: 17:56 Initial Comments 45-year-old male presenting by EMS after having reported episodes of nausea and vomiting as well as over 7 seizures today at home. He also admits to smoking marijuana and using methamphetamines. He denies any trauma to his head. He has not been taking his medicines as prescribed. He has an elevated blood sugar and elevated blood pressure. He had presented with similar symptoms September 14 and was admitted at [facility] but left AMA prior to seeing the doctor there. He had similar symptoms in July and was admitted to [facility]. Denies fever or chills. He is slow to answer questions and respond. Associated Systoms: No Chest Pain, No Cough, No Diaphoresis, No Fever/Chills, No Headaches; Nausea/Vomiting, Seizure; No Shortness of Air, No Syncope; Weakness (generalized) Allergies and Home Medications Allergies Coded Allergies: Penicillins (Verified Allergy, Unknown, 09/14/20) aspirin (Unverified Adverse Reaction, Severe, swelling throat, 11/05/18) shellfish derived (Unverified Adverse Reaction, Severe, THROAT SWELLING, 09/14/20) Home Medications Atorvastatin Calcium 20 Mg Tablet, 20 MG PO HS, (Reported) Last Action: Last Taken Edited Insulin Aspart 100 Unit/1 Ml Susp, 15 UNIT SQ AC, (Reported) Last Action: Last Taken Edited Insulin Glargine,Hum.rec.anlog 100 Unit/1 Ml Vial, 40 UNIT SQ HS, (Reported) Last Action: Last Taken Edited Lisinopril 40 Mg Tablet, 40 MG PO DAILY, (Reported) Last Action: Last Taken Edited Metformin HCl 500 Mg Tablet, 500 MG PO BID, (Reported) Last Action: Last Taken Edited Omeprazole 40 Mg Capsule.dr, 40 MG PO DAILY, (Reported) Last Action: Last Taken Edited Phenytoin Sodium Extended 100 Mg Capsule, 100 MG PO TID, (Reported) Last Action: Last Taken Edited Venlafaxine HCl 37.5 Mg Cap.er.24h, 75 MG PO BID, (Reported) Last Action: Last Taken Edited Vitamin D 10 Mcg Tablet, 1,000 MCG PO WEEK, (Reported) Last Action: Last Taken Edited Patient Home Medication List Home Medication List Reviewed: Yes Review of Systems Review of Systems Constitutional: weakness (general) EENTM: no symptoms reported Respiratory: no symptoms reported Cardiovascular: no symptoms reported Gastrointestinal: nausea, vomiting Genitourinary: no symptoms reported Musculoskeletal: no symptoms reported Skin: no symptoms reported, other (multiple tattoos and piercings) Psychiatric/Neurological: Seizure, Weakness (generalized) Past Vuatxdb-Agasfl-Eujqbm Hx Past Med/Social Hx: Reviewed Nursing Past Med/Soc Hx Patient Social History Drug of Choice: HX METH Type Used: Cigarettes 2nd Hand Smoke Exposure: Yes Recent Hopitalizations: No Immunizations Up To Date Tetanus Booster (TDap): Unknown Seasonal Allergies Seasonal Allergies: No Past Medical History Surgeries: Yes (Abscess buttocks-MRSA, jaw fx) Gallbladder Respiratory: No Currently Using CPAP: No Currently Using BIPAP: No Cardiac: Yes Hypertension Neurological: Yes Neuropathy, Seizure Disorder Genitourinary: No Gastrointestinal: Yes Crohns Disease Musculoskeletal: Yes (chronic pain/neuropathy also from "feet to shoulders") Chronic Back Pain Endocrine: Yes Diabetes, Insulin dep HEENT: No Dysphagia Loss of Vision: Denies Hearing Impairment: Denies Cancer: No Psychosocial: Yes Anxiety, Depression Integumentary: Yes (MRSA buttocks ) Blood Disorders: No Physical Exam Vital Signs Vital Signs - First Documented 10/15/20 17:58 Temp 36.3 Pulse 106 Resp 26 B/P (MAP) 212/156 (174) Pulse Ox 98 O2 Delivery Room Air Capillary Refill : Height, Weight, BMI Height: 6'0" Weight: 148lbs. oz. 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 Norm as Tested, Other (slow to answer questions) Skin: Warm/Dry, Tattoos/Piercings (multiple) Focused Exam Lactate Level 10/15/20 18:10: Lactic Acid Level 1.47 Lactic Acid Level Laboratory Tests Test 10/15/20 18:10 Lactic Acid Level 1.47 MMOL/L (0.50-2.00) Progress/Results/Core Measures Suspected Sepsis SIRS Temperature: Pulse: Respiratory Rate: Laboratory Tests 10/15/20 18:10: White Blood Count 14.1H Blood Pressure / Mean: 10/15/20 18:10: Lactic Acid Level 1.47 Laboratory Tests 10/15/20 18:10: Creatinine 0.82, INR Comment 0.9, Platelet Count 648H, Total Bilirubin 0.2 Results/Orders Lab Results Laboratory Tests Test 10/15/20 18:10 10/15/20 18:15 10/15/20 19:59 Range/Units White Blood Count 14.1 H 4.3-11.0 10^3/uL Red Blood Count 4.99 4.35-5.85 10^6/uL Hemoglobin 14.4 13.3-17.7 G/DL Hematocrit 42 40-54 % Mean Corpuscular Volume 85 80-99 FL Mean Corpuscular Hemoglobin 29 25-34 PG Mean Corpuscular Hemoglobin Concent 34 32-36 G/DL Red Cell Distribution Width 13.0 10.0-14.5 % Platelet Count 648 H 130-400 10^3/uL Mean Platelet Volume 9.8 7.4-10.4 FL Immature Granulocyte % (Auto) 0 % Neutrophils (%) (Auto) 78 H 42-75 % Lymphocytes (%) (Auto) 15 12-44 % Monocytes (%) (Auto) 5 0-12 % Eosinophils (%) (Auto) 1 0-10 % Basophils (%) (Auto) 1 0-10 % Neutrophils # (Auto) 11.0 H 1.8-7.8 X 10^3 Lymphocytes # (Auto) 2.2 1.0-4.0 X 10^3 Monocytes # (Auto) 0.7 0.0-1.0 X 10^3 Eosinophils # (Auto) 0.1 0.0-0.3 10^3/uL Basophils # (Auto) 0.1 0.0-0.1 10^3/uL Immature Granulocyte # (Auto) 0.1 0.0-0.1 10^3/uL Neutrophils % (Manual) 69 % Lymphocytes % (Manual) 13 % Monocytes % (Manual) 7 % Eosinophils % (Manual) 3 % Basophils % (Manual) 1 % Band Neutrophils 7 % Platelet Estimate INCREASED Blood Morphology Comment NORMAL Prothrombin Time 12.3 12.2-14.7 SEC INR Comment 0.9 0.8-1.4 Activated Partial Thromboplast Time 28 24-35 SEC Sodium Level 141 135-145 MMOL/L Potassium Level 4.1 3.6-5.0 MMOL/L Chloride Level 97 L 98-107 MMOL/L Carbon Dioxide Level 29 21-32 MMOL/L Anion Gap 15 H 5-14 MMOL/L Blood Urea Nitrogen 15 7-18 MG/DL Creatinine 0.82 0.60-1.30 MG/DL Estimat Glomerular Filtration Rate > 60 BUN/Creatinine Ratio 18 Glucose Level 358 H 70-105 MG/DL Lactic Acid Level 1.47 0.50-2.00 MMOL/L Calcium Level 10.2 H 8.5-10.1 MG/DL Corrected Calcium 10.0 8.5-10.1 MG/DL Magnesium Level 2.0 1.6-2.4 MG/DL Total Bilirubin 0.2 0.1-1.0 MG/DL Aspartate Amino Transf (AST/SGOT) 11 5-34 U/L Alanine Aminotransferase (ALT/SGPT) 13 0-55 U/L Alkaline Phosphatase 133 40-136 U/L Troponin I < 0.30 <0.30 NG/ML Pro-B-Type Natriuretic Peptide 1782.0 H <75.0 PG/ML Total Protein 7.9 6.4-8.2 GM/DL Albumin 4.3 3.2-4.5 GM/DL Lipase 10 8-78 U/L Urine Color YELLOW Urine Clarity CLEAR Urine pH 7.5 5-9 Urine Specific [place] 1.020 1.016-1.022 Urine Protein 2+ H NEGATIVE Urine Glucose (UA) 3+ H NEGATIVE Urine Ketones TRACE H NEGATIVE Urine Nitrite NEGATIVE NEGATIVE Urine Bilirubin NEGATIVE NEGATIVE Urine Urobilinogen 0.2 < = 1.0 MG/DL Urine Leukocyte Esterase NEGATIVE NEGATIVE Urine RBC (Auto) NEGATIVE NEGATIVE Urine RBC 0-2 /HPF Urine WBC 0-2 /HPF Urine Squamous Epithelial Cells 0-2 /HPF Urine Crystals PRESENT H /LPF Urine Amorphous Sediment FEW JACQUELIN PHOSPHATE H /LPF Urine Bacteria NEGATIVE /HPF Urine Casts NONE /LPF Urine Mucus NEGATIVE /LPF Urine Culture Indicated NO Urine Opiates Screen NEGATIVE NEGATIVE Urine Oxycodone Screen NEGATIVE NEGATIVE Urine Methadone Screen NEGATIVE NEGATIVE Urine Propoxyphene Screen NEGATIVE NEGATIVE Urine Barbiturates Screen POSITIVE H NEGATIVE Ur Tricyclic Antidepressants Screen NEGATIVE NEGATIVE Urine Phencyclidine Screen NEGATIVE NEGATIVE Urine Amphetamines Screen POSITIVE H NEGATIVE Urine Methamphetamines Screen POSITIVE H NEGATIVE Urine Benzodiazepines Screen NEGATIVE NEGATIVE Urine Cocaine Screen NEGATIVE NEGATIVE Urine Cannabinoids Screen POSITIVE H NEGATIVE Glucometer 320 H 70-110 MG/DL My Orders Orders - RENETTA COREAS MD Cbc With Automated Diff (10/15/20 18:07) Magnesium (10/15/20 18:07) Ekg Tracing (10/15/20 18:07) Comprehensive Metabolic Panel (10/15/20 18:07) Protime With Inr (10/15/20 18:07) Partial Thromboplastin Time (10/15/20 18:07) O2 (10/15/20 18:07) Monitor-Rhythm Ecg Trace Only (10/15/20 18:07) Ed Iv/Invasive Line Start (10/15/20 18:07) Lipase (10/15/20 18:07) Troponin I Fs (10/15/20 18:07) Probnp Fs (10/15/20 18:07) Hennessy Cath (10/15/20 18:07) Ua Culture If Indicated (10/15/20 18:07) Drug Screen Stat (Urine) (10/15/20 18:07) Lactic Acid Analyzer (10/15/20 18:07) Ct Head Wo (10/15/20 18:10) Ns Iv 1000 Ml (Sodium Chloride 0.9%) (10/15/20 18:16) Ondansetron Injection (Zofran Injectio (10/15/20 18:16) Pantoprazole Injection (Protonix Injecti (10/15/20 18:16) Hydralazine Injection (Apresoline Inject (10/15/20 18:16) Lorazepam Injection (Ativan Injection) (10/15/20 18:16) Chest 1 View Ap/Pa Only (10/15/20 ) Ct Abdomen/Pelvis Wo (10/15/20 18:18) Manual Differential (10/15/20 18:10) Blood Culture (10/15/20 18:55) Labetalol Injection (Normodyne Injection (10/15/20 19:08) Ns Iv 1000 Ml (Sodium Chloride 0.9%) (10/15/20 20:00) Accucheck Stat ONCE (10/15/20 19:55) Insulin (Regular) Human (Novolin R (Per (10/15/20 20:00) Vital Signs/I&O 10/15/20 10/15/20 10/15/20 10/15/20 17:58 19:00 19:25 19:30 Temp 36.3 36.3 36.3 36.4 Pulse 106 101 114 84 Resp 26 18 17 17 B/P (MAP) 212/156 (174) 258/121 (166) 228/117 (154) 166/76 (106) Pulse Ox 98 100 97 100 O2 Delivery Room Air Room Air Room Air Room Air 10/15/20 20:30 Temp 36.4 Pulse 91 Resp 18 B/P (MAP) 159/88 (111) Pulse Ox 100 O2 Delivery Room Air Capillary Refill : Progress Note #1: Progress Note Obtain basic labs with cardiac enzymes and lipase. 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 Initial enterprise analyst shows sinus tachycardia with heart rate 100 bpm without ectopy. Since he complains of increased seizure activity today along with elevated blood pressure and sugars and history of drug use and medicine non-compliance will obtain CT head to evaluate for bleeding or stroke or mass. CT abdomen/pelvis to check for obstruction, mass, abscess, diverticulitis, colitis. Chest xray with h is hypertension to look for evidence of heart failure, pneumonia, fluid overload, mass. For his tachycardia and hyperglycemia we will try a bolus of normal saline 1 L. Repeat Zofran 4 mg IV in addition to what he had already gotten from EMS to help with nausea. Add on Ativan 1 mg IV to try and help with nausea as well as his history of reported seizures. Hydralazine 10 mg IV x1 for his hypertension. With his elevated blood pressure and blood sugar as well as reported seizure activity and drug use will obtain a Hennessy catheter to monitor urine output. Differential diagnosis includes medication noncompliance, polysubstance abuse, methamphetamine abuse, stroke, intracranial hemorrhage, myocardial infarction, congestive heart failure, abdominal bowel obstruction, cancer, diverticulitis, colitis, pneumonia Progress Note #2: Time: 19:06 Progress Note Labs showed an elevated white blood cell count with a left shift. His white blood cell count is 14.1 thousand. His troponin was less than 0.3. He does have an elevated proBNP 1782. He has elevated glucose 358 with Anion Gap of 15 and CO2 29. UA has Glucose, Protein but no sign of infection. He has Barbituates, Marijuana, Amphetamines/Methamphetamines in his urine same as September 14. No acute ST elevation on ECG. He remains on cardiac telemetry and shows sinus tachycardai at times up to 110. CXR no acute process. CT scans of head, abdomen/pelvis pending reports. BP at 228/117 after Hydralazine so will add on Labetalol 20 mg IV. Progress Note #3: Time: 19:[address] head no acute process. No intracranial hemorrhage or mass. CT abdomen/pelvis shows continued mucosal thickening of the distal esophagus and findings for possible enteritis. No obstruction or fluid collection. After Labetalol 20 mg IV pt had blood pressure down to 166/78. HR improved to 80s sinus rhythm on cardiac coverstitch machine operator. Will recheck accucheck since he has had IVF and if continued elevation will give Regular insulin subcutaneous since not seeing sings of DKA and had no ketones in urine. Progress Note #4: Time: 19:40 Progress Note Updated pt and that with his seizure activity and high blood pressure and sugars that it would be best to admit to facility that had GI and Neurology. Those services are not available at [facility]. Pt states he did not know where to go and asked to have me speak with his so I called his , Lenora, and spoke with her at 1935. She advised that [facility] would be her preference. I spoke with SAMAN Hidalgo, at 1940 with [facility] and gave her the information on the patient. She auto-accepted pt to come to [facility] but said she would call back with hospitalist if they had any questions. 2002 SAMAN Hidalgo, called back from [facility] and advised that Dr. Anna Franco was the attending for the hospitalist service. SAMAN Hidalgo, reviewed COVID screening questions with me but since the test is not available in my stand alone ED they plan to have him stop at ED when the EMS transport crew gets him to [facility]. His glucose was still elevated despite fluids so give 0.1 units/kg of Regular insulin or 6 units subcutaneous Regular insulin for patient. Continue IVF at 100 ml/hr to help with hydration. ECG Initial ECG Impression Date: Oct 15, 2020 Initial ECG Impression Time: 18:15 Initial ECG Rate: 99 Initial ECG Rhythm: Normal Sinus Initial ECG Comparisson: Unchanged Comment Sinus rhythm with a heart rate of 99 bpm. Right axis deviation. Borderline prolonged QT interval with a QTC of 380 ms and a QTC of 488 ms. TN interval [address] elevation. Appears similar to prior tracings in the system Diagnostic Imaging Diagonstic Imaging: CT Plain Films/CT/US/NM/MRI: head Comments NAME: ROBLES CHANDLER MED REC#: [id number] PT STATUS: REG ER : 1975 PHYSICIAN: RENETTA COREAS MD ADMIT DATE: 10/15/20/ER FS Signed Date of Exam:10/15/20 CT HEAD WO PROCEDURE: CT head without contrast. TECHNIQUE: Multiple contiguous axial images were obtained through the brain without the use of intravenous contrast. Auto Exposure Controls were utilized during the CT exam to meet ALARA standards for radiation dose reduction. INDICATION: Altered mental status, hypertension. COMPARISON: 09/14/2020. FINDINGS: The ventricles and cortical sulci are age-appropriate. There is no midline shift or mass effect. No acute intracranial hemorrhage is seen. There is streak artifact from a lead anteriorly. There is no CT evidence of acute territorial ischemia. The calvarium appears intact. There is minimal mucosal thickening in the maxillary sinuses, bilaterally. There is a small hypodensity adjacent to the frontal horn of the left lateral ventricle, which may be due to chronic microvascular change, and is unchanged since the prior exam. IMPRESSION: No acute intracranial hemorrhage or CT evidence of acute territorial ischemia. Dictated by: Dictated on workstation # [id number] Dict: 10/15/201902 Trans: 10/15/201908 [facility] [id number] Interpreted by: SHARI JAY MD Electronically signed by: SHARI JAY MD 10/15/201908 Diagonstic Imaging: CT Plain Films/CT/US/NM/MRI: abdomen, pelvis Comments [facility] [place] [place] NAME: ROBLES CHANDLER Dave MED REC#: [id number] PT STATUS: REG ER : 1975 PHYSICIAN: RENETTA COREAS MD ADMIT DATE: 10/15/20/ER FS Draft Date of Exam:10/15/20 CT ABDOMEN/PELVIS WO PROCEDURE: CT abdomen and pelvis without contrast. TECHNIQUE: Multiple contiguous axial images were obtained through the abdomen and pelvis without the use of intravenous contrast. Auto Exposure Controls were utilized during the CT exam to meet ALARA standards for radiation dose reduction. INDICATION: Hypertension, nausea and emesis. COMPARISON: 09/14/2020. There is continued esophageal mural thickening. Unenhanced images of the liver and spleen reveal no focal abnormality. Gallbladder is surgically absent. There is no evidence of pancreatic abnormality. Adrenal glands are prominent which may be related to hyperplasia. No evidence of abnormality seen on the noncontrast images of the kidneys. There is fluid distention of the stomach and proximal small bowel with suggestion of small bowel mural thickening as well. There is no evidence of free fluid. Urinary bladder contains a Hennessy catheter and intraluminal gas. No organized fluid or focal inflammation is identified. IMPRESSION: Mural thickening of the esophagus and small bowel. Esophagitis and associated enteritis could have this appearance and clinical correlation is recommended. Otherwise, no definite acute abnormality or adverse change is seen. Dictated on workstation # [id number] Dict: 10/15/201858 Trans: 10/15/201909 [facility] [id number] Interpreted by: ARLINE MULLINS MD Electronically signed by: Ronelgonsliztet Imaging: Xray Plain Films/CT/US/NM/MRI: chest Comments NAME: JAMEL CHANDLERHIRAM Acosta [facility] REC#: [id number] PT STATUS: REG ER : 1975 PHYSICIAN: RENETTA COREAS MD ADMIT DATE: 10/15/20/ER FS Draft Date of Exam:10/15/20 CHEST 1 VIEW AP/PA ONLY INDICATION: Hypertension, altered mental status with nausea and emesis. COMPARISON: 07/14/2020. Heart size and pulmonary vascularity are within normal limits, and the lungs are clear, bilaterally. IMPRESSION: Unremarkable chest. Dictated on workstation # [id number] Dict: 10/15/201856 Trans: 10/15/209 [facility] [id number] Interpreted by: ARLINE MULLINS MD Electronically signed by: Departure Impression Primary Impression: Hypertensive urgency Additional Impressions: Methamphetamine abuse Hyperglycemia due to diabetes mellitus Polysubstance abuse Nonadherence to medication Seizure-like activity Nausea and vomiting Qualified Codes: R11.14 - Bilious vomiting Esophagitis Disposition: 02 XFER SHT-TRM HOSP Condition: Improved Transfer Transfer Reason: Exceeds level of care (Needs Neurology/Gastroenterology) Time Spoke to Accepting Phy: 19:40 Transfer Progress Notes d/w Gwen RN, at transfer center for [facility] and she took information on patient. She will discuss with hospitalist staff and resident and if further questions then will call back, otherwise will work on room assignment. Transfer Facility: [facility] Method of Transfer: EMS Departure-Patient Inst. Referrals: NO,LOCAL PHYSICIAN (PCP/Family) Primary Care Physician RENETTA COREAS MD Oct 15, 2020 18:20
[2020-10-15 18:23] LABS: HEMATOCRIT 42 % (40-54); HEMOGLOBIN 14.4 G/DL (13.3-17.7); LYMPHOCYTES % (AUTO) 15 % (12-44); MEAN CORPUSCULAR HEMOGLOBIN 29 PG (25-34); MEAN CORPUSCULAR HGB CONC 34 G/DL (32-36); MEAN CORPUSCULAR VOLUME 85 FL (80-99); MEAN PLATELET VOLUME 9.8 FL (7.4-10.4); MONOCYTES % (AUTO) 5 % (0-12); NEUTROPHILS % (AUTO) 78 % (42-75); PLATELET COUNT 648 10^3/uL (130-400); WHITE BLOOD COUNT 14.1 10^3/uL (4.3-11.0)
[2020-10-15 18:24] LABS: BASOPHILS # (AUTO) 0.1 10^3/uL (0.0-0.1); BASOPHILS % (AUTO) 1 % (0-10); EOSINOPHILS # (AUTO) 0.1 10^3/uL (0.0-0.3); EOSINOPHILS % (AUTO) 1 % (0-10); LYMPHOCYTES # (AUTO) 2.2 X 10^3 (1.0-4.0); MONOCYTES # (AUTO) 0.7 X 10^3 (0.0-1.0)
[2020-10-15 18:44] LABS: CLARITY,URINE CLEAR; COLOR,URINE YELLOW; PH,URINE 7.5 (5-9)
[2020-10-15 18:45] LABS: AMORPHOUS SEDIMENT,UR FEW AMOR PHOSPHATE /LPF; BACTERIA,URINE NEGATIVE /HPF; BILIRUBIN,URINE NEGATIVE (NEGATIVE); GLUCOSE, URINE (UA) 3+ (NEGATIVE); KETONES,URINE TRACE (NEGATIVE); LEUKOCYTE ESTERASE ,URINE NEGATIVE (NEGATIVE); NITRITE,URINE NEGATIVE (NEGATIVE); PROTEIN,URINE 2+ (NEGATIVE); RBC,URINE 0-2 /HPF; SQUAMOUS EPITHELIAL CELL,UR 0-2 /HPF; WBC,URINE 0-2 /HPF
[2020-10-15 18:46] LABS: AMPHETAMINE SCREEN, URINE POSITIVE (NEGATIVE); BARBITURATE SCREEN URINE POSITIVE (NEGATIVE); BENZODIAZEPINES SCREEN URINE NEGATIVE (NEGATIVE); CANNABINOID SCREEN, URINE POSITIVE (NEGATIVE); COCAINE SCREEN URINE NEGATIVE (NEGATIVE); METHADONE STAT NEGATIVE (NEGATIVE); METHAMPHETAMINE SCREEN URINE S POSITIVE (NEGATIVE); OPIATE SCREEN URINE NEGATIVE (NEGATIVE); OXYCODONE STAT NEGATIVE (NEGATIVE); PROPOXYPHENE STAT NEGATIVE (NEGATIVE); TRICYCLIC ANTIDEPRESSANTS SCRE NEGATIVE (NEGATIVE)
[2020-10-15 18:47] LABS: BAND NEUTROPHILS 7 %; BASOPHILS % (MANUAL) 1 %; EOSINOPHILS % (MANUAL) 3 %; LYMPHOCYTES % (MANUAL) 13 %; MONOCYTES % (MANUAL) 7 %; NEUTROPHILS % (MANUAL) 69 %; PLATELET ESTIMATE INCREASED; RBC MORPH NORMAL
[2020-10-15 18:48] LABS: INR 0.9 (0.8-1.4); PROTHROMBIN TIME PATIENT 12.3 SEC (12.2-14.7)
[2020-10-15 18:49] LABS: ALKALINE PHOSPHATASE 133 U/L (40-136); BILIRUBIN,TOTAL 0.2 MG/DL (0.1-1.0); BUN/CREATININE RATIO 18; CALCIUM 10.2 MG/DL (8.5-10.1); CARBON DIOXIDE 29 MMOL/L (21-32); CHLORIDE 97 MMOL/L (98-107); CREATININE SERUM 0.82 MG/DL (0.60-1.30); GFR ESTIMATED > 60; GLUCOSE 358 MG/DL (70-105); POTASSIUM 4.1 MMOL/L (3.6-5.0); SODIUM 141 MMOL/L (135-145)
[2020-10-15 18:50] LABS: ALANINE AMINOTRANSFERASE 13 U/L (0-55); ALBUMIN 4.3 GM/DL (3.2-4.5); LIPASE 10 U/L (8-78); TOTAL PROTEIN 7.9 GM/DL (6.4-8.2)
--- NOTE | 2020-10-15 19:00 | Diagnostic Imaging Report ---
INDICATION: Hypertension, altered mental status with nausea and emesis. COMPARISON: 07/14/2020. Heart size and pulmonary vascularity are within normal limits, and the lungs are clear, bilaterally. IMPRESSION: Unremarkable chest. Dictated by: Dictated on workstation # [id number]
[2020-10-15] MEDS ORDERED: LABETALOL HCL 20 MG/4 ML VIAL IV STA (19:08)
--- NOTE | 2020-10-15 19:09 | Diagnostic Imaging Report ---
PROCEDURE: CT head without contrast. TECHNIQUE: Multiple contiguous axial images were obtained through the brain without the use of intravenous contrast. Auto Exposure Controls were utilized during the CT exam to meet ALARA standards for radiation dose reduction. INDICATION: Altered mental status, hypertension. COMPARISON: 09/14/2020. FINDINGS: The ventricles and cortical sulci are age-appropriate. There is no midline shift or mass effect. No acute intracranial hemorrhage is seen. There is streak artifact from a lead anteriorly. There is no CT evidence of acute territorial ischemia. The calvarium appears intact. There is minimal mucosal thickening in the maxillary sinuses, bilaterally. There is a small hypodensity adjacent to the frontal horn of the left lateral ventricle, which may be due to chronic microvascular change, and is unchanged since the prior exam. IMPRESSION: No acute intracranial hemorrhage or CT evidence of acute territorial ischemia. Dictated by: Dictated on workstation # [id number]
--- NOTE | 2020-10-15 19:10 | Diagnostic Imaging Report ---
PROCEDURE: CT abdomen and pelvis without contrast. TECHNIQUE: Multiple contiguous axial images were obtained through the abdomen and pelvis without the use of intravenous contrast. Auto Exposure Controls were utilized during the CT exam to meet ALARA standards for radiation dose reduction. INDICATION: Hypertension, nausea and emesis. COMPARISON: 09/14/2020. There is continued esophageal mural thickening. Unenhanced images of the liver and spleen reveal no focal abnormality. Gallbladder is surgically absent. There is no evidence of pancreatic abnormality. Adrenal glands are prominent which may be related to hyperplasia. No evidence of abnormality seen on the noncontrast images of the kidneys. There is fluid distention of the stomach and proximal small bowel with suggestion of small bowel mural thickening as well. There is no evidence of free fluid. Urinary bladder contains a Hennessy catheter and intraluminal gas. No organized fluid or focal inflammation is identified. IMPRESSION: Mural thickening of the esophagus and small bowel. Esophagitis and associated enteritis could have this appearance and clinical correlation is recommended. Otherwise, no definite acute abnormality or adverse change is seen. Dictated by: Dictated on workstation # [id number]
[2020-10-15] MEDS ORDERED: NS IV 1000 ML 1,000 ML IV SCH (20:00)
[2020-10-15] MEDS ORDERED: inSUlin (REGULAR) HUMAN 1 UNIT/0.01 ML (CHARGE PER UNIT) SC STA (20:00)
[2020-10-15 20:35] VITALS: BP 166/88
== END 2020-10-15 20:35 | disposition short-term general hospital (02) ==
LOC: EDUNIT# 17:56 → ER FS 17:57
DX: I10 Essential (primary) hypertension (principal); F15.10 Other stimulant abuse, uncomplicated; E11.65 Type 2 diabetes mellitus with hyperglycemia; F19.10 Other psychoactive substance abuse, uncomplicated; G40.909 Epilepsy, unspecified, not intractable, without status epilepticus; R11.2 Nausea with vomiting, unspecified; K20.90 Esophagitis, unspecified without bleeding; F32.9 Major depressive disorder, single episode, unspecified; F41.9 Anxiety disorder, unspecified; Z91.19 Patient's noncompliance with other medical treatment and regimen; Z88.0 Allergy status to penicillin; Z88.8 Allergy status to other drugs, medicaments and biological substances; Z77.22 Contact with and (suspected) exposure to environmental tobacco smoke (acute) (chronic); Z79.4 Long term (current) use of insulin
CPT/HCPCS: 36415; 51702; 70450; 71045; 74176; 80053; 80306; 81000; 82962; 83605; 83690; 83735; 83880; 84484; 85007; 85027; 85610; 85730; 87040; 93005; 93041; 99291

== ENCOUNTER 2020-11-30 11:37 | Emergency (ER) | payer MEDICAID ==
[2020-11-30] MEDS ORDERED: NS IV 1000 ML 1,000 ML IV STA (11:44)
[2020-11-30 12:19] LABS: BASOPHILS % (AUTO) 1 % (0-10); EOSINOPHILS % (AUTO) 2 % (0-10); HEMATOCRIT 38 % (40-54); LYMPHOCYTES % (AUTO) 16 % (12-44); MEAN CORPUSCULAR HEMOGLOBIN 29 PG (25-34); MEAN CORPUSCULAR HGB CONC 34 G/DL (32-36); MEAN CORPUSCULAR VOLUME 85 FL (80-99); MEAN PLATELET VOLUME 10.6 FL (7.4-10.4); MONOCYTES % (AUTO) 7 % (0-12); PLATELET COUNT 593 10^3/uL (130-400); WHITE BLOOD COUNT 13.9 10^3/uL (4.3-11.0)
[2020-11-30 12:20] LABS: BASOPHILS # (AUTO) 0.1 10^3/uL (0.0-0.1); EOSINOPHILS # (AUTO) 0.3 10^3/uL (0.0-0.3); LYMPHOCYTES # (AUTO) 2.2 X 10^3 (1.0-4.0); NEUTROPHILS # (AUTO) 10.2 X 10^3 (1.8-7.8); NEUTROPHILS % (AUTO) 74 % (42-75)
[2020-11-30 12:21] LABS: INR 0.9 (0.8-1.4)
[2020-11-30 12:26] LABS: ABG PCO2 46 MMHG (35-45); ABG PH 7.47 (7.37-7.43); ABG PO2 84 MMHG (79-93); ABG TCO2 34.9 MMOL/L (21.0-31.0)
[2020-11-30 12:27] LABS: ABG BASE EXCESS 8.7 MMOL/L (-2.5-2.5); ABG OXYGEN SATURATION 97 % (94-100); INSPIRED O2 ROOM AIR; VENTILATOR NO
[2020-11-30 12:30] LABS: BUN/CREATININE RATIO 26; CALCIUM 9.4 MG/DL (8.5-10.1); CARBON DIOXIDE 31 MMOL/L (21-32); CHLORIDE 96 MMOL/L (98-107); CREATININE SERUM 0.82 MG/DL (0.60-1.30); GFR ESTIMATED > 60; SODIUM 138 MMOL/L (135-145)
[2020-11-30 12:31] LABS: ALANINE AMINOTRANSFERASE 14 U/L (0-55); ALBUMIN 3.9 GM/DL (3.2-4.5); ALKALINE PHOSPHATASE 140 U/L (40-136); BILIRUBIN,TOTAL 0.2 MG/DL (0.1-1.0); MAGNESIUM 1.9 MG/DL (1.6-2.4); TOTAL PROTEIN 6.8 GM/DL (6.4-8.2)
[2020-11-30 12:33] LABS: GLUCOSE 408 MG/DL (70-105); POTASSIUM 4.1 MMOL/L (3.6-5.0)
[2020-11-30 12:38] LABS: LIPASE 22 U/L (8-78)
--- NOTE | 2020-11-30 12:45 | Diagnostic Imaging Report ---
INDICATION: Cough, chest pain COMPARISON STUDY: Chest from October 15. FINDINGS: Frontal view of the chest demonstrate the lungs to be clear. The heart, mediastinum and pulmonary vascularity and visualized bony thorax are normal. IMPRESSION: Normal portable chest. Dictated by: Dictated on workstation # [id number]
--- NOTE | 2020-11-30 12:46 | Diagnostic Imaging Report ---
PROCEDURE: CT head without contrast. TECHNIQUE: Multiple contiguous axial images were obtained through the brain without the use of intravenous contrast. Auto Exposure Controls were utilized during the CT exam to meet ALARA standards for radiation dose reduction. INDICATION: Seizures, confusion and hypertension. COMPARISON STUDY: CT of the head from 10/15/2020. FINDINGS: Noncontrast CT scan of head demonstrates no mass effect, midline shift, hemorrhage or extra-axial fluid collection. On axial image #15, there is a small hypodensity in the left frontal lobe which was there previously. Osseous structures appear normal. IMPRESSION: Stable CT scan of the head. A small hypodensity is seen in the left frontal lobe. 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 Consider MRI for further evaluation. Dictated by: Dictated on workstation # [id number]
--- NOTE | 2020-11-30 12:51 | ED General ---
General Stated Complaint: N/V Source of Information: Patient, EMS, Old Records History of Present Illness Date Seen by Provider: November 30, 2020 Time Seen by Provider: 11:37 Initial Comments 45-year-old male brought in by EMS after having seizures and shortness of breath at home. He has reportedly been having nausea and vomiting with general malaise and not feeling well for the last several days. Today after having seizure activity he was having shortness of breath. He has not been consistent with treating his diabetes. His sugars have been running in the 400 range. He has been having trouble keeping anything down. He has not had any diarrhea. He is not coughing anything up when he does cough. He has not had any fever or chills. He has had elevated blood pressure and these are all recurrent symptoms he has had multiple times in the past. Timing/Duration: 2-3 Days Severity: Moderate Associated Systoms: Chest Pain, Cough; No Diaphoresis, No Fever/Chills; Headaches, Malaise, Nausea/Vomiting; No Rash; Seizure, Shortness of Air; No Syncope; Weakness (generalized) Allergies and Home Medications Allergies Coded Allergies: Penicillins (Verified Allergy, Unknown, 09/14/20) aspirin (Unverified Adverse Reaction, Severe, swelling throat, 11/05/18) shellfish derived (Unverified Adverse Reaction, Severe, THROAT SWELLING, 09/14/20) Home Medications Atorvastatin Calcium 20 Mg Tablet, 20 MG PO HS, (Reported) Insulin Aspart 100 Unit/1 Ml Susp, 15 UNIT SQ AC, (Reported) Insulin Glargine,Hum.rec.anlog 100 Unit/1 Ml Vial, 40 UNIT SQ HS, (Reported) Lisinopril 40 Mg Tablet, 40 MG PO DAILY, (Reported) Metformin HCl 500 Mg Tablet, 500 MG PO BID, (Reported) Omeprazole 40 Mg Capsule.dr, 40 MG PO DAILY, (Reported) Ondansetron 4 Mg Tab.rapdis, 4 MG PO Q6H PRN for NAUSEA/VOMITING Prescribed by: RENETTA COREAS on 11/30/20 5907 Phenytoin Sodium Extended 100 Mg Capsule, 100 MG PO TID, (Reported) Venlafaxine HCl 37.5 Mg Cap.er.24h, 75 MG PO BID, (Reported) Vitamin D 10 Mcg Tablet, 1,000 MCG PO WEEK, (Reported) Patient Home Medication List Home Medication List Reviewed: Yes Review of Systems Review of Systems Constitutional: No chills, No fever; malaise, weakness EENTM: no symptoms reported Respiratory: cough, short of breath Cardiovascular: chest pain (with cough) Gastrointestinal: abdominal pain (diffuse); No diarrhea; nausea, vomiting Genitourinary: decreased output Musculoskeletal: muscle pain (generalized muscle and joint pains) Skin: No rash Psychiatric/Neurological: Headache, Seizure Hematologic/Lymphatic: Denies Blood Clots Past Sxhpuww-Kpvcjs-Agugiv Hx Past Med/Social Hx: Reviewed Nursing Past Med/Soc Hx Patient Social History Drug of Choice: HX METH AND THC Type Used: Cigarettes 2nd Hand Smoke Exposure: Yes Recent Hopitalizations: No Substance type: Amphetamines, Methamphetamine Immunizations Up To Date Tetanus Booster (TDap): Unknown Seasonal Allergies Seasonal Allergies: No Past Medical History Surgeries: Yes (Abscess buttocks-MRSA, jaw fx) Gallbladder Respiratory: No Currently Using CPAP: No Currently Using BIPAP: No Cardiac: Yes Hypertension Neurological: Yes Neuropathy, Seizure Disorder Genitourinary: No Gastrointestinal: Yes Crohns Disease Musculoskeletal: Yes (chronic pain/neuropathy also from "feet to shoulders") Chronic Back Pain Endocrine: Yes Diabetes, Insulin dep HEENT: No Dysphagia Loss of Vision: Denies Hearing Impairment: Denies Cancer: No Psychosocial: Yes Anxiety, Depression Integumentary: Yes (MRSA buttocks ) Blood Disorders: No Physical Exam Vital Signs Vital Signs - First Documented 11/30/20 11:37 Temp 36.1 Pulse 107 Resp 16 B/P (MAP) 210/115 (146) Pulse Ox 98 O2 Delivery Room Air Capillary Refill : Height, Weight, BMI Height: 6'0" Weight: 148lbs. oz. 67.128253og; 16.00 BMI Method:Stated General Appearance: Anxious, Chronically ill, Moderate Distress, Thin HEENT: PERRL/EOMI; No Moist Mucous Membranes (slightly dry mucous membranes) Neck: Full Range of Motion, Normal Inspection, Non Tender, Supple Respiratory: Chest Non Tender, Lungs Clear, Normal Breath Sounds, No Accessory Muscle Use, No Respiratory Distress Cardiovascular: Regular Rate, Rhythm, Normal Peripheral Pulses Gastrointestinal: Normal Bowel Sounds, No Pulsatile Mass, Non Tender, Soft Rectal: Deferred Extremity: Normal Capillary Refill, Normal Inspection, No Calf Tenderness, No Pedal Edema Neurologic/Psychiatric: Alert (but slow to answer questions), Oriented x3, provider service representative II-XII Norm as Tested Skin: Normal Color, Warm/Dry Progress/Results/Core Measures Suspected Sepsis SIRS Temperature: Pulse: Respiratory Rate: Laboratory Tests 11/30/20 11:44: White Blood Count 13.9H Blood Pressure / Mean: Laboratory Tests 11/30/20 11:44: Creatinine 0.82, INR Comment 0.9, Platelet Count 593H, Total Bilirubin 0.2 Results/Orders Lab Results Laboratory Tests Test 11/30/20 11:44 11/30/20 12:09 11/30/20 13:03 Range/Units White Blood Count 13.9 H 4.3-11.0 10^3/uL Red Blood Count 4.45 4.35-5.85 10^6/uL Hemoglobin 13.0 L 13.3-17.7 G/DL Hematocrit 38 L 40-54 % Mean Corpuscular Volume 85 80-99 FL Mean Corpuscular Hemoglobin 29 25-34 PG Mean Corpuscular Hemoglobin Concent 34 32-36 G/DL Red Cell Distribution Width 13.4 10.0-14.5 % Platelet Count 593 H 130-400 10^3/uL Mean Platelet Volume 10.6 H 7.4-10.4 FL Immature Granulocyte % (Auto) 0 % Neutrophils (%) (Auto) 74 42-75 % Lymphocytes (%) (Auto) 16 12-44 % Monocytes (%) (Auto) 7 0-12 % Eosinophils (%) (Auto) 2 0-10 % Basophils (%) (Auto) 1 0-10 % Neutrophils # (Auto) 10.2 H 1.8-7.8 X 10^3 Lymphocytes # (Auto) 2.2 1.0-4.0 X 10^3 Monocytes # (Auto) 1.0 0.0-1.0 X 10^3 Eosinophils # (Auto) 0.3 0.0-0.3 10^3/uL Basophils # (Auto) 0.1 0.0-0.1 10^3/uL Immature Granulocyte # (Auto) 0.1 0.0-0.1 10^3/uL Prothrombin Time 12.0 L 12.2-14.7 SEC INR Comment 0.9 0.8-1.4 Activated Partial Thromboplast Time 27 24-35 SEC Sodium Level 138 135-145 MMOL/L Potassium Level 4.1 3.6-5.0 MMOL/L Chloride Level 96 L 98-107 MMOL/L Carbon Dioxide Level 31 21-32 MMOL/L Anion Gap 11 5-14 MMOL/L Blood Urea Nitrogen 21 H 7-18 MG/DL Creatinine 0.82 0.60-1.30 MG/DL Estimat Glomerular Filtration Rate > 60 BUN/Creatinine Ratio 26 Glucose Level 408 *H 70-105 MG/DL Calcium Level 9.4 8.5-10.1 MG/DL Corrected Calcium 9.5 8.5-10.1 MG/DL Magnesium Level 1.9 1.6-2.4 MG/DL Total Bilirubin 0.2 0.1-1.0 MG/DL Aspartate Amino Transf (AST/SGOT) 12 5-34 U/L Alanine Aminotransferase (ALT/SGPT) 14 0-55 U/L Alkaline Phosphatase 140 H 40-136 U/L Troponin I < 0.30 <0.30 NG/ML Pro-B-Type Natriuretic Peptide 611.5 H <75.0 PG/ML Total Protein 6.8 6.4-8.2 GM/DL Albumin 3.9 3.2-4.5 GM/DL Lipase 22 8-78 U/L Blood Gas Puncture Site R RADIAL Blood Gas Patient Temperature UNK Arterial Blood pH 7.47 H 7.37-7.43 Arterial Blood Partial Pressure CO2 46 H 35-45 MMHG Arterial Blood Partial Pressure O2 84 79-93 MMHG Arterial Blood HCO3 34 H 23-27 MMOL/L Arterial Blood Total CO2 34.9 H 21.0-31.0 MMOL/L Arterial Blood Oxygen Saturation 97 94-100 % Arterial Blood Base Excess 8.7 H -2.5-2.5 MMOL/L Bryan Test NA Blood Gas Ventilator Setting NO Blood Gas Inspired Oxygen ROOM AIR Urine Color YELLOW Urine Clarity CLEAR Urine pH 7.5 5-9 Urine Specific [place] 1.015 L 1.016-1.022 Urine Protein 1+ H NEGATIVE Urine Glucose (UA) 3+ H NEGATIVE Urine Ketones NEGATIVE NEGATIVE Urine Nitrite NEGATIVE NEGATIVE Urine Bilirubin NEGATIVE NEGATIVE Urine Urobilinogen 0.2 < = 1.0 MG/DL Urine Leukocyte Esterase NEGATIVE NEGATIVE Urine RBC (Auto) NEGATIVE NEGATIVE Urine RBC 0-2 /HPF Urine WBC RARE /HPF Urine Squamous Epithelial Cells NONE /HPF Urine Crystals NONE /LPF Urine Bacteria NEGATIVE /HPF Urine Casts NONE /LPF Urine Mucus NEGATIVE /LPF Urine Culture Indicated NO Urine Opiates Screen NEGATIVE NEGATIVE Urine Oxycodone Screen NEGATIVE NEGATIVE Urine Methadone Screen NEGATIVE NEGATIVE Urine Propoxyphene Screen NEGATIVE NEGATIVE Urine Barbiturates Screen POSITIVE H NEGATIVE Ur Tricyclic Antidepressants Screen NEGATIVE NEGATIVE Urine Phencyclidine Screen NEGATIVE NEGATIVE Urine Amphetamines Screen POSITIVE H NEGATIVE Urine Methamphetamines Screen POSITIVE H NEGATIVE Urine Benzodiazepines Screen NEGATIVE NEGATIVE Urine Cocaine Screen NEGATIVE NEGATIVE Urine Cannabinoids Screen POSITIVE H NEGATIVE My Orders Orders - RENETTA COREAS MD Cbc With Automated Diff (11/30/20 11:44) Magnesium (11/30/20 11:44) Chest 1 View Ap/Pa Only (11/30/20 11:44) Ekg Tracing (11/30/20 11:44) Comprehensive Metabolic Panel (11/30/20 11:44) Protime With Inr (11/30/20 11:44) Partial Thromboplastin Time (11/30/20 11:44) O2 (11/30/20 11:44) Monitor-Rhythm Ecg Trace Only (11/30/20 11:44) Ed Iv/Invasive Line Start (11/30/20 11:44) Lipase (11/30/20 11:44) Troponin I Fs (11/30/20 11:44) Probnp Fs (11/30/20 11:44) Ct Head Wo (11/30/20 11:44) Ua Culture If Indicated (11/30/20 11:44) Drug Screen Stat (Urine) (11/30/20 11:44) Arterial Blood Gas (11/30/20 11:44) Ns Iv 1000 Ml (Sodium Chloride 0.9%) (11/30/20 11:44) Rx-Ondansetron Po (Rx-Zofran Po) (11/30/20 14:30) Medications Given in ED Current Medications Medications Dose Ordered Sig/Josef Route Start Time Stop Time Status Last Admin Dose Admin Ondansetron HCl 4 mg Q6H PRN PO 11/30/20 14:30 11/30/20 14:54 DC 11/30/20 14:48 4 MG Vital Signs/I&O 11/30/20 11/30/20 11:37 15:02 Temp 36.1 36.1 Pulse 107 105 Resp 16 16 B/P (MAP) 210/115 (146) 105/103 (146) Pulse Ox 98 98 O2 Delivery Room Air Capillary Refill : Progress Note #1: Progress Note Give IV fluids for hydration. Zofran for nausea and vomiting. Ordered CT of his head with his slowed response to answer questions. This may just be from postictal phase after having a seizure at home but will evaluate for i ntracranial process. Chest x-ray to look for infiltrate or pneumonia. Blood work to evaluate his blood count and electrolytes as well as a blood gas to evaluate for DKA since his sugars are in the 400s. His previous visits he has had elevated blood pressure abdomen positive for methamphetamines. He is having elevated blood pressure again today so we will check urinalysis again. Differential diagnosis includes diabetic ketoacidosis, gastritis, colitis, diverticulitis, pneumonia, stroke, brain mass, increased seizures, metabolic encephalopathy, polysubstance drug abuse Progress Note #2: Progress Note Labs show mild elevation of his white blood cell count. His chemistry panel was not showing acute significant abnormality other than elevated glucose. He was not in DKA and had a normal pH. He had sugar of 408. His CT head did not show any signs of acute intracranial process. No infiltrate on his chest x-ray. Patient reported feeling better with fluids and treatment here in the ED. He had some dry heaving at times but never threw up while he was at the ED. When reviewing results with patient and his significant other I discussed admission with them for treating his elevated blood pressure and recurrent nausea and vomiting. The patient stated he wanted to go home and try antinausea medicine there. He only has Phenergan at home according to the significant other. Will prescribe Zofran ODT so that he has a dissolving fast acting nausea medication. Counseled that if he is not improving or having worsening symptoms he may need to return or seek medical care at a facility that has hospital capability for admission with IV hydration and controlling his nausea and vomiting so that his sugars and diabetes does not get further out of control. Diagnostic Imaging Diagonstic Imaging: CT Plain Films/CT/US/NM/MRI: head [facility] [place], [place] NAME: ROBLES CHANDLER MED REC#: [id number] PT STATUS: REG ER : 1975 PHYSICIAN: RENETTA COREAS MD ADMIT DATE: 11/30/20/ER FS Signed Date of Exam:11/30/20 CT HEAD WO PROCEDURE: CT head without contrast. TECHNIQUE: Multiple contiguous axial images were obtained through the brain without the use of intravenous contrast. Auto Exposure Controls were utilized during the CT exam to meet ALARA standards for radiation dose reduction. INDICATION: Seizures, confusion and hypertension. COMPARISON STUDY: CT of the head from 10/15/2020. FINDINGS: Noncontrast CT scan of head demonstrates no mass effect, midline shift, hemorrhage or extra-axial fluid collection. On axial image #15, there is a small hypodensity in the left frontal lobe which was there previously. Osseous structures appear normal. IMPRESSION: Stable CT scan of the head. A small hypodensity is seen in the left frontal lobe. 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 Consider MRI for further evaluation. Dictated by: Dictated on workstation # [id number] Dict: 11/30/20 1232 Trans: 11/30/20 1257 [id number] Interpreted by: MENA SUERO MD Electronically signed by: MENA SUERO MD 11/30/20 1257 Diagonstic Imaging: Xray Plain Films/CT/US/NM/MRI: chest Comments [facility] [place] [place] NAME: RAMESHROBLES Dave MED REC#: [id number] PT STATUS: REG ER : 1975 PHYSICIAN: RENETTA COREAS MD ADMIT DATE: 11/30/20/ER FS Signed Date of Exam:11/30/20 CHEST 1 VIEW AP/PA ONLY INDICATION: Cough, chest pain COMPARISON STUDY: Chest from October 15. FINDINGS: Frontal view of the chest demonstrate the lungs to be clear. The heart, mediastinum and pulmonary vascularity and visualized bony thorax are normal. IMPRESSION: Normal portable chest. Dictated by: Dictated on workstation # [id number] Dict: 11/30/20 1224 Trans: 11/30/20 1257 [facility] [id number] Interpreted by: MENA SUERO MD Electronically signed by: MENA SUERO MD 11/30/20 1257 Reviewed: Reviewed by Me Departure Impression Primary Impression: Nausea and vomiting Qualified Codes: R11.14 - Bilious vomiting Additional Impressions: Epigastric abdominal pain Hyperglycemia due to diabetes mellitus Hypertension associated with diabetes Dehydration Methamphetamine abuse Disposition: 01 HOME, SELF-CARE Condition: Stable Departure-Patient Inst. Decision time for Depature: 14:37 Referrals: ERROL SINGLETARY MD (PCP/Family) Primary Care Physician Patient Instructions: Nausea and Vomiting, Adult ED, Gastritis ED, Dehydration, Adult ED Add. Discharge Instructions: Try using the dissolving nausea medicine, Zofran (Ondansetron), to help with nausea and control your hydration. Take your medicines as prescribed to help with seizures and diabetes and blood pressure. Do not use methamphetamines or drugs. If you are not seeing improving symptoms return or seek medical care as you may need admitted to a hospital to get IV fluids and nausea control. Scripts Ondansetron (Ondansetron Odt) 4 Mg Tab.rapdis 4 MG PO Q6H PRN for NAUSEA/VOMITING for 3 Days, #12 TAB 0 Refills Prov: RENETTA COREAS MD 11/30/20 RENETTA COREAS MD November 30, 2020 12:51
[2020-11-30 13:32] LABS: BILIRUBIN,URINE NEGATIVE (NEGATIVE); CLARITY,URINE CLEAR; COLOR,URINE YELLOW; GLUCOSE, URINE (UA) 3+ (NEGATIVE); KETONES,URINE NEGATIVE (NEGATIVE); LEUKOCYTE ESTERASE ,URINE NEGATIVE (NEGATIVE); NITRITE,URINE NEGATIVE (NEGATIVE); PH,URINE 7.5 (5-9); PROTEIN,URINE 1+ (NEGATIVE)
[2020-11-30 13:33] LABS: BACTERIA,URINE NEGATIVE /HPF; RBC,URINE 0-2 /HPF; WBC,URINE RARE /HPF
[2020-11-30 13:34] LABS: AMPHETAMINE SCREEN, URINE POSITIVE (NEGATIVE); BARBITURATE SCREEN URINE POSITIVE (NEGATIVE); BENZODIAZEPINES SCREEN URINE NEGATIVE (NEGATIVE); CANNABINOID SCREEN, URINE POSITIVE (NEGATIVE); COCAINE SCREEN URINE NEGATIVE (NEGATIVE); METHADONE STAT NEGATIVE (NEGATIVE); METHAMPHETAMINE SCREEN URINE S POSITIVE (NEGATIVE); OPIATE SCREEN URINE NEGATIVE (NEGATIVE); OXYCODONE STAT NEGATIVE (NEGATIVE); PROPOXYPHENE STAT NEGATIVE (NEGATIVE); TRICYCLIC ANTIDEPRESSANTS SCRE NEGATIVE (NEGATIVE)
[2020-11-30] MEDS ORDERED: RX-ONDANSETRON 4 MG ODT (ZOFRAN) PPK #4 PO PRN (14:30)
[2020-11-30] MEDS ORDERED: ONDA4TAB11 PO (14:37)
[2020-11-30 15:02] VITALS: BP 105/103
== END 2020-11-30 14:54 | disposition home or self-care (01) ==
LOC: EDUNIT# 11:37 → ER FS 11:38
DX: E11.65 Type 2 diabetes mellitus with hyperglycemia (principal); I10 Essential (primary) hypertension; E86.0 Dehydration; F15.10 Other stimulant abuse, uncomplicated; R10.13 Epigastric pain; D72.829 Elevated white blood cell count, unspecified; R05 Cough; E11.40 Type 2 diabetes mellitus with diabetic neuropathy, unspecified; G40.909 Epilepsy, unspecified, not intractable, without status epilepticus; F41.9 Anxiety disorder, unspecified; F32.9 Major depressive disorder, single episode, unspecified; Z77.22 Contact with and (suspected) exposure to environmental tobacco smoke (acute) (chronic); Z79.4 Long term (current) use of insulin; Z79.899 Other long term (current) drug therapy
CPT/HCPCS: 36415; 70450; 71045; 80053; 80306; 81000; 82805; 83690; 83735; 83880; 84484; 85025; 85610; 85730; 93005; 93041

== ENCOUNTER 2021-02-02 20:06 | Emergency (ER) | payer MEDICAID ==
[~2021-02-02] VITALS: Ht 182.9 cm; Wt 54.4 kg
[~2021-02-02 20:06] MED LIST changes: -OMEP40CA27 PO; +OMEP40CA6 PO; +ONDA4TAB11 PO
[2021-02-02 20:15] VITALS: BP 166/90
--- NOTE | 2021-02-02 20:49 | ED Abdominal Pain ---
General Chief Complaint: Abdominal/GI Problems Stated Complaint: TROUBLE BREATHING,TROUBLE URINATING,PANICKY Nursing Triage Note: PT TO ROOM FS02 VIA W/C WITH C/O CONSTIPATION, DIFFICULTY BREATHING, AND ANXIETY. PT REPORTS TAKING MORPHINE PRN PO BID FOR THE LAST MONTH. Source of Information: Patient Exam Limitations: No Limitations History of Present Illness Date Seen by Provider: Feb 02, 2021 Time Seen by Provider: 20:30 Initial Comments 45-year-old male presents to the emergency department with a chief complaint of constipation, states that he has not had more than 2 bowel movements in the last month. Tells me he has a history of Crohn's disease but is not on any medications for it. He describes an anxiety attack just prior to coming into the emergency department where he was very short of breath. He denies Covid complaints or concerns. States that his shortness of breath was related to anxiety. Patient is on chronic pain medications for multiple medical conditions. He is a diabetic and has a history of hypertension. He is very hypertensive here in the emergency department with a systolic blood pressure of 205. He states he has not taken his nightly blood pressure medications yet. Patient is complaining of some difficulty with urination he believes secondary to his constipation. He occasionally notes blood in his stool but not every time he tries to have a bowel movement. Normally he states he can have normal bowel movements but it has been worse over the last month. He is on stool softeners. All other review of systems reviewed and negative except as stated above. Timing/Duration: Constant, Getting Worse Severity/Quality: Moderate, Cramping Location: Generalized Abdomen Radiation: No Radiation Activities at Onset: None Modifying Factors: Worsens With Defecating Associated Symptoms: Denies Symptoms Allergies and Home Medications Allergies Coded Allergies: Penicillins (Verified Allergy, Unknown, 09/14/20) aspirin (Unverified Adverse Reaction, Severe, swelling throat, 11/05/18) shellfish derived (Unverified Adverse Reaction, Severe, THROAT SWELLING, 09/14/20) Home Medications Atorvastatin Calcium 20 Mg Tablet, 20 MG PO HS, (Reported) Insulin Aspart 100 Unit/1 Ml Susp, 15 UNIT SQ AC, (Reported) Insulin Glargine,Hum.rec.anlog 100 Unit/1 Ml Vial, 40 UNIT SQ HS, (Reported) Lisinopril 40 Mg Tablet, 40 MG PO DAILY, (Reported) Metformin HCl 500 Mg Tablet, 500 MG PO BID, (Reported) Omeprazole 40 Mg Capsule.dr, 40 MG PO DAILY, (Reported) Ondansetron 4 Mg Tab.rapdis, 4 MG PO Q6H PRN for NAUSEA/VOMITING Prescribed by: RENETTA COREAS on 11/30/20 1437 Phenytoin Sodium Extended 100 Mg Capsule, 100 MG PO TID, (Reported) Venlafaxine HCl 37.5 Mg Cap.er.24h, 75 MG PO BID, (Reported) Vitamin D 10 Mcg Tablet, 1,000 MCG PO WEEK, (Reported) Patient Home Medication List Home Medication List Reviewed: Yes Review of Systems Review of Systems Constitutional: see HPI EENTM: No Symptoms Reported Respiratory: Shortness of Air Cardiovascular: No Symptoms Reported Gastrointestinal: Abdominal Pain Genitourinary: Frequency Musculoskeletal: no symptoms reported Psychiatric/Neurological: Anxiety All Other Systems Reviewed Negative Unless Noted: Yes Past Hplcdiu-Yhrjob-Umxebb Hx Patient Social History Tobacco Use?: Yes Tobacco type used: Cigarettes Smoking Status: Current Everyday Smoker Substance use?: Yes Substance type: Marijuana Additional substance use comme: 1-3 TIMES PER DAY Substance frequency: Daily Alcohol Use?: No Pt feels they are or have been: No Immunizations Up To Date Tetanus Booster (TDap): Unknown Seasonal Allergies Seasonal Allergies: No Past Medical History Surgeries: Yes (Abscess buttocks-MRSA, jaw fx) Gallbladder Respiratory: No Currently Using CPAP: No Currently Using BIPAP: No Cardiac: Yes Hypertension Neurological: Yes Neuropathy, Seizure Disorder Genitourinary: No Gastrointestinal: Yes Crohns Disease Musculoskeletal: Yes (chronic pain/neuropathy also from "feet to shoulders") Chronic Back Pain Endocrine: Yes Diabetes, Insulin dep HEENT: No Dysphagia Loss of Vision: Denies Hearing Impairment: Denies Cancer: No Psychosocial: Yes Anxiety, Depression Integumentary: Yes (MRSA buttocks ) Blood Disorders: No Physical Exam Vital Signs Vital Signs - First Documented 02/02/21 20:15 Temp 36.7 Pulse 82 Resp 17 B/P (MAP) 166/90 (115) O2 Delivery Room Air Capillary Refill : Less Than 3 Seconds Height/Weight/BMI Height: 6'0" Weight: 148lbs. oz. 67.559592rz; 16.00 BMI Method:Stated General Appearance: WD/WN, no apparent distress HEENT: other (dry oral mucosa) Respiratory: lungs clear, normal breath sounds, no respiratory distress, no accessory muscle use Cardiovascular: normal peripheral pulses, regular rate, rhythm Gastrointestinal: non tender, soft Rectal: normal exam, heme negative stool, other (hard stool palpated in the rectal vault) Extremities: normal range of motion, normal inspection, no calf tenderness, pedal edema Neurologic/Psychiatric: alert, normal mood/affect, oriented x 3 Skin: normal color, warm/dry, tattoos/piercings Progress/Results/Core Measures Results/Orders Lab Results Laboratory Tests Test 02/02/21 20:40 02/02/21 20:55 Range/Units White Blood Count 12.1 H 4.3-11.0 10^3/uL Red Blood Count 3.90 L 4.35-5.85 10^6/uL Hemoglobin 10.9 L 13.3-17.7 G/DL Hematocrit 34 L 40-54 % Mean Corpuscular Volume 86 80-99 FL Mean Corpuscular Hemoglobin 28 25-34 PG Mean Corpuscular Hemoglobin Concent 33 32-36 G/DL Red Cell Distribution Width 14.0 10.0-14.5 % Platelet Count 613 H 130-400 10^3/uL Mean Platelet Volume 9.9 7.4-10.4 FL Immature Granulocyte % (Auto) 0 % Neutrophils (%) (Auto) 61 42-75 % Lymphocytes (%) (Auto) 24 12-44 % Monocytes (%) (Auto) 10 0-12 % Eosinophils (%) (Auto) 4 0-10 % Basophils (%) (Auto) 1 0-10 % Neutrophils # (Auto) 7.4 1.8-7.8 X 10^3 Lymphocytes # (Auto) 2.9 1.0-4.0 X 10^3 Monocytes # (Auto) 1.2 H 0.0-1.0 X 10^3 Eosinophils # (Auto) 0.4 H 0.0-0.3 10^3/uL Basophils # (Auto) 0.1 0.0-0.1 10^3/uL Immature Granulocyte # (Auto) 0.0 0.0-0.1 10^3/uL Percent Immature Platelet Fraction 2.5 0.0-7.6 % Sodium Level 134 L 135-145 MMOL/L Potassium Level 4.7 3.6-5.0 MMOL/L Chloride Level 94 L 98-107 MMOL/L Carbon Dioxide Level 30 21-32 MMOL/L Anion Gap 10 5-14 MMOL/L Blood Urea Nitrogen 27 H 7-18 MG/DL Creatinine 1.40 H 0.60-1.30 MG/DL Estimat Glomerular Filtration Rate 55 BUN/Creatinine Ratio 19 Glucose Level 296 H 70-105 MG/DL Calcium Level 9.5 8.5-10.1 MG/DL Corrected Calcium 9.4 8.5-10.1 MG/DL Total Bilirubin 0.2 0.1-1.0 MG/DL Aspartate Amino Transf (AST/SGOT) 8 5-34 U/L Alanine Aminotransferase (ALT/SGPT) 7 0-55 U/L Alkaline Phosphatase 130 40-136 U/L Total Protein 7.5 6.4-8.2 GM/DL Albumin 4.1 3.2-4.5 GM/DL Urine Color YELLOW Urine Clarity CLEAR Urine pH 5.0 5-9 Urine Specific [place] 1.025 H 1.016-1.022 Urine Protein 1+ H NEGATIVE Urine Glucose (UA) 3+ H NEGATIVE Urine Ketones TRACE H NEGATIVE Urine Nitrite NEGATIVE NEGATIVE Urine Bilirubin NEGATIVE NEGATIVE Urine Urobilinogen 0.2 < = 1.0 MG/DL Urine Leukocyte Esterase NEGATIVE NEGATIVE Urine RBC (Auto) NEGATIVE NEGATIVE Urine RBC NONE /HPF Urine WBC 0-2 /HPF Urine Squamous Epithelial Cells 0-2 /HPF Urine Crystals NONE /LPF Urine Bacteria NEGATIVE /HPF Urine Casts NONE /LPF Urine Mucus NEGATIVE /LPF Urine Culture Indicated NO My Orders Orders - BRANDON DIXON MD Cbc With Automated Diff (02/02/21 20:45) Comprehensive Metabolic Panel (02/02/21 20:45) Ua Culture If Indicated (02/02/21 20:49) Vital Signs/I&O 02/02/21 20:15 Temp 36.7 Pulse 82 Resp 17 B/P (MAP) 166/90 (115) O2 Delivery Room Air Blood Pressure Mean: 115 Progress Progress Note : Time: 21:10 Progress Note Notified by nursing staff that the patient elected to leave AMA secondary to not having his immediately available to him. Several attempts were made to get the patient to stay however he insisted on leaving AGAINST MEDICAL ADVICE. Patient left before any results were obtained. Departure Impression Primary Impression: Constipation Qualified Codes: K59.00 - Constipation, unspecified Disposition: 07 AGAINST MEDICAL ADVICE Condition: Against Medical Advice Departure-Patient Inst. Referrals: SELF,ERROL GONZALES (PCP/Family) Primary Care Physician BRANDON DIXON MD Feb 02, 2021 20:49
[2021-02-02 21:00] LABS: BASOPHILS # (AUTO) 0.1 10^3/uL (0.0-0.1); BASOPHILS % (AUTO) 1 % (0-10); EOSINOPHILS # (AUTO) 0.4 10^3/uL (0.0-0.3); EOSINOPHILS % (AUTO) 4 % (0-10); HEMATOCRIT 34 % (40-54); HEMOGLOBIN 10.9 G/DL (13.3-17.7); LYMPHOCYTES # (AUTO) 2.9 X 10^3 (1.0-4.0); LYMPHOCYTES % (AUTO) 24 % (12-44); MEAN CORPUSCULAR HEMOGLOBIN 28 PG (25-34); MEAN CORPUSCULAR HGB CONC 33 G/DL (32-36); MEAN CORPUSCULAR VOLUME 86 FL (80-99); MEAN PLATELET VOLUME 9.9 FL (7.4-10.4); MONOCYTES # (AUTO) 1.2 X 10^3 (0.0-1.0); MONOCYTES % (AUTO) 10 % (0-12); NEUTROPHILS # (AUTO) 7.4 X 10^3 (1.8-7.8); NEUTROPHILS % (AUTO) 61 % (42-75); PLATELET COUNT 613 10^3/uL (130-400); WHITE BLOOD COUNT 12.1 10^3/uL (4.3-11.0)
[2021-02-02 21:13] LABS: ALBUMIN 4.1 GM/DL (3.2-4.5); BILIRUBIN,TOTAL 0.2 MG/DL (0.1-1.0); CALCIUM 9.5 MG/DL (8.5-10.1); CREATININE SERUM 1.4 MG/DL (0.60-1.30); POTASSIUM 4.7 MMOL/L (3.6-5.0); TOTAL PROTEIN 7.5 GM/DL (6.4-8.2)
[2021-02-02 21:37] LABS: CLARITY,URINE CLEAR; COLOR,URINE YELLOW; PROTEIN,URINE 1+ (NEGATIVE)
[2021-02-02 21:38] LABS: BACTERIA,URINE NEGATIVE /HPF; BILIRUBIN,URINE NEGATIVE (NEGATIVE); GLUCOSE, URINE (UA) 3+ (NEGATIVE); KETONES,URINE TRACE (NEGATIVE); LEUKOCYTE ESTERASE ,URINE NEGATIVE (NEGATIVE); NITRITE,URINE NEGATIVE (NEGATIVE); SQUAMOUS EPITHELIAL CELL,UR 0-2 /HPF; WBC,URINE 0-2 /HPF
--- OUTSIDE RECORDS SUMMARY | 2021-02-05 19:54 | XMS REPORT | Clinical Summary ---
Author Author Admin, Jass LAWSON Organization [facility] Address Unknown Phone Unavailable Allergies, Adverse Reactions, Alerts Allergy Name Reaction Description Start Date Severity Status Pr ovider ASPIRIN Moderate Active Bharati yeung MD Conditions or Problems Problem Name Problem Code Onset Date Status Entry Date Provider Comment Standard Description Annotate BMI less than 20 Active Bharati Conn MD Body Mass Index less than 19, adult Underweight Active Bharati Conn MD Underweight Erectile Dysfunction 607.84 Active Bharati silveira MD Impotence of organic origin Medication List Medication Instructions Start Date Stop Date Generic Name NDC Status Provider Patient Instruction TRIMIX 10mcg Alprostedil, 15mg Pa paverine, 1ml Phentolamine in a 1cc syringe 0.7ml TRIMIX Active Bharati Conn MD A ctive Advance Directives Directive Description Start Date PERMISSION TO SHARE Encounters Code Encounter Date Provider Facility [id number] Level 3 New Patient 22:35:45 CDT Bharati bourne MD [facility]
--- OUTSIDE RECORDS SUMMARY | 2021-02-05 19:54 | XMS REPORT | Clinical Summary ---
Author Author Admin, Jass LAWSON Organization [facility] Address Unknown Phone Unavailable Allergies, Adverse Reactions, [...] SHARE Encounters Code Encounter Date Provider Facility [id number] Level 3 New Patient 22:35:45 CDT Bharati bourne MD [facility]
--- OUTSIDE RECORDS SUMMARY | 2021-02-05 19:54 | XMS REPORT | Clinical Summary ---
Author Author Admin, Jass LAWSON Organization [facility] Address Unknown Phone Unavailable Allergies, Adverse Reactions, [...] SHARE Encounters Code Encounter Date Provider Facility [id number] Level 3 New Patient 22:35:45 CDT Bharati bourne MD [facility]
--- OUTSIDE RECORDS SUMMARY | 2021-02-05 19:54 | XMS REPORT | Clinical Summary ---
Author Author Admin, Jass LAWSON Organization [facility] Address Unknown Phone Unavailable Allergies, [...] SHARE Encounters Code Encounter Date Provider Facility [id number] Level 3 New Patient 22:35:45 CDT Bharati bourne MD [facility]
== END 2021-02-02 21:00 | disposition left against medical advice (07) ==
LOC: EDUNIT# 20:06 → ER FS 20:08
DX: K59.00 Constipation, unspecified (principal); I10 Essential (primary) hypertension; G40.909 Epilepsy, unspecified, not intractable, without status epilepticus; E11.9 Type 2 diabetes mellitus without complications; F41.9 Anxiety disorder, unspecified; F32.9 Major depressive disorder, single episode, unspecified; F17.210 Nicotine dependence, cigarettes, uncomplicated; Z79.899 Other long term (current) drug therapy; Z79.4 Long term (current) use of insulin
CPT/HCPCS: 36415; 80053; 81000; 85025; 99282

== ENCOUNTER 2021-03-06 00:29 | Emergency (ER) | payer MEDICAID ==
[~2021-03-06] VITALS: Ht 182.8 cm; Wt 49.8 kg
--- NOTE | 2021-03-06 01:13 | ED GU-Female ---
General Chief Complaint: - Reproductive Stated Complaint: URINARY PROBLEMS Source: patient, family Exam Limitations: no limitations History of Present Illness Date Seen by Provider: Mar 06, 2021 Time Seen by Provider: 00:38 Initial Comments 45-year-old male with past medical history of type 1 diabetes, severe peripheral neuropathy, and recent urinary retention coming in due to worsening urinary retention and suprapubic pain. He states he was visiting family in [place] when he was unable to urinate recently. They placed a Hennessy which helped, he recently had the Hennessy removed. He has really been unable to urinate again for the past couple of days. Does have some overflow incontinence but it is minimal. Has some suprapubic tenderness and fullness. Denies any fever, midline back pain, new weakness or numbness, difficulty with bowel movements, perennial numbness, chest pain, shortness of breath, or any other concerns. He states last time he took insulin was yesterday because his glucose levels have been actually low. Allergies and Home Medications Allergies Coded Allergies: Penicillins (Verified Allergy, Unknown, 09/14/20) aspirin (Unverified Adverse Reaction, Severe, swelling throat, 11/05/18) shellfish derived (Unverified Adverse Reaction, Severe, THROAT SWELLING, 09/14/20) Patient Home Medication List Home Medication List Reviewed: Yes Atorvastatin Calcium (Lipitor) 20 Mg Tablet, 20 MG PO HS, (Reported) Entered as Reported by: NELSON SUMNER on 09/14/201801 Insulin Aspart (Novolog) 100 Unit/1 Ml Susp, 15 UNIT SQ AC, (Reported) Entered as Reported by: NELSON SUMNER on 09/14/201801 Insulin Glargine,Hum.rec.anlog (Lantus) 100 Unit/1 Ml Vial, 40 UNIT SQ HS, (Reported) Entered as Reported by: NELSON SUMNER on 09/14/201801 Lisinopril (Lisinopril) 40 Mg Tablet, 40 MG PO DAILY, (Reported) Entered as Reported by: NELSON SUMNER on 09/14/201801 Metformin HCl (Metformin HCl) 500 Mg Tablet, 500 MG PO BID, (Reported) Entered as Reported by: NELSON SUMNER on 09/14/201801 Omeprazole (Omeprazole) 40 Mg Capsule.dr, 40 MG PO DAILY, (Reported) Entered as Reported by: NELSON SUMNER on 09/14/201800 Ondansetron (Ondansetron Odt) 4 Mg Tab.rapdis, 4 MG PO Q6H PRN for NAUSEA/VO MITING Prescribed by: RENETTA COREAS on 11/30/20 1437 Phenytoin Sodium Extended (Dilantin) 100 Mg Capsule, 100 MG PO TID, (Reported) Entered as Reported by: NELSON SUMNER on 09/14/201800 Venlafaxine HCl (Effexor Xr) 37.5 Mg Cap.er.24h, 75 MG PO BID, (Reported) Entered as Reported by: NELSON SUMNER on 09/14/201800 Vitamin D (Vitamin D3) 10 Mcg Tablet, 1,000 MCG PO WEEK, (Reported) Entered as Reported by: NELSON SUMNER on 09/14/201801 Review of Systems Review of Systems Constitutional: No chills, No fever EENTM: No blurred vision Respiratory: No cough, No short of breath Cardiovascular: No chest pain Gastrointestinal: abdominal pain; No constipation, No diarrhea, No nausea, No vomiting Genitourinary: pain Musculoskeletal: No back pain Skin: No rash Psychiatric/Neurological: Denies Anxiety, Denies Depressed Endocrine: No Symptoms Reported Hematologic/Lymphatic: No Symptoms Reported All Other Systemes Reviewed Negative Unless Noted: Yes Past Jnlszoe-Wljuhs-Azsidn Hx Patient Social History Tobacco Use?: Yes Immunizations Up To Date Tetanus Booster (TDap): Unknown Seasonal Allergies Seasonal Allergies: No Past Medical History Surgeries: Yes (Abscess buttocks-MRSA, jaw fx) Gallbladder Respiratory: No Currently Using CPAP: No Currently Using BIPAP: No Cardiac: Yes Hypertension Neurological: Yes Neuropathy, Seizure Disorder Genitourinary: No Gastrointestinal: Yes Crohns Disease Musculoskeletal: Yes (chronic pain/neuropathy also from "feet to shoulders") Chronic Back Pain Endocrine: Yes Diabetes, Insulin dep HEENT: No Dysphagia Loss of Vision: Denies Hearing Impairment: Denies Cancer: No Psychosocial: Yes Anxiety, Depression Integumentary: Yes (MRSA buttocks ) Blood Disorders: No Physical Exam Vital Signs Capillary Refill : Height, Weight, BMI Height: 6'0" Weight: 148lbs. oz. 67.614953ub; 16.00 BMI Method:Stated General Appearance: WD/WN, mild distress HEENT: PERRL/EOMI, normal ENT inspection, pharynx normal Neck: non-tender, full range of motion, supple, normal inspection Cardiovascular: regular rate, rhythm, no edema, no murmur Respiratory: chest non-tender, lungs clear, normal breath sounds, no respiratory distress, no accessory muscle use Gastrointestinal: normal bowel sounds, soft, tenderness, other (Suprapubic fullness and tenderness) Back: normal inspection, no CVA tenderness, no vertebral tenderness Extremities: normal range of motion, non-tender, normal inspection, no pedal edema, no calf tenderness, normal capillary refill, other (Able to move all 4 extremities equally, decreased sensation in his toes but normal sensation to his lower extremities otherwise, no perineal numbness) Neurologic/Psychiatric: no motor/sensory deficits, alert, normal mood/affect, oriented x 3 Skin: normal color, warm/dry Lymphatic: no adenopathy Progress/Results/Core Measures Suspected Sepsis SIRS Temperature: Pulse: Respiratory Rate: Blood Pressure / Mean: Results/Orders My Orders Orders - ALLAN VALLEJO MD Ed Iv/Invasive Line Start (03/06/21 00:59) Catheter(Urinary) Insert & Ass 03,15 (03/06/21 00:59) Vital Signs/I&O Capillary Refill : Progress Note : Progress Note 45-year-old male with above history coming in due to suprapubic tenderness and an ability to void. This is not the first time this is occurred and recently had his Hennessy removed. I did a [id number] ultrasound and he has greater than 1 L in his bladder. We will place a Hennessy, get a BMP and a UA have been ordered as well. Nurse attempted to get a blood specimen and urine specimen, but after the Hennessy was placed and the patient was feeling significantly better he says he immediately wants to leave. I discussed that given his urinary retention over a couple of days his kidney function could be decreased, and he could have increasing urinary output which could worsen this even more so. I discussed we may need to monitor this closely for the next couple hours to be sure his urinary output levels off. The patient is unwilling to stay for this. He is alert and oriented, he understands the risks of leaving, and he wants to go home to sleep in his bed which is more comfortable. I discussed with him that he needs to watch the urinary output closely and drink plenty of fluids specifically if it continues to pour out very quickly. If he is unable to keep up with this then I recommended he come back to the emergency department. He also needs to follow-up with urology as soon as possible. He was then discharged home in improved condition. Departure Impression Primary Impression: Urinary retention Disposition: HOME, SELF-CARE Condition: Improved Departure-Patient Inst. Decision time for Depature: 01:29 Referrals: SELF,ERROL GONZALES (PCP/Family) Primary Care Physician Patient Instructions: Urinary Retention (DC), How to Care for Your Hennessy Catheter, Male Add. Discharge Instructions: You are seen in the emergency department for urinary retention. We placed a Hennessy. Please continue to drink plenty of fluids especially if the Hennessy is putting out a lot of urine. Please call the urologist as soon as possible for follow-up. Come back to the emergency department for any fever, new weakness or numbness, or any other concerns. All discharge instructions reviewed with patient and/or family. Voiced understanding. ALLAN VALLEJO MD Mar 06, 2021 01:13
[2021-03-06 01:37] VITALS: BP 193/99
== END 2021-03-06 01:37 | disposition home or self-care (01) ==
LOC: EDUNIT# 00:29 → ER FS 00:32
DX: R33.9 Retention of urine, unspecified (principal); I10 Essential (primary) hypertension; G40.909 Epilepsy, unspecified, not intractable, without status epilepticus; F41.9 Anxiety disorder, unspecified; E10.9 Type 1 diabetes mellitus without complications; F32.9 Major depressive disorder, single episode, unspecified; Z79.899 Other long term (current) drug therapy
CPT/HCPCS: 51702

== ENCOUNTER 2021-03-29 11:49 | Emergency (ER) | payer MEDICAID ==
[~2021-03-29] VITALS: Ht 182 cm; Wt 49.8 kg
[2021-03-29] MEDS ORDERED: NS IV 1000 ML 1,000 ML IV SCH (12:00)
[2021-03-29] MEDS ORDERED: ONDANSETRON 4 MG/2 ML (SDV) Z0FRAN IVP ONE (12:00)
--- NOTE | 2021-03-29 12:04 | ED GI ---
General Stated Complaint: DISTENDED ABD; PLUGGED CATH History of Present Illness Date Seen by Provider: Mar 29, 2021 Time Seen by Provider: 11:50 Initial Comments 45-year-old male presents from home via EMS with complaint of lower abdominal pain. Patient has indwelling Jain catheter for the last 1 month. Does have some weakness and chronic illness. He lives at home with his . In route patient vomited just prior to arrival. PMedHx- Crohn's, DM, HTN Allergies and Home Medications Allergies Coded Allergies: Penicillins (Verified Allergy, Unknown, 09/14/20) aspirin (Unverified Adverse Reaction, Severe, swelling throat, 11/05/18) shellfish derived (Unverified Adverse Reaction, Severe, THROAT SWELLING, 09/14/20) Patient Home Medication List Home Medication List Reviewed: Yes Atorvastatin Calcium (Lipitor) 20 Mg Tablet, 20 MG PO HS, (Reported) Entered as Reported by: NELSON SUMNER on 09/14/201801 Insulin Aspart (Novolog) 100 Unit/1 Ml Susp, 15 UNIT SQ AC, (Reported) Entered as Reported by: NELSON SUMNER on 09/14/201801 Insulin Glargine,Hum.rec.anlog (Lantus) 100 Unit/1 Ml Vial, 40 UNIT SQ HS, (Reported) Entered as Reported by: NELSON SUMNER on 09/14/201801 Lisinopril (Lisinopril) 40 Mg Tablet, 40 MG PO DAILY, (Reported) Entered as Reported by: NELSON SUMNER on 09/14/201801 Metformin HCl (Metformin HCl) 500 Mg Tablet, 500 MG PO BID, (Reported) Entered as Reported by: NELSON SUMNER on 09/14/201801 Omeprazole (Omeprazole) 40 Mg Capsule.dr, 40 MG PO DAILY, (Reported) Entered as Reported by: NELSON SUMNER on 09/14/201800 Ondansetron (Ondansetron Odt) 4 Mg Tab.rapdis, 4 MG PO Q6H PRN for NAUSEA/VOMI TING Prescribed by: RENETTA COREAS on 11/30/20 143 Phenytoin Sodium Extended (Dilantin) 100 Mg Capsule, 100 MG PO TID, (Reported) Entered as Reported by: NELSON SUMNER on 09/14/201800 Venlafaxine HCl (Effexor Xr) 37.5 Mg Cap.er.24h, 75 MG PO BID, (Reported) Entered as Reported by: NELSON SUMNER on 09/14/201800 Vitamin D (Vitamin D3) 10 Mcg Tablet, 1,000 MCG PO WEEK, (Reported) Entered as Reported by: NELSON SUMNER on 09/14/201801 Review of Systems Review of Systems Constitutional: No chills, No fever; malaise, weakness Respiratory: Denies Cough, Denies Shortness of Air Cardiovascular: Denies Chest Pain, Denies Palpitations Gastrointestinal: Abdominal Pain (lower - suprapubic); Denies Constipated, Denies Diarrhea; Nausea; Denies Vomiting Genitourinary: See HPI; Denies Burning, Denies Drainage, Denies Flank Pain, Denies Hematuria; Other (indwelling jain) Musculoskeletal: no symptoms reported Skin: No change in color, No rash Past Yqtfzlc-Rdtgem-Joyyfx Hx Immunizations Up To Date Tetanus Booster (TDap): Unknown Seasonal Allergies Seasonal Allergies: No Past Medical History Surgeries: Yes (Abscess buttocks-MRSA, jaw fx) Gallbladder Respiratory: No Currently Using CPAP: No Currently Using BIPAP: No Cardiac: Yes Hypertension Neurological: Yes Neuropathy, Seizure Disorder Genitourinary: No Gastrointestinal: Yes Crohns Disease Musculoskeletal: Yes (chronic pain/neuropathy also from "feet to shoulders") Chronic Back Pain Endocrine: Yes Diabetes, Insulin dep HEENT: No Dysphagia Loss of Vision: Denies Hearing Impairment: Denies Cancer: No Psychosocial: Yes Anxiety, Depression Integumentary: Yes (MRSA buttocks ) Blood Disorders: No Physical Exam Vital Signs Vital Signs - First Documented 03/29/21 11:49 Temp 37.3 Pulse 96 Resp 16 B/P (MAP) 229/127 (161) Pulse Ox 98 O2 Delivery Room Air Capillary Refill : Height/Weight/BMI Height: 6'0" Weight: 148lbs. oz. 67.151420jo; 14.00 BMI Method:Stated General Appearance: no apparent distress, cachetic, other (chronically ill) Respiratory: chest non-tender, lungs clear, normal breath sounds Cardiovascular: regular rate, rhythm, no edema, no JVD Gastrointestinal: non tender, soft, no organomegaly Extremities: non-tender, no pedal edema Back: normal inspection, no CVA tenderness Neurologic/Psychiatric: alert, normal mood/affect Skin: normal color, warm/dry Progress/Results/Core Measures Results/Orders Lab Results Laboratory Tests Test 03/29/21 11:50 03/29/21 11:55 Range/Units White Blood Count 11.5 H 4.3-11.0 10^3/uL Red Blood Count 3.89 L 4.30-5.52 10^6/uL Hemoglobin 10.0 L 13.3-17.7 g/dL Hematocrit 32 L 40-54 % Mean Corpuscular Volume 82 80-99 fL Mean Corpuscular Hemoglobin 26 25-34 pg Mean Corpuscular Hemoglobin Concent 31 L 32-36 g/dL Red Cell Distribution Width 13.6 10.0-14.5 % Platelet Count 769 H 130-400 10^3/uL Mean Platelet Volume 9.5 9.0-12.2 fL Immature Granulocyte % (Auto) 0 % Neutrophils (%) (Auto) 72 42-75 % Lymphocytes (%) (Auto) 17 12-44 % Monocytes (%) (Auto) 6 0-12 % Eosinophils (%) (Auto) 4 0-10 % Basophils (%) (Auto) 1 0-10 % Neutrophils # (Auto) 8.3 H 1.8-7.8 X 10^3 Lymphocytes # (Auto) 2.0 1.0-4.0 X 10^3 Monocytes # (Auto) 0.7 0.0-1.0 X 10^3 Eosinophils # (Auto) 0.0 0.0-0.3 10^3/uL Basophils # (Auto) 0.1 0.0-0.1 10^3/uL Immature Granulocyte # (Auto) 0.0 0.0-0.1 10^3/uL Sodium Level 138 135-145 MMOL/L Potassium Level 4.0 3.6-5.0 MMOL/L Chloride Level 96 L 98-107 MMOL/L Carbon Dioxide Level 30 21-32 MMOL/L Anion Gap 12 5-14 MMOL/L Blood Urea Nitrogen 23 H 7-18 MG/DL Creatinine 1.04 0.60-1.30 MG/DL Estimat Glomerular Filtration Rate 77 BUN/Creatinine Ratio 22 Glucose Level 374 H 70-105 MG/DL Calcium Level 9.8 8.5-10.1 MG/DL Corrected Calcium 9.6 8.5-10.1 MG/DL Total Bilirubin 0.2 0.1-1.0 MG/DL Aspartate Amino Transf (AST/SGOT) 10 5-34 U/L Alanine Aminotransferase (ALT/SGPT) 9 0-55 U/L Alkaline Phosphatase 129 40-136 U/L Total Protein 7.8 6.4-8.2 GM/DL Albumin 4.3 3.2-4.5 GM/DL Urine Color PALE YELLOW Urine Clarity CLEAR Urine pH 7.0 5-9 Urine Specific Minerva 1.010 L 1.016-1.022 Urine Protein TRACE H NEGATIVE Urine Glucose (UA) 3+ H NEGATIVE Urine Ketones NEGATIVE NEGATIVE Urine Nitrite NEGATIVE NEGATIVE Urine Bilirubin NEGATIVE NEGATIVE Urine Urobilinogen 0.2 < = 1.0 MG/DL Urine Leukocyte Esterase 2+ H NEGATIVE Urine RBC (Auto) TRACE H NEGATIVE Urine RBC RARE /HPF Urine WBC 2-5 /HPF Urine Squamous Epithelial Cells NONE /HPF Urine Crystals NONE /LPF Urine Bacteria NEGATIVE /HPF Urine Casts NONE /LPF Urine Mucus NEGATIVE /LPF Urine Culture Indicated NO My Orders Orders - ROVENSTINEELIAZAR Bonnie DO Ed Iv/Invasive Line Start (03/29/21 11:58) Cbc With Automated Diff (03/29/21 11:58) Comprehensive Metabolic Panel (03/29/21 11:58) Urinalysis (03/29/21 11:58) Ns Iv 1000 Ml (Sodium Chloride 0.9%) (03/29/21 12:00) Ondansetron Injection (Zofran Injectio (03/29/21 12:00) Labetalol Injection (Normodyne Injection (03/29/21 12:30) Labetalol Injection (Normodyne Injection (03/29/21 13:00) Fentanyl Inj (Sublimaze Injection) (03/29/21 13:00) Medications Given in ED Current Medications Medications Dose Ordered Sig/Josef Route Start Time Stop Time Status Last Admin Dose Admin Fentanyl Citrate 50 mcg ONCE ONCE IVP 03/29/21 13:00 03/29/21 13:01 DC 03/29/21 13:05 50 MCG Labetalol HCl 20 mg ONCE ONCE IV 03/29/21 12:30 03/29/21 12:31 DC 03/29/21 12:23 20 MG Labetalol HCl 20 mg ONCE ONCE IV 03/29/21 13:00 03/29/21 13:01 DC 03/29/21 13:00 20 MG Ondansetron HCl 4 mg ONCE ONCE IVP 03/29/21 12:00 03/29/21 12:01 DC 03/29/21 12:13 4 MG Vital Signs/I&O 03/29/21 11:49 Temp 37.3 Pulse 96 Resp 16 B/P (MAP) 229/127 (161) Pulse Ox 98 O2 Delivery Room Air Progress Progress Note : Progress Note much improved (decreased abdominal pain) after changing out obstructed jain cath....large return of urine - 1 liter. UA normal. labs without signif abnormality. Patients BP reamianed quite high, given labetolol x2 w modest improvement without precipitous drop. states that she is careful of giving him his BP medication b/c it frequently is too low.....so she only gives on days when his systolic is greater than 100. discussed f/u w PCP, Dr Ariza and discussed taking lisinopril bid as 20mg. His agrees to try that. Departure Impression Primary Impression: Bladder outlet obstruction Additional Impressions: Indwelling Jain catheter present Nausea & vomiting Qualified Codes: R11.2 - Nausea with vomiting, unspecified Uncontrolled hypertension Disposition: HOME, SELF-CARE Condition: Improved Departure-Patient Inst. Decision time for Depature: 13:45 Referrals: ERROL ARIZA MD (PCP/Family) Primary Care Physician Patient Instructions: How to Care for Your Jain Catheter, Male, High Blood Pressure (DC) Add. Discharge Instructions: Call Dr Ariza's office to schedule a follow up appointment in 1 week, sooner if worse. Try taking your Blood pressure medication (lisinopril) 20mg in the morning and 20mg at night, rather than 40mg at once. ELIAZAR JOHNSON DO Mar 29, 2021 12:04
[2021-03-29 12:19] LABS: BILIRUBIN,TOTAL 0.2 MG/DL (0.1-1.0); CALCIUM 9.8 MG/DL (8.5-10.1); CREATININE SERUM 1.04 MG/DL (0.60-1.30); TOTAL PROTEIN 7.8 GM/DL (6.4-8.2)
[2021-03-29 12:20] LABS: ALBUMIN 4.3 GM/DL (3.2-4.5)
[2021-03-29 12:21] LABS: HEMATOCRIT 32 % (40-54); MEAN CORPUSCULAR HEMOGLOBIN 26 pg (25-34); MEAN CORPUSCULAR HGB CONC 31 g/dL (32-36); MEAN CORPUSCULAR VOLUME 82 fL (80-99); MEAN PLATELET VOLUME 9.5 fL (9.0-12.2); PLATELET COUNT 769 10^3/uL (130-400); WHITE BLOOD COUNT 11.5 10^3/uL (4.3-11.0)
[2021-03-29 12:22] LABS: BASOPHILS # (AUTO) 0.1 10^3/uL (0.0-0.1); BASOPHILS % (AUTO) 1 % (0-10); EOSINOPHILS % (AUTO) 4 % (0-10); LYMPHOCYTES % (AUTO) 17 % (12-44); MONOCYTES # (AUTO) 0.7 X 10^3 (0.0-1.0); MONOCYTES % (AUTO) 6 % (0-12); NEUTROPHILS # (AUTO) 8.3 X 10^3 (1.8-7.8); NEUTROPHILS % (AUTO) 72 % (42-75)
[2021-03-29 12:26] LABS: CLARITY,URINE CLEAR; GLUCOSE, URINE (UA) 3+ (NEGATIVE); KETONES,URINE NEGATIVE (NEGATIVE); NITRITE,URINE NEGATIVE (NEGATIVE); PROTEIN,URINE TRACE (NEGATIVE)
[2021-03-29 12:27] LABS: BACTERIA,URINE NEGATIVE /HPF; BILIRUBIN,URINE NEGATIVE (NEGATIVE); COLOR,URINE PALE YELLOW; LEUKOCYTE ESTERASE ,URINE 2+ (NEGATIVE); RBC,URINE RARE /HPF
[2021-03-29] MEDS ORDERED: LABETALOL HCL 20 MG/4 ML VIAL IV ONE ×2 (12:30→13:00)
[2021-03-29] MEDS ORDERED: fentaNYL INJ 100 MCG/2 ML AMP IVP ONE (13:00)
[2021-03-29 13:52] VITALS: BP 197/113
== END 2021-03-29 13:52 | disposition home or self-care (01) ==
LOC: EDUNIT# 11:49 → ER FS 11:51
DX: T83.091A Other mechanical complication of indwelling urethral catheter, initial encounter (principal); R11.2 Nausea with vomiting, unspecified; I10 Essential (primary) hypertension; E11.9 Type 2 diabetes mellitus without complications; G40.909 Epilepsy, unspecified, not intractable, without status epilepticus; F41.9 Anxiety disorder, unspecified; F32.9 Major depressive disorder, single episode, unspecified; Z87.19 Personal history of other diseases of the digestive system; Z88.6 Allergy status to analgesic agent; Z79.4 Long term (current) use of insulin; Z79.899 Other long term (current) drug therapy
CPT/HCPCS: 36415; 51702; 80053; 81000; 85025

== ENCOUNTER 2021-04-13 17:16 | Emergency (ER) | payer MEDICAID ==
[~2021-04-13] VITALS: Ht 182.9 cm; Wt 115.0 kg
--- NOTE | 2021-04-13 17:52 | ED GU-Male ---
General Chief Complaint: - Reproductive Stated Complaint: CATH BAG PROBLEMS Nursing Triage Note: PT AMBULATE TO ROOM [facility]SO[facility] WITH C/O HAVING A HOLE IN HIS CATHETER BAG. PT REQUESTING A CARLOS CATHETER BAG. Source: patient Exam Limitations: no limitations History of Present Illness Date Seen by Provider: Apr 13, 2021 Time Seen by Provider: 17:48 Initial Comments 46-year-old male presents to ER with a leaking catheter bag. Patient has ind welling Carlos catheter, paraplegic in a wheelchair. Does not have a urology appointment for another month. No recent illness, fever chills or abdominal pain. Allergies and Home Medications Allergies Coded Allergies: Penicillins (Verified Allergy, Unknown, 09/14/20) aspirin (Unverified Adverse Reaction, Severe, swelling throat, 11/05/18) shellfish derived (Unverified Adverse Reaction, Severe, THROAT SWELLING, 09/14/20) Patient Home Medication List Home Medication List Reviewed: Yes Atorvastatin Calcium (Lipitor) 20 Mg Tablet, 20 MG PO HS, (Reported) Entered as Reported by: NELSON SUMNER on 09/14/201801 Insulin Aspart (Novolog) 100 Unit/1 Ml Susp, 15 UNIT SQ AC, (Reported) Entered as Reported by: NELSON SUMNER on 09/14/201801 Insulin Glargine,Hum.rec.anlog (Lantus) 100 Unit/1 Ml Vial, 40 UNIT SQ HS, (Reported) Entered as Reported by: NELSON SUMNER on 09/14/201801 Lisinopril (Lisinopril) 40 Mg Tablet, 40 MG PO DAILY, (Reported) Entered as Reported by: NELSON SUMNER on 09/14/201801 Metformin HCl (Metformin HCl) 500 Mg Tablet, 500 MG PO BID, (Reported) Entered as Reported by: NELSON SUMNER on 09/14/201801 Omeprazole (Omeprazole) 40 Mg Capsule.dr, 40 MG PO DAILY, (Reported) Entered as Reported by: NELSON USMNER on 09/14/201800 Ondansetron (Ondansetron Odt) 4 Mg Tab.rapdis, 4 MG PO Q6H PRN for NAUSEA/VOMITING Prescribed by: RENETTA COREAS on 11/30/20 1437 Phenytoin Sodium Extended (Dilantin) 100 Mg Capsule, 100 MG PO TID, (Reported) Entered as Reported by: NELSON SUMNER on 09/14/201800 Venlafaxine HCl (Effexor Xr) 37.5 Mg Cap.er.24h, 75 MG PO BID, (Reported) Entered as Reported by: NELSON SUMNER on 09/14/201800 Vitamin D (Vitamin D3) 10 Mcg Tablet, 1,000 MCG PO WEEK, (Reported) Entered as Reported by: NELSON SUMNER on 09/14/201801 Review of Systems Review of Systems Constitutional: No fever, No malaise, No weakness Gastrointestinal: No abdominal pain, No loss of appetite, No nausea, No vomiting Genitourinary: see HPI; denies flank pain, denies hematuria Musculoskeletal: no symptoms reported Skin: No change in color, No rash Past Hpdwwne-Iivlal-Zhevcu Hx Patient Social History Tobacco Use?: Yes Tobacco type used: Cigarettes Smoking Status: Current Everyday Smoker Smokeless Tobacco Frequency: Never a User Use of E-Cig and/or Vaping dev: No Substance use?: No Alcohol Use?: No Pt feels they are or have been: No Immunizations Up To Date Tetanus Booster (TDap): Unknown Seasonal Allergies Seasonal Allergies: No Past Medical History Surgeries: Yes (Abscess buttocks-MRSA, jaw fx) Gallbladder Respiratory: No Currently Using CPAP: No Currently Using BIPAP: No Cardiac: Yes Hypertension Neurological: Yes Neuropathy, Seizure Disorder Genitourinary: No Gastrointestinal: Yes Crohns Disease Musculoskeletal: Yes (chronic pain/neuropathy also from "feet to shoulders") Chronic Back Pain Endocrine: Yes Diabetes, Insulin dep HEENT: No Dysphagia Loss of Vision: Denies Hearing Impairment: Denies Cancer: No Psychosocial: Yes Anxiety, Depression Integumentary: Yes (MRSA buttocks ) Blood Disorders: No Physical Exam Vital Signs Vital Signs - First Documented 04/13/21 17:25 Temp 36.1 Pulse 88 Resp 18 B/P (MAP) 153/103 (120) O2 Delivery Room Air Capillary Refill : Less Than 3 Seconds Height, Weight, BMI Height: 6'0" Weight: 148lbs. oz. 67.221336yv; 34.00 BMI Method:Stated General Appearance: WD/WN, no apparent distress Gastrointestinal: non tender, soft Back: normal inspection, no CVA tenderness Progress/Results/Core Measures Suspected Sepsis SIRS Temperature: Pulse: 88 Respiratory Rate: 18 Blood Pressure 153 /103 Mean: 120 Results/Orders Vital Signs/I&O 04/13/21 17:25 Temp 36.1 Pulse 88 Resp 18 B/P (MAP) 153/103 (120) O2 Delivery Room Air Capillary Refill : Less Than 3 Seconds Blood Pressure Mean: 120 Progress Note : Progress Note new catheter and bag inserted for patient Departure Impression Primary Impression: Carlos catheter problem Qualified Codes: T83.9XXA - Unspecified complication of genitourinary prosthetic device, implant and graft, initial encounter Disposition: HOME, SELF-CARE Condition: Improved Departure-Patient Inst. Decision time for Depature: 17:51 Referrals: SELF,ERROL GONZALES (PCP/Family) Primary Care Physician Patient Instructions: How to Care for Your Carlos Catheter, Male Add. Discharge Instructions: follow up with your PCP or Urologist for any further questions or problems related to your Catheter All discharge instructions reviewed with patient and/or family. Voiced understanding. ELIZAAR JOHNSON DO Apr 13, 2021 17:52
[2021-04-13 17:56] VITALS: BP 144/72
== END 2021-04-13 17:56 | disposition home or self-care (01) ==
LOC: EDUNIT# 17:16 → ER FS 17:17
DX: T83.038A Leakage of other urinary catheter, initial encounter (principal); I10 Essential (primary) hypertension; F41.9 Anxiety disorder, unspecified; F32.9 Major depressive disorder, single episode, unspecified; E11.9 Type 2 diabetes mellitus without complications; G40.909 Epilepsy, unspecified, not intractable, without status epilepticus; F17.210 Nicotine dependence, cigarettes, uncomplicated; Z86.14 Personal history of Methicillin resistant Staphylococcus aureus infection; Z79.899 Other long term (current) drug therapy; Z79.4 Long term (current) use of insulin
CPT/HCPCS: 99282

== ENCOUNTER 2021-04-17 14:06 | Emergency (ER) | payer MEDICAID ==
--- NOTE | 2021-04-17 14:39 | ED GU-Male ---
General Chief Complaint: Catheter/Drain/Tube Problems Stated Complaint: CATHETER PAIN Source: patient, spouse History of Present Illness Date Seen by Provider: Apr 17, 2021 Time Seen by Provider: 14:12 Initial Comments 46-year-old male presenting with abdominal pain and distention in the suprapubic area. He was having a lot of pressure and pain similar to when he has had urinary retention in the past. He does have an indwelling Hennessy catheter but states that it is not currently draining. He denies fever, chills, headache, vision change, nausea, vomiting. He has had multiple episodes of retention and required Hennessy catheter for a while now. He follows with Dr. Conn for urology from [place]. He has an appointment to see Dr. Conn next month and is to see Dr. Ariza, his primary, on Monday. Timing/Duration: this morning Severity/Quality: severe, cramping, full Location: suprapubic Radiation: suprapubic Activities at Onset: none Prior Genitourinary Problems: similar symptoms Modifying Factors: Worsens With Palpation Associated Symptoms: No diaphoresis, No fever/chills, No lower back pain, No nausea/vomiting, No swelling, No syncope; other (Indwelling Hennessy catheter with suprapubic pain) Allergies and Home Medications Allergies Coded Allergies: Penicillins (Verified Allergy, Unknown, 09/14/20) aspirin (Unverified Adverse Reaction, Severe, swelling throat, 11/05/18) shellfish derived (Unverified Adverse Reaction, Severe, THROAT SWELLING, 09/14/20) Patient Home Medication List Home Medication List Reviewed: Yes Atorvastatin Calcium (Lipitor) 20 Mg Tablet, 20 MG PO HS, (Reported) Entered as Reported by: NELSON SUMNER on 09/14/201801 Fluconazole (Fluconazole) 200 Mg Tablet, 200 MG PO DAILY Prescribed by: RENETTA COREAS on 04/17/21 1505 Insulin Aspart (Novolog) 100 Unit/1 Ml Susp, 15 UNIT SQ AC, (Reported) Entered as Reported by: NELSON SUMNER on 09/14/201801 Insulin Glargine,Hum.rec.anlog (Lantus) 100 Unit/1 Ml Vial, 40 UNIT SQ HS, (Reported) Entered as Reported by: NELSON SUMNER on 09/14/201801 Lisinopril (Lisinopril) 40 Mg Tablet, 40 MG PO DAILY, (Reported) Entered as Reported by: NELSON SUMNER on 09/14/201801 Metformin HCl (Metformin HCl) 500 Mg Tablet, 500 MG PO BID, (Reported) Entered as Reported by: NELSON SUMNER on 09/14/201801 Omeprazole (Omeprazole) 40 Mg Capsule.dr, 40 MG PO DAILY, (Reported) Entered as Reported by: NELSON SUMNER on 09/14/201800 Ondansetron (Ondansetron Odt) 4 Mg Tab.rapdis, 4 MG PO Q6H PRN for NAUSEA/VOMITING Prescribed by: RENETTA COREAS on 11/30/20 1437 Phenytoin Sodium Extended (Dilantin) 100 Mg Capsule, 100 MG PO TID, (Reported) Entered as Reported by: NELSON SUMNER on 09/14/201800 Venlafaxine HCl (Effexor Xr) 37.5 Mg Cap.er.24h, 75 MG PO BID, (Reported) Entered as Reported by: NELSON SUMNER on 09/14/201800 Vitamin D (Vitamin D3) 10 Mcg Tablet, 1,000 MCG PO WEEK, (Reported) Entered as Reported by: NELSON SUMNER on 09/14/201801 Review of Systems Review of Systems Constitutional: see HPI EENTM: see HPI Respiratory: see HPI Cardiovascular: see HPI Gastrointestinal: see HPI Genitourinary: see HPI Musculoskeletal: see HPI Skin: No rash Psychiatric/Neurological: Denies Headache Past Hegjuuu-Frcark-Nugwwf Hx Immunizations Up To Date Tetanus Booster (TDap): Unknown Seasonal Allergies Seasonal Allergies: No Past Medical History Surgeries: Yes (Abscess buttocks-MRSA, jaw fx) Gallbladder Respiratory: No Currently Using CPAP: No Currently Using BIPAP: No Cardiac: Yes Hypertension Neurological: Yes Neuropathy, Seizure Disorder Genitourinary: No Gastrointestinal: Yes Crohns Disease Musculoskeletal: Yes (chronic pain/neuropathy also from "feet to shoulders") Chronic Back Pain Endocrine: Yes Diabetes, Insulin dep HEENT: No Dysphagia Loss of Vision: Denies Hearing Impairment: Denies Cancer: No Psychosocial: Yes Anxiety, Depression Integumentary: Yes (MRSA buttocks ) Blood Disorders: No Physical Exam Vital Signs Vital Signs - First Documented 04/17/21 14:43 Temp 36.5 Pulse 95 Resp 16 B/P (MAP) 201/110 (140) Pulse Ox 100 O2 Delivery Room Air Capillary Refill : Height, Weight, BMI Height: 6'0" Weight: 148lbs. oz. 67.272471rr; 34.00 BMI Method:Stated General Appearance: moderate distress, thin Neck: non-tender, full range of motion Cardiovascular: normal peripheral pulses, regular rate, rhythm Respiratory: chest non-tender, lungs clear, normal breath sounds Rectal: deferred Neurologic/Psychiatric: alert, oriented x 3 Progress/Results/Core Measures Suspected Sepsis SIRS Temperature: Pulse: Respiratory Rate: Blood Pressure / Mean: Results/Orders Lab Results Laboratory Tests Test 04/17/21 14:29 Range/Units Urine Color STRAW Urine Clarity CLOUDY Urine pH 7.0 5-9 Urine Specific [place] 1.015 L 1.016-1.022 Urine Protein 1+ H NEGATIVE Urine Glucose (UA) 3+ H NEGATIVE Urine Ketones NEGATIVE NEGATIVE Urine Nitrite NEGATIVE NEGATIVE Urine Bilirubin NEGATIVE NEGATIVE Urine Urobilinogen 0.2 < = 1.0 MG/DL Urine Leukocyte Esterase 1+ H NEGATIVE Urine RBC (Auto) 1+ H NEGATIVE Urine RBC 50-100 H /HPF Urine WBC NONE /HPF Urine Squamous Epithelial Cells NONE /HPF Urine Crystals NONE /LPF Urine Bacteria MODERATE H /HPF Urine Casts NONE /LPF Urine Mucus NEGATIVE /LPF Urine Yeast LARGE H /HPF Urine Culture Indicated YES My Orders Orders - RENETTA COREAS MD Bladder Scan (04/17/21 14:32) Hennessy Cath (04/17/21 14:32) Ua Culture If Indicated (04/17/21 14:32) Urine Culture (04/17/21 14:29) Vital Signs/I&O 04/17/21 04/17/21 14:43 15:35 Temp 36.5 36.5 Pulse 95 90 Resp 16 16 B/P (MAP) 201/110 (140) 201/110 Pulse Ox 100 100 O2 Delivery Room Air Room Air Capillary Refill : Progress Note #1: Progress Note Bladder scan indicated almost a liter of urine present. A Hennessy catheter was changed out and it was noted that he had a lot of thick white mucus and mucous plugs in his catheter that was removed. He was having improved pain with the placement of the Henenssy catheter to drain his bladder. Progress Note #2: Progress Note Patient had a recent infection in his sole of the left foot and patient and family report that he is currently on antibiotics. He has findings for yeast in his urine as well so we will add on Diflucan and per review of up-to-date [facility] reference will treat with Diflucan 200 mg daily for 2 weeks. Departure Impression Primary Impression: Hennessy catheter problem Qualified Codes: T83.9XXA - Unspecified complication of genitourinary prosthetic device, implant and graft, initial encounter Additional Impressions: Urinary retention Yeast cystitis Disposition: HOME, SELF-CARE Condition: Stable Departure-Patient Inst. Decision time for Depature: 15:04 Referrals: ERROL ARIZA MD (PCP/Family) Primary Care Physician Patient Instructions: Urinary Retention (DC), How to Care for Your Hennessy Catheter, Male, Yeast Infection (DC) Add. Discharge Instructions: Continue taking your regular medicines and stay well hydrated. Follow up with Dr. Ariza and Dr. Conn about continued issues/problems with your catheter. All discharge instructions reviewed with patient and/or family. Voiced understanding. Scripts Fluconazole (Fluconazole) 200 Mg Tablet 200 MG PO DAILY for Yeast Cystitis for 14 Days, #14 TAB 0 Refills Prov: RENETTA COREAS MD 04/17/21 RENETTA COREAS MD Apr 17, 2021 14:39
[2021-04-17 14:42] LABS: BACTERIA,URINE MODERATE /HPF; BILIRUBIN,URINE NEGATIVE (NEGATIVE); CLARITY,URINE CLOUDY; COLOR,URINE STRAW; GLUCOSE, URINE (UA) 3+ (NEGATIVE); KETONES,URINE NEGATIVE (NEGATIVE); LEUKOCYTE ESTERASE ,URINE 1+ (NEGATIVE); NITRITE,URINE NEGATIVE (NEGATIVE); PROTEIN,URINE 1+ (NEGATIVE); RBC,URINE 50-100 /HPF
[2021-04-17 14:43] LABS: YEAST,URINE LARGE /HPF
[2021-04-17] MEDS ORDERED: FLUC200T5 PO (15:05)
[2021-04-17 15:35] VITALS: BP 201/110
== END 2021-04-17 15:35 | disposition home or self-care (01) ==
LOC: EDUNIT# 14:06 → ER FS 14:08
DX: T83.098A Other mechanical complication of other urinary catheter, initial encounter (principal); R33.9 Retention of urine, unspecified; N30.80 Other cystitis without hematuria; I10 Essential (primary) hypertension; F41.9 Anxiety disorder, unspecified; F32.9 Major depressive disorder, single episode, unspecified; G40.909 Epilepsy, unspecified, not intractable, without status epilepticus; E11.9 Type 2 diabetes mellitus without complications; Z86.16 Personal history of COVID-19; Z79.899 Other long term (current) drug therapy; Z79.4 Long term (current) use of insulin
CPT/HCPCS: 51702; 81000; 87077; 87088; 87186

== ENCOUNTER 2021-06-01 10:43 | Emergency (ER) | payer MEDICAID ==
[~2021-06-01] VITALS: Ht 182 cm; Wt 63.0 kg
[2021-06-01 10:43] VITALS: BP 176/82
[~2021-06-01 10:43] MED LIST changes: +CYCL10TA25 PO; -CYCL10TA9 PO; +FLUC200T5 PO
[2021-06-01] MEDS ORDERED: fentaNYL INJ 100 MCG/2 ML AMP IVP STA (10:57)
--- NOTE | 2021-06-01 11:18 | ED General ---
General Chief Complaint: General Problems/Pain Stated Complaint: SEIZURE Source of Information: Patient Exam Limitations: No Limitations History of Present Illness Date Seen by Provider: Jun 01, 2021 Time Seen by Provider: 10:42 Initial Comments Here with complaint of left rib pain. Apparently had seizure-like activity at Dr. Ariza's office in this building. He was brought over here. Patient states he was shaking because of severe pain. He apparently does have some sort of seizure disorder as he has Dilantin listed as a medication. Not postictal answering questions but quite irritable. Patient states that he fell yesterday and hurt his ribs and that is what he was going to get checked out. He states he did not take his pain medicine this morning because his did not give it to him. He denies being out of pain medicine. He later stated that he did not take his pain medicine because he knew he was coming here and because it is not working. Initially, did not want to answer questions and wanted his to answer was not available. Timing/Duration: 24 Hours Severity: Moderate Associated Systoms: No Cough, No Fever/Chills, No Nausea/Vomiting; Seizure; No Shortness of Air Allergies and Home Medications Allergies Coded Allergies: Penicillins (Verified Allergy, Unknown, 09/14/20) aspirin (Unverified Adverse Reaction, Severe, swelling throat, 11/05/18) shellfish derived (Unverified Adverse Reaction, Severe, THROAT SWELLING, 09/14/20) Patient Home Medication List Home Medication List Reviewed: Yes Atorvastatin Calcium (Lipitor) 20 Mg Tablet, 20 MG PO HS, (Reported) Entered as Reported by: NELSON SUMNER on 09/14/201801 Fluconazole (Fluconazole) 200 Mg Tablet, 200 MG PO DAILY Prescribed by: RENETTA COREAS on 04/17/21 1505 Insulin Aspart (Novolog) 100 Unit/1 Ml Susp, 15 UNIT SQ AC, (Reported) Entered as Reported by: NELSON SUMNER on 09/14/201801 Insulin Glargine,Hum.rec.anlog (Lantus) 100 Unit/1 Ml Vial, 40 UNIT SQ HS, (Reported) Entered as Reported by: NELSON SUMNER on 09/14/201801 Lisinopril (Lisinopril) 40 Mg Tablet, 40 MG PO DAILY, (Reported) Entered as Reported by: NELSON SUMNER on 09/14/201801 Metformin HCl (Metformin HCl) 500 Mg Tablet, 500 MG PO BID, (Reported) Entered as Reported by: NELSON SUMNER on 09/14/201801 Omeprazole (Omeprazole) 40 Mg Capsule.dr, 40 MG PO DAILY, (Reported) Entered as Reported by: NELSON SUMNER on 09/14/201800 Ondansetron (Ondansetron Odt) 4 Mg Tab.rapdis, 4 MG PO Q6H PRN for NAUSEA/VOMITING Prescribed by: RENETTA COREAS on 11/30/20 1437 Phenytoin Sodium Extended (Dilantin) 100 Mg Capsule, 100 MG PO TID, (Reported) Entered as Reported by: NELSON SUMNER on 09/14/201800 Venlafaxine HCl (Effexor Xr) 37.5 Mg Cap.er.24h, 75 MG PO BID, (Reported) Entered as Reported by: NELSON SUMNER on 09/14/201800 Vitamin D (Vitamin D3) 10 Mcg Tablet, 1,000 MCG PO WEEK, (Reported) Entered as Reported by: NELSON SUMNER on 09/14/201801 Review of Systems Review of Systems Constitutional: see HPI; No chills, No fever EENTM: No nose congestion, No throat pain Respiratory: No cough, No short of breath Cardiovascular: chest pain (Left rib pain), edema (Bilateral lower extremities) Gastrointestinal: No abdominal pain, No nausea, No vomiting Genitourinary: No dysuria, No hesitancy; pain (Bilateral testicles which she states are swollen), other (History retention but states this does not feel like that) Musculoskeletal: No back pain; joint pain (Left ribs), muscle pain (Left ribs) Skin: No change in color, No lesions Past Mxsrmnz-Neolvw-Hepqzh Hx Patient Social History Tobacco Use?: Yes Use of E-Cig and/or Vaping dev: No Substance use?: No Alcohol Use?: No Immunizations Up To Date Tetanus Booster (TDap): Unknown Seasonal Allergies Seasonal Allergies: No Past Medical History Surgery/Hospitalization HX: Indwelling jain catheter; urinary retention Surgeries: Yes (Abscess buttocks-MRSA, jaw fx) Gallbladder Respiratory: No Currently Using CPAP: No Currently Using BIPAP: No Cardiac: Yes Hypertension Neurological: Yes Neuropathy, Seizure Disorder Genitourinary: No Gastrointestinal: Yes Crohns Disease Musculoskeletal: Yes (chronic pain/neuropathy also from "feet to shoulders") Chronic Back Pain Endocrine: Yes Diabetes, Insulin dep HEENT: No Dysphagia Loss of Vision: Denies Hearing Impairment: Denies Cancer: No Psychosocial: Yes Anxiety, Depression Integumentary: Yes (MRSA buttocks ) Blood Disorders: No Family Medical History Reviewed Nursing Family Hx Physical Exam Vital Signs Capillary Refill : Height, Weight, BMI Height: 6'0" Weight: 148lbs. oz. 67.239402sd; 34.00 BMI Method:Stated General Appearance: Anxious, Moderate Distress HEENT: PERRL/EOMI, Pharynx Normal Neck: Full Range of Motion, Normal Inspection, Non Tender, Supple Respiratory: Lungs Clear, Normal Breath Sounds, Other (Tender to the left side of the chest but no bruising, deformity, abrasions or other lesions noted.) Cardiovascular: No Murmur, Tachycardia Gastrointestinal: Non Tender, Soft Genital/Rectal: Normal Genital Exam, Other (No obvious testicular swelling. No lesions or masses. No lymphadenopathy noted. No discharge.) Back: Normal Inspection, No CVA Tenderness, No Vertebral Tenderness Extremity: Normal Range of Motion, Pedal Edema (2+ edema to lower extremities up to the level of mid tibia bilateral) Neurologic/Psychiatric: Alert, Oriented x3 Progress/Results/Core Measures Suspected Sepsis SIRS Temperature: Pulse: Respiratory Rate: Blood Pressure / Mean: Results/Orders My Orders Orders - KERI TAVAREZ MD Cbc With Automated Diff (06/01/21 10:57) Comprehensive Metabolic Panel (06/01/21 10:57) Hs C Reactive Protein (06/01/21 10:57) Drug Screen Stat (Urine) (06/01/21 10:57) Ua Culture If Indicated (06/01/21 10:57) Chest 1 View Ap/Pa Only (06/01/21 10:57) Ed Iv/Invasive Line Start (06/01/21 10:57) Monitor-Rhythm Ecg Trace Only (06/01/21 10:57) Fentanyl Inj (Sublimaze Injection) (06/01/21 10:57) Probnp Fs (06/01/21 11:05) Vital Signs/I&O Capillary Refill : Progress Note : Progress Note Seen and evaluated. Patient is quite irritated and does seem to be in pain. IV, labs, chest x-ray and fentanyl 50 mcg IV ordered. Monitor patient. 1110: Patient still quite irritable. is at bedside. He is stating that he is leaving and is not going to stay due to he does not like the way people are talking to him. I tried consoling him directly as well as nursing trying to console him. is at bedside and she tried to console him as well. I did discuss all of the things that were ordered to do the evaluation and he states he does not care that he is just going to leave. Patient got up and dressed himself. I did again talked with he and the and let them know that we are here for him 23/01 and please return for any concerns and that his evaluation is not complete which may be dangerous to him. He states he does not care and left. AGAINST MEDICAL ADVICE. Patient refused to wait for or sign any paperwork. Departure Impression Primary Impression: Rib pain on left side Additional Impressions: Uncontrolled pain Pedal edema Disposition: 07 AGAINST MEDICAL ADVICE Condition: Stable/Unchanged Departure-Patient Inst. Decision time for Depature: 11:10 Referrals: ERROL ARIZA MD (PCP/Family) Primary Care Physician Patient Instructions: Leaving Against Medical Advice KERI TAVAREZ MD Jun 01, 2021 11:18
[2021-06-01 11:57] LABS: BASOPHILS % (AUTO) 1 % (0-10); EOSINOPHILS % (AUTO) 3 % (0-10); HEMATOCRIT 24 % (40-54); HEMOGLOBIN 7.5 g/dL (13.3-17.7); LYMPHOCYTES % (AUTO) 14 % (12-44); MEAN CORPUSCULAR HEMOGLOBIN 25 pg (25-34); MEAN CORPUSCULAR HGB CONC 31 g/dL (32-36); MEAN CORPUSCULAR VOLUME 82 fL (80-99); MEAN PLATELET VOLUME 9.4 fL (9.0-12.2); MONOCYTES % (AUTO) 9 % (0-12); NEUTROPHILS % (AUTO) 74 % (42-75); PLATELET COUNT 725 10^3/uL (130-400)
[2021-06-01 11:58] LABS: BASOPHILS # (AUTO) 0.1 10^3/uL (0.0-0.1); EOSINOPHILS # (AUTO) 0.5 10^3/uL (0.0-0.3); LYMPHOCYTES # (AUTO) 2.2 X 10^3 (1.0-4.0); MONOCYTES # (AUTO) 1.4 X 10^3 (0.0-1.0); NEUTROPHILS # (AUTO) 11.8 X 10^3 (1.8-7.8)
[2021-06-01 12:01] LABS: BILIRUBIN,TOTAL 0.2 MG/DL (0.1-1.0); CREATININE SERUM 0.95 MG/DL (0.60-1.30); POTASSIUM 5.3 MMOL/L (3.6-5.0); TOTAL PROTEIN 6.6 GM/DL (6.4-8.2)
[2021-06-01 12:02] LABS: ALBUMIN 3.6 GM/DL (3.2-4.5)
[2021-06-01 12:18] LABS: BAND NEUTROPHILS 3 %; LYMPHOCYTES % (MANUAL) 12 %; NEUTROPHILS % (MANUAL) 68 %
[2021-06-01 12:19] LABS: ATYPICAL LYMPHOCYTES 2 %; BASOPHILS % (MANUAL) 0 %; EOSINOPHILS % (MANUAL) 5 %; HYPOCHROMASIA 2+; MICROCYTOSIS 1+; MONOCYTES % (MANUAL) 10 %; PLATELET ESTIMATE INCREASED; POIKILOCYTOSIS 1+; POLYCHROMASIA SLIGHT; TARGET CELLS FEW
[2021-06-01 12:20] LABS: ACANTHOCYTES SLIGHT; ELLIPT/OVALOCYTES SLIGHT; HELMET/BITE CELLS SLIGHT
== END 2021-06-01 11:10 | disposition left against medical advice (07) ==
LOC: EDUNIT# 10:43 → ER FS 10:44
DX: R07.81 Pleurodynia (principal); R60.9 Edema, unspecified; R00.0 Tachycardia, unspecified; I10 Essential (primary) hypertension; G40.909 Epilepsy, unspecified, not intractable, without status epilepticus; E11.9 Type 2 diabetes mellitus without complications; F41.9 Anxiety disorder, unspecified; F32.9 Major depressive disorder, single episode, unspecified; Z72.0 Tobacco use; Z79.4 Long term (current) use of insulin; Z79.899 Other long term (current) drug therapy
CPT/HCPCS: 36415; 80053; 83880; 85007; 85027; 86141; 93041

== ENCOUNTER 2021-07-10 17:15 | Emergency (ER) | payer MEDICAID ==
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
--- NOTE | 2021-07-10 17:38 | ED General ---
General Chief Complaint: - Reproductive Stated Complaint: SWOLLEN IN GROIN AREA Source of Information: Patient, Caregiver History of Present Illness Date Seen by Provider: Jul 10, 2021 Time Seen by Provider: 17:20 Initial Comments 46-year-old male presenting with complaints of edema and swelling to his scrotum. He has had an increase in his weight and had some swelling to his abdomen as well. He recently was told that he had heart failure and is taking furosemide. He recently was decreased from 40 mg down to 20 mg when he refilled his furosemide or Lasix for this month. He does have some renal insufficiency as well. He is scheduled to see Dr. Killian with cardiology on July 16 for follow-up about the heart failure. He had not had swelling to his scrotum and testicles previously. He was concerned that his scrotum may pop or burst and was worried that he might have more problems if he was not seen. This is been worsening over the last 3 days. He finally came in to be seen today after checking with urgent care and being told they could not help him and he needed to come to the ED Timing/Duration: 3-4 Days Severity: Moderate Associated Systoms: No Chest Pain, No Cough, No Diaphoresis, No Fever/Chills, No Headaches, No Loss of Appetite, No Malaise, No Nausea/Vomiting, No Rash, No Seizure; Shortness of Air; No Syncope Allergies and Home Medications Allergies Coded Allergies: Penicillins (Verified Allergy, Unknown, 09/14/20) aspirin (Unverified Adverse Reaction, Severe, swelling throat, 11/05/18) shellfish derived (Unverified Adverse Reaction, Severe, THROAT SWELLING, 09/14/20) Patient Home Medication List Home Medication List Reviewed: Yes Atorvastatin Calcium (Lipitor) 20 Mg Tablet, 20 MG PO HS, (Reported) Entered as Reported by: NELSON SUMNER on 09/14/201801 Fluconazole (Fluconazole) 200 Mg Tablet, 200 MG PO DAILY Prescribed by: RENETTA COREAS on 04/17/21 1505 Insulin Aspart (Novolog) 100 Unit/1 Ml Susp, 15 UNIT SQ AC, (Reported) Entered as Reported by: NELSON SUMNER on 09/14/201801 Insulin Glargine,Hum.rec.anlog (Lantus) 100 Unit/1 Ml Vial, 40 UNIT SQ HS, (R eported) Entered as Reported by: NELSON SUMNER on 09/14/201801 Lisinopril (Lisinopril) 40 Mg Tablet, 40 MG PO DAILY, (Reported) Entered as Reported by: NELSON SUMNER on 09/14/201801 Metformin HCl (Metformin HCl) 500 Mg Tablet, 500 MG PO BID, (Reported) Entered as Reported by: NELSON SUMNER on 09/14/201801 Omeprazole (Omeprazole) 40 Mg Capsule.dr, 40 MG PO DAILY, (Reported) Entered as Reported by: NELSON SUMNER on 09/14/201800 Ondansetron (Ondansetron Odt) 4 Mg Tab.rapdis, 4 MG PO Q6H PRN for NAUSEA/VOMITING Prescribed by: RENETTA COREAS on 11/30/20 143 Phenytoin Sodium Extended (Dilantin) 100 Mg Capsule, 100 MG PO TID, (Reported) Entered as Reported by: NELSON SUMNER on 09/14/201800 Venlafaxine HCl (Effexor Xr) 37.5 Mg Cap.er.24h, 75 MG PO BID, (Reported) Entered as Reported by: NELSON SUMNER on 09/14/201800 Vitamin D (Vitamin D3) 10 Mcg Tablet, 1,000 MCG PO WEEK, (Reported) Entered as Reported by: NELSON SUMNER on 09/14/201801 Review of Systems Review of Systems Constitutional: No chills, No fever EENTM: no symptoms reported Respiratory: see HPI Cardiovascular: edema Gastrointestinal: no symptoms reported Genitourinary: see HPI Musculoskeletal: no symptoms reported Skin: No change in color, No rash Psychiatric/Neurological: Anxiety Past Zmipayc-Nmgjpb-Njfpau Hx Immunizations Up To Date Tetanus Booster (TDap): Unknown Seasonal Allergies Seasonal Allergies: No Past Medical History Surgery/Hospitalization HX: Indwelling jain catheter; urinary retention, CHF, Scrotal Edema Surgeries: Yes (Abscess buttocks-MRSA, jaw fx) Gallbladder Respiratory: No Currently Using CPAP: No Currently Using BIPAP: No Cardiac: Yes Hypertension Neurological: Yes Neuropathy, Seizure Disorder Genitourinary: No Gastrointestinal: Yes Crohns Disease Musculoskeletal: Yes (chronic pain/neuropathy also from "feet to shoulders") Chronic Back Pain Endocrine: Yes Diabetes, Insulin dep HEENT: No Dysphagia Loss of Vision: Denies Hearing Impairment: Denies Cancer: No Psychosocial: Yes Anxiety, Depression Integumentary: Yes (MRSA buttocks ) Blood Disorders: No Physical Exam Vital Signs Capillary Refill : Height, Weight, BMI Height: 6'0" Weight: 148lbs. oz. 67.154864zb; 19.00 BMI Method:Stated General Appearance: Anxious, Chronically ill Neck: Non Tender, Supple Respiratory: Chest Non Tender, No Accessory Muscle Use, No Respiratory Distress, Decreased Breath Sounds Cardiovascular: Regular Rate, Rhythm, Normal Peripheral Pulses Gastrointestinal: Normal Bowel Sounds, Non Tender, Soft Genital/Rectal: Other (scrotal edema and penile edema) Extremity: Normal Capillary Refill, Pedal Edema (1+ edema to BLE up to waist with scrotal and penile edema) Neurologic/Psychiatric: Alert, Oriented x3 Skin: Warm/Dry Progress/Results/Core Measures Suspected Sepsis SIRS Temperature: Pulse: Respiratory Rate: Blood Pressure / Mean: Results/Orders Vital Signs/I&O Capillary Refill : Progress Note : Progress Note Advised patient that this could be from his heart failure. The decreased dose of furosemide or Lasix could be contributing. Without doing blood work I could not say how much might be also related to his kidney function. Patient and significant other did not want to do additional testing if the swelling would go down with medicine and he was reassured that his "sack and balls" were not going to burst and pop. Will have patient increase his furosemide to 40 mg a day. Take an additional 40 mg tonight and then start 40 mg a day in the morning. Follow-up on Monday if he is not seeing improvements and they may need to also do an ultrasound. If he has worsening symptoms he may monitor your blood work. Keep the follow-up with Dr. Killian on Monday Departure Impression Primary Impression: Scrotal edema Additional Impression: Congestive heart failure Qualified Codes: I50.9 - Heart failure, unspecified Disposition: 01 HOME, SELF-CARE Condition: Stable Departure-Patient Inst. Decision time for Depature: 17:37 Referrals: MARC KILLIAN JR, MD SELF,ERROL GONZALES (PCP/Family) Primary Care Physician Patient Instructions: Heart Failure ED Add. Discharge Instructions: Take an extra 40 mg of furosemide or Lasix tonight to help as a water pill to get extra fluid off of your scrotum and out of your system. Starting on July 11 take 40 mg of furosemide or Lasix daily to help with the extra fluid. Do this for the next 5 days. If you are continuing to have symptoms or if you are not seeing any improvement by Monday follow-up th rough the clinic as they may need to also do an ultrasound or some blood work to see what your kidney function is doing. If you have worsening symptoms over the weekend you could certainly return to have blood work done through the emergency department as well. All discharge instructions reviewed with patient and/or family. Voiced understanding. RENETTA COREAS MD Jul 10, 2021 17:38
[2021-07-10 17:45] VITALS: BP 187/91
== END 2021-07-10 17:45 | disposition home or self-care (01) ==
LOC: EDUNIT# 17:15 → ER FS 17:17
DX: N50.89 Other specified disorders of the male genital organs (principal); I11.0 Hypertensive heart disease with heart failure; I50.9 Heart failure, unspecified; G40.909 Epilepsy, unspecified, not intractable, without status epilepticus; F41.9 Anxiety disorder, unspecified; F32.9 Major depressive disorder, single episode, unspecified; E11.9 Type 2 diabetes mellitus without complications; Z79.899 Other long term (current) drug therapy; Z79.4 Long term (current) use of insulin
CPT/HCPCS: 99281

== ENCOUNTER 2021-07-11 10:52 | Inpatient (IN) | payer MEDICAID ==
[~2021-07-11] VITALS: Ht 182 cm; Wt 65.0 kg
[2021-07-11] MEDS ORDERED: FUROSEMIDE 40 MG/4 ML INJ (LASIX) ONE (11:21)
--- NOTE | 2021-07-11 11:26 | ED Cardiac General ---
History of Present Illness General Chief Complaint: Cardiac/General Problems Stated Complaint: SWELLING LOWER EXTREMITIES Source: patient Exam Limitations: no limitations History of Present Illness Date Seen by Provider: Jul 11, 2021 Time Seen by Provider: 11:10 Initial Comments Patient to the ER with his significant other and chief complaint of swelling worsening over the past 4 days going up his legs and for the past 1 or 2 days has had swelling in his scrotum. He says he has occasional chest pains but they are not unusual for him and nothing he is worried about. No cough. He has a history of congestive heart failure being treated by Dr. Conn cardiology. A couple months ago he had a urinary Jain catheter placed for urinary retention and followed by Dr. Killian urology out of [place], [place]. He is not having any urinary problems now. Patient states he was seen in the ER yesterday at [place] and had no labs or imaging done. He was told to increase his Lasix to 40 mg which he did. He took the 40 mg this morning and has had only 1 episode of urine out. He does not feel like his symptoms are improving at all. Allergies and Home Medications Allergies Coded Allergies: Penicillins (Verified Allergy, Unknown, 09/14/20) aspirin (Unverified Adverse Reaction, Severe, swelling throat, 11/05/18) shellfish derived (Unverified Adverse Reaction, Severe, THROAT SWELLING, 09/14/20) Patient Home Medication List Home Medication List Reviewed: Yes Atorvastatin Calcium (Lipitor) 20 Mg Tablet, 20 MG PO HS, (Reported) Entered as Reported by: NELSON SUMNER on 09/14/201801 Fluconazole (Fluconazole) 200 Mg Tablet, 200 MG PO DAILY Prescribed by: RENETTA COREAS on 04/17/21 1505 Insulin Aspart (Novolog) 100 Unit/1 Ml Susp, 15 UNIT SQ AC, (Reported) Entered as Reported by: NELSON SUMNER on 09/14/201801 Insulin Glargine,Hum.rec.anlog (Lantus) 100 Unit/1 Ml Vial, 40 UNIT SQ HS, (Reported) Entered as Reported by: NELSON SUMNER on 09/14/201801 Lisinopril (Lisinopril) 40 Mg Tablet, 40 MG PO DAILY, (Reported) Entered as Reported by: NELSON SUMNER on 09/14/201801 Metformin HCl (Metformin HCl) 500 Mg Tablet, 500 MG PO BID, (Reported) Entered as Reported by: NELSON SUMNER on 09/14/201801 Omeprazole (Omeprazole) 40 Mg Capsule.dr, 40 MG PO DAILY, (Reported) Entered as Reported by: NELSON SUMNER on 09/14/201800 Ondansetron (Ondansetron Odt) 4 Mg Tab.rapdis, 4 MG PO Q6H PRN for NAUSEA/VOMITI NG Prescribed by: RENETTA COREAS on 11/30/20 1437 Phenytoin Sodium Extended (Dilantin) 100 Mg Capsule, 100 MG PO TID, (Reported) Entered as Reported by: NELSON SUMNER on 09/14/201800 Venlafaxine HCl (Effexor Xr) 37.5 Mg Cap.er.24h, 75 MG PO BID, (Reported) Entered as Reported by: NELSON SUMNER on 09/14/201800 Vitamin D (Vitamin D3) 10 Mcg Tablet, 1,000 MCG PO WEEK, (Reported) Entered as Reported by: NELSON SUMNER on 09/14/201801 Review of Systems Review of Systems Constitutional: No chills, No diaphoresis EENTM: No Blurred Vision, No Double Vision Respiratory: Denies Cough, Denies Shortness of Air Cardiovascular: See HPI, Chest Pain, Edema Gastrointestinal: Denies Abdomen Distended, Denies Abdominal Pain Genitourinary: Denies Burning, Denies Discharge, Denies Frequency Musculoskeletal: No back pain, No joint pain Psychiatric/Neurological: Denies Anxiety, Denies Depressed All Other Systems Reviewed Negative Unless Noted: Yes Past Quzxqba-Kmgrtm-Gleuhn Hx Patient Social History Tobacco Use?: No Use of E-Cig and/or Vaping dev: No Substance use?: No Immunizations Up To Date Tetanus Booster (TDap): Unknown Seasonal Allergies Seasonal Allergies: No Past Medical History Surgery/Hospitalization HX: Indwelling jain catheter; urinary retention, CHF, Scrotal Edema Surgeries: Yes (Abscess buttocks-MRSA, jaw fx) Gallbladder Respiratory: No Currently Using CPAP: No Currently Using BIPAP: No Cardiac: Yes Hypertension Neurological: Yes Neuropathy, Seizure Disorder Genitourinary: No Gastrointestinal: Yes Crohns Disease Musculoskeletal: Yes (chronic pain/neuropathy also from "feet to shoulders") Chronic Back Pain Endocrine: Yes Diabetes, Insulin dep HEENT: No Dysphagia Loss of Vision: Denies Hearing Impairment: Denies Cancer: No Psychosocial: Yes Anxiety, Depression Integumentary: Yes (MRSA buttocks ) Blood Disorders: No Physical Exam Vital Signs Capillary Refill : Height, Weight, BMI Height: 6'0" Weight: 148lbs. oz. 67.207969af; 19.00 BMI Method:Stated General Appearance: Chronically ill, Mild Distress HEENT: PERRL/EOMI, Pharynx Normal, Moist Mucous Membranes Neck: Full Range of Motion, Normal Inspection Respiratory: Lungs Clear, Normal Breath Sounds, No Accessory Muscle Use, No Respiratory Distress Cardiovascular: Regular Rate, Rhythm, Normal Peripheral Pulses Gastrointestinal: Non Tender, Soft Extremity: Normal Capillary Refill, Normal Inspection, Swelling (Bilateral lower extremities up to the thighs. No erythema. 2+ pitting edema) Neurologic/Psychiatric: Alert, Oriented x3, No Motor/Sensory Deficits, Other (Generally irritable but cooperative with questions) Skin: Normal Color, Warm/Dry Progress/Results/Core Measures Results/Orders Lab Results Laboratory Tests Test 07/11/21 11:23 07/11/21 12:39 Range/Units White Blood Count 14.0 H 4.3-11.0 10^3/uL Red Blood Count 3.25 L 4.30-5.52 10^6/uL Hemoglobin 8.1 L 13.3-17.7 g/dL Hematocrit 27 L 40-54 % Mean Corpuscular Volume 82 80-99 fL Mean Corpuscular Hemoglobin 25 25-34 pg Mean Corpuscular Hemoglobin Concent 31 L 32-36 g/dL Red Cell Distribution Width 17.1 H 10.0-14.5 % Platelet Count 612 H 130-400 10^3/uL Mean Platelet Volume 9.7 9.0-12.2 fL Immature Granulocyte % (Auto) 1 % Neutrophils (%) (Auto) 69 42-75 % Lymphocytes (%) (Auto) 15 12-44 % Monocytes (%) (Auto) 9 0-12 % Eosinophils (%) (Auto) 6 0-10 % Basophils (%) (Auto) 1 0-10 % Neutrophils # (Auto) 9.7 H 1.8-7.8 10^3/uL Lymphocytes # (Auto) 2.1 1.0-4.0 10^3/uL Monocytes # (Auto) 1.2 H 0.0-1.0 10^3/uL Eosinophils # (Auto) 0.8 H 0.0-0.3 10^3/uL Basophils # (Auto) 0.1 0.0-0.1 10^3/uL Immature Granulocyte # (Auto) 0.1 0.0-0.1 10^3/uL Neutrophils % (Manual) 73 % Lymphocytes % (Manual) 16 % Monocytes % (Manual) 5 % Eosinophils % (Manual) 5 % Band Neutrophils 1 % Toxic Granulation 1+ Platelet Estimate DECREASED Polychromasia SLIGHT Hypochromasia MODERATE Poikilocytosis SLIGHT Microcytosis SLIGHT Macrocytosis FEW Helmet Cells SLIGHT Crenated Cell SLIGHT Elliptocytes SLIGHT Acanthocytes SLIGHT Carlos Bodies SLIGHT Sodium Level 137 135-145 MMOL/L Potassium Level 4.2 3.6-5.0 MMOL/L Chloride Level 100 98-107 MMOL/L Carbon Dioxide Level 29 21-32 MMOL/L Anion Gap 8 5-14 MMOL/L Blood Urea Nitrogen 25 H 7-18 MG/DL Creatinine 1.19 0.60-1.30 MG/DL Estimat Glomerular Filtration Rate 66 BUN/Creatinine Ratio 21 Glucose Level 197 H 70-105 MG/DL Calcium Level 9.1 8.5-10.1 MG/DL Corrected Calcium 9.2 8.5-10.1 MG/DL Total Bilirubin < 0.1 L 0.1-1.0 MG/DL Aspartate Amino Transf (AST/SGOT) 14 5-34 U/L Alanine Aminotransferase (ALT/SGPT) 21 0-55 U/L Alkaline Phosphatase 129 40-136 U/L Troponin I < 0.028 <0.028 NG/ML C-Reactive Protein High Sensitivity 0.49 0.00-0.50 MG/DL B-Type Natriuretic Peptide 938.0 H <100.0 PG/ML Total Protein 7.2 6.4-8.2 GM/DL Albumin 3.9 3.2-4.5 GM/DL Urine Color YELLOW Urine Clarity CLEAR Urine pH 6.0 5-9 Urine Specific [place] 1.015 L 1.016-1.022 Urine Protein NEGATIVE NEGATIVE Urine Glucose (UA) NEGATIVE NEGATIVE Urine Ketones NEGATIVE NEGATIVE Urine Nitrite NEGATIVE NEGATIVE Urine Bilirubin NEGATIVE NEGATIVE Urine Urobilinogen 0.2 < = 1.0 MG/DL Urine Leukocyte Esterase NEGATIVE NEGATIVE Urine RBC (Auto) NEGATIVE NEGATIVE Urine RBC NONE /HPF Urine WBC NONE /HPF Urine Squamous Epithelial Cells NONE /HPF Urine Crystals NONE /LPF Urine Bacteria NEGATIVE /HPF Urine Casts NONE /LPF Urine Mucus NEGATIVE /LPF Urine Culture Indicated NO Urine Opiates Screen POSITIVE H NEGATIVE Urine Oxycodone Screen NEGATIVE NEGATIVE Urine Methadone Screen NEGATIVE NEGATIVE Urine Propoxyphene Screen NEGATIVE NEGATIVE Urine Barbiturates Screen POSITIVE H NEGATIVE Ur Tricyclic Antidepressants Screen NEGATIVE NEGATIVE Urine Phencyclidine Screen NEGATIVE NEGATIVE Urine Amphetamines Screen NEGATIVE NEGATIVE Urine Methamphetamines Screen NEGATIVE NEGATIVE Urine Benzodiazepines Screen POSITIVE H NEGATIVE Urine Cocaine Screen NEGATIVE NEGATIVE Urine Cannabinoids Screen POSITIVE H NEGATIVE My Orders Orders - CHELITA PÉREZ Furosemide Injection (Lasix Injection) (07/11/21 11:30) Ed Iv/Invasive Line Start (07/11/21 11:20) Ekg Tracing (07/11/21 11:20) Continuous Ekg Monitoring (07/11/21 11:20) Cbc With Automated Diff (07/11/21 11:20) Comprehensive Metabolic Panel (07/11/21 11:20) Hs C Reactive Protein (07/11/21 11:20) Bnp [place] (07/11/21 11:20) Ua Culture If Indicated (07/11/21 11:20) Troponin I [place] (07/11/21 11:20) Furosemide Injection (Lasix Injection) (07/11/21 11:21) Chest 1 View, Ap/Pa Only (07/11/21 11:26) Manual Differential (07/11/21 11:23) Furosemide Injection (Lasix Injection) (07/11/21 12:15) Fentanyl Inj (Sublimaze Injection) (07/11/21 12:15) Drug Screen Stat (Urine) (07/11/21 12:15) Ed Admission (Communication) (07/11/21 12:41) Medications Given in ED Current Medications Medications Dose Ordered Sig/Josef Route Start Time Stop Time Status Last Admin Dose Admin Fentanyl Citrate 100 mcg ONCE ONCE IVP 07/11/21 12:15 07/11/21 12:16 DC 07/11/21 12:48 100 MCG Furosemide 40 mg ONCE ONCE IVP 07/11/21 11:30 07/11/21 11:31 DC 07/11/21 11:25 40 MG Furosemide 40 mg ONCE ONCE IVP 07/11/21 12:15 07/11/21 12:16 DC 07/11/21 12:48 40 MG Progress Progress Note #1: Time: 11:29 Progress Note Based on patient's history and story sound like he is in congestive heart failure with fluid retention however he is not having significant shortness of air. After transferring from the chair to the bed his oxygen saturation went down to 90% with a good waveform. He has had some oxygen waveforms around 89 to 94% while at rest so we will put him on 2 L oxygen. His initial blood pressure is 169/102. If it remains up we might trial a little nitroglycerin which will help with his CHF as well as his blood pressure. He denies any chest pain at the moment. EKG labs 40 mg IV Lasix. K Tracs was referenced. O2 saturation 95 to 96% on 2 L by nasal cannula. Progress Note #2: Time: 13:15 Progress Note After the 100 mcg of fentanyl went in to check on the patient and he is asleep and appears to be comfortable. Initial ECG Impression Date: Jul 11, 2021 Initial ECG Impression Time: 11:26 Initial ECG Rate: 90 Initial ECG Rhythm: Normal Sinus Initial ECG Intervals: Normal Initial ECG Impression: Normal Comment Sinus rhythm without clinically relevant ST changes Diagnostic Imaging Diagonstic Imaging: Xray Plain Films/CT/US/NM/MRI: chest Comments Vascular prominence without acute infiltrates. [facility] [place] NAME: ROBLES CHANDLER MED REC#: [id number] PT STATUS: REG ER : 1975 PHYSICIAN: CHELITA PÉREZ MD ADMIT DATE: 07/11/21/ER Draft Date of Exam:07/11/21 CHEST 1 VIEW, AP/PA ONLY INDICATION: Lower extremity edema, shortness of air, cardiac issues.. TECHNIQUE: Single view chest 11:33 AM. CORRELATION STUDY: 11/30/2020 FINDINGS: Heart size is enlarged and there is presence of pulmonary vascular congestion, change from prior. Prominent interstitial markings of both lung bases consistent with edema. Likely trace pleural effusions with blunting of the costophrenic angles. IMPRESSION: 1. Findings do suggest features of congestive heart failure, pulmonary vascular congestion and mild interstitial edema and small effusions. Dictated on workstation # [id number] Dict: 07/11/21 1144 Trans: 07/11/21 1155 [facility] [id number] Interpreted by: DAVIN BRUNSON DO Electronically signed by: Reviewed: Reviewed by Me Departure Communication (Admissions) Time/Spoke to Admitting Phy: 12:35 Dr. Anderson agrees to admit the patient with consult to cardiology and she will do queued orders. Time/Spoke to Consulting Phy: 12:[address] Simpson, cardiology and he agrees to consult and have Dr. Killian take over the consult the morning. 80 mg IV Lasix now. 40 mg IV twice daily Impression Primary Impression: Congestive heart failure Qualified Codes: I50.9 - Heart failure, unspecified Additional Impression: Acute respiratory failure with hypoxia Disposition: ADMITTED INPATIENT Condition: Stable Admissions Decision to Admit Reason: Admit from ER (General) Decision to Admit/Date: Jul 11, 2021 Time/Decision to Admit Time: 12:00 Departure-Patient Inst. Referrals: ERROL SINGLETARY MD (PCP/Family) Primary Care Physician CHELITA PÉREZ Jul 11, 2021 11:26
[2021-07-11] MEDS ORDERED: FUROSEMIDE 40 MG/4 ML INJ (LASIX) IVP ONE ×2 (11:30→12:15)
[2021-07-11 11:33] LABS: BASOPHILS # (AUTO) 0.1 10^3/uL (0.0-0.1); BASOPHILS % (AUTO) 1 % (0-10); EOSINOPHILS # (AUTO) 0.8 10^3/uL (0.0-0.3); EOSINOPHILS % (AUTO) 6 % (0-10); HEMATOCRIT 27 % (40-54); HEMOGLOBIN 8.1 g/dL (13.3-17.7); LYMPHOCYTES # (AUTO) 2.1 10^3/uL (1.0-4.0); LYMPHOCYTES % (AUTO) 15 % (12-44); MEAN CORPUSCULAR HEMOGLOBIN 25 pg (25-34); MEAN CORPUSCULAR HGB CONC 31 g/dL (32-36); MEAN CORPUSCULAR VOLUME 82 fL (80-99); MEAN PLATELET VOLUME 9.7 fL (9.0-12.2); MONOCYTES # (AUTO) 1.2 10^3/uL (0.0-1.0); MONOCYTES % (AUTO) 9 % (0-12); NEUTROPHILS # (AUTO) 9.7 10^3/uL (1.8-7.8); NEUTROPHILS % (AUTO) 69 % (42-75); PLATELET COUNT 612 10^3/uL (130-400)
[2021-07-11 11:40] LABS: ALBUMIN 3.9 GM/DL (3.2-4.5); CHLORIDE 100 MMOL/L (98-107); POTASSIUM 4.2 MMOL/L (3.6-5.0); SODIUM 137 MMOL/L (135-145)
[2021-07-11 11:41] LABS: CALCIUM 9.1 MG/DL (8.5-10.1)
[2021-07-11 11:43] LABS: GLUCOSE 197 MG/DL (70-105); TOTAL PROTEIN 7.2 GM/DL (6.4-8.2)
[2021-07-11 11:44] LABS: BILIRUBIN,TOTAL < 0.1 MG/DL (0.1-1.0); CARBON DIOXIDE 29 MMOL/L (21-32)
[2021-07-11 11:46] LABS: ALKALINE PHOSPHATASE 129 U/L (40-136); CREATININE SERUM 1.19 MG/DL (0.60-1.30); GFR ESTIMATED 66
[2021-07-11 11:47] LABS: BUN/CREATININE RATIO 21
[2021-07-11 11:49] LABS: ALANINE AMINOTRANSFERASE 21 U/L (0-55)
--- NOTE | 2021-07-11 11:56 | Diagnostic Imaging Report ---
INDICATION: Lower extremity edema, shortness of air, cardiac issues.. TECHNIQUE: Single view chest 11:33 AM. CORRELATION STUDY: 11/30/2020 FINDINGS: Heart size is enlarged and there is presence of pulmonary vascular congestion, change from prior. Prominent interstitial markings of both lung bases consistent with edema. Likely trace pleural effusions with blunting of the costophrenic angles. IMPRESSION: 1. Findings do suggest features of congestive heart failure, pulmonary vascular congestion and mild interstitial edema and small effusions. Dictated by: Dictated on workstation # [id number]
[2021-07-11 12:01] LABS: BAND NEUTROPHILS 1 %; ELLIPT/OVALOCYTES SLIGHT; EOSINOPHILS % (MANUAL) 5 %; HELMET/BITE CELLS SLIGHT; HYPOCHROMASIA MODERATE; LYMPHOCYTES % (MANUAL) 16 %; MICROCYTOSIS SLIGHT; MONOCYTES % (MANUAL) 5 %; NEUTROPHILS % (MANUAL) 73 %; PLATELET ESTIMATE DECREASED; POIKILOCYTOSIS SLIGHT; POLYCHROMASIA SLIGHT
[2021-07-11 12:02] LABS: ACANTHOCYTES SLIGHT; CRENATED RBC SLIGHT; HEINZ BODY SLIGHT; TOXIC GRANULATION/VACUOLAZATIO 1+
[2021-07-11] MEDS ORDERED: fentaNYL INJ 100 MCG/2 ML AMP IVP ONE (12:15)
[2021-07-11 12:53] LABS: BILIRUBIN,URINE NEGATIVE (NEGATIVE); CLARITY,URINE CLEAR; COLOR,URINE YELLOW; GLUCOSE, URINE (UA) NEGATIVE (NEGATIVE); KETONES,URINE NEGATIVE (NEGATIVE); LEUKOCYTE ESTERASE ,URINE NEGATIVE (NEGATIVE); NITRITE,URINE NEGATIVE (NEGATIVE); PROTEIN,URINE NEGATIVE (NEGATIVE)
[2021-07-11 12:59] LABS: AMPHETAMINE SCREEN, URINE NEGATIVE (NEGATIVE); BARBITURATE SCREEN URINE POSITIVE (NEGATIVE); BENZODIAZEPINES SCREEN URINE POSITIVE (NEGATIVE); CANNABINOID SCREEN, URINE POSITIVE (NEGATIVE); COCAINE SCREEN URINE NEGATIVE (NEGATIVE); METHADONE STAT NEGATIVE (NEGATIVE); METHAMPHETAMINE SCREEN URINE S NEGATIVE (NEGATIVE); OPIATE SCREEN URINE POSITIVE (NEGATIVE); OXYCODONE STAT NEGATIVE (NEGATIVE); PROPOXYPHENE STAT NEGATIVE (NEGATIVE); TRICYCLIC ANTIDEPRESSANTS SCRE NEGATIVE (NEGATIVE)
[2021-07-11 13:00] LABS: BACTERIA,URINE NEGATIVE /HPF
[2021-07-11] MEDS ORDERED: morphine IMMEDIATE RELEASE 15 MG TABLET PO PRN (14:00)
[2021-07-11] MEDS ORDERED: MILK OF MAGNESIA 400 MG/5 ML 30 ML UDC PO PRN (14:00)
[2021-07-11] MEDS ORDERED: ANTACID SUSP 30 ML UDC (MYLANTA) PO PRN (14:00)
[2021-07-11] MEDS ORDERED: diphenhydrAMINE 25 MG TAB (BENADRYL) PO PRN (14:00)
[2021-07-11] MEDS ORDERED: morphine INJ 4 MG/ML 1 ML (VIAL/SYRINGE) IV PRN (14:00)
[2021-07-11] MEDS ORDERED: MELATONIN 3 MG TABLET PO PRN (14:00)
[2021-07-11] MEDS ORDERED: BISACODYL 10 MG SUPP (DULCOLAX) PR PRN (14:00)
[2021-07-11] MEDS ORDERED: polyethylene glycoL POWDER 17 GM (MIRALAX) PACK PO PRN (14:00)
[2021-07-11] MEDS ORDERED: NALOXONE 0.4 MG/ML 1 ML (NARCAN) VIAL IV PRN (14:00)
[2021-07-11] MEDS ORDERED: CALCIUM CARBONATE 500 MG (TUMS) TAB.CHEW PO PRN (14:00)
[2021-07-11] MEDS ORDERED: ONDANSETRON 4 MG/2 ML (SDV) Z0FRAN IV PRN (14:00)
[2021-07-11] MEDS ORDERED: LACTULOSE SYRUP 10GM/15ML (ENULOSE) 30ML UDC PO PRN (14:00)
[2021-07-11] MEDS ORDERED: diphenhydrAMINE 50 MG/ML INJ (BENADRYL) IVP PRN (14:00)
[2021-07-11] MEDS ORDERED: ENOXAPARIN 40 MG/0.4 ML (LOVENOX) SYR SC SCH (14:00)
[2021-07-11] MEDS ORDERED: ONDANSETRON 4 MG (ZOFRAN) ORAL DISSOLVE TAB PO PRN (14:00)
[2021-07-11] MEDS ORDERED: ACETAMINOPHEN 325 MG TABLET PO PRN (14:00)
[2021-07-11 15:30] VITALS: BP 131/68
[2021-07-11 15:33] VITALS: BP 131/83
[2021-07-11] MEDS ORDERED: RT-ALBUTEROL/IPRATROPIUM 3 ML (DUONEB) VIAL INH PRN (15:45)
[2021-07-11] MEDS ORDERED: inSUlin ASPART (NovoLOG) 1 UNIT/0.01 ML (CHARGE PER UNIT) SC SCH (16:00)
[2021-07-11] MEDS ORDERED: FUROSEMIDE 40 MG/4 ML INJ (LASIX) IVP SCH (17:00)
--- NOTE | 2021-07-11 19:06 | Short Stay Summary-Hospitalist ---
History of Present Illness Source: patient, RN/MD Exam Limitations: other (Left AMA) Date Seen 07/11/21 Time Seen by a Provider: 00:00 Attending Physician Martha Anderson DO PCP To,Calixto GONZALES Referring Physician Date of Admission Jul 11, 2021 at 12:42 Home Medications & Allergies Home Medications Reviewed patient Home Medication Reconciliation performed by pharmacy medication reconciliations accounting technician and/or nursing. Patients Allergies have been reviewed. Allergies Allergies Coded Allergies Penicillins (Verified Allergy, Unknown, 09/14/20) aspirin (Unverified Adverse Reaction, Severe, swelling throat, 11/05/18) shellfish derived (Unverified Adverse Reaction, Severe, THROAT SWELLING, 09/14/20) Past Zaiadbh-Kjpwzb-Cwdxyq Hx Patient Social History Tobacco Use?: Yes Tobacco type used: Cigarettes Smoking Status: Current Everyday Smoker Smokeless type used: Sticks Smokeless Tobacco Frequency: Unknown if Ever Used Use of E-Cig and/or Vaping dev: No Substance use?: Yes Substance type: Barbiturates, Opiates/Opioids, Marijuana Substance frequency: Once in a while Alcohol Use?: Yes Alcohol type: Hard Liquor Alcohol Frequency: Once in a while Pt feels they are or have been: No Immunizations Up To Date First/Initial COVID19 Vaccinat: NO COVID VACCINE, DECLINED Tetanus Booster (TDap): Unknown Seasonal Allergies Seasonal Allergies: No Current Status Advance Directives: No Communicates: Verbally Primary Language: Grenadian Preferred Spoken Language: Grenadian Is interpretation needed?: No Past Medical History Surgeries: Gallbladder Currently Using CPAP: No Currently Using BIPAP: No Hypertension Neuropathy, Seizure Disorder Crohns Disease Chronic Back Pain Diabetes, Insulin dep Dysphagia Loss of Vision: Denies Hearing Impairment: Denies Anxiety, Depression Blood Disorders: No Review of Systems Constitutional: see HPI Physical Exam Physical Exam Vital Signs Vital Signs - First Documented 07/11/21 07/11/21 07/11/21 11:12 13:28 15:33 Temp 36.6 Pulse 95 Resp 16 B/P (MAP) 163/97 (119) Pulse Ox 92 O2 Delivery Room Air O2 Flow Rate 2.00 FiO2 28 Capillary Refill : Less Than 3 Seconds Height, Weight, BMI Height: 6'0" Weight: 148lbs. oz. 67.555911je; 19.62 BMI Method:Stated General Appearance: Chronically ill, Mild Distress HEENT: PERRL/EOMI, Pharynx Normal, Moist Mucous Membranes Neck: Full Range of Motion, Normal Inspection Respiratory: Lungs Clear, Normal Breath Sounds, No Accessory Muscle Use, No Respiratory Distress Cardiovascular: Regular Rate, Rhythm, Normal Peripheral Pulses Gastrointestinal: Non Tender, Soft Extremity: Normal Capillary Refill, Normal Inspection, Swelling (Bilateral lower extremities up to the thighs. No erythema. 2+ pitting edema) Neurologic/Psychiatric: Alert, Oriented x3, No Motor/Sensory Deficits, Other (Generally irritable but cooperative with questions) Skin: Normal Color, Warm/Dry Results Results/Procedures Labs Laboratory Tests 07/11/21 11:23 Patient resulted labs reviewed. Short Stay Diagnosis Discharge Diagnosis-Short Stay Admission Diagnosis left ama Final Discharge Diagnosis left ama Conclusion Plan left ama MARTHA ANDERSON DO Jul 11, 2021 19:06
[2021-07-11] MEDS ORDERED: DOCUSATE SODIUM 100 MG (COLACE) CAP PO SCH (21:00)
[2021-07-11] MEDS ORDERED: SENNOSIDES 8.6 MG (SENOKOT) TAB PO SCH (21:00)
[2021-07-11] MEDS ORDERED: morphine ER 100 MG (MS CONTIN) TAB PO SCH (21:00)
== END 2021-07-11 17:35 | disposition left against medical advice (07) | DRG 291 ==
LOC: EDUNIT# 10:52 → ER 10:57 → 4TH 12:42
PROVIDERS: ADMIT Internal Medicine; ATTEND Internal Medicine
DX: I11.0 Hypertensive heart disease with heart failure (principal); J96.01 Acute respiratory failure with hypoxia; I50.9 Heart failure, unspecified; E11.40 Type 2 diabetes mellitus with diabetic neuropathy, unspecified; G40.909 Epilepsy, unspecified, not intractable, without status epilepticus; G89.29 Other chronic pain; M54.9 Dorsalgia, unspecified; F41.9 Anxiety disorder, unspecified; F32.A Depression, unspecified; Z79.4 Long term (current) use of insulin; Z79.84 Long term (current) use of oral hypoglycemic drugs; Z79.899 Other long term (current) drug therapy
CPT/HCPCS: 36415; 71045; 80053; 80306; 81000; 82947; 83036; 83880; 84484; 85007; 85027; 86141; 93005; G0378

== ENCOUNTER → 2021-08-10 | Outpatient (CLI) | payer MEDICAID ==
[2021-08-10 16:21] LABS: POTASSIUM 3.8 MMOL/L (3.6-5.0)
[2021-08-10 16:22] LABS: CALCIUM 9.6 MG/DL (8.5-10.1); CREATININE SERUM 1.43 MG/DL (0.60-1.30)
== END ==
LOC: LAB FS 15:24
PROVIDERS: ATTEND Internal Medicine Cardiovascular Disease
DX: I10 Essential (primary) hypertension (principal)
CPT/HCPCS: 36415; 80048

== ENCOUNTER → 2021-08-31 | Outpatient (CLI) | payer MEDICAID ==
[~2021-08-31] MED LIST changes: -FLUC200T5 PO; +FLUC200T9 PO
[2021-08-31 15:18] LABS: CALCIUM 9.1 MG/DL (8.5-10.1); CREATININE SERUM 1.1 MG/DL (0.60-1.30)
== END ==
LOC: LAB FS 14:43
PROVIDERS: ATTEND Internal Medicine Cardiovascular Disease
DX: I10 Essential (primary) hypertension (principal); E78.2 Mixed hyperlipidemia; E11.42 Type 2 diabetes mellitus with diabetic polyneuropathy; N18.31 Chronic kidney disease, stage 3a; I50.9 Heart failure, unspecified; F17.210 Nicotine dependence, cigarettes, uncomplicated
CPT/HCPCS: 36415; 80048

== ENCOUNTER → 2021-09-01 | Outpatient (CLI) | payer MEDICAID | LOC: CARD 15:00 | PROVIDERS: ATTEND Internal Medicine Cardiovascular Disease | DX: I51.7 Cardiomegaly (principal); I35.8 Other nonrheumatic aortic valve disorders; I50.9 Heart failure, unspecified | CPT/HCPCS: 93306 ==

== ENCOUNTER 2021-11-13 21:03 | Emergency (ER) | payer MEDICAID ==
[~2021-11-13] VITALS: Ht 182 cm; Wt 55.0 kg
[2021-11-13] MEDS ORDERED: LACTATED RINGERS 1,000 ML IV STA (21:16)
[2021-11-13 21:18] VITALS: BP 134/83
[2021-11-13 21:21] LABS: BASOPHILS # (AUTO) 0.1 10^3/uL (0.0-0.1); BASOPHILS % (AUTO) 1 % (0-10); EOSINOPHILS # (AUTO) 0.6 10^3/uL (0.0-0.3); EOSINOPHILS % (AUTO) 5 % (0-10); HEMATOCRIT 36 % (40-54); HEMOGLOBIN 12.3 g/dL (13.3-17.7); LYMPHOCYTES # (AUTO) 2.9 10^3/uL (1.0-4.0); LYMPHOCYTES % (AUTO) 24 % (12-44); MEAN CORPUSCULAR HEMOGLOBIN 29 pg (25-34); MEAN CORPUSCULAR HGB CONC 35 g/dL (32-36); MEAN CORPUSCULAR VOLUME 83 fL (80-99); MEAN PLATELET VOLUME 11.2 fL (9.0-12.2); MONOCYTES % (AUTO) 8 % (0-12); NEUTROPHILS # (AUTO) 7.6 10^3/uL (1.8-7.8); NEUTROPHILS % (AUTO) 62 % (42-75); PLATELET COUNT 409 10^3/uL (130-400); WHITE BLOOD COUNT 12.3 10^3/uL (4.3-11.0)
[2021-11-13] MEDS ORDERED: ONDANSETRON 4 MG/2 ML (SDV) Z0FRAN IVP ONE (21:30)
[2021-11-13 21:40] LABS: POTASSIUM 5.1 MMOL/L (3.6-5.0)
[2021-11-13 21:41] LABS: ALBUMIN 4.2 GM/DL (3.2-4.5); BILIRUBIN,TOTAL 0.3 MG/DL (0.1-1.0); CALCIUM 9.1 MG/DL (8.5-10.1); CREATININE SERUM 11.27 MG/DL (0.60-1.30); MAGNESIUM 2.1 MG/DL (1.6-2.4); TOTAL PROTEIN 7.3 GM/DL (6.4-8.2)
--- NOTE | 2021-11-13 22:14 | ED GI ---
General Chief Complaint: Abdominal/GI Problems Stated Complaint: VOMITING/DIARRHEA Nursing Triage Note: pt present with c/o n/v/d x4days. reports decresed oral intake. hallucinations starting today that pt has had before when dehydrated. Source of Information: Patient Exam Limitations: No Limitations History of Present Illness Date Seen by Provider: November 13, 2021 Time Seen by Provider: 21:06 Initial Comments 46-year-old male with past medical history of diabetes coming in due to 4 days of nonbloody nonbilious vomiting and nonbloody diarrhea. Has had significant decrease in p.o. due to lack of wanting to eat. Has not urinated much today. He has had chronic urinary issues and has had a Hennessy catheter off and on over the past several months. He had been doing better for over the last month. No fever, chest pain, shortness of breath, cough, rash, or any other concerns. His significant other says today has been very confused. Allergies and Home Medications Allergies Coded Allergies: Penicillins (Verified Allergy, Unknown, 09/14/20) aspirin (Unverified Adverse Reaction, Severe, swelling throat, 11/05/18) shellfish derived (Unverified Adverse Reaction, Severe, THROAT SWELLING, 09/14/20) Patient Home Medication List Home Medication List Reviewed: Yes Atorvastatin Calcium (Lipitor) 20 Mg Tablet, 20 MG PO HS, (Reported) Entered as Reported by: NELSON SUMNER on 09/14/201801 Fluconazole (Fluconazole) 200 Mg Tablet, 200 MG PO DAILY Prescribed by: RENETTA COREAS on 04/17/21 1505 Insulin Aspart (Novolog) 100 Unit/1 Ml Susp, 15 UNIT SQ AC, (Reported) Entered as Reported by: NELSON SUMNER on 09/14/201801 Insulin Glargine,Hum.rec.anlog (Lantus) 100 Unit/1 Ml Vial, 40 UNIT SQ HS, (Reported) Entered as Reported by: NELSON SUMNER on 09/14/201801 Lisinopril (Lisinopril) 40 Mg Tablet, 40 MG PO DAILY, (Reported) Entered as Reported by: NELSON SUMNER on 09/14/201801 Metformin HCl (Metformin HCl) 500 Mg Tablet, 500 MG PO BID, (Reported) Entered as Reported by: NELSON SUMNER on 09/14/201801 Omeprazole (Omeprazole) 40 Mg Capsule.dr, 40 MG PO DAILY, (Reported) Entered as Reported by: NELSON SUMNER on 09/14/201800 Ondansetron (Ondansetron Odt) 4 Mg Tab.rapdis, 4 MG PO Q6H PRN for NAUSEA/VOMITING Prescribed by: RENETTA COREAS on 11/30/20 1437 Phenytoin Sodium Extended (Dilantin) 100 Mg Capsule, 100 MG PO TID, (Reported) Entered as Reported by: NELSON SUMNER on 09/14/201800 Venlafaxine HCl (Effexor Xr) 37.5 Mg Cap.er.24h, 75 MG PO BID, (Reported) Entered as Reported by: NELSON SUMNER on 09/14/201800 Vitamin D (Vitamin D3) 10 Mcg Tablet, 1,000 MCG PO WEEK, (Reported) Entered as Reported by: NELSON SUMNER on 09/14/201801 Review of Systems Review of Systems Constitutional: No chills, No fever EENTM: No Blurred Vision Respiratory: Denies Cough, Denies Shortness of Air Cardiovascular: Denies Chest Pain Gastrointestinal: Denies Abdominal Pain; Diarrhea, Nausea, Vomiting Genitourinary: Other (Decreased output) Musculoskeletal: no symptoms reported Skin: no symptoms reported Psychiatric/Neurological: No Symptoms Reported Endocrine: No Symptoms Reported Hematologic/Lymphatic: No Symptoms Reported All Other Systems Reviewed Negative Unless Noted: Yes Past Mecngzs-Kjvxbx-Zuwnxo Hx Patient Social History Tobacco Use?: Yes Tobacco type used: Cigarettes Smoking Status: Current Everyday Smoker Substance use?: No Immunizations Up To Date Tetanus Booster (TDap): Unknown First/Initial COVID19 Vaccinat: NO COVID VACCINE, DECLINED Seasonal Allergies Seasonal Allergies: No Past Medical History Surgery/Hospitalization HX: gallbladder Surgeries: Yes (Abscess buttocks-MRSA, jaw fx) Gallbladder Respiratory: No Currently Using CPAP: No Currently Using BIPAP: No Cardiac: Yes Hypertension Neurological: Yes Neuropathy, Seizure Disorder Genitourinary: No Gastrointestinal: Yes Crohns Disease Musculoskeletal: Yes (chronic pain/neuropathy also from "feet to shoulders") Chronic Back Pain Endocrine: Yes Diabetes, Insulin dep HEENT: No Dysphagia Loss of Vision: Denies Hearing Impairment: Denies Cancer: No Psychosocial: Yes Anxiety, Depression Integumentary: Yes (MRSA buttocks ) Blood Disorders: No Physical Exam Vital Signs Vital Signs - First Documented 11/13/21 21:18 Temp 36.8 Pulse 87 Resp 16 B/P (MAP) 134/83 (100) Pulse Ox 95 O2 Delivery Room Air Capillary Refill : Height/Weight/BMI Height: 6'0" Weight: 148lbs. oz. 67.895792ms; 16.00 BMI Method:Stated General Appearance: thin HEENT: PERRL/EOMI, normal ENT inspection, pharynx normal Neck: non-tender, full range of motion, supple, normal inspection Respiratory: chest non-tender, lungs clear, normal breath sounds, no respiratory distress, no accessory muscle use Cardiovascular: regular rate, rhythm, no edema, no murmur Gastrointestinal: normal bowel sounds, non tender, soft; No distended, No guarding, No rebound Extremities: normal range of motion, non-tender, normal inspection, no pedal edema, no calf tenderness, normal capillary refill Back: normal inspection, no CVA tenderness, no vertebral tenderness Neurologic/Psychiatric: no motor/sensory deficits, alert, normal mood/affect Skin: normal color, warm/dry Lymphatic: no adenopathy Progress/Results/Core Measures Results/Orders Lab Results Laboratory Tests Test 11/13/21 20:15 11/13/21 21:18 11/13/21 22:15 Range/Units Urine Color BROWN H Urine Clarity CLEAR Urine pH 5.5 5-9 Urine Specific [place] 1.025 H 1.016-1.022 Urine Protein 1+ H NEGATIVE Urine Glucose (UA) NEGATIVE NEGATIVE Urine Ketones NEGATIVE NEGATIVE Urine Nitrite POSITIVE H NEGATIVE Urine Bilirubin 1+ H NEGATIVE Urine Urobilinogen 0.2 < = 1.0 MG/DL Urine Leukocyte Esterase NEGATIVE NEGATIVE Urine RBC (Auto) NEGATIVE NEGATIVE Urine RBC 5-10 H /HPF Urine WBC 5-10 H /HPF Urine Squamous Epithelial Cells 2-5 /HPF Urine Crystals NONE /LPF Urine Bacteria LARGE H /HPF Urine Casts PRESENT /LPF Urine Hyaline Casts 5-10 H /LPF Urine Coarse Granular Casts 0-2 H /LPF Urine Mucus NEGATIVE /LPF Urine Other SPERM PRESENT /HPF Urine Culture Indicated YES White Blood Count 12.3 H 4.3-11.0 10^3/uL Red Blood Count 4.28 L 4.30-5.52 10^6/uL Hemoglobin 12.3 L 13.3-17.7 g/dL Hematocrit 36 L 40-54 % Mean Corpuscular Volume 83 80-99 fL Mean Corpuscular Hemoglobin 29 25-34 pg Mean Corpuscular Hemoglobin Concent 35 32-36 g/dL Red Cell Distribution Width 16.1 H 10.0-14.5 % Platelet Count 409 H 130-400 10^3/uL Mean Platelet Volume 11.2 9.0-12.2 fL Immature Granulocyte % (Auto) 1 % Neutrophils (%) (Auto) 62 42-75 % Lymphocytes (%) (Auto) 24 12-44 % Monocytes (%) (Auto) 8 0-12 % Eosinophils (%) (Auto) 5 0-10 % Basophils (%) (Auto) 1 0-10 % Neutrophils # (Auto) 7.6 1.8-7.8 10^3/uL Lymphocytes # (Auto) 2.9 1.0-4.0 10^3/uL Monocytes # (Auto) 1.0 0.0-1.0 10^3/uL Eosinophils # (Auto) 0.6 H 0.0-0.3 10^3/uL Basophils # (Auto) 0.1 0.0-0.1 10^3/uL Immature Granulocyte # (Auto) 0.1 0.0-0.1 10^3/uL Sodium Level 138 135-145 MMOL/L Potassium Level 5.1 H 3.6-5.0 MMOL/L Chloride Level 95 L 98-107 MMOL/L Carbon Dioxide Level 20 L 21-32 MMOL/L Anion Gap 23 H 5-14 MMOL/L Blood Urea Nitrogen 162 *H 7-18 MG/DL Creatinine 11.27 H 0.60-1.30 MG/DL Estimat Glomerular Filtration Rate 5 BUN/Creatinine Ratio 14 Glucose Level 76 70-105 MG/DL Calcium Level 9.1 8.5-10.1 MG/DL Corrected Calcium 8.9 8.5-10.1 MG/DL Magnesium Level 2.1 1.6-2.4 MG/DL Total Bilirubin 0.3 0.1-1.0 MG/DL Aspartate Amino Transf (AST/SGOT) 16 5-34 U/L Alanine Aminotransferase (ALT/SGPT) 14 0-55 U/L Alkaline Phosphatase 131 40-136 U/L Total Protein 7.3 6.4-8.2 GM/DL Albumin 4.2 3.2-4.5 GM/DL Lipase 23 8-78 U/L Urine Opiates Screen POSITIVE H NEGATIVE Urine Oxycodone Screen NEGATIVE NEGATIVE Urine Methadone Screen NEGATIVE NEGATIVE Urine Propoxyphene Screen NEGATIVE NEGATIVE Urine Barbiturates Screen POSITIVE H NEGATIVE Ur Tricyclic Antidepressants Screen NEGATIVE NEGATIVE Urine Phencyclidine Screen NEGATIVE NEGATIVE Urine Amphetamines Screen NEGATIVE NEGATIVE Urine Methamphetamines Screen NEGATIVE NEGATIVE Urine Benzodiazepines Screen POSITIVE H NEGATIVE Urine Cocaine Screen NEGATIVE NEGATIVE Urine Cannabinoids Screen POSITIVE H NEGATIVE My Orders Orders - ALLAN VALLEJO MD Cbc With Automated Diff (11/13/21 21:16) Comprehensive Metabolic Panel (11/13/21 21:16) Drug Screen Stat (Urine) (11/13/21 21:16) Lipase (11/13/21 21:16) Magnesium (11/13/21 21:16) Ua Culture If Indicated (11/13/21 21:16) Ed Iv/Invasive Line Start (11/13/21 21:16) Lactated Ringers (Lr 1000 Ml Iv Solution (11/13/21 21:16) Ondansetron Injection (Zofran Injectio (11/13/21 21:30) Ekg Tracing (11/13/21 22:05) Urine Culture (11/13/21 20:15) Ceftriaxone 1 Gm Pre-Mix (Rocephin 1 Gm (11/13/21 23:15) Ed Iv/Invasive Line Start (11/13/21 23:18) Ns Iv 1000 Ml (Sodium Chloride 0.9%) (11/13/21 23:30) Medications Given in ED Current Medications Medications Dose Ordered Sig/Josef Route Start Time Stop Time Status Last Admin Dose Admin Ceftriaxone Sodium/Dextrose 50 ml @ 100 mls/hr ONCE ONCE IV 11/13/21 23:15 11/13/21 23:44 DC 11/13/21 23:12 100 MLS/HR Ondansetron HCl 4 mg ONCE ONCE IVP 11/13/21 21:30 11/13/21 21:31 DC 11/13/21 21:27 4 MG Vital Signs/I&O 11/13/21 11/13/21 11/14/21 21:18 23:16 00:00 Temp 36.8 Pulse 87 87 89 Resp 16 18 18 B/P (MAP) 134/83 (100) 160/103 187/98 Pulse Ox 95 96 96 O2 Delivery Room Air Room Air Room Air 11/14/21 00:00 Intake Total 1000 ml Balance 1000 ml Blood Pressure Mean: 100 Progress Progress Note : Progress Note 46-year-old male with above history coming in due to vomiting with diarrhea and decreased urine output. ABCs were intact and vitals were stable on presentation. Physical exam with some suprapubic fullness. I did a [id number] ultrasound and he had greater than 1 L in his bladder. He was able to void around 300 cc but he still had a very full bladder. Hennessy was then placed. An IV was placed and he was given a bolus of IV fluids. Creatinine greater than 11 and BUN around 160. Potassium is 5.1. EKG with no acute changes. I suspect this is a mixed picture of prerenal and postrenal with the obstruction and his and being volume down. Urinalysis later came back consistent with infection. We will give him antibiotics here. I contacted our hospitalist, but given we do not have nephrology he will not be able to be admitted to our hospital. I then contacted [facility] for potential transfer. Of note, patient later asked for his nightly Ativan which he takes chronically. This was given to him. Initial ECG Impression Date: November 13, 2021 Initial ECG Impression Time: 22:24 Initial ECG Rate: 86 Initial ECG Rhythm: Normal Sinus Comment Narrow QRS, normal axis, no significant ST changes or T wave abnormalities, no signs of hyperkalemia Departure Impression Primary Impression: ARF (acute renal failure) Qualified Codes: N17.8 - Other acute kidney failure Additional Impressions: Urinary retention Vomiting and diarrhea UTI (urinary tract infection) Qualified Codes: N30.01 - Acute cystitis with hematuria Disposition: XFER SHT-TRM HOSP Condition: Stable Transfer Transfer Reason: Exceeds level of care Time Spoke to Accepting Phy: 22:20 Transfer Progress Notes Called [facility] transfer center at 22:05. Awaiting callback from physician. Discussed with Dr. Esquivel at 2300. Patient accepted for transfer. They called back with an assigned bed at midnight. Transfer Time: 23:20 Transfer Facility: [facility] Method of Transfer: EMS Departure-Patient Inst. Referrals: ERROL SINGLETARY MD (PCP/Family) Primary Care Physician ALLAN VALLEJO MD November 13, 2021 22:14
[2021-11-13 22:16] LABS: CLARITY,URINE CLEAR; GLUCOSE, URINE (UA) NEGATIVE (NEGATIVE); KETONES,URINE NEGATIVE (NEGATIVE); LEUKOCYTE ESTERASE ,URINE NEGATIVE (NEGATIVE); NITRITE,URINE POSITIVE (NEGATIVE); PH,URINE 5.5 (5-9); PROTEIN,URINE 1+ (NEGATIVE)
[2021-11-13 22:24] LABS: BACTERIA,URINE LARGE /HPF; BILIRUBIN,URINE 1+ (NEGATIVE); COLOR,URINE BROWN; URINE OTHER SPERM PRESENT /HPF
[2021-11-13 22:28] LABS: BENZODIAZEPINES SCREEN URINE POSITIVE (NEGATIVE)
[2021-11-13 22:29] LABS: AMPHETAMINE SCREEN, URINE NEGATIVE (NEGATIVE); BARBITURATE SCREEN URINE POSITIVE (NEGATIVE); CANNABINOID SCREEN, URINE POSITIVE (NEGATIVE); COCAINE SCREEN URINE NEGATIVE (NEGATIVE); METHADONE STAT NEGATIVE (NEGATIVE); OPIATE SCREEN URINE POSITIVE (NEGATIVE); OXYCODONE STAT NEGATIVE (NEGATIVE); PROPOXYPHENE STAT NEGATIVE (NEGATIVE); TRICYCLIC ANTIDEPRESSANTS SCRE NEGATIVE (NEGATIVE)
[2021-11-13] MEDS ORDERED: cefTRIAXone 1 GM PRE-MIX 50 ML IV ONE (23:15)
[2021-11-13] MEDS ORDERED: NS IV 1000 ML 1,000 ML IV SCH (23:30)
[2021-11-14] MEDS ORDERED: LORazepam 0.5 MG (ATIVAN) TABLET PO STA (00:09)
== END 2021-11-14 00:24 | disposition short-term general hospital (02) ==
LOC: EDUNIT# 21:03 → ER FS 21:06
DX: N17.8 Other acute kidney failure (principal); N30.01 Acute cystitis with hematuria; R19.7 Diarrhea, unspecified; E11.40 Type 2 diabetes mellitus with diabetic neuropathy, unspecified; Z79.4 Long term (current) use of insulin; Z28.310 Unvaccinated for COVID-19
CPT/HCPCS: 36415; 51702; 80053; 80306; 81000; 83690; 83735; 85025; 87088

== ENCOUNTER 2022-01-27 19:03 | Emergency (ER) | payer MEDICAID ==
[~2022-01-27] VITALS: Ht 182.8 cm; Wt 63.5 kg
--- NOTE | 2022-01-27 19:32 | ED Lower Extremity ---
General Chief Complaint: Lower Extremity Stated Complaint: R KNEE PAIN Nursing Triage Note: Patient states that his right knee has been swollen for approximately 1 week. Patient went to urgent care last week and was prescribed an antibiotic and given a shot. Patient states that he hasn't gotten any better. Patient states that he is concerned that he has a septic joint. Patient also states that Urgent Care was also concerned about a septic joint as well. Patient's right knee is swollen and red. Patient denies having a fever. Source: patient, family Exam Limitations: no limitations History of Present Illness Date Seen by Provider: Jan 27, 2022 Time Seen by Provider: 19:10 Initial Comments 46-year-old male patient with history of hypertension, neuropathy, seizure disorder, chronic back pain, diabetes mellitus on insulin, dysphagia, anxiety and depression, CHF complaining of right knee and leg pain and swelling. Patient complaining of right knee edema and pain for 2 weeks without known injury. Patient was seen at urgent care about 1 week ago and had shot of antibiotic and prescription for oral antibiotic. Patient was at bed most the time with improvement of his swelling without improvement of pain. Patient ambulated today and his pain increased and went to urgent care. Patient had x- ray of knee without signs of fracture and sent to ER for more work-up. Patient denies fever and chills, history of septic joint, history of DVT. Allergies and Home Medications Allergies Coded Allergies: Penicillins (Verified Allergy, Unknown, 09/14/20) aspirin (Unverified Adverse Reaction, Severe, swelling throat, 11/05/18) shellfish derived (Unverified Adverse Reaction, Severe, THROAT SWELLING, 09/14/20) Patient Home Medication List Home Medication List Reviewed: Yes Atorvastatin Calcium (Lipitor) 20 Mg Tablet, 20 MG PO HS, (Reported) Entered as Reported by: NELSON SUMNER on 09/14/201801 Fluconazole (Fluconazole) 200 Mg Tablet, 200 MG PO DAILY Prescribed by: RENETTA COREAS on 04/17/21 1505 Insulin Aspart (Novolog) 100 Unit/1 Ml Susp, 15 UNIT SQ AC, (Reported) Entered as Reported by: NELSON SUMNER on 09/14/201801 Insulin Glargine,Hum.rec.anlog (Lantus) 100 Unit/1 Ml Vial, 40 UNIT SQ HS, (Reported) Entered as Reported by: NELSON SUMNER on 09/14/201801 Lisinopril (Lisinopril) 40 Mg Tablet, 40 MG PO DAILY, (Reported) Entered as Reported by: NELSON SUMNER on 09/14/201801 Metformin HCl (Metformin HCl) 500 Mg Tablet, 500 MG PO BID, (Reported) Entered as Reported by: NELSON SUMNER on 09/14/201801 Omeprazole (Omeprazole) 40 Mg Capsule.dr, 40 MG PO DAILY, (Reported) Entered as Reported by: NELSON SUMNER on 09/14/201800 Ondansetron (Ondansetron Odt) 4 Mg Tab.rapdis, 4 MG PO Q6H PRN for NAUSEA/VOMITING Prescribed by: RENETTA COREAS on 11/30/20 143 Phenytoin Sodium Extended (Dilantin) 100 Mg Capsule, 100 MG PO TID, (Reported) Entered as Reported by: NELSON SUMNER on 09/14/201800 Venlafaxine HCl (Effexor Xr) 37.5 Mg Cap.er.24h, 75 MG PO BID, (Reported) Entered as Reported by: NELSON SUMNER on 09/14/201800 Vitamin D (Vitamin D3) 10 Mcg Tablet, 1,000 MCG PO WEEK, (Reported) Entered as Reported by: NELSON SUMNER on 09/14/201801 Review of Systems Constitutional: no symptoms reported EENTM: no symptoms reported Respiratory: cough (Smoking) Cardiovascular: no symptoms reported Gastrointestinal: no symptoms reported Genitourinary: no symptoms reported Musculoskeletal: see HPI Skin: see HPI Psychiatric/Neurological: See HPI All Other Systems Reviewed Negative Unless Noted: Yes Past Kzwpdxa-Cveyeq-Jaxsdx Hx Patient Social History Tobacco Use?: Yes Tobacco type used: Cigarettes Smoking Status: Current Everyday Smoker Substance use?: Yes Substance type: Marijuana Alcohol Use?: No Pt feels they are or have been: No Immunizations Up To Date Tetanus Booster (TDap): Unknown First/Initial COVID19 Vaccinat: NO COVID VACCINE, DECLINED Seasonal Allergies Seasonal Allergies: No Past Medical History Surgery/Hospitalization HX: gallbladder Surgeries: Yes (Abscess buttocks-MRSA, jaw fx) Gallbladder Respiratory: No Currently Using CPAP: No Currently Using BIPAP: No Cardiac: Yes Hypertension Neurological: Yes Neuropathy, Seizure Disorder Genitourinary: No Gastrointestinal: Yes Crohns Disease Musculoskeletal: Yes (chronic pain/neuropathy also from "feet to shoulders") Chronic Back Pain Endocrine: Yes Diabetes, Insulin dep HEENT: No Dysphagia Loss of Vision: Denies Hearing Impairment: Denies Cancer: No Psychosocial: Yes Anxiety, Depression Integumentary: Yes (MRSA buttocks ) Blood Disorders: No Physical Exam Vital Signs Vital Signs - First Documented 01/27/22 19:06 Temp 37.2 Pulse 84 Resp 18 B/P (MAP) 135/75 (95) Pulse Ox 98 O2 Delivery Room Air Capillary Refill : Less Than 3 Seconds Height, Weight, BMI Height: 6'0" Weight: 148lbs. oz. 67.471109mz; 19.00 BMI Method:Stated General Appearance: mild distress HEENT: PERRL/EOMI, normal ENT inspection Neck: non-tender, full range of motion Cardiovascular: regular rate, rhythm, no edema, no gallop, no JVD, no murmur Respiratory: chest non-tender, lungs clear, normal breath sounds, no respiratory distress, no accessory muscle use Gastrointestinal: normal bowel sounds, non tender, soft Back: normal inspection Hips: bilateral hip non-tender Legs: right leg pain, right leg soft tissue tenderness, right leg swelling, right leg other (Erythema) Knees: right knee bone tenderness, right knee joint effusion, right knee nodules, right knee pain, right knee swelling Ankles: right ankle swelling Feet: right foot swelling Neurologic/Tendon: normal motor functions Skin: other (Right knee and leg erythema) Patient had edema and erythema of right knee and leg with edema without erythema of right foot and ankle, able to flex his right knee. Progress/Results/Core Measures Results/Orders Lab Results Laboratory Tests Test 01/27/22 19:31 Range/Units White Blood Count 12.5 H 4.3-11.0 10^3/uL Red Blood Count 3.75 L 4.30-5.52 10^6/uL Hemoglobin 10.1 L 13.3-17.7 g/dL Hematocrit 31 L 40-54 % Mean Corpuscular Volume 84 80-99 fL Mean Corpuscular Hemoglobin 27 25-34 pg Mean Corpuscular Hemoglobin Concent 32 32-36 g/dL Red Cell Distribution Width 15.0 H 10.0-14.5 % Platelet Count 530 H 130-400 10^3/uL Mean Platelet Volume 8.8 L 9.0-12.2 fL Immature Granulocyte % (Auto) 1 % Neutrophils (%) (Auto) 60 42-75 % Lymphocytes (%) (Auto) 22 12-44 % Monocytes (%) (Auto) 11 0-12 % Eosinophils (%) (Auto) 6 0-10 % Basophils (%) (Auto) 1 0-10 % Neutrophils # (Auto) 7.5 1.8-7.8 10^3/uL Lymphocytes # (Auto) 2.7 1.0-4.0 10^3/uL Monocytes # (Auto) 1.3 H 0.0-1.0 10^3/uL Eosinophils # (Auto) 0.7 H 0.0-0.3 10^3/uL Basophils # (Auto) 0.1 0.0-0.1 10^3/uL Immature Granulocyte # (Auto) 0.1 0.0-0.1 10^3/uL Erythrocyte Sedimentation Rate 21 H 0-15 MM/HR Prothrombin Time 13.0 12.2-14.7 SEC INR Comment 0.9 0.8-1.4 Activated Partial Thromboplast Time 28 24-35 SEC Sodium Level 137 135-145 MMOL/L Potassium Level 3.8 3.6-5.0 MMOL/L Chloride Level 97 L 98-107 MMOL/L Carbon Dioxide Level 29 21-32 MMOL/L Anion Gap 11 5-14 MMOL/L Blood Urea Nitrogen 37 H 7-18 MG/DL Creatinine 2.12 H 0.60-1.30 MG/DL Estimat Glomerular Filtration Rate 38 BUN/Creatinine Ratio 17 Glucose Level 258 H 70-105 MG/DL Lactic Acid Level 1.88 0.50-2.00 MMOL/L Calcium Level 9.2 8.5-10.1 MG/DL Corrected Calcium 9.3 8.5-10.1 MG/DL Total Bilirubin < 0.2 0.1-1.0 MG/DL Aspartate Amino Transf (AST/SGOT) 7 5-34 U/L Alanine Aminotransferase (ALT/SGPT) 5 0-55 U/L Alkaline Phosphatase 189 H 40-136 U/L Pro-B-Type Natriuretic Peptide 5171.0 H <125.0 PG/ML Total Protein 7.5 6.4-8.2 GM/DL Albumin 3.9 3.2-4.5 GM/DL NOEMI Walsh MD Cbc With Automated Diff (01/27/22 19:28) Comprehensive Metabolic Panel (01/27/22 19:28) Blood Culture (01/27/22 19:28) Protime With Inr (01/27/22 19:28) Partial Thromboplastin Time (01/27/22 19:28) Ed Iv/Invasive Line Start (01/27/22 19:28) Lactic Acid Analyzer (01/27/22 19:28) Erythrocyte Sedimentation Rate (01/27/22 19:28) Ct Extremity Lower Right Wo (01/27/22 19:28) Probnp Fs (01/27/22 19:28) Morphine Injection (Morphine Injection (01/27/22 20:22) Vital Signs/I&O 01/27/22 01/27/22 19:06 21:16 Temp 37.2 Pulse 84 82 Resp 18 16 B/P (MAP) 135/75 (95) 126/82 Pulse Ox 98 99 O2 Delivery Room Air Room Air Blood Pressure Mean: 95 Progress Progress Note : Progress Note Evaluation of patient in ER showed 46-year-old male patient with multiple chronic medical problems and complaining of right knee edema and pain for more than 2 weeks with 2 urgent care visits. Patient had a x-ray of right knee today at urgent care and was told x-ray did not show fracture and sent to ER for evaluation of septic joint. Patient had moderate edema of right knee and leg with tenderness. CT showed subacute tibia and fibula fracture. Labs showed mild leukocytosis without elevation of lactic acid. Patient had chronic elevation of BNP and BUN/creatinine and elevation of blood sugar. Knee immobilizer applied and patient advised to continue home morphine. Patient advised to follow-up with on-call orthopedic physician Dr. Griggs and avoid of bearing weight. Patient also advised to watch his diet for diabetes and follow- up with his primary care physician regarding renal insufficiency and CHF. Diagnostic Imaging Diagonstic Imaging: CT (Right lower extremity) Comments CT right lower extremity interpreted by radiologist and reviewed by me and showed: NAME: ROBLES CHANDLER Dave [facility] REC#: [id number] PT STATUS: REG ER : 1975 PHYSICIAN: NOEMI CHAPPELL MD ADMIT DATE: 01/27/22/ER FS Signed Date of Exam:01/27/22 CT EXTREMITY LOWER RIGHT WO PROCEDURE: CT right lower extremity without contrast. TECHNIQUE: Axially acquired CT was obtained through the right lower extremity without intravenous contrast. Coronal and sagittal reformations were also performed. Auto Exposure Controls were utilized during the CT exam to meet ALARA standards for radiation dose reduction. INDICATION: Knee swelling COMPARISON: None available. FINDINGS: There is subcutaneous stranding about the right knee. There are subacute fractures of the proximal right tibia and fibula with callus formation. No involvement of the tibial plateau. There is a small knee joint effusion. Posterior cruciate ligaments grossly intact. Anterior cruciate ligament is not well seen. No large displaced meniscal tear is seen. IMPRESSION: 1. Subacute right tibial and fibular fractures with callus formation in the small knee joint effusion. Dictated by: Dictated on workstation # [id number] Dict: 01/27/222001 Trans: 01/27/222050 [facility] [id number] Interpreted by: MIKEY JANSEN MD Electronically signed by: MIKEY JANSEN MD 01/27/222050 Departure Impression Primary Impression: Closed fracture of right tibia and fibula with routine healing Additional Impressions: Chronic renal insufficiency Qualified Codes: N18.9 - Chronic kidney disease, unspecified Knee joint effusion Qualified Codes: M25.461 - Effusion, right knee Uncontrolled diabetes mellitus Qualified Codes: E13.65 - Other specified diabetes mellitus with hyperglycemia Chronic heart failure Qualified Codes: I50.9 - Heart failure, unspecified Disposition: 01 HOME, SELF-CARE Condition: Improved Departure-Patient Inst. Decision time for Depature: 21:12 Referrals: ERROL SINGLETARY MD (PCP/Family) Primary Care Physician CATHY TIAN MD Patient Instructions: Fibula Fracture, Tibia Fracture Add. Discharge Instructions: Follow-up with Dr. Tian on-call orthopedic physician in 2 or 3 days Use wheelchair and avoid of bearing weight on right knee Continue home pain medication Return to ER as needed NOEMI CHAPPELL MD Jan 27, 2022 19:32
[2022-01-27 19:49] LABS: BASOPHILS # (AUTO) 0.1 10^3/uL (0.0-0.1); BASOPHILS % (AUTO) 1 % (0-10); EOSINOPHILS # (AUTO) 0.7 10^3/uL (0.0-0.3); EOSINOPHILS % (AUTO) 6 % (0-10); HEMATOCRIT 31 % (40-54); HEMOGLOBIN 10.1 g/dL (13.3-17.7); LYMPHOCYTES # (AUTO) 2.7 10^3/uL (1.0-4.0); LYMPHOCYTES % (AUTO) 22 % (12-44); MEAN CORPUSCULAR HEMOGLOBIN 27 pg (25-34); MEAN CORPUSCULAR HGB CONC 32 g/dL (32-36); MEAN CORPUSCULAR VOLUME 84 fL (80-99); MEAN PLATELET VOLUME 8.8 fL (9.0-12.2); MONOCYTES # (AUTO) 1.3 10^3/uL (0.0-1.0); MONOCYTES % (AUTO) 11 % (0-12); NEUTROPHILS # (AUTO) 7.5 10^3/uL (1.8-7.8); NEUTROPHILS % (AUTO) 60 % (42-75); PLATELET COUNT 530 10^3/uL (130-400); WHITE BLOOD COUNT 12.5 10^3/uL (4.3-11.0)
[2022-01-27 20:08] LABS: INR 0.9 (0.8-1.4)
--- NOTE | 2022-01-27 20:10 | Diagnostic Imaging Report ---
PROCEDURE: CT right lower extremity without contrast. TECHNIQUE: Axially acquired CT was obtained through the right lower extremity without intravenous contrast. Coronal and sagittal reformations were also performed. Auto Exposure Controls were utilized during the CT exam to meet ALARA standards for radiation dose reduction. INDICATION: Knee swelling COMPARISON: None available. FINDINGS: There is subcutaneous stranding about the right knee. There are subacute fractures of the proximal right tibia and fibula with callus formation. No involvement of the tibial plateau. There is a small knee joint effusion. Posterior cruciate ligaments grossly intact. Anterior cruciate ligament is not well seen. No large displaced meniscal tear is seen. IMPRESSION: 1. Subacute right tibial and fibular fractures with callus formation in the small knee joint effusion. Dictated by: Dictated on workstation # [id number]
[2022-01-27 20:11] LABS: ERYTHROCYTE SEDIMENTATION RATE 21 MM/HR (0-15)
[2022-01-27 20:12] LABS: ALANINE AMINOTRANSFERASE 5 U/L (0-55); ALKALINE PHOSPHATASE 189 U/L (40-136); BILIRUBIN,TOTAL < 0.2 MG/DL (0.1-1.0); BUN/CREATININE RATIO 17; CALCIUM 9.2 MG/DL (8.5-10.1); CARBON DIOXIDE 29 MMOL/L (21-32); CHLORIDE 97 MMOL/L (98-107); CREATININE SERUM 2.12 MG/DL (0.60-1.30); GFR ESTIMATED 38; GLUCOSE 258 MG/DL (70-105); POTASSIUM 3.8 MMOL/L (3.6-5.0); SODIUM 137 MMOL/L (135-145)
[2022-01-27 20:13] LABS: ALBUMIN 3.9 GM/DL (3.2-4.5); TOTAL PROTEIN 7.5 GM/DL (6.4-8.2)
[2022-01-27] MEDS ORDERED: morphine INJ 10 MG/ML 1ML (SYR OR VIAL) IVP STA (20:22)
[2022-01-27 21:16] VITALS: BP 126/82
== END 2022-01-27 21:17 | disposition home or self-care (01) ==
LOC: EDUNIT# 19:03 → ER FS 19:04
DX: I13.0 Hypertensive heart and chronic kidney disease with heart failure and stage 1 through stage 4 chronic kidney disease, or unspecified chronic kidney disease (principal); N18.9 Chronic kidney disease, unspecified; I50.9 Heart failure, unspecified; E11.22 Type 2 diabetes mellitus with diabetic chronic kidney disease; E11.65 Type 2 diabetes mellitus with hyperglycemia; E11.40 Type 2 diabetes mellitus with diabetic neuropathy, unspecified; M25.461 Effusion, right knee; D72.829 Elevated white blood cell count, unspecified; R74.02 Elevation of levels of lactic acid dehydrogenase [LDH]; F17.210 Nicotine dependence, cigarettes, uncomplicated; Z79.4 Long term (current) use of insulin; Z28.310 Unvaccinated for COVID-19
CPT/HCPCS: 36415; 73700; 80053; 83605; 83880; 85025; 85610; 85652; 85730; 87040

== ENCOUNTER → 2022-02-01 | Outpatient (CLI) | payer MEDICAID ==
--- NOTE | 2022-02-01 13:01 | Diagnostic Imaging Report ---
PROCEDURE: US Renal Bilateral. TECHNIQUE: Multiple real-time grayscale images were obtained over the kidneys in various projections bilaterally. INDICATION: Acute injury of the kidney. COMPARISON: None available. FINDINGS: The kidneys are symmetric in size, with the right measuring 11 cm and the left measuring 10 cm. There is no hydronephrosis or echogenic shadowing calculi on either side. No solid renal mass is appreciated on either side. Urinary bladder has a prevoid volume of 423 mL. There is diffuse and mild thickening of the bladder wall. Post void imaging shows volume of 198 mL. Both ureteral jets are identified. IMPRESSION: 1. No hydronephrosis. 2. Diffuse bladder wall thickening could be due to cystitis or chronic partial bladder outlet obstruction. Correlation with urinalysis is advised. 3. There is approximately 47% post void residual. Dictated by: Dictated on workstation # [id number]
== END ==
LOC: RAD FS 09:22
PROVIDERS: ATTEND Internal Medicine Nephrology
DX: N17.9 Acute kidney failure, unspecified (principal); N32.89 Other specified disorders of bladder
CPT/HCPCS: 76770

== ENCOUNTER → 2022-02-14 | Outpatient (CLI) | payer MEDICAID ==
--- NOTE | 2022-02-14 13:05 | Diagnostic Imaging Report ---
INDICATION: Right knee fracture, followup. TIME OF EXAM: 11:59 AM. COMPARISON: Correlation is made with the CT study of the right knee performed on 01/27/2022. FINDINGS: Healing fractures of the proximal tibia and fibula are noted. There is callus formation present. There is sclerosis. The fracture lines do remain visible. The overall alignment is near-anatomic. The distal femur and patella appear to be intact. IMPRESSION: Healing proximal tibial and fibular fractures. Dictated by: Dictated on workstation # [id number]
--- NOTE | 2022-02-14 13:05 | Diagnostic Imaging Report ---
INDICATION: Tibia and fibula fractures, followup. TIME OF EXAM: 11:57 AM. FINDINGS: AP and lateral views of the right tibia and fibula were obtained. Alignment at the knee and ankle is normal. There are healing fractures of the proximal tibia and fibula with moderate callus formation and sclerosis. The fracture lines do remain partially visible. Overall alignment is anatomic. IMPRESSION: Healing proximal tibial and fibular fractures. Dictated by: Dictated on workstation # [id number]
== END ==
LOC: RAD FS 11:43
PROVIDERS: ATTEND Nurse Practitioner
DX: S82.491D Other fracture of shaft of right fibula, subsequent encounter for closed fracture with routine healing (principal); S82.191D Other fracture of upper end of right tibia, subsequent encounter for closed fracture with routine healing; X58.XXXD Exposure to other specified factors, subsequent encounter
CPT/HCPCS: 73562; 73590

== ENCOUNTER 2022-03-20 12:45 | Emergency (ER) | payer MEDICAID ==
[~2022-03-20] VITALS: Ht 182.9 cm; Wt 67.1 kg
[2022-03-20 12:48] VITALS: BP 180/80
[2022-03-20] MEDS ORDERED: RT-ALBUTEROL SULF 2.5 MG/3 ML PRE-MIX VIAL INH STA (12:56)
--- NOTE | 2022-03-20 13:14 | ED Dyspnea ---
General Chief Complaint: Respiratory Problems Stated Complaint: SOB Nursing Triage Note: Patient's reports patient has had shortness of breath since last night. She also states patient has had nausea and vomiting, but states that is not uncommon for patient with his Crohn's disease and GI ulcers. She reports patient used his albuterol inhaler 1-2 hours prior to coming to the ED. Source of Information: Patient, Spouse Exam Limitations: Other (anxiety and feeling short of breath) History of Present Illness Date Seen by Provider: Mar 20, 2022 Time Seen by Provider: 12:48 Initial Comments 46 yo male presenting with complaint of shortness of breath since last night. He feels anxious and like he is not getting enough oxygen. He is agitated and upset that he is not being put on oxygen right away on arrival. He had n/v last night with his crohn's disease. He did use albuterol inhaler prior to coming to the ED but feels it did not help him. He denies fever, chills, cough, ill contacts. Timing/Duration: Constant (since last night) Severity: Severe Activities at Onset: None Prior Episodes/Possible Cause: Chronic Episodes (asthma exacerbations) Modifying Factors: Worse With Activity; Improves With Oxygen Associated Symptoms: Anxiety, Wheezing Allergies and Home Medications Allergies Coded Allergies: Penicillins (Verified Allergy, Unknown, 09/14/20) aspirin (Unverified Adverse Reaction, Severe, swelling throat, 11/05/18) shellfish derived (Unverified Adverse Reaction, Severe, THROAT SWELLING, 09/14/20) Patient Home Medication List Home Medication List Reviewed: Yes Albuterol Sulfate (Albuterol Sulfate) 2.5 Mg/3 Ml (0.083 %) Vial.neb, 2.5 MG INH Q6H PRN for WHEEZING Prescribed by: RENETTA COREAS on 03/20/22 1337 Atorvastatin Calcium (Lipitor) 20 Mg Tablet, 20 MG PO HS, (Reported) Entered as Reported by: NELSON SUMNER on 09/14/20 180 Fluconazole (Fluconazole) 200 Mg Tablet, 200 MG PO DAILY Prescribed by: RENETTA COREAS on 04/17/21 1505 Insulin Aspart (Novolog) 100 Unit/1 Ml Susp, 15 UNIT SQ AC, (Reported) Entered as Reported by: NELSON SUMNER on 09/14/20 180 Insulin Glargine,Hum.rec.anlog (Lantus) 100 Unit/1 Ml Vial, 40 UNIT SQ HS, (Reported) Entered as Reported by: NELSON SUMNER on 09/14/201801 Lisinopril (Lisinopril) 40 Mg Tablet, 40 MG PO DAILY, (Reported) Entered as Reported by: NELSON SUMNER on 09/14/201801 Metformin HCl (Metformin HCl) 500 Mg Tablet, 500 MG PO BID, (Reported) Entered as Reported by: NELSON SUMNER on 09/14/201801 Omeprazole (Omeprazole) 40 Mg Capsule.dr, 40 MG PO DAILY, (Reported) Entered as Reported by: NELSON SUMNER on 09/14/201800 Ondansetron (Ondansetron Odt) 4 Mg Tab.rapdis, 4 MG PO Q6H PRN for NAUSEA/VOMITING Prescribed by: RENETTA COREAS on 11/30/20 143 Phenytoin Sodium Extended (Dilantin) 100 Mg Capsule, 100 MG PO TID, (Reported) Entered as Reported by: NELSON SUMNER on 09/14/201800 Venlafaxine HCl (Effexor Xr) 37.5 Mg Cap.er.24h, 75 MG PO BID, (Reported) Entered as Reported by: NELSON SUMNER on 09/14/201800 Vitamin D (Vitamin D3) 10 Mcg Tablet, 1,000 MCG PO WEEK, (Reported) Entered as Reported by: NELSON SUMNER on 09/14/201801 Review of Systems Review of Systems Constitutional: No chills, No fever EENTM: no symptoms reported Respiratory: see HPI Cardiovascular: No chest pain Gastrointestinal: see HPI Genitourinary: no symptoms reported Musculoskeletal: no symptoms reported Skin: no symptoms reported Psychiatric/Neurological: Anxiety Past Aoiidtv-Nckbrd-Jqxrzf Hx Immunizations Up To Date Tetanus Booster (TDap): Unknown First/Initial COVID19 Vaccinat: NO COVID VACCINE, DECLINED Seasonal Allergies Seasonal Allergies: No Past Medical History Surgery/Hospitalization HX: gallbladder Surgeries: Yes (Abscess buttocks-MRSA, jaw fx) Gallbladder Respiratory: No Currently Using CPAP: No Currently Using BIPAP: No Cardiac: Yes Hypertension Neurological: Yes Neuropathy, Seizure Disorder Genitourinary: No Gastrointestinal: Yes Crohns Disease Musculoskeletal: Yes (chronic pain/neuropathy also from "feet to shoulders") Chronic Back Pain Endocrine: Yes Diabetes, Insulin dep HEENT: No Dysphagia Loss of Vision: Denies Hearing Impairment: Denies Cancer: No Psychosocial: Yes Anxiety, Depression Integumentary: Yes (MRSA buttocks ) Blood Disorders: No Physical Exam Vital Signs Vital Signs - First Documented 03/20/22 12:48 Temp 36.7 Pulse 90 Resp 22 B/P (MAP) 180/80 (113) Pulse Ox 95 O2 Delivery Room Air Capillary Refill : Less Than 3 Seconds Height, Weight, BMI Height: 6'0" Weight: 148lbs. oz. 67.554391wo; 20.00 BMI Method:Stated General Appearance: Anxious (agitated and upset that he is not getting put on oxygen immediately for his shortness of breath) HEENT: Moist Mucous Membranes Respiratory: Chest Non Tender, No Accessory Muscle Use, No Respiratory Distress, Decreased Breath Sounds Cardiovascular: Regular Rate, Rhythm, Normal Peripheral Pulses Gastrointestinal: Normal Bowel Sounds, No Pulsatile Mass, Soft; No Distended, No Guarding, No Rebound, No Tenderness Rectal: Deferred Extremity: Normal Capillary Refill, No Pedal Edema Neurologic/Psychiatric: Alert, Oriented x3 Skin: Normal Color, Warm/Dry Progress/Results/Core Measures Results/Orders My Orders Orders - RENETTA COREAS MD Chest 1 View Ap/Pa Only (03/20/22 12:56) Albuterol Pre-Mix Nebs (Rt) (Proventil (03/20/22 12:56) Svn Small Volume Nebulizer (03/20/22 12:56) Vital Signs/I&O 03/20/22 03/20/22 12:48 13:08 Temp 36.7 Pulse 90 Resp 22 B/P (MAP) 180/80 (113) Pulse Ox 95 96 O2 Delivery Room Air Room Air Blood Pressure Mean: 113 Progress Progress Note #1: Progress Note Tried to reassure pt and spouse that he had good oxygen saturation but that seemed to make him more agitated because he seemed frustrated and agitated and said "I just need some oxygen". Order albuterol treatment here to see if nebulizer helps his breathing better. Chest xray to look for signs of infection or fluid build up. Progress Note #2: Progress Note Chest x-ray shows some interstitial edema. This could be related back to his renal failure. He does take furosemide according to his . Encouraged to continue on that and use the albuterol. Family member has a nebulizer that they can have access to so we will send tubing and a prescription for albuterol nebulized solution. Encouraged to check back with the kidney doctor about seeing if they need to adjust dosing on the furosemide. Diagnostic Imaging Diagonstic Imaging: Xray Plain Films/CT/US/NM/MRI: chest Comments [facility]. [place], [place] NAME: ROBLES CHANDLER [facility] REC#: [id number] PT STATUS: REG ER : 1975 PHYSICIAN: RENETTA COREAS MD ADMIT DATE: 03/20/22/ER FS Draft Date of Exam:03/20/22 CHEST 1 VIEW AP/PA ONLY HISTORY: Shortness of breath. COMPARISON: 07/11/2021. TECHNIQUE: Frontal view of the chest. FINDINGS: There are central and bibasilar interstitial opacities in the lungs bilaterally. There is no pleural effusion or pneumothorax. The cardiac silhouette is normal in size. IMPRESSION: Central and basilar interstitial opacities which may represent interstitial edema. No airspace consolidation is seen. Dictated on workstation # [id number] Dict: 03/20/22 1318 Trans: 03/20/22 1324 [id number] Interpreted by: SHARI JAY MD Electronically signed by: Reviewed: Reviewed by Me Departure Impression Primary Impression: Shortness of breath Additional Impression: Asthma exacerbation Qualified Codes: J45.41 - Moderate persistent asthma with (acute) exacerbation Disposition: 01 HOME, SELF-CARE Condition: Stable Departure-Patient Inst. Decision time for Depature: 13:26 Referrals: SELFERROL MD (PCP) Primary Care Physician Patient Instructions: Shortness of Breath, Adult ED, How to Use a Metered Dose Inhaler ED Add. Discharge Instructions: Use your inhaler to help with shortness of breath. Follow up with your doctor and kidney specialist as they may need to have you taking a diuretic or water pill to help with your breathing. Your kidney disease can make it where you have shortness of breath and some fluid build up in your lungs and body. All discharge instructions reviewed with patient and/or family. Voiced understanding. Scripts Albuterol Sulfate (Albuterol Sulfate) 2.5 Mg/3 Ml (0.083 %) Vial.neb 2.5 MG INH Q6H PRN for WHEEZING for 10 Days, #50 EA 1 Refill Prov: RENETTA COREAS MD 03/20/22 RENETTA COREAS MD Mar 20, 2022 13:14
--- NOTE | 2022-03-20 13:25 | Diagnostic Imaging Report ---
HISTORY: Shortness of breath. COMPARISON: 07/11/2021. TECHNIQUE: Frontal view of the chest. FINDINGS: There are central and bibasilar interstitial opacities in the lungs bilaterally. There is no pleural effusion or pneumothorax. The cardiac silhouette is normal in size. IMPRESSION: Central and basilar interstitial opacities which may represent interstitial edema. No airspace consolidation is seen. Dictated by: Dictated on workstation # [id number]
[2022-03-20] MEDS ORDERED: ALBU2.5V4 INH (13:37)
[2022-03-21] MEDS ORDERED: FURO20TA4 PO ×2 (12:12→12:15)
[2022-03-21] MEDS ORDERED: PHEN100C11 PO (12:12)
[2022-03-21] MEDS ORDERED: MORP-68 PO ×2 (12:12)
[2022-03-21] MEDS ORDERED: RT-ALBUINH INH (12:12)
[2022-03-21] MEDS ORDERED: AMLO-251 PO (12:12)
[2022-03-21] MEDS ORDERED: VNL75T PO (12:12)
[2022-03-21] MEDS ORDERED: ATOR20TA66 PO (12:12)
[2022-03-21] MEDS ORDERED: PROM25TA14 PO ×2 (12:12)
[2022-03-21] MEDS ORDERED: METO-333 PO (12:12)
[2022-03-21] MEDS ORDERED: TMSL.4C PO (12:12)
[2022-03-21] MEDS ORDERED: SUCR1TAB PO (12:12)
[2022-03-21] MEDS ORDERED: FAMO40TA6 PO (12:12)
[2022-03-21] MEDS ORDERED: HYDR-3924 PO ×2 (12:12)
[2022-03-21] MEDS ORDERED: ONDA4SOL11 PO (12:12)
[2022-03-21] MEDS ORDERED: NF-SODBICA PO (12:12)
[2022-03-21] MEDS ORDERED: LORA-404 PO ×2 (12:12)
[2022-03-21] MEDS ORDERED: INSU100I48 SC (12:12)
[2022-03-21] MEDS ORDERED: POTA10TA PO (12:12)
[2022-03-21] MEDS ORDERED: ROPI0.5T4 PO (12:12)
[2022-03-21] MEDS ORDERED: [UNRECOGNIZED DRUG - CODE] PO (12:37)
== END 2022-03-20 13:30 | disposition home or self-care (01) ==
LOC: EDUNIT# 12:45 → ER FS 12:47
DX: J45.901 Unspecified asthma with (acute) exacerbation (principal); E11.40 Type 2 diabetes mellitus with diabetic neuropathy, unspecified; Z28.310 Unvaccinated for COVID-19; Z79.4 Long term (current) use of insulin
CPT/HCPCS: 71045; 94640

== ENCOUNTER 2022-03-20 21:03 | Inpatient (IN) | payer MEDICAID ==
[~2022-03-20] VITALS: Ht 182.9 cm; Wt 74.0 kg
[~2022-03-20 21:03] MED LIST changes: +ALBU2.5V4 INH
[2022-03-20] MEDS ORDERED: morphine INJ 10 MG/ML 1ML (SYR OR VIAL) IVP STA ×2 (21:09→22:36)
[2022-03-20] MEDS ORDERED: ONDANSETRON 4 MG/2 ML (SDV) Z0FRAN IVP STA (21:09)
[2022-03-20] MEDS ORDERED: FUROSEMIDE 40 MG/4 ML INJ (LASIX) IVP STA (21:09)
--- NOTE | 2022-03-20 21:17 | ED Dyspnea ---
General Stated Complaint: SOB Source of Information: Patient, EMS, Old Records History of Present Illness Date Seen by Provider: Mar 20, 2022 Time Seen by Provider: 21:03 Initial Comments 46-year-old male presenting with complaints of shortness of breath and feeling like he cannot get a deep breath. He had the start yesterday and was seen earlier today in the emergency department for the same thing. At that time he was demanding to be put on oxygen and his oxygen saturation was 96% on room air. He was given an albuterol breathing treatment and reported that he was feeling better and then was anxious to go. A chest x-ray was obtained that showed some increased interstitial pulmonary edema. He does have a history of heart failure and renal failure. His reported that he does take furosemide as a water pill. I advised them to follow-up at least over the phone with the kidney doctors and see if they wanted to adjust this medication. He denies having fever or chills. He was not having chest pain, headache, pain with urination. He has had some intermittent nausea and vomiting but relates that to his chronic Crohn's condition and denies any vomiting today. He states his vomiting was Monday night but still felt nauseated tonight. He was unsure of when he took his medications last and states that his handles all of his medicine and giving it to him so he was not sure about any medication related question. Timing/Duration: 24 Hours Severity: Severe Activities at Onset: None Prior Episodes/Possible Cause: Frequent Episodes Modifying Factors: Improves With Albuterol Nebulizer (Helped earlier today) Associated Symptoms: Anxiety, Wheezing Allergies and Home Medications Allergies Coded Allergies: Penicillins (Verified Allergy, Unknown, 09/14/20) aspirin (Unverified Adverse Reaction, Severe, swelling throat, 11/05/18) shellfish derived (Unverified Adverse Reaction, Severe, THROAT SWELLING, 09/14/20) Patient Home Medication List Home Medication List Reviewed: Yes Albuterol Sulfate (Albuterol Sulfate) 2.5 Mg/3 Ml (0.083 %) Vial.neb, 2.5 MG INH Q6H PRN for WHEEZING Prescribed by: RENETTA COREAS on 03/20/22 1337 Atorvastatin Calcium (Lipitor) 20 Mg Tablet, 20 MG PO HS, (Reported) Entered as Reported by: NELSON SUMNER on 09/14/20 180 Fluconazole (Fluconazole) 200 Mg Tablet, 200 MG PO DAILY Prescribed by: RENETTA COREAS on 04/17/21 1505 Insulin Aspart (Novolog) 100 Unit/1 Ml Susp, 15 UNIT SQ AC, (Reported) Entered as Reported by: NELSON SUMNER on 09/14/201801 Insulin Glargine,Hum.rec.anlog (Lantus) 100 Unit/1 Ml Vial, 40 UNIT SQ HS, (Reported) Entered as Reported by: NELSON SUMNER on 09/14/201801 Lisinopril (Lisinopril) 40 Mg Tablet, 40 MG PO DAILY, (Reported) Entered as Reported by: NELSON SUMNER on 09/14/201801 Metformin HCl (Metformin HCl) 500 Mg Tablet, 500 MG PO BID, (Reported) Entered as Reported by: NELSON SUMNER on 09/14/201801 Omeprazole (Omeprazole) 40 Mg Capsule.dr, 40 MG PO DAILY, (Reported) Entered as Reported by: NELSON SUMNER on 09/14/201800 Ondansetron (Ondansetron Odt) 4 Mg Tab.rapdis, 4 MG PO Q6H PRN for NAUSEA/VOMITING Prescribed by: RENETTA COREAS on 11/30/20 1437 Phenytoin Sodium Extended (Dilantin) 100 Mg Capsule, 100 MG PO TID, (Reported) Entered as Reported by: NELSON SUMNER on 09/14/201800 Venlafaxine HCl (Effexor Xr) 37.5 Mg Cap.er.24h, 75 MG PO BID, (Reported) Entered as Reported by: NELSON SUMNER on 09/14/201800 Vitamin D (Vitamin D3) 10 Mcg Tablet, 1,000 MCG PO WEEK, (Reported) Entered as Reported by: NELSON SUMNER on 09/14/201801 Review of Systems Review of Systems Constitutional: No chills, No fever EENTM: no symptoms reported Respiratory: see HPI Cardiovascular: No chest pain Gastrointestinal: see HPI Genitourinary: no symptoms reported Musculoskeletal: other (Right leg pain due to recent fractures of his leg.) Skin: No change in color, No rash Psychiatric/Neurological: Anxiety Endocrine: No Symptoms Reported Past Sylnlxe-Rmjnea-Rerhls Hx Immunizations Up To Date Tetanus Booster (TDap): Unknown First/Initial COVID19 Vaccinat: NO COVID VACCINE, DECLINED Second COVID19 Vaccination Yuri: NO COVID VACCINE, DECLINED Third COVID19 Vaccination Date: NO COVID VACCINE, DECLINED Seasonal Allergies Seasonal Allergies: No Past Medical History Surgery/Hospitalization HX: gallbladder, CHF, Crohn's, GI ulcers, IDDM Surgeries: Yes (Abscess buttocks-MRSA, jaw fx) Gallbladder Respiratory: No Currently Using CPAP: No Currently Using BIPAP: No Cardiac: Yes Hypertension Neurological: Yes Neuropathy, Seizure Disorder Genitourinary: No Gastrointestinal: Yes Crohns Disease Musculoskeletal: Yes (chronic pain/neuropathy also from "feet to shoulders") Chronic Back Pain Endocrine: Yes Diabetes, Insulin dep HEENT: No Dysphagia Loss of Vision: Denies Hearing Impairment: Denies Cancer: No Psychosocial: Yes Anxiety, Depression Integumentary: Yes (MRSA buttocks ) Blood Disorders: No Physical Exam Vital Signs Vital Signs - First Documented 03/20/22 21:04 Temp 37.2 Pulse 98 Resp 22 B/P (MAP) 203/89 (127) Pulse Ox 92 O2 Delivery Room Air O2 Flow Rate 90.00 Capillary Refill : Height, Weight, BMI Height: 6'0" Weight: 148lbs. oz. 67.662062nw; 20.00 BMI Method:Stated General Appearance: Chronically ill, Mild Distress HEENT: PERRL/EOMI, Pharynx Normal Respiratory: Chest Non Tender, No Accessory Muscle Use, No Respiratory Distress, Decreased Breath Sounds Cardiovascular: Regular Rate, Rhythm, Normal Peripheral Pulses Gastrointestinal: Normal Bowel Sounds, No Pulsatile Mass, Soft Rectal: Deferred Neurologic/Psychiatric: Alert, Oriented x3 Skin: Normal Color, Warm/Dry Focused Exam Lactate Level 03/20/22 21:10: Lactic Acid Level Laboratory Tests Test 03/20/22 21:10 Progress/Results/Core Measures Results/Orders Lab Results Laboratory Tests Test 03/20/22 21:10 03/20/22 22:00 Range/Units White Blood Count 20.3 H 4.3-11.0 10^3/uL Red Blood Count 4.04 L 4.30-5.52 10^6/uL Hemoglobin 10.2 L 13.3-17.7 g/dL Hematocrit 31 L 40-54 % Mean Corpuscular Volume 78 L 80-99 fL Mean Corpuscular Hemoglobin 25 25-34 pg Mean Corpuscular Hemoglobin Concent 33 32-36 g/dL Red Cell Distribution Width 16.8 H 10.0-14.5 % Platelet Count 567 H 130-400 10^3/uL Mean Platelet Volume 9.7 9.0-12.2 fL Immature Granulocyte % (Auto) 1 % Neutrophils (%) (Auto) 83 H 42-75 % Lymphocytes (%) (Auto) 9 L 12-44 % Monocytes (%) (Auto) 7 0-12 % Eosinophils (%) (Auto) 0 0-10 % Basophils (%) (Auto) 1 0-10 % Neutrophils # (Auto) 16.7 H 1.8-7.8 10^3/uL Lymphocytes # (Auto) 1.8 1.0-4.0 10^3/uL Monocytes # (Auto) 1.5 H 0.0-1.0 10^3/uL Eosinophils # (Auto) 0.1 0.0-0.3 10^3/uL Basophils # (Auto) 0.1 0.0-0.1 10^3/uL Immature Granulocyte # (Auto) 0.2 H 0.0-0.1 10^3/uL Neutrophils % (Manual) 96 % Lymphocytes % (Manual) 2 % Monocytes % (Manual) 1 % Eosinophils % (Manual) 1 % Prothrombin Time 12.8 12.2-14.7 SEC INR Comment 0.9 0.8-1.4 Activated Partial Thromboplast Time 27 24-35 SEC Sodium Level 140 135-145 MMOL/L Potassium Level 3.3 L 3.6-5.0 MMOL/L Chloride Level 100 98-107 MMOL/L Carbon Dioxide Level 24 21-32 MMOL/L Anion Gap 16 H 5-14 MMOL/L Blood Urea Nitrogen 32 H 7-18 MG/DL Creatinine 1.38 H 0.60-1.30 MG/DL Estimat Glomerular Filtration Rate 63 BUN/Creatinine Ratio 23 Glucose Level 214 H 70-105 MG/DL Calcium Level 9.6 8.5-10.1 MG/DL Corrected Calcium 9.4 8.5-10.1 MG/DL Magnesium Level 1.9 1.6-2.4 MG/DL Total Bilirubin 0.2 0.1-1.0 MG/DL Aspartate Amino Transf (AST/SGOT) 12 5-34 U/L Alanine Aminotransferase (ALT/SGPT) 9 0-55 U/L Alkaline Phosphatase 186 H 40-136 U/L Troponin I 2.40 *H <0.30 NG/ML Pro-B-Type Natriuretic Peptide 24677.0 H <125.0 PG/ML Total Protein 7.9 6.4-8.2 GM/DL Albumin 4.2 3.2-4.5 GM/DL Urine Color YELLOW Urine Clarity CLEAR Urine pH 6.0 5-9 Urine Specific Elsa 1.010 L 1.016-1.022 Urine Protein 2+ H NEGATIVE Urine Glucose (UA) TRACE H NEGATIVE Urine Ketones NEGATIVE NEGATIVE Urine Nitrite NEGATIVE NEGATIVE Urine Bilirubin NEGATIVE NEGATIVE Urine Urobilinogen 0.2 < = 1.0 MG/DL Urine Leukocyte Esterase NEGATIVE NEGATIVE Urine RBC (Auto) NEGATIVE NEGATIVE Urine RBC 0-2 /HPF Urine WBC 2-5 /HPF Urine Crystals NONE /LPF Urine Bacteria NEGATIVE /HPF Urine Casts NONE /LPF Urine Mucus NEGATIVE /LPF Urine Culture Indicated NO Urine Opiates Screen POSITIVE H NEGATIVE Urine Oxycodone Screen NEGATIVE NEGATIVE Urine Methadone Screen NEGATIVE NEGATIVE Urine Propoxyphene Screen NEGATIVE NEGATIVE Urine Barbiturates Screen POSITIVE H NEGATIVE Ur Tricyclic Antidepressants Screen NEGATIVE NEGATIVE Urine Phencyclidine Screen NEGATIVE NEGATIVE Urine Amphetamines Screen NEGATIVE NEGATIVE Urine Methamphetamines Screen NEGATIVE NEGATIVE Urine Benzodiazepines Screen POSITIVE H NEGATIVE Urine Cocaine Screen NEGATIVE NEGATIVE Urine Cannabinoids Screen POSITIVE H NEGATIVE My Orders Orders - RENETTA COREAS MD Cbc With Automated Diff (03/20/22 21:09) Magnesium (03/20/22 21:09) Chest 1 View Ap/Pa Only (03/20/22 21:09) Ekg Tracing (03/20/22 21:09) Comprehensive Metabolic Panel (03/20/22 21:09) Protime With Inr (03/20/22 21:09) Partial Thromboplastin Time (03/20/22 21:09) O2 (03/20/22 21:09) Monitor-Rhythm Ecg Trace Only (03/20/22 21:09) Ed Iv/Invasive Line Start (03/20/22 21:09) Troponin I Fs (03/20/22 21:09) Probnp Fs (03/20/22 21:09) Ua Culture If Indicated (03/20/22 21:09) Drug Screen Stat (Urine) (03/20/22 21:09) Furosemide Injection (Lasix Injection) (03/20/22 21:09) Morphine Injection (Morphine Injection (9/18/22 21:09) Ondansetron Injection (Zofran Injectio (03/20/22 21:09) Manual Differential (03/20/22 21:10) Morphine Injection (Morphine Injection (03/20/22 22:36) Blood Culture (03/20/22 22:46) Lactic Acid Analyzer (03/20/22 22:46) Azithromycin Tablet (Zithromax Tablet) (03/20/22 22:47) Potassium Chloride (Tablet) (K Dur Table (03/20/22 22:47) Enoxaparin Injection (Lovenox Injection) (03/20/22 22:51) Levofloxacin 750 Mg/150 Ml Iv (Levaquin (03/20/22 22:56) Lorazepam Tablet (Ativan Tablet) (03/20/22 23:26) Vital Signs/I&O 03/20/22 03/20/22 03/20/22 21:04 21:04 21:09 Temp 37.2 Pulse 98 Resp 22 B/P (MAP) 203/89 (127) Pulse Ox 92 91 O2 Delivery Room Air Room Air Nasal Cannula O2 Flow Rate 90.00 2.00 Progress Progress Note #1: Progress Note Check labs with a chest x-ray and EKG. Administer Lasix 80 mg IV to try and help with the interstitial edema seen on chest x-ray from earlier. Administer 4 mg of morphine to try and help with his right leg pain from his chronic fracture. Obtain urine and urine drug screen to look for any other reasons for him to be short of breath and hypertensive. Progress Note #2: Time: 21:36 Progress Note Electrocardiogram shows sinus rhythm without ST elevation. Overall appears similar to prior tracings. Chest x-ray appears similar to earlier today with diffuse interstitial edema. There is no pleural effusion but it looks like he has a more focal consolidation for pneumonia vs atelectasis in right lung base. CBC shows elevated WBC count of 20.3K, stable chronic anemia with Hgb 10.2. Progress Note #3: Time: 21:48 Progress Note Lab reported his troponin is elevated to 2.4. Cr is 1.38. ProBNP is greatly elevated to 32,464. Progress Note #4: Time: 22:28 Progress Note Reviewed results with patient and spouse. He is agreeable to admit. will place an additional dose of Morphine for his right leg pain. 2239 d/w Dr. Diane for cardiology. He requested additional potassium be given since pt had K of 3.3 and was getting lasix. With his allergy to aspirin will order Lovenox at 1 mg/kg for his elevated troponin and recheck level in am. 2241 d/w Dr. Israel for [facility] and will admit for IV antibiotics, diuresis, cardiology consult. Will continue with pain medicine for his leg. sliding scale insulin and diabetic diet for his diabetes. Per pneumonia order set will give him Levaquin since he has PCN allergy. 2325 EMS here to transport him to [facility]. While EMS was getting report, his came out of the room and said that he was having seizures and did not get his phenytoin tonight or blood pressure meds because he was nauseated at [facility] and had thrown up Monday night. He was having shaking of his right arm and was holding it up in the air. He was tracking with his eyes and did speak during his seizure activity. Order for Ativan 1 mg po ordered but EMS stated they have IV so will have them administer that to help with his seizure like activity. Added orders for Zofran prn n/v, Hydralazine prn SBP >180, Keppra 500 mg IV q 12 hours. His lactic acid came back normal at 1.32 Initial ECG Impression Date: Mar 20, 2022 Initial ECG Impression Time: 21:18 Initial ECG Rate: 97 Initial ECG Rhythm: Normal Sinus Initial ECG Comparisson: Unchanged Comment Normal sinus rhythm with a heart rate of 97 bpm. DC interval 155 ms. Left atrial enlargement. No acute ST elevation. There is monitor on the tracing. QT interval 321 ms with a QTc interval 375 ms. Overall appears similar to prior tracings in the system. Diagnostic Imaging Diagonstic Imaging: Xray Plain Films/CT/US/NM/MRI: chest Comments NAME: ROBLES CHANDLER MED REC#: [id number] PT STATUS: REG ER : 1975 PHYSICIAN: RENETTA COREAS MD ADMIT DATE: 03/20/22/ER FS Draft Date of Exam:03/20/22 CHEST 1 VIEW AP/PA ONLY INDICATION: Shortness of breath. EXAMINATION: Chest, 03/20/2022. COMPARISON: 03/20/2022 at 1:18 p.m. FINDINGS: There are findings of edema throughout both lungs. There is a focal infiltrate at the right lung base. There is no effusion. There is no pneumothorax. Heart and pulmonary vasculature prominent IMPRESSION: Pulmonary edema with more focal infiltrate or atelectasis at the right lung base. Dictated on workstation # [id number] Dict: 03/20/224 Trans: 03/20/220 [facility] [id number] Interpreted by: KHUSHBOO GUO MD Electronically signed by: Departure Communication (Admissions) Time/Spoke to Admitting Phy: 22:[address] Israel and he accepted admission for cardiac stepdown unit. Treat with diuresis as well as antibiotics for the possible infiltrate in his right lower lung. Time/Spoke to Consulting Phy: 22:[address] Diane so that he was aware the patient and could follow along with [facility] admission for his acute on chronic diastolic heart failure. He has already had 80 milligrams of Lasix on arrival to the ED. Since his potassium is 3.3 will supplement that with 40 mEq. Impression Primary Impression: Pulmonary edema Qualified Codes: J81.0 - Acute pulmonary edema Additional Impressions: Shortness of breath Hypertension Qualified Codes: I10 - Essential (primary) hypertension Elevated troponin I level Acute on chronic congestive heart failure Qualified Codes: I50.33 - Acute on chronic diastolic (congestive) heart failure Infiltrate of lower lobe of right lung present on imaging study Nonadherence to medication Disposition: 30 STILL A PATIENT Condition: Stable Admissions Decision to Admit Reason: Admit from ER (General) Decision to Admit/Date: Mar 20, 2022 Time/Decision to Admit Time: 22:42 Departure-Patient Inst. Referrals: ERROL SINGLETARY MD (PCP/Family) Primary Care Physician RENETTA COREAS MD Mar 20, 2022 21:17
[2022-03-20 21:18] LABS: BASOPHILS # (AUTO) 0.1 10^3/uL (0.0-0.1); BASOPHILS % (AUTO) 1 % (0-10); EOSINOPHILS # (AUTO) 0.1 10^3/uL (0.0-0.3); EOSINOPHILS % (AUTO) 0 % (0-10); HEMATOCRIT 31 % (40-54); HEMOGLOBIN 10.2 g/dL (13.3-17.7); LYMPHOCYTES # (AUTO) 1.8 10^3/uL (1.0-4.0); LYMPHOCYTES % (AUTO) 9 % (12-44); MEAN CORPUSCULAR HEMOGLOBIN 25 pg (25-34); MEAN CORPUSCULAR HGB CONC 33 g/dL (32-36); MEAN CORPUSCULAR VOLUME 78 fL (80-99); MEAN PLATELET VOLUME 9.7 fL (9.0-12.2); MONOCYTES # (AUTO) 1.5 10^3/uL (0.0-1.0); MONOCYTES % (AUTO) 7 % (0-12); NEUTROPHILS # (AUTO) 16.7 10^3/uL (1.8-7.8); NEUTROPHILS % (AUTO) 83 % (42-75); PLATELET COUNT 567 10^3/uL (130-400); WHITE BLOOD COUNT 20.3 10^3/uL (4.3-11.0)
[2022-03-20 21:35] LABS: INR 0.9 (0.8-1.4); PROTHROMBIN TIME PATIENT 12.8 SEC (12.2-14.7)
[2022-03-20 21:41] LABS: BILIRUBIN,TOTAL 0.2 MG/DL (0.1-1.0); CALCIUM 9.6 MG/DL (8.5-10.1); CREATININE SERUM 1.38 MG/DL (0.60-1.30); EOSINOPHILS % (MANUAL) 1 %; LYMPHOCYTES % (MANUAL) 2 %; MAGNESIUM 1.9 MG/DL (1.6-2.4); MONOCYTES % (MANUAL) 1 %; NEUTROPHILS % (MANUAL) 96 %; POTASSIUM 3.3 MMOL/L (3.6-5.0)
[2022-03-20 21:42] LABS: ALBUMIN 4.2 GM/DL (3.2-4.5); TOTAL PROTEIN 7.9 GM/DL (6.4-8.2)
--- NOTE | 2022-03-20 21:50 | Diagnostic Imaging Report ---
INDICATION: Shortness of breath. EXAMINATION: Chest, 03/20/2022. COMPARISON: 03/20/2022 at 1:18 p.m. FINDINGS: There are findings of edema throughout both lungs. There is a focal infiltrate at the right lung base. There is no effusion. There is no pneumothorax. Heart and pulmonary vasculature prominent IMPRESSION: Pulmonary edema with more focal infiltrate or atelectasis at the right lung base. Dictated by: Dictated on workstation # [id number]
[2022-03-20 22:10] LABS: BILIRUBIN,URINE NEGATIVE (NEGATIVE); CLARITY,URINE CLEAR; COLOR,URINE YELLOW; GLUCOSE, URINE (UA) TRACE (NEGATIVE); KETONES,URINE NEGATIVE (NEGATIVE); LEUKOCYTE ESTERASE ,URINE NEGATIVE (NEGATIVE); NITRITE,URINE NEGATIVE (NEGATIVE); PROTEIN,URINE 2+ (NEGATIVE)
[2022-03-20 22:11] LABS: BACTERIA,URINE NEGATIVE /HPF; RBC,URINE 0-2 /HPF
[2022-03-20 22:17] LABS: AMPHETAMINE SCREEN, URINE NEGATIVE (NEGATIVE); BARBITURATE SCREEN URINE POSITIVE (NEGATIVE); BENZODIAZEPINES SCREEN URINE POSITIVE (NEGATIVE); CANNABINOID SCREEN, URINE POSITIVE (NEGATIVE); COCAINE SCREEN URINE NEGATIVE (NEGATIVE); METHADONE STAT NEGATIVE (NEGATIVE); OPIATE SCREEN URINE POSITIVE (NEGATIVE); OXYCODONE STAT NEGATIVE (NEGATIVE); PROPOXYPHENE STAT NEGATIVE (NEGATIVE); TRICYCLIC ANTIDEPRESSANTS SCRE NEGATIVE (NEGATIVE)
[2022-03-20] MEDS ORDERED: KCL 20 MEQ TAB (K-DUR) PO STA (22:47)
[2022-03-20] MEDS ORDERED: AZITHROMYCIN 250 MG TAB (ZITHROMAX) PO STA (22:47)
[2022-03-20] MEDS ORDERED: ENOXAPARIN 60 MG/0.6 ML (LOVENOX) SYR SC STA (22:51)
[2022-03-20] MEDS ORDERED: LORazepam 0.5 MG (ATIVAN) TABLET PO STA (23:26)
[2022-03-21] VITALS (7 sets, daily range): BP systolic 158–203; BP diastolic 89–107
[2022-03-21] MEDS ORDERED: CATHETER FLUSH 10 ML SYR IVP PRN (00:45)
[2022-03-21] MEDS ORDERED: RT-ALBUTEROL SULF 2.5 MG/3 ML PRE-MIX VIAL INH PRN ×2 (01:00→02:00)
[2022-03-21] MEDS ORDERED: LORazepam INJ 2 MG/ML (ATIVAN) VIAL IV PRN ×2 (01:00→17:45)
[2022-03-21] MEDS: morphine INJ 4 MG/ML 1 ML (VIAL/SYRINGE) IV PRN ×4 (01:25→08:28)
[2022-03-21] MEDS: hydrALAZINE (APESOLINE) 20 MG/ML VIAL IV PRN ×3 (01:36→13:10)
[2022-03-21] MEDS: LEVETIRACETAM 500 MG/NS 100 ML IVPB IV SCH ×4 (01:41→08:28)
[2022-03-21] MEDS: RT-ALBUTEROL SULF 2.5 MG/3 ML PRE-MIX VIAL INH SCH ×3 (02:25→15:17)
[2022-03-21 05:30] LABS: BASOPHILS # (AUTO) 0.1 10^3/uL (0.0-0.1); BASOPHILS % (AUTO) 1 % (0-10); EOSINOPHILS # (AUTO) 0.1 10^3/uL (0.0-0.3); EOSINOPHILS % (AUTO) 1 % (0-10); HEMATOCRIT 28 % (40-54); HEMOGLOBIN 8.8 g/dL (13.3-17.7); LYMPHOCYTES # (AUTO) 2.5 10^3/uL (1.0-4.0); LYMPHOCYTES % (AUTO) 15 % (12-44); MEAN CORPUSCULAR HEMOGLOBIN 25 pg (25-34); MEAN CORPUSCULAR HGB CONC 32 g/dL (32-36); MEAN CORPUSCULAR VOLUME 79 fL (80-99); MONOCYTES # (AUTO) 1.6 10^3/uL (0.0-1.0); MONOCYTES % (AUTO) 10 % (0-12); NEUTROPHILS # (AUTO) 12.3 10^3/uL (1.8-7.8); NEUTROPHILS % (AUTO) 74 % (42-75); PLATELET COUNT 490 10^3/uL (130-400); WHITE BLOOD COUNT 16.7 10^3/uL (4.3-11.0)
[2022-03-21 05:38] LABS: ALBUMIN 3.6 GM/DL (3.2-4.5)
[2022-03-21 05:39] LABS: POTASSIUM 3.4 MMOL/L (3.6-5.0)
[2022-03-21 05:41] LABS: TOTAL PROTEIN 6.8 GM/DL (6.4-8.2)
[2022-03-21 05:43] LABS: BILIRUBIN,TOTAL 0.3 MG/DL (0.1-1.0)
[2022-03-21 05:45] LABS: CREATININE SERUM 1.38 MG/DL (0.60-1.30)
[2022-03-21] MEDS: CATHETER FLUSH 10 ML SYR IVP SCH ×2 (06:39→08:29)
[2022-03-21] MEDS: inSUlin ASPART (NovoLOG) 1 UNIT/0.01 ML (CHARGE PER UNIT) SC SCH ×3 (06:40→15:32)
[2022-03-21] MEDS ORDERED: FUROSEMIDE 40 MG/4 ML INJ (LASIX) IV SCH (07:00)
[2022-03-21] MEDS ORDERED: HEParin 1000 UNIT/ML (10ML VIAL) FOR BOLUS IV PRN (08:15)
[2022-03-21] MEDS: KCL 20 MEQ TAB (K-DUR) PO SCH ×2 (08:28→17:49)
--- NOTE | 2022-03-21 08:42 | Tele-ICU Progress Note ---
Subjective Date Seen by a Provider: Mar 21, 2022 Time Seen by a Provider: 08:41 Subjective/Events-last exam ADMITTED WITH PULMONARY EDEMA AND HTN. HAS HX OF RT LEG FRACTURE WHICH IS HEALING BUT HAS CHR. PAIN. TREATED OUT PT WITH ORAL MORPHINE WHICH IS BEING WEANED OUT PT. NOW HELD. HE WAS COMPLAINING OF SEVERE PAIN HENCE STARTED ON DILAUDID. Review of Systems PER RN Sepsis Event Evaluation Height, Weight, BMI Height: 6'0" Weight: 148lbs. oz. 67.660595ls; 22.12 BMI Method:Stated Focused Exam Lactate Level 03/20/22 21:10: Lactic Acid Level 1.32 Exam Exam Patient acknowledged, consented, and participated in this virtual visit which was conducted using real time audio/video Vital Signs Date Time Temp Pulse Resp B/P (MAP) Pulse Ox O2 Delivery O2 Flow Rate FiO2 03/21/22 07:29 96 Nasal Cannula 2.00 03/21/22 07:00 91 03/21/22 04:41 94 Nasal Cannula 2.00 03/21/22 04:00 86 21 179/90 (119) 98 Nasal Cannula 2.00 03/21/22 02:26 99 Nasal Cannula 3.00 03/21/22 02:00 87 158/89 (112) 98 Nasal Cannula 2.00 03/21/22 01:29 37.2 98 92 28 03/21/22 01:00 85 03/21/22 01:00 87 19 192/100 (130) 91 Nasal Cannula 2.00 03/21/22 00:42 91 03/21/22 00:30 94 Nasal Cannula 2.00 03/20/22 23:38 37.2 109 22 200/89 Nasal Cannula 2.00 03/20/22 21:09 91 Nasal Cannula 2.00 03/20/22 21:04 Room Air 90.00 03/20/22 21:04 37.2 98 22 203/89 (127) 92 Room Air I & O 03/21/22 07:00 Intake Total 330 ml Output Total 2400 ml Balance -2070 ml Height & Weight Height: 6'0" Weight: 148lbs. oz. 67.497658ag; 22.12 BMI Method:Stated General Appearance: Chronically ill, Mild Distress HEENT: PERRL/EOMI, Pharynx Normal Respiratory: Chest Non Tender, No Accessory Muscle Use, No Respiratory Distress, Decreased Breath Sounds Cardiovascular: Regular Rate, Rhythm, Normal Peripheral Pulses Capillary Refill: Less Than 3 Seconds Neurologic/Psychiatric: Alert, Oriented x3 Skin: Normal Color, Warm/Dry Other comments PE PER RN Results Lab Laboratory Tests 03/20/22 21:10 03/21/22 04:45 Assessment/Plan Assessment/Plan 1. ACUTE PULMONARY EDEMA DUE TO HYPERTENSION IMPROVING. CARDIOLOGY FOLLOWING 2. ACUTE AND CHR. RT LEG PAIN DUE TO UNDERLYING FRACTURE. STARTED ON DILAUDID. 3. CANNABIS ABUSE. Critical Care: Critically Ill Patient Time spent with patient (mins): 15 LELE DIAZ MD Mar 21, 2022 08:42
--- NOTE | 2022-03-21 08:47 | Consultation-Cardiology ---
HPI-Cardiology Cardiology Consultation: Date of Consultation 03/21/22 Date of Admission 03/20/22 Attending Physician Calixto Ariza MD Admitting Physician Admitting Physician: Romulo Israel MD Attending Physician: Martha Anderson DO Consulting Physician MARC BLEDSOE JR, MD HPI: Time Seen by a Provider: 08:38 Chief Complaint: REASON FOR CONSULTATION: Heart failure and abnormal troponin level. I had the pleasure of seeing Jass in the intensive care unit at [facility] in [place], [place] today. He has a history of chronic heart failure with preserved ejection fraction, hypertension, hyperlipidemia, type 2 diabetes mellitus with neuropathy, seizure disorder, stage III chronic kidney disease, and cigarette smoking among other issues. Over the weekend he was having worsening shortness of breath. He had actually gone to the emergency room at [place] yesterday and was treated in the emergency room and discharged home. Later the same day, he had worsening shortness of breath and then had a syncopal spell. His tells me he was standing at home and suddenly became unresponsive and fell to the floor. His had their daughter called 911 and he was taken to the emergency room in [place]. At that time, he was felt to have pneumonia and heart failure and also had an elevated troponin level. He was then transferred to our hospital for further treatment and evaluation. This morning he states his breathing is improved. His biggest complaint is right leg pain where he suffered a fracture about 1 month ago. He denies chest discomfort, paroxysmal nocturnal dyspnea, orthopnea, palpitations, or lower extremity edema. Because of the heart failure and elevated troponin level, a cardiology consultation was requested. He was also having some vomiting over the weekend. At 1 point he thinks he vomited all his medication. He believes he missed 1 dose of Keppra. He has had a slight, nonproductive cough and also thinks he may have had a low-grade fever. He has not been vaccinated for COVID. He has been smoking both cigarettes and marijuana. Soon after I saw the patient, the patient started telling his nurse he wants to leave AGAINST MEDICAL ADVICE. Certain portions of this document may have been dictated utilizing voice recognition technology. Inherent to this technology, typographical and grammatical errors may exist. As much as I am diligent to identify and correct these mistakes, some errors may remain in the document. Review of Systems-Cardiology Review of Systems Other comments Review of 10 organ systems is as per the history of present illness, otherwise negative. AEM-Stkxvv-Haymzt Hx Patient Social History Marrital Status: Smoking Status: Heavy Tobacco Smoker 2nd Hand Smoke Exposure: Yes Have you traveled recently?: No Alcohol Use?: No Substance type: Opiates/Opioids, Marijuana Pt feels they are or have been: No Tobacco type used: Cigarettes Immunizations Up To Date Tetanus Booster (TDap): Unknown Past Medical History PMH As described under Assessment. Family Medical History Family Medical History: He reports his parents have heart disease but he is not sure what exactly. Allergies and Home Medications Allergies Coded Allergies: Penicillins (Verified Allergy, Unknown, 09/14/20) aspirin (Unverified Adverse Reaction, Severe, swelling throat, 11/05/18) shellfish derived (Unverified Adverse Reaction, Severe, THROAT SWELLING, 09/14/20) Patient Home Medication List Home Medication List Reviewed: Yes Albuterol Sulfate (Albuterol Sulfate) 2.5 Mg/3 Ml (0.083 %) Vial.neb, 2.5 MG INH Q6H PRN for WHEEZING Prescribed by: RENETTA COREAS on 03/20/22 1337 Atorvastatin Calcium (Lipitor) 20 Mg Tablet, 20 MG PO HS, (Reported) Entered as Reported by: NELSON SUMNER on 09/14/201801 Fluconazole (Fluconazole) 200 Mg Tablet, 200 MG PO DAILY Prescribed by: RENETTA COREAS on 04/17/21 1505 Insulin Aspart (Novolog) 100 Unit/1 Ml Susp, 15 UNIT SQ AC, (Reported) Entered as Reported by: NELSON SUMNER on 09/14/20 180 Insulin Glargine,Hum.rec.anlog (Lantus) 100 Unit/1 Ml Vial, 40 UNIT SQ HS, (Reported) Entered as Reported by: NELSON SUMNER on 09/14/201801 Lisinopril (Lisinopril) 40 Mg Tablet, 40 MG PO DAILY, (Reported) Entered as Reported by: NELSON SUMNER on 09/14/201801 Metformin HCl (Metformin HCl) 500 Mg Tablet, 500 MG PO BID, (Reported) Entered as Reported by: NELSON SUMNER on 09/14/201801 Omeprazole (Omeprazole) 40 Mg Capsule.dr, 40 MG PO DAILY, (Reported) Entered as Reported by: NELSON SUMNER on 09/14/201800 Ondansetron (Ondansetron Odt) 4 Mg Tab.rapdis, 4 MG PO Q6H PRN for NAUSEA/VOMITING Prescribed by: RENETTA COREAS on 11/30/20 1437 Phenytoin Sodium Extended (Dilantin) 100 Mg Capsule, 100 MG PO TID, (Reported) Entered as Reported by: NELSON SUMNER on 09/14/201800 Venlafaxine HCl (Effexor Xr) 37.5 Mg Cap.er.24h, 75 MG PO BID, (Reported) Entered as Reported by: NELSON SUMNER on 09/14/201800 Vitamin D (Vitamin D3) 10 Mcg Tablet, 1,000 MCG PO WEEK, (Reported) Entered as Reported by: NELSON SUMNER on 09/14/201801 Exam Vital Signs Vital Signs Date Time Temp Pulse Resp B/P (MAP) Pulse Ox O2 Delivery O2 Flow Rate FiO2 03/21/22 08:00 96 21 196/107 (136) 99 Nasal Cannula 2.00 03/21/22 01:29 37.2 28 Physical Exam General: Alert. He is intermittently writhing in pain from his right leg. Well nourished and appears older than his stated age. Eye: Extraocular movements are intact. Conjunctivae are clear. There are no xanthelasma. HENT: Normocephalic. Atraumatic. Carotid pulsations 2/2 without bruits. Neck: Jugular venous pressure does not appear elevated. No thyromegaly appreciated. Respiratory: Lungs are clear to auscultation. Respirations are non-labored. Breath sounds are equal. Symmetrical chest wall expansion. Cardiovascular: Normal rate. Regular rhythm. No murmur. No gallop. Point of maximal impulse is not appear displaced. Good pulses equal in all extremities. No edema. Gastrointestinal: Soft. Normal bowel sounds. Skin: Skin turgor is normal. There is no pallor. Musculoskeletal: No kyphosis or scoliosis appreciated. Neurologic: Alert and oriented to person, place, time. Cranial nerves 3-12 appear grossly intact. The patient has good motor tone strength in the upper and lower extremities bilaterally. Psychiatric: Cooperative. Appropriate mood & affect. Labs Laboratory Tests Test 03/20/22 21:10 03/20/22 22:00 03/21/22 04:45 03/21/22 09:00 Range/Units White Blood Count 20.3 H 16.7 H 4.3-11.0 10^3/uL Red Blood Count 4.04 L 3.53 L 4.30-5.52 10^6/uL Hemoglobin 10.2 L 8.8 L 13.3-17.7 g/dL Hematocrit 31 L 28 L 40-54 % Mean Corpuscular Volume 78 L 79 L 80-99 fL Mean Corpuscular Hemoglobin 25 25 25-34 pg Mean Corpuscular Hemoglobin Concent 33 32 32-36 g/dL Red Cell Distribution Width 16.8 H 17.0 H 10.0-14.5 % Platelet Count 567 H 490 H 130-400 10^3/uL Mean Platelet Volume 9.7 10.0 9.0-12.2 fL Immature Granulocyte % (Auto) 1 1 % Neutrophils (%) (Auto) 83 H 74 42-75 % Lymphocytes (%) (Auto) 9 L 15 12-44 % Monocytes (%) (Auto) 7 10 0-12 % Eosinophils (%) (Auto) 0 1 0-10 % Basophils (%) (Auto) 1 1 0-10 % Neutrophils # (Auto) 16.7 H 12.3 H 1.8-7.8 10^3/uL Lymphocytes # (Auto) 1.8 2.5 1.0-4.0 10^3/uL Monocytes # (Auto) 1.5 H 1.6 H 0.0-1.0 10^3/uL Eosinophils # (Auto) 0.1 0.1 0.0-0.3 10^3/uL Basophils # (Auto) 0.1 0.1 0.0-0.1 10^3/uL Immature Granulocyte # (Auto) 0.2 H 0.1 0.0-0.1 10^3/uL Neutrophils % (Manual) 96 % Lymphocytes % (Manual) 2 % Monocytes % (Manual) 1 % Eosinophils % (Manual) 1 % Prothrombin Time 12.8 12.2-14.7 SEC INR Comment 0.9 0.8-1.4 Activated Partial Thromboplast Time 27 24-35 SEC Sodium Level 140 146 H 135-145 MMOL/L Potassium Level 3.3 L 3.4 L 3.6-5.0 MMOL/L Chloride Level 100 103 98-107 MMOL/L Carbon Dioxide Level 24 25 21-32 MMOL/L Anion Gap 16 H 18 H 5-14 MMOL/L Blood Urea Nitrogen 32 H 30 H 7-18 MG/DL Creatinine 1.38 H 1.38 H 0.60-1.30 MG/DL Estimat Glomerular Filtration Rate 63 63 BUN/Creatinine Ratio 23 22 Glucose Level 214 H 160 H 70-105 MG/DL Lactic Acid Level 1.32 0.50-2.00 MMOL/L Calcium Level 9.6 9.0 8.5-10.1 MG/DL Corrected Calcium 9.4 9.3 8.5-10.1 MG/DL Magnesium Level 1.9 1.6-2.4 MG/DL Total Bilirubin 0.2 0.3 0.1-1.0 MG/DL Aspartate Amino Transf (AST/SGOT) 12 11 5-34 U/L Alanine Aminotransferase (ALT/SGPT) 9 8 0-55 U/L Alkaline Phosphatase 186 H 127 40-136 U/L Troponin I 2.40 *H 3.481 *H 3.013 *H <0.028 NG/ML Pro-B-Type Natriuretic Peptide 73353.0 H <125.0 PG/ML Total Protein 7.9 6.8 6.4-8.2 GM/DL Albumin 4.2 3.6 3.2-4.5 GM/DL Urine Color YELLOW Urine Clarity CLEAR Urine pH 6.0 5-9 Urine Specific [place] 1.010 L 1.016-1.022 Urine Protein 2+ H NEGATIVE Urine Glucose (UA) TRACE H NEGATIVE Urine Ketones NEGATIVE NEGATIVE Urine Nitrite NEGATIVE NEGATIVE Urine Bilirubin NEGATIVE NEGATIVE Urine Urobilinogen 0.2 < = 1.0 MG/DL Urine Leukocyte Esterase NEGATIVE NEGATIVE Urine RBC (Auto) NEGATIVE NEGATIVE Urine RBC 0-2 /HPF Urine WBC 2-5 /HPF Urine Crystals NONE /LPF Urine Bacteria NEGATIVE /HPF Urine Casts NONE /LPF Urine Mucus NEGATIVE /LPF Urine Culture Indicated NO Urine Opiates Screen POSITIVE H NEGATIVE Urine Oxycodone Screen NEGATIVE NEGATIVE Urine Methadone Screen NEGATIVE NEGATIVE Urine Propoxyphene Screen NEGATIVE NEGATIVE Urine Barbiturates Screen POSITIVE H NEGATIVE Ur Tricyclic Antidepressants Screen NEGATIVE NEGATIVE Urine Phencyclidine Screen NEGATIVE NEGATIVE Urine Amphetamines Screen NEGATIVE NEGATIVE Urine Methamphetamines Screen NEGATIVE NEGATIVE Urine Benzodiazepines Screen POSITIVE H NEGATIVE Urine Cocaine Screen NEGATIVE NEGATIVE Urine Cannabinoids Screen POSITIVE H NEGATIVE Triglycerides Level 86 <150 MG/DL Cholesterol Level 147 < 200 MG/DL LDL Cholesterol Direct 66 1-129 MG/DL VLDL Cholesterol 17 5-40 MG/DL HDL Cholesterol 50 40-60 MG/DL Radiology ECHOCARDIOGRAM (03/21/2022): 1. Left ventricle: The cavity size is normal. There is moderate concentric hypertrophy. Systolic function is normal. The estimated ejection fraction is 55- 65%. There were no regional wall motion abnormalities identified. Left ventricular diastolic function parameters are normal. 2. Left atrium: The left atrium is moderately to severely dilated with a volume index ranging from 37-63 mL/m. 3. Pulmonary arteries: The pulmonary artery pressure cannot be estimated on this study due to inadequate tricuspid regurgitant envelope. ECG Impression ECG Comment Echocardiogram from the emergency room on 03/20 shows sinus rhythm with lateral ST-T wave changes concerning for ischemia. Diagnosis/Problems Diagnosis/Problems (1) Non-ST elevation myocardial infarction (NSTEMI), initial care episode Assessment & Plan: He appears to be suffering a non-ST elevation myocardial infarction based upon troponin levels. The troponin is now trending downwards. His electrocardiogram does not show a STEMI but he does have some lateral ST depression. He is not having chest discomfort. He is allergic to aspirin. I will give him a loading dose of ticagrelor and then start ticagrelor maintenance dosing. I have started him on intravenous heparin. I have also ordered low- dose carvedilol and high-dose atorvastatin. I recommend further evaluation with a cardiac catheterization. However, he does not appear as though he would sit still for the procedure and would require sedation with anesthesia. Furthermore, he appears to have anemia and also chronic kidney disease which will increase the risk. Additionally, he has been noncompliant and is now asking to leave AGAINST MEDICAL ADVICE. For these reasons, he may not be a good candidate for cardiac catheterization. (2) Acute on chronic heart failure with preserved ejection fraction (HFpEF) Assessment & Plan: His echocardiogram shows normal ejection fraction. He did have a markedly elevated BNP level and evidence of pulmonary edema on his chest x-ray from the emergency room. Symptomatically he seems improved after receiving intravenous Lasix. (3) Hypertensive urgency Status: Acute Assessment & Plan: He was taking lisinopril at home. I have ordered carvedilol due to the probable non-ST elevation myocardial infarction. (4) Mixed hyperlipidemia Assessment & Plan: I will start him on intensive dose statin medication in light of the probable non-ST elevation myocardial infarction. (5) Aspirin allergy Assessment & Plan: I will start him on ticagrelor as noted above. If he can be compliant with his medical care, I would consider initiating aspirin desens itization protocol. (6) Cigarette smoker Assessment & Plan: He needs to quit smoking. He was adamant that after this hospitalization, he does not plan to start smoking again. MARC BLEDSOE JR, MD Mar 21, 2022 08:47
[2022-03-21] MEDS ORDERED: ENOXAPARIN 60 MG/0.6 ML (LOVENOX) SYR SC SCH (09:00)
[2022-03-21] MEDS: HEParin DRIP 25000 UNIT/500ML 500 ML IV SCH ×2 (09:36→17:17)
[2022-03-21] MEDS ORDERED: TICAGRELOR 90 MG TABLET (BRILINTA) PO NR (10:00)
[2022-03-21] MEDS ORDERED: amLODIPine 5 MG (NORVASC) TAB PO NR (10:00)
--- NOTE | 2022-03-21 10:22 | Diagnostic Imaging Report ---
INDICATION: Fracture Comparison is made with prior exam of 02/14/2022 FINDINGS: There is a subacute fracture through the transverse fracture of the proximal tibia. There is also a proximal fibular fracture. There is some moderate callus formation. Overall alignment is essentially unchanged IMPRESSION: Subacute healing fractures of the proximal right tibia and fibula. Dictated by: Dictated on workstation # [id number]
[2022-03-21] MEDS: HYDROmorphone 2 MG/ML VIAL (DILAUDID) IV PRN ×3 (10:43→15:28)
[2022-03-21 10:59] LABS: PROTHROMBIN TIME PATIENT 13.3 SEC (12.2-14.7)
[2022-03-21] MEDS ORDERED: ROPI0.5T4 PO (12:12)
[2022-03-21] MEDS ORDERED: POTA10TA PO (12:12)
[2022-03-21] MEDS ORDERED: SUCR1TAB PO (12:12)
[2022-03-21] MEDS ORDERED: RT-ALBUINH INH (12:12)
[2022-03-21] MEDS ORDERED: PHEN100C11 PO (12:12)
[2022-03-21] MEDS ORDERED: METO-333 PO (12:12)
[2022-03-21] MEDS ORDERED: MORP-68 PO ×2 (12:12)
[2022-03-21] MEDS ORDERED: FAMO40TA6 PO (12:12)
[2022-03-21] MEDS ORDERED: AMLO-251 PO (12:12)
[2022-03-21] MEDS ORDERED: ATOR20TA66 PO (12:12)
[2022-03-21] MEDS ORDERED: NF-SODBICA PO (12:12)
[2022-03-21] MEDS ORDERED: FURO20TA4 PO ×2 (12:12→12:15)
[2022-03-21] MEDS ORDERED: INSU100I48 SC (12:12)
[2022-03-21] MEDS ORDERED: TMSL.4C PO (12:12)
[2022-03-21] MEDS ORDERED: ONDA4SOL11 PO (12:12)
[2022-03-21] MEDS ORDERED: LORA-404 PO ×2 (12:12)
[2022-03-21] MEDS ORDERED: PROM25TA14 PO ×2 (12:12)
[2022-03-21] MEDS ORDERED: VNL75T PO (12:12)
[2022-03-21] MEDS ORDERED: HYDR-3924 PO ×2 (12:12)
[2022-03-21] MEDS ORDERED: [UNRECOGNIZED DRUG - CODE] PO (12:37)
--- NOTE | 2022-03-21 13:02 | History & Physical-Hospitalist ---
CAMILLE WANG 03/21/22 1302: History of Present Illness HPI/Chief Complaint Patient is a 46 year old male with history of Chronic Heart Failure, HLD, HTN, Type 2 Diabetes Mellitus, Renal Failure, Crohn's Disease, and seizure disorder who presented to [place] [facility] yesterday for worsening shortness of breath. Patient reports he vomited 2 nights ago and is still having some nausea at present. He believes he vomited some of his medication including his Keppra. After being seen in [place], patient was found to have pneumonia, HF, and elevated troponin for whice he was transferred to [facility]. Today he feels his breathing has improved and he denies any shortness of breath or chest pain. He has a nonproductive cough. His main complaint is right lower leg pain. Patient reports having a tibia/fibula fracture about a month ago after falling. He states his pain is not controlled well and it is currently at 10/10. Patient is visibly uncomfortable and groaning with distress in his bed. His last Xray of the extremity was 02/14/22. He also is hypertensive with BP being 210/111 at one point. EKG from 03/20/22 shows possible lateral ischemia. CXR shows interstitial pulmonary edema. Source: patient Date Seen 03/21/22 Time Seen by a Provider: 12:03 Attending Physician Calixto Ariza MD PCP Admitting Physician: Romulo Israel MD Attending Physician: Martha Stearns DO Referring Physician Date of Admission Mar 21, 2022 at 00:17 Home Medications & Allergies Home Medications Reviewed patient Home Medication Reconciliation performed by pharmacy medication reconciliations catheterization laboratory technician and/or nursing. Patients Allergies have been reviewed. Allergies Allergies Coded Allergies Penicillins (Verified Allergy, Unknown, 09/14/20) aspirin (Unverified Adverse Reaction, Severe, swelling throat, 11/05/18) shellfish derived (Unverified Adverse Reaction, Severe, THROAT SWELLING, 09/14/20) Past Hgypdoz-Xiwbcz-Nvzpaf Hx Patient Social History Marrital Status: Tobacco Use?: Yes Tobacco type used: Cigarettes Smoking Status: Heavy Tobacco Smoker Use of E-Cig and/or Vaping dev: No Substance use?: Yes Substance type: Opiates/Opioids, Marijuana Substance frequency: Daily Alcohol Use?: No Pt feels they are or have been: No Immunizations Up To Date First/Initial COVID19 Vaccinat: NO COVID VACCINE, DECLINED Second COVID19 Vaccination Yuri: NO COVID VACCINE, DECLINED Tetanus Booster (TDap): Unknown Seasonal Allergies Seasonal Allergies: No Current Status Advance Directives: No Communicates: Verbally Primary Language: Nicaraguan Preferred Spoken Language: Nicaraguan Is interpretation needed?: No Past Medical History Surgeries: Gallbladder Currently Using CPAP: No Currently Using BIPAP: No Hypertension Neuropathy, Seizure Disorder Crohns Disease Chronic Back Pain Diabetes, Insulin dep Dysphagia Loss of Vision: Denies Hearing Impairment: Denies Anxiety, Depression Blood Disorders: No Review of Systems EENTM: No hearing loss Respiratory: cough; No short of breath Cardiovascular: No chest pain Musculoskeletal: other (RLE pain on palpation and with any movement) Physical Exam Physical Exam Vital Signs Vital Signs - First Documented 03/20/22 03/21/22 21:04 01:29 Temp 37.2 Pulse 98 Resp 22 B/P (MAP) 203/89 (127) Pulse Ox 92 O2 Delivery Room Air O2 Flow Rate 90.00 FiO2 28 Capillary Refill : Less Than 3 Seconds Height, Weight, BMI Height: 6'0" Weight: 148lbs. oz. [id number]; 22.12 BMI Method:Stated General Appearance: Mild Distress, Thin Respiratory: Chest Non Tender, No Accessory Muscle Use, No Respiratory Distress Cardiovascular: No Edema, Tachycardia Extremity: Other (RLE pain upon palpation or with any movement) Skin: Normal Color, Warm/Dry Results Results/Procedures Labs Laboratory Tests 03/20/22 21:10 03/21/22 04:45 Patient resulted labs reviewed. Assessment/Plan Admission Diagnosis Admission Status: Observation Assessment and Plan Assessment: History of Right Lower Extremity Tibia/Fibula Fracture Acute Episode of Dyspnea HTN Elevated Troponin Hx of CHF Hx of Renal Failure Crohn's Disease Seizures Smoker Marijuana Use Plan: Lower Extremity Xray from today shows old fractures of the tibia and fibula that are healing well with calluses. Starting Dilaudid for more pain control. Continue to monitor BP and RR given pain control with narcotics. Receiving anticoagulation per cardiology. Continue home meds. MARTHA STEARNS DO 03/22/22 0505: History of Present Illness HPI/Chief Complaint Pt is crying in pain Initiated Dilaudid White count is 16.7 Hemoglobin is 8.8 Pulmonary edema noted Cardiology wants to cath him but he is not stable Exam Limitations: clinical condition Past Axuabvx-Gcjpsw-Taocra Hx Patient Social History Marrital Status: Employed/Student: unemployed Review of Systems Constitutional: see HPI Physical Exam Physical Exam General Appearance: Severe Distress, Thin Respiratory: Lungs Clear, Normal Breath Sounds Cardiovascular: Regular Rate, Rhythm Assessment/Plan Admission Diagnosis Assessment: NSTEMI YEYO Non-compliance DM HTN HLP Plan: Cardiology consultation appreciated Supervisory-Addendum Brief Verification & Attestation Participated in pt care: history, MDM, physical Personally performed: exam, history, MDM, supervision of care Care discussed with: Medical Student Procedures: n/a Results interpretation: Verified all documentation Verification and Attestation of Medical Student E/M Service A medical student performed and documented this service in my presence. I review ed and verified all information documented by the medical student and made modifications to such information, when appropriate. I personally performed the physical exam and medical decision making. Martha Stearns, Mar 22, 2022,05:05 CAMILLE WANG Mar 21, 2022 13:02 MARTHA STEARNS DO Mar 22, 2022 05:05
[2022-03-21] MEDS ORDERED: predniSONE 20 MG TAB PO SCH (14:00)
[2022-03-21] MEDS ORDERED: ONDANSETRON 4 MG (ZOFRAN) ORAL DISSOLVE TAB PO PRN (14:00)
[2022-03-21] MEDS ORDERED: DexMEDEtomidine 250 ML DRIP 250 ML IV ONE (16:53)
[2022-03-21] MEDS ORDERED: DexMEDEtomidine 250 ML DRIP 250 ML IV SCH (17:15)
[2022-03-21] MEDS ORDERED: LORazepam 1 MG (ATIVAN) TAB PO PRN (17:45)
--- NOTE | 2022-03-21 18:34 | Discharge Summary ---
Discharge Summary Hospital Course Was the Problem List Reviewed?: Yes Problems/Dx: (1) Non-ST elevation myocardial infarction (NSTEMI), initial care episode (2) Acute on chronic heart failure with preserved ejection fraction (HFpEF) (3) Hypertensive urgency Status: Acute (4) Mixed hyperlipidemia (5) Aspirin allergy (6) Cigarette smoker Hospital Course Date of Admission: Mar 21, 2022 at 00:17 Admission Diagnosis : Family Physician/Provider: Calixto Ariza MD Date of Discharge: 03/21/22 Discharge Diagnosis: NSTEMI Hospital Course: See HPI Labs and Pending Lab Test: Laboratory Tests 03/20/22 21:10: White Blood Count 20.3H, Red Blood Count 4.04L, Hemoglobin 10.2L, Hematocrit 31L , Mean Corpuscular Volume 78L, Mean Corpuscular Hemoglobin 25, Mean Corpuscular Hemoglobin Concent 33, Red Cell Distribution Width 16.8H, Platelet Count 567H, Mean Platelet Volume 9.7, Immature Granulocyte % (Auto) 1, Neutrophils (%) (Auto) 83H, Lymphocytes (%) (Auto) 9L, Monocytes (%) (Auto) 7, Eosinophils (%) (Auto) 0, Basophils (%) (Auto) 1, Neutrophils # (Auto) 16.7H, Lymphocytes # (Auto) 1.8, Monocytes # (Auto) 1.5H, Eosinophils # (Auto) 0.1, Basophils # (Auto) 0.1, Immature Granulocyte # (Auto) 0.2H, Neutrophils % (Manual) 96, Lymphocytes % (Manual) 2, Monocytes % (Manual) 1, Eosinophils % (Manual) 1, Prothrombin Time 12.8, INR Comment 0.9, Activated Partial Thromboplast Time 27, Sodium Level 140, Potassium Level 3.3L, Chloride Level 100, Carbon Dioxide Level 24, Anion Gap 16H, Blood Urea Nitrogen 32H, Creatinine 1.38H, Estimat Glomerular Filtration Rate 63, BUN/Creatinine Ratio 23, Glucose Level 214H, Lactic Acid Level 1.32, Calcium Level 9.6, Corrected Calcium 9.4, Magnesium Level 1.9, Total Bilirubin 0.2, Aspartate Amino Transf (AST/SGOT) 12, Alanine Aminotransferase (ALT/SGPT) 9, Alkaline Phosphatase 186H, Troponin I 2.40*H, Pro-B-Type Natriuretic Peptide 05438.0H, Total Protein 7.9, Albumin 4.2 03/20/22 22:00: Urine Color YELLOW, Urine Clarity CLEAR, Urine pH 6.0, Urine Specific [place] 1.010L, Urine Protein 2+H, Urine Glucose (UA) TRACEH, Urine Ketones NEGATIVE, Urine Nitrite NEGATIVE, Urine Bilirubin NEGATIVE, Urine Urobilinogen 0.2, Urine Leukocyte Esterase NEGATIVE, Urine RBC (Auto) NEGATIVE, Urine RBC 0-2, Urine WBC 2-5, Urine Crystals NONE, Urine Bacteria NEGATIVE, Urine Casts NONE, Urine Mucus NEGATIVE, Urine Culture Indicated NO, Urine Opiates Screen POSITIVEH, Urine Oxycodone Screen NEGATIVE, Urine Methadone Screen NEGATIVE, Urine Propoxyphene Screen NEGATIVE, Urine Barbiturates Screen POSITIVEH, Ur Tricyclic Antidepressants Screen NEGATIVE, Urine Phencyclidine Screen NEGATIVE, Urine Amphetamines Screen NEGATIVE, Urine Methamphetamines Screen NEGATIVE, Urine Benzodiazepines Screen POSITIVEH, Urine Cocaine Screen NEGATIVE, Urine Cannabinoids Screen POSITIVEH 03/21/22 04:45: White Blood Count 16.7H, Red Blood Count 3.53L, Hemoglobin 8.8L, Hematocrit 28L, Mean Corpuscular Volume 79L, Mean Corpuscular Hemoglobin 25, Mean Corpuscular Hemoglobin Concent 32, Red Cell Distribution Width 17.0H, Platelet Count 490H, Mean Platelet Volume 10.0, Immature Granulocyte % (Auto) 1, Neutrophils (%) (Auto) 74, Lymphocytes (%) (Auto) 15, Monocytes (%) (Auto) 10, Eosinophils (%) (Auto) 1, Basophils (%) (Auto) 1, Neutrophils # (Auto) 12.3H, Lymphocytes # (Auto) 2.5, Monocytes # (Auto) 1.6H, Eosinophils # (Auto) 0.1, Basophils # (Auto) 0.1, Immature Granulocyte # (Auto) 0.1, Sodium Level 146H, Potassium Level 3.4L, Chloride Level 103, Carbon Dioxide Level 25, Anion Gap 18H, Blood Urea Nitrogen 30H, Creatinine 1.38H, Estimat Glomerular Filtration Rate 63, BUN/Creatinine Ratio 22, Glucose Level 160H, Calcium Level 9.0, Corrected Calcium 9.3, Total Bilirubin 0.3, Aspartate Amino Transf (AST/SGOT) 11, Alanine Aminotransferase (ALT/SGPT) 8, Alkaline Phosphatase 127, Troponin I 3.481*H, Total Protein 6.8, Albumin 3.6 03/21/22 09:00: Prothrombin Time 13.3, INR Comment 1.0, Activated Partial Thromboplast Time 31, Troponin I 3.013*H, Mean Blood Glucose [Pending], Hemoglobin A1c [Pending], Triglycerides Level 86, Cholesterol Level 147, LDL Cholesterol Direct 66, VLDL Cholesterol 17, HDL Cholesterol 50 03/21/22 10:10: Influenza Type A (RT-PCR) Not Detected, Influenza Type B (RT-PCR) Not Detected, SARS-CoV-2 RNA (RT-PCR) Not Detected 03/21/22 11:10: Glucometer 169H 03/21/22 15:29: Glucometer 170H 03/21/22 16:15: Activated Partial Thromboplast Time 37H Home Meds Active Albuterol Sulfate 2.5 Mg/3 Ml (0.083 %) Vial.neb 2.5 Mg INH Q6H PRN 10 Days Reported Polysaccharide Iron (Iron Polysaccharide Complex) 150 Mg Iron Capsule 150 Mg PO DAILY LAST FILLED 10-29-2021 #3030 DAY SUPPLY Furosemide 20 Mg Tablet 40 Mg PO BID EVERY 48 HOURS TAKES 2 (20MG) TABS ALTERANTES TAKES 1 TAB TWICE DAILY AND 2 TABS TWICE DAILY Ondansetron HCl 4 Mg/5 Ml Solution 5 Ml PO Q8H PRN Promethazine Tablet (Promethazine HCl) 25 Mg Tablet 25 Mg PO HS PRN Promethazine Tablet (Promethazine HCl) 25 Mg Tablet 25 Mg PO DAILY Sodium Bicarbonate 650 Mg Tablet 650 Mg PO 0700,1200,1700,2200 Proventil Hfa (Albuterol Sulfate) 6.7 Gm Hfa.aer.ad 2 Puff INH Q4H PRN Furosemide 20 Mg Tablet 20 Mg PO BID EVERY 48 HOURS ALTERANTES TAKES 1 TAB TWICE DAILY AND 2 TABS TWICE DAILY Flomax (Tamsulosin HCl) 0.4 Mg Cap 0.4 Mg PO DAILY K-Tab ER (Potassium Chloride) 10 Meq Tablet.er 10 Meq PO DAILY Sucralfate 1 Gram Tablet 1 Gm PO BIDAC DISSOLVES IN WATER TO MAKE SLURRY Venlafaxine HCl 75 Mg Tab 75 Mg PO 0700,1500 Atorvastatin Calcium 20 Mg Tablet 20 Mg PO DAILY Famotidine 40 Mg Tablet 40 Mg PO 1900 Phenytoin Sodium Extended 100 Mg Capsule 100 Mg PO 0700,1700 Ativan (Lorazepam) 0.5 Mg Tablet 0.5 Mg PO HS PRN Ativan (Lorazepam) 0.5 Mg Tablet 0.5 Mg PO 0700,1500 Metoprolol Tartrate 25 Mg Tablet 12.5 Mg PO BID WITH MEALS TAKES OF A 25MG TAB Amlodipine Besylate 10 Mg Tablet 10 Mg PO DAILY Morphine Sulfate ER (Morphine Sulfate) 15 Mg Tablet.er 15 Mg PO HS Morphine Sulfate ER (Morphine Sulfate) 15 Mg Tablet.er 30 Mg PO DAILY TAKES 2 (15MG) TABS Hydralazine HCl 50 Mg Tablet 50 Mg PO 1900 PRN Hydralazine HCl 50 Mg Tablet 50 Mg PO DAILY Insulin Lispro Kwikpen U-100 (Insulin Lispro) 100 Unit/Ml Insuln.pen Units SC PC USES PER SLIDING SCALE Ropinirole HCl 0.5 Mg Tablet 0.5 Mg PO HS Omeprazole 40 Mg Capsule.dr 40 Mg PO DAILY Assessment/Pt Instructions Left AMA Discharge Planning: <30 minutes discharge planning Discharge Instructions Discharge Diet: No Restrictions Activity as Tolerated: Yes Discharge Physical Examination Vital Signs Vital Signs Date Time Temp Pulse Resp B/P (MAP) Pulse Ox O2 Delivery O2 Flow Rate FiO2 03/21/22 16:00 86 14 172/102 (125) 92 Room Air 03/21/22 15:14 2.00 03/21/22 01:29 37.2 28 General Appearance: No Apparent Distress, WD/WN Allergies: Coded Allergies: Penicillins (Verified Allergy, Unknown, 09/14/20) aspirin (Unverified Adverse Reaction, Severe, swelling throat, 11/05/18) shellfish derived (Unverified Adverse Reaction, Severe, THROAT SWELLING, 09/14/20) Discharge Summary Date of Admission Mar 21, 2022 at 00:17 Date of Discharge Discharge Diagnosis (1) Non-ST elevation myocardial infarction (NSTEMI), initial care episode Assessment & Plan: He appears to be suffering a non-ST elevation myocardial infarction based upon troponin levels. The troponin is now trending downwards. His electrocardiogram does not show a STEMI but he does have some lateral ST depression. He is not having chest discomfort. He is allergic to aspirin. I will give him a loading dose of ticagrelor and then start ticagrelor maintenance dosing. I have started him on intravenous heparin. I have also ordered low- dose carvedilol and high-dose atorvastatin. I recommend further evaluation with a cardiac catheterization. However, he does not appear as though he would sit still for the procedure and would require sedation with anesthesia. Furthermore, he appears to have anemia and also chronic kidney disease which will increase the risk. Additionally, he has been noncompliant and is now asking to leave AGAINST MEDICAL ADVICE. For these reasons, he may not be a good candidate for cardiac catheterization. (2) Acute on chronic heart failure with preserved ejection fraction (HFpEF) Assessment & Plan: His echocardiogram shows normal ejection fraction. He did have a markedly elevated BNP level and evidence of pulmonary edema on his chest x-ray from the emergency room. Symptomatically he seems improved after receiving intravenous Lasix. (3) Hypertensive urgency Status: Acute Assessment & Plan: He was taking lisinopril at home. I have ordered carvedilol due to the probable non-ST elevation myocardial infarction. (4) Mixed hyperlipidemia Assessment & Plan: I will start him on intensive dose statin medication in light of the probable non-ST elevation myocardial infarction. (5) Aspirin allergy Assessment & Plan: I will start him on ticagrelor as noted above. If he can be compliant with his medical care, I would consider initiating aspirin desensitization protocol. (6) Cigarette smoker Assessment & Plan: He needs to quit smoking. He was adamant that after this hospitalization, he does not plan to start smoking again. SIMBA STEARNS DO Mar 21, 2022 18:34
[2022-03-21] MEDS ORDERED: LEVOFLOXACIN 750 MG/D5W 150 ML (PRE-MIX) IV SCH (21:00)
[2022-03-21] MEDS ORDERED: TICAGRELOR 90 MG TABLET (BRILINTA) PO SCH (21:00)
[2022-03-22] MEDS ORDERED: NS IV 1000 ML 1,000 ML IV ONE (07:00)
[2022-03-22] MEDS ORDERED: amLODIPine 5 MG (NORVASC) TAB PO SCH (09:00)
== END 2022-03-21 18:19 | disposition left against medical advice (07) | DRG 280 ==
LOC: EDUNIT# 21:03 → ER FS 21:05 → ICU 03-21 00:17
PROVIDERS: ADMIT Internal Medicine; ATTEND Internal Medicine
DX: I21.4 Non-ST elevation (NSTEMI) myocardial infarction (principal); I50.33 Acute on chronic diastolic (congestive) heart failure; K50.90 Crohn's disease, unspecified, without complications; I13.0 Hypertensive heart and chronic kidney disease with heart failure and stage 1 through stage 4 chronic kidney disease, or unspecified chronic kidney disease; I16.0 Hypertensive urgency; E78.2 Mixed hyperlipidemia; Z88.6 Allergy status to analgesic agent; F17.210 Nicotine dependence, cigarettes, uncomplicated; Z79.4 Long term (current) use of insulin; Z79.899 Other long term (current) drug therapy; E11.40 Type 2 diabetes mellitus with diabetic neuropathy, unspecified; G40.909 Epilepsy, unspecified, not intractable, without status epilepticus; G89.29 Other chronic pain; M54.9 Dorsalgia, unspecified; F41.9 Anxiety disorder, unspecified; F32.A Depression, unspecified; F12.10 Cannabis abuse, uncomplicated; D50.9 Iron deficiency anemia, unspecified; E78.5 Hyperlipidemia, unspecified; Z91.14 Patient's other noncompliance with medication regimen; N18.30 Chronic kidney disease, stage 3 unspecified; F11.90 Opioid use, unspecified, uncomplicated; Z20.822 Contact with and (suspected) exposure to COVID-19
CPT/HCPCS: 36415; 71045; 73590; 80053; 80061; 80306; 81000; 82947; 83036; 83605; 83735; 83880; 84484; 85007; 85025; 85027; 85610; 85730; 87040; 87636; 93005; 93041; 93306; 94640; 94664

== ENCOUNTER 2022-03-31 08:00 | Day surgery (SDC) | payer MEDICAID ==
[2022-03-31] VITALS (8 sets, daily range): BP systolic 110–205; BP diastolic 83–105
[~2022-03-31] VITALS: Ht 188 cm; Wt 69.0 kg
[~2022-03-31 08:00] MED LIST changes: +AMLO-251 PO; +FAMO40TA6 PO; +FURO20TA4 PO; +HYDR-3924 PO; +INSU100I48 SC; +LORA-404 PO; +METO-333 PO; +MORP-68 PO; +NF-SODBICA PO; +ONDA4SOL11 PO; +PHEN100C11 PO; +POTA10TA PO; +PROM25TA14 PO; +ROPI0.5T4 PO; +RT-ALBUINH INH; +SUCR1TAB PO; +VNL75T PO; +[UNRECOGNIZED DRUG - CODE] PO
[2022-03-31] MEDS ORDERED: LIDOCAINE 1% INJ 30 ML (XYLOCAINE) VIAL ONE (08:27)
[2022-03-31] MEDS ORDERED: HEParin (CATH LAB) 2,000 ML IV ONE (08:27)
[2022-03-31] MEDS ORDERED: NS IV 1000 ML 1,000 ML ONE (08:27)
[2022-03-31] MEDS ORDERED: CATHETER FLUSH 10 ML SYR IV PRN (08:30)
[2022-03-31] MEDS ORDERED: NS IV 1000 ML 1,000 ML IV ONE (08:30)
[2022-03-31] MEDS ORDERED: fentaNYL INJ 100 MCG/2 ML AMP ONE (08:53)
[2022-03-31] MEDS ORDERED: VERAPAMIL 5 MG/2 ML (CALAN) VIAL IV ONE (08:53)
[2022-03-31] MEDS ORDERED: MIDAZOLAM 2 MG/2 ML (VERSED) VIAL ONE (08:54)
[2022-03-31] MEDS ORDERED: NITRO DRIP 25000 MCG/D5W 250 ML IV ONE (08:54)
[2022-03-31] MEDS ORDERED: HEParin 1000 UNIT/ML (10ML VIAL) FOR BOLUS ONE (08:54)
[2022-03-31] MEDS ORDERED: PROPOFOL INJECTION 50 ML IV ONE ×2 (09:30→09:45)
[2022-03-31] MEDS ORDERED: MIDAZOLAM 5 MG/5 ML (VERSED) VIAL ONE (09:30)
[2022-03-31] MEDS ORDERED: DOCU-143 PO (09:32)
[2022-03-31] MEDS ORDERED: CLOP75TA28 PO ×2 (09:32→10:58)
[2022-03-31] MEDS ORDERED: ALBU2.5V4 INH (09:32)
--- NOTE | 2022-03-31 09:39 | Pre-Op Note & Conscious Sedat ---
Pre-Operative Progress Note Date H&P Reviewed: Mar 31, 2022 Time H&P Reviewed: 08:30 History & Physical: H&P Reviewed, Patient Examed, No changes noted Changes from last HP No changes. Pre-Op Diagnosis: Recent non-ST elevation myocardial infarction less than 30 d ays. Conscious Sedation Pre-Proced ASA Score 2 For ASA 3 and 4: Consider anesthesia and medical clearance. Also, for patients with a history of failed moderate sedation consider anesthesia. Airway Lungs Heart ASA score ASA 1: a normal healthy patient ASA 2: a patient with a mild systemic disease (mid diabetes, controlled hypertension, obesity ASA 3: a patient with a severe systemic disease that limits activity (angina, COPD, prior Myocardial infarction) ASA 4: a patient with an incapacitating disease that is a constant threat to life (CHF, renal failure) ASA 5: a moribund patient not expected to survive 24 hrs. (ruptured aneurysm) ASA 6: a declared brain- patient whose organs are being harvested. For emergent operations, add the letter E after the classification Mallampati Classification Grade 2 Sedation Plan Analgesia, Amnesia, Plan communicated to team members, Discussed options with patient/fam, Discussed risks with patient/fam The patient is an appropriate candidate to undergo the planned procedure, sedation, and anesthesia. The patient immediately re-assessed prior to indication. Given the patient's current clinical status, he is considered mildly frail. He has chronic heart failure with preserved ejection fraction, class III. He has had an adverse reaction to sedation in the past and as such, I will have anesthesia present during the procedure to provide deeper sedation. MARC BLEDSOE JR, MD Mar 31, 2022 09:39
[2022-03-31] MEDS ORDERED: KETAMINE HCL 100 MG/ML 5 ML VIAL ONE (09:45)
[2022-03-31] MEDS ORDERED: ADENOSINE 6 MG/2 ML (ADENOCARD) VIAL IV ONE (10:08)
[2022-03-31] MEDS ORDERED: NS (IVPB) 0 ML ONE (10:08)
[2022-03-31] MEDS ORDERED: CLOPIDOGREL 300 MG (PLAVIX) TABLET PO ONE ×2 (10:40→11:00)
[2022-03-31] MEDS ORDERED: ONDANSETRON 4 MG/2 ML (SDV) Z0FRAN ONE (10:48)
[2022-03-31] MEDS ORDERED: ASPIRIN 81 MG CHEW (CHILDREN'S ASA) PO ONE (11:00)
[2022-03-31] MEDS ORDERED: NS IV 1000 ML 1,000 ML IV SCH (11:00)
--- NOTE | 2022-03-31 11:01 | Cardiac Cath Report ---
CARDIAC CATHETERIZATION DATE OF PROCEDURE: 03/31/2022 INDICATION: Recent non-ST elevation myocardial infarction less than 30 days ago. HISTORY: The patient is a 46 year old male who suffered a non-ST elevation myocardial infarction approximately 10 days ago. I had planned on having him undergo a cardiac catheterization while he was in the hospital but he left AGAINST MEDICAL ADVICE. He has now agreed to return for an outpatient cardiac catheterization. Given his current clinical status, he is considered mildly frail. He does not have any history of heart failure. PROCEDURES PERFORMED: 1. Left heart catheterization with hemodynamic measurements. 2. Diagnostic [place] coronary angiography. 3. Flow reserve measurements of right coronary artery/posterolateral branch. 4. Drug-eluting stent placement to right coronary artery/posterolateral branch. PROCEDURE DESCRIPTION: After informed consent and in the fasting state, left heart catheterization was performed through the right radial artery utilizing a 6 English system by percutaneous approach. Standard 5 English [place] catheters were utilized for the diagnostic portion of the procedure. A 6 English JR4 guide catheter was utilized for the flow reserve measurements and the percutaneous coronary intervention. All catheters were exchanged over a guidewire. Following the procedure, a vascular band was applied to the radial artery access site and the sheath was removed with good hemostasis. RESULTS: HEMODYNAMICS: The aortic pressure was 89/46 mmHg. The left ventricular pressure was 95/0 mmHg with a left ventricular end-diastolic pressure of 8 mmHg. There was no significant pressure gradient upon pullback across the aortic valve. CORONARY ANGIOGRAPHY: Left main coronary artery: Short and free of significant disease. Left anterior descending coronary artery: There was mild disease throughout the course of the vessel at no more than 40% stenotic. Left circumflex coronary artery: Codominant and there was a large first obtuse marginal branch that contained a 70% stenosis in the mid segment of the vessel but right at a tortuosity. Due to foreshortening of the lesion, it may appear more significant than it actually is. Right coronary artery: Codominant and there was a 50% stenosis in the distal third of the posterior descending artery. There was a moderate sized right posterolateral branch that contain diffuse up to 90% stenoses with KIMBERLEY-1 flow. I suspect this may have been the ischemia related vessel for the recent myocardial infarction. FRACTIONAL FLOW RESERVE: Fractional flow reserve was carried out on the right posterolateral branch through a 6 English JR4 guide catheter. Once the system was equalized, the stenosis in the distal right posterolateral branch was successfully crossed. The FFR in the distal vessel was 0.51 and that was without any vasodilators. The FFR wire was withdrawn back into the midsegment and the FFR of the proximal lesion was 0.6. This was also done without any vasodilators. Both of these values are highly significant. Therefore, I elected to proceed with percutaneous coronary intervention. PERCUTANEOUS CORONARY INTERVENTION: Percutaneous coronary convention was carried out on the right posterolateral branch through the 6 English JR4 guide catheter. The lesions had been successfully crossed with an FFR wire. I subsequently performed coronary angioplasty with a 2 x 15 mm Trek balloon at a pressure of 6- 10 dave for several inflations. Flow was restored. I subsequently deployed a 2 x 30 mm drug-eluting Resolute Kp stent in the distal segment of the right posterolateral branch at a pressure of 16 dave. I then deployed an additional 2 x 26 mm drug-eluting Resolute Kp stent in the more proximal segment of the branch overlapping the previously placed stent at a pressure of 16 dave. The overlapped segment was then postdilated with the stent balloon at a pressure of 16 dave. Following stent placement, there was 0% residual stenosis with KIMBERLEY-3 flow. IMPRESSION: 1. Normal left heart pressures. 2. There was severe disease of the right posterolateral branch with KIMBERLEY-1 flow. Fractional flow reserve measurements of this branch even without vasodilators was highly significant and therefore, I elected to proceed with intervention. 3. Status post drug-eluting stent placement to the right posterolateral branch with a 2 x 26 mm resolute Kp stent in the proximal segment and a 2 x 30 mm res olute [place] stent in the distal segment with both stents overlapped with 0% residual stenosis and KIMBERLEY-3 flow. 4. There is moderate residual disease of the left anterior descending coronary artery and also a 70% stenosis in the first obtuse marginal branch but this is right at a tortuosity and may not be as significant due to foreshortening. 5. The patient is known to have normal left ventricular systolic function with an estimated ejection fraction of 60-65% by echocardiogram performed on 03/21/2022. Certain portions of this document may have been dictated utilizing voice recognition technology. Inherent to this technology, typographical and grammatical errors may exist. As much as I am diligent to identify and correct these mistakes, some errors may remain in the document. MARC BLEDSOE JR, MD Mar 31, 2022 11:01
--- NOTE | 2022-03-31 11:05 | Anesthesia-General Post-Op ---
MAC Patient Condition Mental Status/LOC: Same as Preop Cardiovascular: Satisfactory Nausea/Vomiting: Absent Respiratory: Satisfactory Pain: Controlled Complications: Absent Post Op Complications Complications None Follow Up Care/Instructions Patient Instructions None needed. Anesthesiology Discharge Order Discharge Order Patient is doing well, no complaints, stable vital signs, no apparent adverse anesthesia problems. No complications reported per nursing. WANDA DEE CRNA Mar 31, 2022 11:05
[2022-03-31] MEDS ORDERED: morphine INJ 10 MG/ML 1ML (SYR OR VIAL) IVP ONE (11:15)
[2022-03-31] MEDS ORDERED: ONDANSETRON 4 MG/2 ML (SDV) Z0FRAN IVP PRN (11:15)
[2022-03-31] MEDS ORDERED: MEPERIDINE (DEMEROL) INJ 50 MG/ML IVP ONE (11:15)
[2022-03-31] MEDS ORDERED: morphine INJ 10 MG/ML 1ML (SYR OR VIAL) ONE (11:16)
[2022-03-31] MEDS ORDERED: LABETALOL HCL 20 MG/4 ML VIAL ONE (11:27)
[2022-03-31] MEDS: ONDANSETRON 4 MG/2 ML (SDV) Z0FRAN IVP ONE ×2 (11:34→12:00)
== END 2022-03-31 14:15 | disposition left against medical advice (07) ==
LOC: CATH 08:00 → CSD 11:50 → CATH 14:15
PROVIDERS: ATTEND Internal Medicine Cardiovascular Disease
DX: I21.4 Non-ST elevation (NSTEMI) myocardial infarction (principal); F17.210 Nicotine dependence, cigarettes, uncomplicated; I13.0 Hypertensive heart and chronic kidney disease with heart failure and stage 1 through stage 4 chronic kidney disease, or unspecified chronic kidney disease; E11.22 Type 2 diabetes mellitus with diabetic chronic kidney disease; I50.32 Chronic diastolic (congestive) heart failure; D64.9 Anemia, unspecified; J18.9 Pneumonia, unspecified organism; E78.2 Mixed hyperlipidemia; N18.31 Chronic kidney disease, stage 3a
CPT/HCPCS: 87081; 93458; 93571; C1725; C1874 ×2; C1887; C1894; C9600

== ENCOUNTER 2022-04-22 19:47 | Emergency (ER) | payer MEDICAID ==
[~2022-04-22] VITALS: Ht 182.8 cm; Wt 68.0 kg
[~2022-04-22 19:47] MED LIST changes: +CLOP75TA28 PO; +DOCU-143 PO
[2022-04-22 19:51] VITALS: BP 160/96
--- NOTE | 2022-04-22 20:17 | ED Lower Extremity ---
General Chief Complaint: Lower Extremity Stated Complaint: R LEG PAIN/SWELLING Nursing Triage Note: Patient states that he broke his right leg approximately 2 months ago. Patient reports falling today while leaving the bathroom at approximately 14:00. Patient states that he thinks he rebroke his right leg. Patient does have swelling on the right knee and right lower leg. Source: patient Exam Limitations: no limitations History of Present Illness Date Seen by Provider: Apr 22, 2022 Time Seen by Provider: 19:55 Initial Comments Patient is a 47-year-old male who presents with an isolated right knee injury after slipping getting out of shower and landing directly on his left knee. 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 Onset: just prior to arrival Pain/Injury Location: right knee Method of Injury: direct blow Allergies and Home Medications Allergies Coded Allergies: Penicillins (Verified Allergy, Unknown, 09/14/20) aspirin (Unverified Adverse Reaction, Severe, swelling throat, 11/05/18) shellfish derived (Unverified Adverse Reaction, Severe, THROAT SWELLING, 09/14/20) Patient Home Medication List Home Medication List Reviewed: Yes Albuterol Sulfate (Proventil Hfa) 6.7 Gm Hfa.aer.ad, 2 PUFF INH Q4H PRN for SHORTNESS OF BREATH, (Reported) Entered as Reported by: UYEN OCRONA on 03/21/22 1212 Albuterol Sulfate (Albuterol Sulfate) 2.5 Mg/3 Ml (0.083 %) Vial.neb, 2.5 MG INH Q6H PRN for SHORTNESS OF BREATH, (Reported) Entered as Reported by: NITZA SIN on 03/31/22 0932 Amlodipine Besylate (Amlodipine Besylate) 10 Mg Tablet, 10 MG PO DAILY, (Reported) Entered as Reported by: UYEN CORONA on 03/21/22 1212 Atorvastatin Calcium (Atorvastatin Calcium) 20 Mg Tablet, 20 MG PO DAILY, (Reported) Entered as Reported by: UYEN CORONA on 03/21/22 121 Clopidogrel Bisulfate (Clopidogrel) 75 Mg Tablet, 75 MG PO 1200 Prescribed by: MARC BLEDSOE JR, MD on 03/31/22 1058 Docusate Sodium (Colace) 100 Mg Capsule, 100 MG PO BID PRN for CONSTIPATION-1ST LINE, (Reported) Entered as Reported by: NITZA SIN on 03/31/22 0932 Famotidine (Famotidine) 40 Mg Tablet, 40 MG PO 1900, (Reported) Entered as Reported by: UYEN CORONA on 03/21/22 121 Furosemide (Furosemide) 20 Mg Tablet, 20 MG PO BID EVERY 48 HOURS, (Reported) Entered as Reported by: UYEN CORONA on 03/21/221211 Furosemide (Furosemide) 20 Mg Tablet, 40 MG PO BID EVERY 48 HOURS, (Reported) Entered as Reported by: UYEN CORONA on 03/21/221214 Hydralazine HCl (Hydralazine HCl) 50 Mg Tablet, 50 MG PO DAILY, (Reported) Entered as Reported by: UYEN CORONA on 03/21/221211 Hydralazine HCl (Hydralazine HCl) 50 Mg Tablet, 50 MG PO 1900 PRN for BLOOD PRESSURE, (Reported) Entered as Reported by: UYEN CORONA on 03/21/221211 Insulin Lispro (Insulin Lispro Kwikpen U-100) 100 Unit/Ml Insuln.pen, UNITS SC PC, (Reported) Entered as Reported by: UYEN CORONA on 03/21/221211 Iron Polysaccharide Complex (Polysaccharide Iron) 150 Mg Iron Capsule, 150 MG PO DAILY, (Reported) Entered as Reported by: UYEN CORONA on 03/21/22 123 Lorazepam (Ativan) 0.5 Mg Tablet, 0.5 MG PO 0700,1500, (Reported) Entered as Reported by: UYEN CORONA on 03/21/221211 Lorazepam (Ativan) 0.5 Mg Tablet, 0.5 MG PO HS PRN for ANXIETY, (Reported) Entered as Reported by: UYEN CORONA on 03/21/221211 Metoprolol Tartrate (Metoprolol Tartrate) 25 Mg Tablet, 12.5 MG PO BID WITH MEALS, (Reported) Entered as Reported by: UYEN CORONA on 03/21/221211 Morphine Sulfate (Morphine Sulfate ER) 15 Mg Tablet.er, 30 MG PO DAILY, (Reported) Entered as Reported by: UYEN CORONA on 03/21/22 121 Morphine Sulfate (Morphine Sulfate ER) 15 Mg Tablet.er, 15 MG PO HS, (Reported) Entered as Reported by: UYEN CORONA on 03/21/221211 Omeprazole (Omeprazole) 40 Mg Capsule.dr, 40 MG PO DAILY, (Reported) Entered as Reported by: NELSON SUMNER on 09/14/20 180 Ondansetron HCl (Ondansetron HCl) 4 Mg/5 Ml Solution, 5 ML PO Q8H PRN for NAUSEA/VOMITING-1ST LINE, (Reported) Entered as Reported by: UYEN CORONA on 03/21/221211 Phenytoin Sodium Extended (Phenytoin Sodium Extended) 100 Mg Capsule, 100 MG PO 0700,1700, (Reported) Entered as Reported by: UYEN CORONA on 03/21/221211 Potassium Chloride (K-Tab ER) 10 Meq Tablet.er, 10 MEQ PO DAILY, (Reported) Entered as Reported by: UYEN CORONA on 03/21/221211 Promethazine HCl (Promethazine Tablet) 25 Mg Tablet, 25 MG PO DAILY, (Reported) Entered as Reported by: UYEN CORONA on 03/21/221211 Promethazine HCl (Promethazine Tablet) 25 Mg Tablet, 25 MG PO HS PRN for NAUSEA/VOMITING-2ND LINE, (Reported) Entered as Reported by: UYEN CORONA on 03/21/221211 Ropinirole HCl (Ropinirole HCl) 0.5 Mg Tablet, 1 MG PO HS, (Reported) Entered as Reported by: UYEN CORONA on 03/21/221211 Sodium Bicarbonate (Sodium Bicarbonate) 650 Mg Tablet, 650 MG PO TID, (Reported) Entered as Reported by: UYEN CORONA on 03/21/221211 Sucralfate (Sucralfate) 1 Gram Tablet, 1 GM PO BIDAC, (Reported) Entered as Reported by: UYEN CORONA on 03/21/221211 Tamsulosin HCl (Flomax) 0.4 Mg Cap, 0.4 MG PO DAILY, (Reported) Entered as Reported by: UYEN CORONA on 03/21/221211 Venlafaxine HCl (Venlafaxine HCl) 75 Mg Tab, 75 MG PO 0700,1500, (Reported) Entered as Reported by: UYEN CORONA on 03/21/221211 Review of Systems Constitutional: no symptoms reported, see HPI Musculoskeletal: see HPI Psychiatric/Neurological: See HPI Past Hwozhja-Wrboch-Vahlab Hx Patient Social History Tobacco Use?: Yes Tobacco type used: Cigarettes Smoking Status: Current Everyday Smoker Substance use?: Yes Substance type: Marijuana Alcohol Use?: No Pt feels they are or have been: No Immunizations Up To Date Tetanus Booster (TDap): Unknown First/Initial COVID19 Vaccinat: NO COVID VACCINE, DECLINED Second COVID19 Vaccination Yuri: NO COVID VACCINE, DECLINED Third COVID19 Vaccination Date: NO COVID VACCINE, DECLINED Seasonal Allergies Seasonal Allergies: No Past Medical History Surgery/Hospitalization HX: gallbladder, CHF, Crohn's, GI ulcers, IDDM Surgeries: Yes (Abscess buttocks-MRSA, jaw fx) Gallbladder Respiratory: No Currently Using CPAP: No Currently Using BIPAP: No Cardiac: Yes Hypertension Neurological: Yes Neuropathy, Seizure Disorder Genitourinary: No Renal Failure Gastrointestinal: Yes Crohns Disease Musculoskeletal: Yes (chronic pain/neuropathy also from "feet to shoulders") Chronic Back Pain Endocrine: Yes Diabetes, Insulin dep HEENT: No Dysphagia Loss of Vision: Denies Hearing Impairment: Denies Cancer: No Psychosocial: Yes Anxiety, Depression Integumentary: Yes (MRSA buttocks ) Blood Disorders: No Physical Exam Vital Signs Vital Signs - First Documented 04/22/22 19:51 Temp 36.8 Pulse 90 Resp 16 B/P (MAP) 160/96 (117) Pulse Ox 98 O2 Delivery Room Air Capillary Refill : Less Than 3 Seconds Height, Weight, BMI Height: 6'0" Weight: 148lbs. oz. 67.316186ye; 20.00 BMI Method:Stated General Appearance: WD/WN, no apparent distress Knees: right knee joint effusion, right knee soft tissue tenderness, right knee swelling Neurologic/Psychiatric: no motor/sensory deficits, alert, oriented x 3 Progress/Results/Core Measures Results/Orders My Orders Orders - ZIA VORA DO Knee 4 View Or > Right (04/22/22 20:05) Knee Immobilizer (04/22/22 20:33) Vital Signs/I&O 04/22/22 19:51 Temp 36.8 Pulse 90 Resp 16 B/P (MAP) 160/96 (117) Pulse Ox 98 O2 Delivery Room Air Blood Pressure Mean: 117 Departure Communication (Admissions) Right knee x-ray: No identified change in nonhealing fracture, large joint effusion noted be present per radiology report Right knee injury without demonstrable fracture. Patient placed in knee immobilizer pain addressed. Recommendations are supportive care with orthopedic follow-up. Impression Primary Impression: Right knee injury Disposition: 01 HOME, SELF-CARE Condition: Stable Departure-Patient Inst. Decision time for Depature: 20:34 Referrals: SELFERROL MD (PCP/Family) Primary Care Physician Add. Discharge Instructions: You were evaluated in the emergency department for right knee injury. An x-ray was obtained which does not show an obvious refracture of your previous injury. Please wear knee immobilizer for comfort and continue home pain medication. Follow-up with your orthopedic surgeon for reevaluation All discharge instructions reviewed with patient and/or family. Voiced understanding. ZIA VORA DO Apr 22, 2022 20:17
--- NOTE | 2022-04-22 20:30 | Diagnostic Imaging Report ---
INDICATION: Knee pain. Prior history of fracture. Fall. COMPARISON: Radiographs from March 21, 2022. FINDINGS: The subacute nonunited fracture deformities of the proximal tibia and fibula demonstrate no appreciable interval change compared to the prior exam. Alignment is unchanged. There is no new fracture evident. There does appear to be a large knee joint effusion. IMPRESSION: 1. No identifiable change in the patient's nonunited subacute appearing fractures of the proximal right tibia and fibula. 2. Large right knee joint effusion. Dictated by: Dictated on workstation # [id number]
[2022-04-22] MEDS ORDERED: oxyCODONE/APAP 5/325MG (PERCOCET 5) TABLET PO ONE (20:45)
[2022-04-22] MEDS ORDERED: OXYC1TAB87 PO (20:53)
== END 2022-04-22 20:46 | disposition home or self-care (01) ==
LOC: EDUNIT# 19:47 → ER FS 19:48
DX: S89.91XA Unspecified injury of right lower leg, initial encounter (principal); E11.40 Type 2 diabetes mellitus with diabetic neuropathy, unspecified; F17.210 Nicotine dependence, cigarettes, uncomplicated; Z79.4 Long term (current) use of insulin; Z28.310 Unvaccinated for COVID-19; W18.2XXA Fall in (into) shower or empty bathtub, initial encounter; Y93.E1 Activity, personal bathing and showering; Y92.091 Bathroom in other non-institutional residence as the place of occurrence of the external cause
CPT/HCPCS: 73564; 99283; L1830

== ENCOUNTER 2022-10-14 17:01 | Emergency (ER) | payer MEDICAID ==
[~2022-10-14] VITALS: Ht 182.9 cm; Wt 63.5 kg
[~2022-10-14 17:01] MED LIST changes: +OXYC1TAB87 PO
[2022-10-14 17:05] VITALS: BP 125/78
--- NOTE | 2022-10-14 17:11 | ED Upper Extremity ---
General Chief Complaint: Upper Extremity Stated Complaint: FALL,L ARM BURN History of Present Illness Date Seen by Provider: Oct 14, 2022 Time Seen by Provider: 17:08 Initial Comments 47-year-old male with PMH of DM2 and HTN, is here with complaints of right forearm vazquez and right wrist pain after he rolled he lost his balance while trying to catch the grill landed in the wind and fell forward onto the grill holding onto the lid, causing the vazquez and pain injury. Denies sensory loss, head strike, LOC. Allergies and Home Medications Allergies Coded Allergies: Penicillins (Verified Allergy, Unknown, 09/14/20) aspirin (Unverified Adverse Reaction, Severe, swelling throat, 11/05/18) shellfish derived (Unverified Adverse Reaction, Severe, THROAT SWELLING, 09/14/20) Patient Home Medication List Home Medication List Reviewed: Yes Albuterol Sulfate (Proventil Hfa) 6.7 Gm Hfa.aer.ad, 2 PUFF INH Q4H PRN for SHORTNESS OF BREATH, (Reported) Entered as Reported by: UYEN CORONA on 03/21/221211 Albuterol Sulfate (Albuterol Sulfate) 2.5 Mg/3 Ml (0.083 %) Vial.neb, 2.5 MG INH Q6H PRN for SHORTNESS OF BREATH, (Reported) Entered as Reported by: NITZA SIN on 03/31/22 09 Amlodipine Besylate (Amlodipine Besylate) 10 Mg Tablet, 10 MG PO DAILY, (Reported) Entered as Reported by: UYEN CORONA on 03/21/22 121 Atorvastatin Calcium (Atorvastatin Calcium) 20 Mg Tablet, 20 MG PO DAILY, (Reported) Entered as Reported by: UYEN CORONA on 03/21/22 121 Clopidogrel Bisulfate (Clopidogrel) 75 Mg Tablet, 75 MG PO 1200 Prescribed by: MARC BLEDSOE JR, MD on 03/31/22 1058 Docusate Sodium (Colace) 100 Mg Capsule, 100 MG PO BID PRN for CONSTIPATION-1ST LINE, (Reported) Entered as Reported by: NITZA SIN on 03/31/22 0932 Famotidine (Famotidine) 40 Mg Tablet, 40 MG PO 1900, (Reported) Entered as Reported by: UYEN CORONA on 03/21/22 1212 Furosemide (Furosemide) 20 Mg Tablet, 20 MG PO BID EVERY 48 HOURS, (Reported) Entered as Reported by: UYEN CORONA on 03/21/22 121 Furosemide (Furosemide) 20 Mg Tablet, 40 MG PO BID EVERY 48 HOURS, (Reported) Entered as Reported by: UYEN CORONA on 03/21/22 1215 Hydralazine HCl (Hydralazine HCl) 50 Mg Tablet, 50 MG PO DAILY, (Reported) Entered as Reported by: UYEN CORONA on 03/21/221211 Hydralazine HCl (Hydralazine HCl) 50 Mg Tablet, 50 MG PO 1900 PRN for BLOOD PRESSURE, (Reported) Entered as Reported by: UYEN CORONA on 03/21/22 121 Insulin Lispro (Insulin Lispro Kwikpen U-100) 100 Unit/Ml Insuln.pen, UNITS SC PC, (Reported) Entered as Reported by: UYEN CORONA on 03/21/22 121 Iron Polysaccharide Complex (Polysaccharide Iron) 150 Mg Iron Capsule, 150 MG PO DAILY, (Reported) Entered as Reported by: UYEN CORONA on 03/21/22 1237 Lorazepam (Ativan) 0.5 Mg Tablet, 0.5 MG PO 0700,1500, (Reported) Entered as Reported by: UYEN CORONA on 03/21/22 121 Lorazepam (Ativan) 0.5 Mg Tablet, 0.5 MG PO HS PRN for ANXIETY, (Reported) Entered as Reported by: UYEN CORONA on 03/21/22 121 Metoprolol Tartrate (Metoprolol Tartrate) 25 Mg Tablet, 12.5 MG PO BID WITH MEALS, (Reported) Entered as Reported by: UYEN CORONA on 03/21/22 121 Morphine Sulfate (Morphine Sulfate ER) 15 Mg Tablet.er, 30 MG PO DAILY, (Reported) Entered as Reported by: UYEN CORONA on 03/21/22 121 Morphine Sulfate (Morphine Sulfate ER) 15 Mg Tablet.er, 15 MG PO HS, (Reported) Entered as Reported by: UYEN CORONA on 03/21/22 121 Omeprazole (Omeprazole) 40 Mg Capsule.dr, 40 MG PO DAILY, (Reported) Entered as Reported by: NELSON SUMNER on 09/14/20 180 Ondansetron HCl (Ondansetron HCl) 4 Mg/5 Ml Solution, 5 ML PO Q8H PRN for NAUSEA/VOMITING-1ST LINE, (Reported) Entered as Reported by: UYEN CORONA on 03/21/221211 Oxycodone HCl/Acetaminophen (Percocet 5-325 mg Tablet) 1 Each Tablet, 1 TAB PO Q4H Prescribed by: ZIA VORA on 04/22/222053 Phenytoin Sodium Extended (Phenytoin Sodium Extended) 100 Mg Capsule, 100 MG PO 0700,1700, (Reported) Entered as Reported by: UYEN CORONA on 03/21/221211 Potassium Chloride (K-Tab ER) 10 Meq Tablet.er, 10 MEQ PO DAILY, (Reported) Entered as Reported by: UYEN CORONA on 03/21/221211 Promethazine HCl (Promethazine Tablet) 25 Mg Tablet, 25 MG PO DAILY, (Reported) Entered as Reported by: UYEN CORONA on 03/21/221211 Promethazine HCl (Promethazine Tablet) 25 Mg Tablet, 25 MG PO HS PRN for NAUSEA/VOMITING-2ND LINE, (Reported) Entered as Reported by: UYEN CORONA on 03/21/221211 Ropinirole HCl (Ropinirole HCl) 0.5 Mg Tablet, 1 MG PO HS, (Reported) Entered as Reported by: UYEN CORONA on 03/21/221211 Sodium Bicarbonate (Sodium Bicarbonate) 650 Mg Tablet, 650 MG PO TID, (Reported) Entered as Reported by: UYEN CORONA on 03/21/221211 Sucralfate (Sucralfate) 1 Gram Tablet, 1 GM PO BIDAC, (Reported) Entered as Reported by: UYEN CORONA on 03/21/221211 Tamsulosin HCl (Flomax) 0.4 Mg Cap, 0.4 MG PO DAILY, (Reported) Entered as Reported by: UYEN CORONA on 03/21/221211 Venlafaxine HCl (Venlafaxine HCl) 75 Mg Tab, 75 MG PO 0700,1500, (Reported) Entered as Reported by: UYEN CORONA on 03/21/221211 Review of Systems Constitutional: no symptoms reported EENTM: no symptoms reported Respiratory: no symptoms reported Cardiovascular: no symptoms reported Gastrointestinal: no symptoms reported Genitourinary: no symptoms reported Musculoskeletal: no symptoms reported Skin: see HPI Psychiatric/Neurological: No Symptoms Reported Past Stftnui-Dhctsi-Zgpict Hx Immunizations Up To Date Tetanus Booster (TDap): Unknown First/Initial COVID19 Vaccinat: NO COVID VACCINE, DECLINED Second COVID19 Vaccination Yuri: NO COVID VACCINE, DECLINED Third COVID19 Vaccination Date: NO COVID VACCINE, DECLINED Seasonal Allergies Seasonal Allergies: No Past Medical History Surgery/Hospitalization HX: gallbladder, CHF, Crohn's, GI ulcers, IDDM Surgeries: Yes (Abscess buttocks-MRSA, jaw fx) Gallbladder Respiratory: No Currently Using CPAP: No Currently Using BIPAP: No Cardiac: Yes Hypertension Neurological: Yes Neuropathy, Seizure Disorder Genitourinary: No Renal Failure Gastrointestinal: Yes Crohns Disease Musculoskeletal: Yes (chronic pain/neuropathy also from "feet to shoulders") Chronic Back Pain Endocrine: Yes Diabetes, Insulin dep HEENT: No Dysphagia Loss of Vision: Denies Hearing Impairment: Denies Cancer: No Psychosocial: Yes Anxiety, Depression Integumentary: Yes (MRSA buttocks ) Blood Disorders: No Physical Exam Vital Signs Vital Signs - First Documented 10/14/22 17:05 Temp 37.2 Pulse 76 Resp 18 B/P (MAP) 125/78 (94) Pulse Ox 99 O2 Delivery Room Air Capillary Refill : Height, Weight, BMI Height: 6'0" Weight: 148lbs. oz. 67.427399io; 20.00 BMI Method:Stated General Appearance: WD/WN, mild distress HEENT: PERRL/EOMI Neck: full range of motion, supple, normal inspection Cardiovascular: regular rate, rhythm Respiratory: lungs clear Shoulder: normal inspection, non-tender, no evidence of injury, normal ROM Elbow/Forearm: normal ROM (No deformity), Right, abrasions, swelling (Superficial vazquez in a grid like pattern with burn lines seen on flexor surface of forearm only. Burn percentage is 1.5%. No blisters. No deformity. N/V bundle intact.) Wrist: Yes normal inspection, Yes no evidence of injury, Yes normal ROM, Yes abrasions, Yes soft tissue tenderness Hand: normal inspection, non-tender, no evidence of injury, normal ROM, Right Neurologic/Tendon: normal sensation, normal motor functions, normal tendon functions Neurologic/Psychiatric: no motor/sensory deficits, alert, normal mood/affect, oriented x 3 Progress/Results/Core Measures Results/Orders My Orders Orders - GABBIE ZACARIAS MD Forearm 2 View Left (10/14/22 17:14) Wrist 3 View Left (10/14/22 17:14) Dipht,Pertuss(Acell),Tet Adult (Boostrix (10/14/22 17:15) Hand 3 View Left (10/14/22 17:14) Medications Given in ED Current Medications Medications Dose Ordered Sig/Josef Route Start Time Stop Time Status Last Admin Dose Admin Diphtheria/ Tetanus/Acell Pertussis 0.5 ml ONCE ONCE IM 10/14/22 17:15 10/14/22 17:16 DC 10/14/22 17:32 0.5 ML Vital Signs/I&O 10/14/22 17:05 Temp 37.2 Pulse 76 Resp 18 B/P (MAP) 125/78 (94) Pulse Ox 99 O2 Delivery Room Air Progress Progress Note : Progress Note 1. SUPERFICIAL VAZQUEZ TO LEFT FOREARM: - XR LEFT WRIST/ HAND/ FOREARM: no fractures or dislocations - Tdap STAT in ER - Toradol im STAT with improvement in pain level - Follow up with PCP in 3 to 5 days - Prescription for Bactrim DS bid for 7 days - Advised antibiotic ointment on vazquez -Advised EXTR strength Tylenol every 4 hours for pain as needed -The patient was seen in the ED, and treated appropriately to presentation at a specific point in time. Patient is informed that there is a possibility that disease and illness can evolve and change in acuity rapidly or slowly after patient is discharged from the ER. Precautionary advice given to the patient for immediate return to ER if symptoms worsen or do not resolve, and to seek emergency care sooner rather than later. Pt also advised on the importance of PCP follow up and compliance with management and follow up plan with PCP and/or specialist, as this is part of the management plan. Pt verbally expressed understanding. Diagnostic Imaging Diagonstic Imaging: Xray Plain Films/CT/US/NM/MRI: hand, other Comments [facility] [place], [place] NAME: ROBLES CHANDLER Dave [facility] REC#: [id number] PT STATUS: REG ER : 1975 PHYSICIAN: GABBIE ZACARIAS MD ADMIT DATE: 10/14/22/ER FS Draft Date of Exam:10/14/22 FOREARM 2 VIEW LEFT INDICATION: Left forearm injury. FINDINGS: AP and lateral views of the left forearm show no fracture or dislocation. IMPRESSION: Negative left forearm. Dictated on workstation # [id number] Dict: 10/14/221738 Trans: 10/14/221741 PJE [id number] Interpreted by: KERI HARMAN MD Electronically signed by: [place], [place] NAME: ROBLES CHANDLER Dave MED REC#: [id number] PT STATUS: REG ER : 1975 PHYSICIAN: GABBIE ZACARIAS MD ADMIT DATE: 10/14/22/ER FS Draft Date of Exam:10/14/22 HAND 3 VIEW LEFT INDICATION: Left hand injury. FINDINGS: Three views of the left hand show no fracture, dislocation or other acute abnormality. IMPRESSION: Negative left hand. Dictated on workstation # [id number] Dict: 10/14/221737 Trans: 10/14/221740 PJE [id number] Interpreted by: KERI HARMAN MD Electronically signed by: [facility] [employer] [place], [place] NAME: ROBLES CHANDLER MED REC#: [id number] PT STATUS: REG ER : 1975 PHYSICIAN: GABBIE ZACARIAS MD ADMIT DATE: 10/14/22/ER FS Draft Date of Exam:10/14/22 WRIST 3 VIEW LEFT INDICATION: Left wrist injury. FINDINGS: Three views of the left wrist show no fracture, dislocation or other acute abnormality. IMPRESSION: Negative left wrist. Dictated on workstation # [id number] Dict: 10/14/221738 Trans: 10/14/221741 PJE [id number] Interpreted by: KERI HARMAN MD Electronically signed by: Departure Impression Primary Impression: Superficial burn of right forearm Disposition: 01 HOME, SELF-CARE Condition: Improved Departure-Patient Inst. Referrals: SELFERROL MD (PCP/Family) Primary Care Physician Patient Instructions: Minor Skin Vazquez ED Add. Discharge Instructions: - Follow up with PCP in 3 to 5 days - Prescription for Bactrim DS bid for 7 days - Advised antibiotic ointment on vazquez -Advised extra strength Tylenol for pain every 4 hours as needed All discharge instructions reviewed with patient and/or family. Voiced understanding. Scripts Sulfamethoxazole/Trimethoprim (Bactrim Ds Tablet) 800 Mg-160 Mg Tablet 1 EACH PO BID for 7 Days, #14 TAB Prov: GABBIE ZACARIAS MD 10/14/22 GABBIE ZACARIAS MD Oct 14, 2022 17:11
[2022-10-14] MEDS ORDERED: TETANUS,DIPTH,PERTUSS P/F (BOOSTRIX) 0.5 ML VIAL IM ONE (17:15)
--- NOTE | 2022-10-14 17:42 | Diagnostic Imaging Report ---
INDICATION: Left hand injury. FINDINGS: Three views of the left hand show no fracture, dislocation or other acute abnormality. IMPRESSION: Negative left hand. Dictated by: Dictated on workstation # [id number]
--- NOTE | 2022-10-14 17:42 | Diagnostic Imaging Report ---
INDICATION: Left wrist injury. FINDINGS: Three views of the left wrist show no fracture, dislocation or other acute abnormality. IMPRESSION: Negative left wrist. Dictated by: Dictated on workstation # [id number]
--- NOTE | 2022-10-14 17:43 | Diagnostic Imaging Report ---
INDICATION: Left forearm injury. FINDINGS: AP and lateral views of the left forearm show no fracture or dislocation. IMPRESSION: Negative left forearm. Dictated by: Dictated on workstation # [id number]
[2022-10-14] MEDS ORDERED: oxyCODONE/APAP 5/325MG (PERCOCET 5) TABLET PO ONE (18:15)
[2022-10-14] MEDS ORDERED: SULF-221 PO (18:18)
== END 2022-10-14 18:30 | disposition home or self-care (01) ==
LOC: EDUNIT# 17:01 → ER FS 17:02
DX: T22.111A Burn of first degree of right forearm, initial encounter (principal); T31.0 Burns involving less than 10% of body surface; Z88.1 Allergy status to other antibiotic agents; Z23 Encounter for immunization; Z28.310 Unvaccinated for COVID-19; X19.XXXA Contact with other heat and hot substances, initial encounter; Y93.G2 Activity, grilling and smoking food
CPT/HCPCS: 73110; 73130; 90715

== ENCOUNTER → 2022-11-16 | Outpatient (CLI) | payer MEDICAID ==
[~2022-11-16] MED LIST changes: +SULF-221 PO
[2022-11-16 13:27] LABS: HEMATOCRIT 36 % (40-54); MEAN CORPUSCULAR HEMOGLOBIN 28 pg (25-34); MEAN CORPUSCULAR HGB CONC 34 g/dL (32-36); MEAN CORPUSCULAR VOLUME 83 fL (80-99); MEAN PLATELET VOLUME 10.6 fL (9.0-12.2); PLATELET COUNT 481 10^3/uL (130-400); WHITE BLOOD COUNT 13.2 10^3/uL (4.3-11.0)
[2022-11-16 13:55] LABS: CREATININE SERUM 2.47 MG/DL (0.60-1.30); POTASSIUM 3.5 MMOL/L (3.6-5.0)
[2022-11-16 14:30] LABS: ALBUMIN 3.6 GM/DL (3.2-4.5); CALCIUM 8.4 MG/DL (8.5-10.1)
[2022-11-16 18:05] LABS: BILIRUBIN,URINE NEGATIVE (NEGATIVE); CLARITY,URINE CLEAR; COLOR,URINE YELLOW; GLUCOSE, URINE (UA) 3+ (NEGATIVE); KETONES,URINE NEGATIVE (NEGATIVE); LEUKOCYTE ESTERASE ,URINE NEGATIVE (NEGATIVE); NITRITE,URINE NEGATIVE (NEGATIVE); PROTEIN,URINE 3+ (NEGATIVE)
[2022-11-16 18:16] LABS: BACTERIA,URINE NEGATIVE /HPF; RBC,URINE 0-2 /HPF; WBC,URINE RARE /HPF
[2022-11-16 18:17] LABS: HYALINE CASTS, URINE 0-2 /LPF; SQUAMOUS EPITHELIAL CELL,UR RARE /HPF
[2022-11-17 14:53] LABS: PHOSPHORUS 3.3 MG/DL (2.3-4.7)
[2022-11-17 14:55] LABS: URIC ACID 6.8 MG/DL (2.6-7.2)
== END ==
LOC: LAB FS 12:58
PROVIDERS: ATTEND Internal Medicine Nephrology
DX: N18.31 Chronic kidney disease, stage 3a (principal); E55.9 Vitamin D deficiency, unspecified
CPT/HCPCS: 36415; 80069; 81000; 82306; 82570; 83970; 84156; 84550; 85027

== ENCOUNTER → 2022-12-19 | Emergency (ER) | payer MEDICAID ==
[~2022-12-19] MED LIST changes: +ONDANSETRON 4 MG/2 ML (SDV) Z0FRAN IVP ONE; +fentaNYL INJ 100 MCG/2 ML AMP IVP ONE; +hydrALAZINE (APESOLINE) 20 MG/ML VIAL IV ONE
[2022-12-19 12:42] LABS: BASOPHILS # (AUTO) 0.1 10^3/uL (0.0-0.1); BASOPHILS % (AUTO) 1 % (0-10); EOSINOPHILS # (AUTO) 0.3 10^3/uL (0.0-0.3); EOSINOPHILS % (AUTO) 2 % (0-10); HEMATOCRIT 36 % (40-54); HEMOGLOBIN 12.1 g/dL (13.3-17.7); LYMPHOCYTES # (AUTO) 3.5 10^3/uL (1.0-4.0); LYMPHOCYTES % (AUTO) 22 % (12-44); MEAN CORPUSCULAR HEMOGLOBIN 28 pg (25-34); MEAN CORPUSCULAR HGB CONC 34 g/dL (32-36); MEAN CORPUSCULAR VOLUME 82 fL (80-99); MEAN PLATELET VOLUME 10.6 fL (9.0-12.2); MONOCYTES % (AUTO) 6 % (0-12); NEUTROPHILS # (AUTO) 10.8 10^3/uL (1.8-7.8); NEUTROPHILS % (AUTO) 68 % (42-75); PLATELET COUNT 487 10^3/uL (130-400); WHITE BLOOD COUNT 15.9 10^3/uL (4.3-11.0)
[2022-12-19 12:53] LABS: INR 0.8 (0.8-1.4); PROTHROMBIN TIME PATIENT 11.7 SEC (12.2-14.7)
[2022-12-19 13:01] LABS: ALANINE AMINOTRANSFERASE 7 U/L (0-55); ALBUMIN 3.6 GM/DL (3.2-4.5); ALKALINE PHOSPHATASE 105 U/L (40-136); BILIRUBIN,TOTAL < 0.2 MG/DL (0.1-1.0); BUN/CREATININE RATIO 15; CALCIUM 8.9 MG/DL (8.5-10.1); CARBON DIOXIDE 23 MMOL/L (21-32); CHLORIDE 101 MMOL/L (98-107); CREATININE SERUM 2.06 MG/DL (0.60-1.30); GFR ESTIMATED 39; GLUCOSE 219 MG/DL (70-105); POTASSIUM 4.1 MMOL/L (3.6-5.0); SODIUM 136 MMOL/L (135-145); TOTAL PROTEIN 6.2 GM/DL (6.4-8.2)
[2022-12-19 13:07] LABS: EOSINOPHILS % (MANUAL) 3 %; LYMPHOCYTES % (MANUAL) 23 %; MONOCYTES % (MANUAL) 5 %; NEUTROPHILS % (MANUAL) 69 %; RBC MORPH NORMAL
--- NOTE | 2022-12-19 13:09 | Diagnostic Imaging Report ---
EXAMINATION: CT head without contrast. TECHNIQUE: Multiple contiguous axial images were obtained through the brain without the use of intravenous contrast. All CT scans use one or more of the following dose optimizing techniques: automated exposure control, MA and/or KvP adjustment based on patient size and exam type or iterative reconstruction. HISTORY: Severe headache. COMPARISON: 11/30/2020. FINDINGS: No large acute territorial ischemia, mass, or hemorrhage. No midline shift or mass effect. The ventricles, cortical sulci, and basilar cisterns are patent and unremarkable. The orbits are normal. Paranasal sinuses are normal. Mastoid air cells are clear. No soft tissue abnormality is seen. No osseus lesions or fractures are seen. IMPRESSION: 1. No large acute territorial ischemia, mass, or hemorrhage. Dictated by: Dictated on workstation # [id number]
--- NOTE | 2022-12-19 14:22 | ED General ---
General Chief Complaint: General Problems/Pain Stated Complaint: AMS Source of Information: Patient, Family ( and daughter) Exam Limitations: Other (Medical condition) History of Present Illness Date Seen by Provider: Dec 19, 2022 Time Seen by Provider: 12:23 Initial Comments 47-year-old male patient with history of seizure, Crohn's disease, headache, hypertension brought in POV because of severe headache and nausea and vomiting. Patient stated he had 2 episodes of seeing vomiting this morning and unable to take his medication. Patient had 1 episode of grandma seizure around 10 AM today and was able to take a shower after his seizure but suddenly complaining of severe headache and increasing nausea and vomiting. Patient stated he has the same problem previously and has elevation of blood pressure frequently. Patient had blood pressure of more than 200/100 at arrival to ER and had active vomiting and dry heaving and complaining of severe headache. Patient did not have fever and chills and head injury. Patient complaining of abdominal pain and his stated he has had Crohn's disease and colon abdominal pain. Allergies and Home Medications Allergies Coded Allergies: Penicillins (Verified Allergy, Unknown, 09/14/20) aspirin (Unverified Adverse Reaction, Severe, swelling throat, 11/05/18) shellfish derived (Unverified Adverse Reaction, Severe, THROAT SWELLING, 09/14/20) Patient Home Medication List Home Medication List Reviewed: Yes Albuterol Sulfate (Proventil Hfa) 6.7 Gm Hfa.aer.ad, 2 PUFF INH Q4H PRN for SHORTNESS OF BREATH, (Reported) Entered as Reported by: UYEN CORONA on 03/21/22 121 Albuterol Sulfate (Albuterol Sulfate) 2.5 Mg/3 Ml (0.083 %) Vial.neb, 2.5 MG INH Q6H PRN for SHORTNESS OF BREATH, (Reported) Entered as Reported by: NITZA SIN on 03/31/22 0932 Amlodipine Besylate (Amlodipine Besylate) 10 Mg Tablet, 10 MG PO DAILY, (Reported) Entered as Reported by: UYEN CORONA on 03/21/22 121 Atorvastatin Calcium (Atorvastatin Calcium) 20 Mg Tablet, 20 MG PO DAILY, (Reported) Entered as Reported by: UYEN CORONA on 03/21/22 121 Clopidogrel Bisulfate (Clopidogrel) 75 Mg Tablet, 75 MG PO 1200 Prescribed by: MARC BLEDSOE JR, MD on 03/31/22 1058 Docusate Sodium (Colace) 100 Mg Capsule, 100 MG PO BID PRN for CONSTIPATION-1ST LINE, (Reported) Entered as Reported by: NITZA SIN on 03/31/22 0932 Famotidine (Famotidine) 40 Mg Tablet, 40 MG PO 1900, (Reported) Entered as Reported by: UYEN CORONA on 03/21/22 121 Furosemide (Furosemide) 20 Mg Tablet, 20 MG PO BID EVERY 48 HOURS, (Reported) Entered as Reported by: UYEN CORONA on 03/21/221211 Furosemide (Furosemide) 20 Mg Tablet, 40 MG PO BID EVERY 48 HOURS, (Reported) Entered as Reported by: UYEN CORONA on 03/21/22 121 Hydralazine HCl (Hydralazine HCl) 50 Mg Tablet, 50 MG PO DAILY, (Reported) Entered as Reported by: UYEN CORONA on 03/21/22 121 Hydralazine HCl (Hydralazine HCl) 50 Mg Tablet, 50 MG PO 1900 PRN for BLOOD PRESSURE, (Reported) Entered as Reported by: UYEN CORONA on 03/21/22 121 Insulin Lispro (Insulin Lispro Kwikpen U-100) 100 Unit/Ml Insuln.pen, UNITS SC PC, (Reported) Entered as Reported by: UYEN CORONA on 03/21/22 121 Iron Polysaccharide Complex (Polysaccharide Iron) 150 Mg Iron Capsule, 150 MG PO DAILY, (Reported) Entered as Reported by: UYEN CORONA on 03/21/22 1237 Lorazepam (Ativan) 0.5 Mg Tablet, 0.5 MG PO 0700,1500, (Reported) Entered as Reported by: UYEN CORONA on 03/21/22 121 Lorazepam (Ativan) 0.5 Mg Tablet, 0.5 MG PO HS PRN for ANXIETY, (Reported) Entered as Reported by: UYEN CORONA on 03/21/22 121 Metoprolol Tartrate (Metoprolol Tartrate) 25 Mg Tablet, 12.5 MG PO BID WITH MEAL S, (Reported) Entered as Reported by: UYEN CORONA on 03/21/22 121 Morphine Sulfate (Morphine Sulfate ER) 15 Mg Tablet.er, 30 MG PO DAILY, (Reported) Entered as Reported by: UYEN CORONA on 03/21/22 121 Morphine Sulfate (Morphine Sulfate ER) 15 Mg Tablet.er, 15 MG PO HS, (Reported) Entered as Reported by: UYEN CORONA on 03/21/22 121 Omeprazole (Omeprazole) 40 Mg Capsule.dr, 40 MG PO DAILY, (Reported) Entered as Reported by: NELSON SUMNER on 09/14/20 180 Ondansetron HCl (Ondansetron HCl) 4 Mg/5 Ml Solution, 5 ML PO Q8H PRN for NAUSEA/VOMITING-1ST LINE, (Reported) Entered as Reported by: UYEN CORONA on 03/21/221211 Oxycodone HCl/Acetaminophen (Percocet 5-325 mg Tablet) 1 Each Tablet, 1 TAB PO Q4H Prescribed by: ZIA VORA on 04/22/222053 Phenytoin Sodium Extended (Phenytoin Sodium Extended) 100 Mg Capsule, 100 MG PO 0700,1700, (Reported) Entered as Reported by: UYEN CORONA on 03/21/22 121 Potassium Chloride (K-Tab ER) 10 Meq Tablet.er, 10 MEQ PO DAILY, (Reported) Entered as Reported by: UYEN CORONA on 03/21/221211 Promethazine HCl (Promethazine Tablet) 25 Mg Tablet, 25 MG PO DAILY, (Reported) Entered as Reported by: UYEN CORONA on 03/21/22 121 Promethazine HCl (Promethazine Tablet) 25 Mg Tablet, 25 MG PO HS PRN for NAUSEA/VOMITING-2ND LINE, (Reported) Entered as Reported by: UYEN CORONA on 03/21/221211 Ropinirole HCl (Ropinirole HCl) 0.5 Mg Tablet, 1 MG PO HS, (Reported) Entered as Reported by: UYEN CORONA on 03/21/221211 Sodium Bicarbonate (Sodium Bicarbonate) 650 Mg Tablet, 650 MG PO TID, (Reported) Entered as Reported by: UYEN CORONA on 03/21/221211 Sucralfate (Sucralfate) 1 Gram Tablet, 1 GM PO BIDAC, (Reported) Entered as Reported by: UYEN CORONA on 9/19/22 1212 Sulfamethoxazole/Trimethoprim (Bactrim Ds Tablet) 800 Mg-160 Mg Tablet, 1 EACH PO BID Prescribed by: GABBIE ZACARIAS MD on 10/14/22 1818 Tamsulosin HCl (Flomax) 0.4 Mg Cap, 0.4 MG PO DAILY, (Reported) Entered as Reported by: UYEN CORONA on 03/21/22 1212 Venlafaxine HCl (Venlafaxine HCl) 75 Mg Tab, 75 MG PO 0700,1500, (Reported) Entered as Reported by: UYEN CORONA on 03/21/22 1212 Review of Systems Review of Systems Constitutional: see HPI EENTM: see HPI Respiratory: see HPI Cardiovascular: see HPI Gastrointestinal: see HPI Genitourinary: see HPI Musculoskeletal: see HPI Skin: see HPI Psychiatric/Neurological: See HPI Hematologic/Lymphatic: See HPI Immunological/Allergic: see HPI Past Hvdbegn-Vcxqah-Mwkuwy Hx Patient Social History Tobacco Use?: Yes Tobacco type used: Cigarettes Substance use?: Yes Substance type: Marijuana Substance frequency: Daily Immunizations Up To Date Tetanus Booster (TDap): Unknown First/Initial COVID19 Vaccinat: NO COVID VACCINE, DECLINED Second COVID19 Vaccination Yuri: NO COVID VACCINE, DECLINED Third COVID19 Vaccination Date: NO COVID VACCINE, DECLINED Seasonal Allergies Seasonal Allergies: No Past Medical History Surgery/Hospitalization HX: gallbladder, CHF, Crohn's, GI ulcers, IDDM Surgeries: Yes (Abscess buttocks-MRSA, jaw fx) Gallbladder Respiratory: No Currently Using CPAP: No Currently Using BIPAP: No Cardiac: Yes Hypertension Neurological: Yes Neuropathy, Seizure Disorder Genitourinary: No Renal Failure Gastrointestinal: Yes Crohns Disease Musculoskeletal: Yes (chronic pain/neuropathy also from "feet to shoulders") Chronic Back Pain Endocrine: Yes Diabetes, Insulin dep HEENT: No Dysphagia Loss of Vision: Denies Hearing Impairment: Denies Cancer: No Psychosocial: Yes Anxiety, Depression Integumentary: Yes (MRSA buttocks ) Blood Disorders: No Physical Exam Vital Signs Vital Signs - First Documented 12/19/22 14:03 Pulse 95 Resp 12 B/P (MAP) 206/116 (146) Pulse Ox 97 O2 Delivery Room Air Capillary Refill : Height, Weight, BMI Height: 6'0" Weight: 148lbs. oz. 67.068150cm; 18.00 BMI Method:Stated General Appearance: Anxious, Mild Distress Eyes: Bilateral Eye Normal Inspection, Bilateral Eye PERRL, Bilateral Eye EOMI HEENT: PERRL/EOMI, TMs Normal Neck: Full Range of Motion, Normal Inspection Respiratory: Chest Non Tender, Lungs Clear, Normal Breath Sounds, No Accessory Muscle Use Cardiovascular: Regular Rate, Rhythm, No Edema, No Gallop Gastrointestinal: Normal Bowel Sounds, No Organomegaly, No Pulsatile Mass Back: Normal Inspection, No CVA Tenderness Extremity: Normal Capillary Refill, Normal Inspection, Non Tender Neurologic/Psychiatric: Alert, Other (Chronic lower extremity weakness) Skin: Normal Color Progress/Results/Core Measures Suspected Sepsis SIRS Temperature: Pulse: Respiratory Rate: Laboratory Tests 12/19/22 12:30: White Blood Count 15.9H Blood Pressure / Mean: 146 Laboratory Tests 12/19/22 12:30: Creatinine 2.06H, INR Comment 0.8, Platelet Count 487H, Total Bilirubin < 0.2 Results/Orders Lab Results Laboratory Tests Test 12/19/22 12:27 12/19/22 12:30 Range/Units Glucometer 197 H 70-110 MG/DL White Blood Count 15.9 H 4.3-11.0 10^3/uL Red Blood Count 4.33 4.30-5.52 10^6/uL Hemoglobin 12.1 L 13.3-17.7 g/dL Hematocrit 36 L 40-54 % Mean Corpuscular Volume 82 80-99 fL Mean Corpuscular Hemoglobin 28 25-34 pg Mean Corpuscular Hemoglobin Concent 34 32-36 g/dL Red Cell Distribution Width 14.5 10.0-14.5 % Platelet Count 487 H 130-400 10^3/uL Mean Platelet Volume 10.6 9.0-12.2 fL Immature Granulocyte % (Auto) 1 % Neutrophils (%) (Auto) 68 42-75 % Lymphocytes (%) (Auto) 22 12-44 % Monocytes (%) (Auto) 6 0-12 % Eosinophils (%) (Auto) 2 0-10 % Basophils (%) (Auto) 1 0-10 % Neutrophils # (Auto) 10.8 H 1.8-7.8 10^3/uL Lymphocytes # (Auto) 3.5 1.0-4.0 10^3/uL Monocytes # (Auto) 1.0 0.0-1.0 10^3/uL Eosinophils # (Auto) 0.3 0.0-0.3 10^3/uL Basophils # (Auto) 0.1 0.0-0.1 10^3/uL Immature Granulocyte # (Auto) 0.1 0.0-0.1 10^3/uL Neutrophils % (Manual) 69 % Lymphocytes % (Manual) 23 % Monocytes % (Manual) 5 % Eosinophils % (Manual) 3 % Blood Morphology Comment NORMAL Prothrombin Time 11.7 L 12.2-14.7 SEC INR Comment 0.8 0.8-1.4 Activated Partial Thromboplast Time 25 24-35 SEC Sodium Level 136 135-145 MMOL/L Potassium Level 4.1 3.6-5.0 MMOL/L Chloride Level 101 98-107 MMOL/L Carbon Dioxide Level 23 21-32 MMOL/L Anion Gap 12 5-14 MMOL/L Blood Urea Nitrogen 31 H 7-18 MG/DL Creatinine 2.06 H 0.60-1.30 MG/DL Estimat Glomerular Filtration Rate 39 BUN/Creatinine Ratio 15 Glucose Level 219 H 70-105 MG/DL Calcium Level 8.9 8.5-10.1 MG/DL Corrected Calcium 9.2 8.5-10.1 MG/DL Total Bilirubin < 0.2 0.1-1.0 MG/DL Aspartate Amino Transf (AST/SGOT) 9 5-34 U/L Alanine Aminotransferase (ALT/SGPT) 7 0-55 U/L Alkaline Phosphatase 105 40-136 U/L Troponin I < 0.30 <0.30 NG/ML Total Protein 6.2 L 6.4-8.2 GM/DL Albumin 3.6 3.2-4.5 GM/DL My Orders Orders - NOEMI CHAPPELL MD Cbc With Automated Diff (12/19/22 12:32) Protime With Inr (12/19/22 12:32) Partial Thromboplastin Time (12/19/22 12:32) Comprehensive Metabolic Panel (12/19/22 12:32) Troponin I Fs (12/19/22 12:32) Ua Culture If Indicated (12/19/22 12:32) Ekg Tracing (12/19/22 12:32) Accucheck Stat ONCE (12/19/22 12:32) Ed Iv/Invasive Line Start (12/19/22 12:32) Vital Signs Stroke Patient Q15M (12/19/22 12:32) Ct Head Wo-R/O Stroke (12/19/22 12:32) Monitor-Rhythm Ecg Trace Only (12/19/22 12:32) Dysphagia Screening Tool Q10MX1 (12/19/22 12:32) Drug Screen Stat (Urine) (12/19/22 12:32) Fentanyl Inj (Sublimaze Injection) (12/19/22 12:45) Ondansetron Injection (Zofran Injectio (12/19/22 12:45) Manual Differential (12/19/22 12:30) Hydralazine Injection (Apresoline Inject (12/19/22 14:00) Medications Given in ED Current Medications Medications Dose Ordered Sig/Josef Route Start Time Stop Time Status Last Admin Dose Admin Fentanyl Citrate 50 mcg ONCE ONCE IVP 12/19/22 12:45 12/19/22 12:46 DC 12/19/22 13:08 50 MCG Hydralazine HCl 10 mg ONCE ONCE IV 12/19/22 14:00 12/19/22 14:01 DC 12/19/22 14:02 10 MG Ondansetron HCl 4 mg ONCE ONCE IVP 12/19/22 12:45 12/19/22 12:46 DC 12/19/22 12:39 4 MG Vital Signs/I&O 12/19/22 14:03 Pulse 95 Resp 12 B/P (MAP) 206/116 (146) Pulse Ox 97 O2 Delivery Room Air Capillary Refill : Blood Pressure Mean: 146 Progress Note : Progress Note Patient with history of chronic medical problems and complaining of severe hea dache and nausea and vomiting and elevation of blood pressure. Patient treated with Zofran and fentanyl with improvement of his nausea and pain. Patient did not have new focal neurodeficit and CT head was not showing acute finding. CBC and CMP ordered and reviewed by me and showed chronic leukocytosis and chronic renal insufficiency and blood sugar of 219. Patient treated with hydralazine with decrease of blood pressure to 180/95. Patient felt better and decided to go home and not waiting for having a urine sample. Diagnostic Imaging Diagonstic Imaging: CT Plain Films/CT/US/NM/MRI: head Comments CT head interpreted by radiologist and reviewed by me and showed: [facility] [place], [place] NAME: ROBLES CHANDLER [facility] REC#: [id number] PT STATUS: REG ER : 1975 PHYSICIAN: NOEMI CHAPPELL MD ADMIT DATE: 12/19/22/ER FS Signed Date of Exam:12/19/22 CT HEAD WO-R/O STROKE EXAMINATION: CT head without contrast. TECHNIQUE: Multiple contiguous axial images were obtained through the brain without the use of intravenous contrast. All CT scans use one or more of the following dose optimizing techniques: automated exposure control, MA and/or KvP adjustment based on patient size and exam type or iterative reconstruction. HISTORY: Severe headache. COMPARISON: 11/30/2020. FINDINGS: No large acute territorial ischemia, mass, or hemorrhage. No midline shift or mass effect. The ventricles, cortical sulci, and basilar cisterns are patent and unremarkable. The orbits are normal. Paranasal sinuses are normal. Mastoid air cells are clear. No soft tissue abnormality is seen. No osseus lesions or fractures are seen. IMPRESSION: 1. No large acute territorial ischemia, mass, or hemorrhage. Dictated by: Dictated on workstation # [id number] Dict: 12/19/22 1306 Trans: 12/19/22 1310 [facility] [id number] Interpreted by: ADITYA MCMULLEN DO Electronically signed by: ADITYA MCMULLEN DO 12/19/22 1310 Critical Care Note Critical Care Total Time (minutes) 50 Departure Impression Primary Impression: Headache Qualified Codes: R51.9 - Headache, unspecified Additional Impressions: Uncontrolled hypertension Nausea and vomiting Qualified Codes: R11.2 - Nausea with vomiting, unspecified Leukocytosis Qualified Codes: D72.829 - Elevated white blood cell count, unspecified Chronic renal insufficiency Qualified Codes: N18.9 - Chronic kidney disease, unspecified History of seizure Uncontrolled diabetes mellitus Qualified Codes: E11.65 - Type 2 diabetes mellitus with hyperglycemia Disposition: 01 HOME, SELF-CARE Condition: Improved Departure-Patient Inst. Decision time for Depature: 14:21 Referrals: SELFERROL MD (PCP/Family) Primary Care Physician Patient Instructions: High blood pressure in adults, Nausea and Vomiting, Adult (DC), Headache, Adult ED Add. Discharge Instructions: Continue home medication including nausea medicine May take Tylenol as needed for pain Follow-up with your primary care physician in 1 -2 days Return to ER as needed All discharge instructions reviewed with patient and/or family. Voiced understanding. NOEMI CHAPPELL MD Dec 19, 2022 14:22
== END ==
LOC: EDUNIT# 12:21 → ER FS 12:24
DX: I13.0 Hypertensive heart and chronic kidney disease with heart failure and stage 1 through stage 4 chronic kidney disease, or unspecified chronic kidney disease (principal); E11.22 Type 2 diabetes mellitus with diabetic chronic kidney disease; I50.9 Heart failure, unspecified; N18.9 Chronic kidney disease, unspecified; D72.829 Elevated white blood cell count, unspecified; Z86.69 Personal history of other diseases of the nervous system and sense organs; F17.210 Nicotine dependence, cigarettes, uncomplicated; Z28.310 Unvaccinated for COVID-19
CPT/HCPCS: 36415; 70450; 80053; 82947; 84484; 85007; 85027; 85610; 85730

== ENCOUNTER 2022-12-24 10:15 | Emergency (ER) | payer MEDICAID ==
[~2022-12-24] VITALS: Ht 182.8 cm; Wt 62.6 kg
[~2022-12-24 10:15] MED LIST changes: -ONDANSETRON 4 MG/2 ML (SDV) Z0FRAN IVP ONE; -fentaNYL INJ 100 MCG/2 ML AMP IVP ONE; -hydrALAZINE (APESOLINE) 20 MG/ML VIAL IV ONE
[2022-12-24 10:18] VITALS: BP 126/74
[2022-12-24] MEDS ORDERED: HYDROcodone/APAP 5 MG/325 MG (LORTAB) TAB PO ONE (10:30)
--- NOTE | 2022-12-24 10:34 | ED Fall/Injury ---
General Chief Complaint: Trauma-Non Activation Stated Complaint: FALL; LT RIB PAIN Source: patient, family Exam Limitations: no limitations History of Present Illness Date Seen by Provider: Dec 24, 2022 Time Seen by Provider: 10:17 Initial Comments 47yoM with PMH of Crohn's, diabetes, CAD with stenting on Plavix coming in after mechanical fall landing on his left side of his chest onto the couch. Scraped his right forearm as well. Tetanus is up-to-date. Mostly having left-sided rib pain. Has not taken anything for the pain as of yet. Pain is better with rest. This occurred shortly prior to arrival. Did not hit his head, did not pass out, no neck pain or back pain, no weakness or numbness, and has been ambulatory since the incident with his walker, but uses a wheelchair most of the time anyways. Allergies and Home Medications Allergies Coded Allergies: Penicillins (Verified Allergy, Unknown, 09/14/20) aspirin (Unverified Adverse Reaction, Severe, swelling throat, 11/05/18) shellfish derived (Unverified Adverse Reaction, Severe, THROAT SWELLING, 09/14/20) Patient Home Medication List Home Medication List Reviewed: Yes Albuterol Sulfate (Proventil Hfa) 6.7 Gm Hfa.aer.ad, 2 PUFF INH Q4H PRN for SHORTNESS OF BREATH, (Reported) Entered as Reported by: UYEN CORONA on 03/21/22 1212 Albuterol Sulfate (Albuterol Sulfate) 2.5 Mg/3 Ml (0.083 %) Vial.neb, 2.5 MG INH Q6H PRN for SHORTNESS OF BREATH, (Reported) Entered as Reported by: NITZA SIN on 03/31/22 0932 Amlodipine Besylate (Amlodipine Besylate) 10 Mg Tablet, 10 MG PO DAILY, (Reported) Entered as Reported by: UYEN CORONA on 03/21/22 1212 Atorvastatin Calcium (Atorvastatin Calcium) 20 Mg Tablet, 20 MG PO DAILY, (Reported) Entered as Reported by: UYEN CORONA on 03/21/22 1212 Clopidogrel Bisulfate (Clopidogrel) 75 Mg Tablet, 75 MG PO 1200 Prescribed by: MARC BLEDSOE JR, MD on 03/31/22 1058 Cyclobenzaprine HCl (Cyclobenzaprine HCl) 10 Mg Tablet, 10 MG PO Q8H PRN for SPASMS Prescribed by: ALLAN VALLEJO on 12/24/22 1057 Docusate Sodium (Colace) 100 Mg Capsule, 100 MG PO BID PRN for CONSTIPATION-1ST LINE, (Reported) Entered as Reported by: NITZA SIN on 03/31/22 0932 Famotidine (Famotidine) 40 Mg Tablet, 40 MG PO 1900, (Reported) Entered as Reported by: UYEN CORONA on 03/21/22 121 Furosemide (Furosemide) 20 Mg Tablet, 20 MG PO BID EVERY 48 HOURS, (Reported) Entered as Reported by: UYEN CORONA on 03/21/221211 Furosemide (Furosemide) 20 Mg Tablet, 40 MG PO BID EVERY 48 HOURS, (Reported) Entered as Reported by: UYEN CORONA on 03/21/22 121 Hydralazine HCl (Hydralazine HCl) 50 Mg Tablet, 50 MG PO DAILY, (Reported) Entered as Reported by: UYEN CORONA on 03/21/22 121 Hydralazine HCl (Hydralazine HCl) 50 Mg Tablet, 50 MG PO 1900 PRN for BLOOD PRESSURE, (Reported) Entered as Reported by: UYEN CORONA on 03/21/22 121 Hydrocodone/Acetaminophen (Hydrocodone-Acetamin 5-325 mg) 5 Mg-325 Mg Tablet, 1 TAB PO Q8H PRN for PAIN-MODERATE (5-7) Prescribed by: ALLAN VALLEJO on 12/24/22 1058 Insulin Lispro (Insulin Lispro Kwikpen U-100) 100 Unit/Ml Insuln.pen, UNITS SC PC, (Reported) Entered as Reported by: UYEN CORONA on 03/21/22 121 Iron Polysaccharide Complex (Polysaccharide Iron) 150 Mg Iron Capsule, 150 MG PO DAILY, (Reported) Entered as Reported by: UYEN CORONA on 03/21/22 1237 Lorazepam (Ativan) 0.5 Mg Tablet, 0.5 MG PO 0700,1500, (Reported) Entered as Reported by: UYEN CORONA on 03/21/22 121 Lorazepam (Ativan) 0.5 Mg Tablet, 0.5 MG PO HS PRN for ANXIETY, (Reported) Entered as Reported by: UYEN CORONA on 03/21/22 1212 Metoprolol Tartrate (Metoprolol Tartrate) 25 Mg Tablet, 12.5 MG PO BID WITH MEALS, (Reported) Entered as Reported by: UYEN CORONA on 03/21/22 121 Morphine Sulfate (Morphine Sulfate ER) 15 Mg Tablet.er, 30 MG PO DAILY, (Reported) Entered as Reported by: UYEN CORONA on 03/21/22 121 Morphine Sulfate (Morphine Sulfate ER) 15 Mg Tablet.er, 15 MG PO HS, (Reported) Entered as Reported by: UYEN CORONA on 03/21/22 121 Omeprazole (Omeprazole) 40 Mg Capsule.dr, 40 MG PO DAILY, (Reported) Entered as Reported by: NELSON SUMNER on 09/14/20 180 Ondansetron HCl (Ondansetron HCl) 4 Mg/5 Ml Solution, 5 ML PO Q8H PRN for NAUSEA/VOMITING-1ST LINE, (Reported) Entered as Reported by: UYEN CORONA on 03/21/221211 Oxycodone HCl/Acetaminophen (Percocet 5-325 mg Tablet) 1 Each Tablet, 1 TAB PO Q4H Prescribed by: ZIA VORA on 04/22/222053 Phenytoin Sodium Extended (Phenytoin Sodium Extended) 100 Mg Capsule, 100 MG PO 0700,1700, (Reported) Entered as Reported by: UYEN CORONA on 03/21/22 121 Potassium Chloride (K-Tab ER) 10 Meq Tablet.er, 10 MEQ PO DAILY, (Reported) Entered as Reported by: UYEN CORONA on 03/21/22 121 Promethazine HCl (Promethazine Tablet) 25 Mg Tablet, 25 MG PO DAILY, (Reported) Entered as Reported by: UYEN CORONA on 03/21/22 121 Promethazine HCl (Promethazine Tablet) 25 Mg Tablet, 25 MG PO HS PRN for NAUSEA/VOMITING-2ND LINE, (Reported) Entered as Reported by: UYEN CORONA on 03/21/22 121 Ropinirole HCl (Ropinirole HCl) 0.5 Mg Tablet, 1 MG PO HS, (Reported) Entered as Reported by: UYEN CORONA on 03/21/22 121 Sodium Bicarbonate (Sodium Bicarbonate) 650 Mg Tablet, 650 MG PO TID, (Reported) Entered as Reported by: UYEN CORONA on 03/21/22 1212 Sucralfate (Sucralfate) 1 Gram Tablet, 1 GM PO BIDAC, (Reported) Entered as Reported by: UYEN CORONA on 03/21/22 121 Sulfamethoxazole/Trimethoprim (Bactrim Ds Tablet) 800 Mg-160 Mg Tablet, 1 EACH PO BID Prescribed by: GABBIE ZACARIAS MD on 10/14/22 181 Tamsulosin HCl (Flomax) 0.4 Mg Cap, 0.4 MG PO DAILY, (Reported) Entered as Reported by: UYEN CORONA on 03/21/22 121 Venlafaxine HCl (Venlafaxine HCl) 75 Mg Tab, 75 MG PO 0700,1500, (Reported) Entered as Reported by: UYEN CORONA on 03/21/22 121 Review of Systems Review of Systems Constitutional: No fever Ears, Nose, Mouth, Throat: no symptoms reported Respiratory: no symptoms reported Cardiovascular: no symptoms reported Gastrointestinal: no symptoms reported Genitourinary: no symptoms reported Musculoskeletal: see HPI Skin: see HPI Psychiatric/Neurological: No Symptoms Reported Past Lkergcj-Sccmsb-Ecfkfn Hx Patient Social History Tobacco Use?: Yes Tobacco type used: Cigarettes Substance use?: Yes Substance type: Marijuana Pt feels they are or have been: No Immunizations Up To Date Tetanus Booster (TDap): Unknown First/Initial COVID19 Vaccinat: NO COVID VACCINE, DECLINED Second COVID19 Vaccination Yuri: NO COVID VACCINE, DECLINED Third COVID19 Vaccination Date: NO COVID VACCINE, DECLINED Seasonal Allergies Seasonal Allergies: No Past Medical History Surgery/Hospitalization HX: gallbladder, CHF, Crohn's, GI ulcers, IDDM, CAD with stent Surgeries: Yes (Abscess buttocks-MRSA, jaw fx) Gallbladder Respiratory: No Currently Using CPAP: No Currently Using BIPAP: No Cardiac: Yes Hypertension Neurological: Yes Neuropathy, Seizure Disorder Genitourinary: No Renal Failure Gastrointestinal: Yes Crohns Disease Musculoskeletal: Yes (chronic pain/neuropathy also from "feet to shoulders") Chronic Back Pain Endocrine: Yes Diabetes, Insulin dep HEENT: No Dysphagia Loss of Vision: Denies Hearing Impairment: Denies Cancer: No Psychosocial: Yes Anxiety, Depression Integumentary: Yes (MRSA buttocks ) Blood Disorders: No Physical Exam Vital Signs Vital Signs - First Documented 12/24/22 10:18 Temp 35.5 Pulse 100 Resp 16 B/P (MAP) 126/74 (91) Pulse Ox 97 O2 Delivery Room Air Capillary Refill : Height, Weight, BMI Height: 6'0" Weight: 148lbs. oz. 67.400635fm; 18.00 BMI Method:Stated General Appearance: WD/WN, no apparent distress HEENT: PERRL/EOMI, normal ENT inspection, pharynx normal Neck: non-tender, full range of motion, supple, normal inspection Cardiovascular: regular rate, rhythm, no edema Respiratory: lungs clear, normal breath sounds, no respiratory distress, no accessory muscle use, other (left anterior/lateral chest wall pain) Gastrointestinal: normal bowel sounds, non tender, soft; No guarding, No rebound Back: normal inspection, no CVA tenderness, no vertebral tenderness Extremities: normal range of motion, non-tender, no pedal edema, no calf tenderness, normal capillary refill, other (Abrasion to right forearm, neuro vascularly intact) Neurologic/Psychiatric: no motor/sensory deficits, alert, normal mood/affect Skin: normal color, warm/dry Rand Coma Score Best Eye Response: (4) Open Spontaneously Best Verbal Response: (5) Oriented Best Motor Response: (6) Obeys Commands Progress/Results/Core Measures Results/Orders My Orders Orders - ALLAN VALLEJO MD Hydrocodone/Apap 5/325 Tablet (Lortab 5 (12/24/22 10:30) Ribs/Unilateral With Chest (12/24/22 10:25) Medications Given in ED Current Medications Medications Dose Ordered Sig/Josef Route Start Time Stop Time Status Last Admin Dose Admin Acetaminophen/ Hydrocodone Bitart 1 ea ONCE ONCE PO 12/24/22 10:30 12/24/22 10:31 DC 12/24/22 10:36 1 EA Vital Signs/I&O 12/24/22 10:18 Temp 35.5 Pulse 100 Resp 16 B/P (MAP) 126/74 (91) Pulse Ox 97 O2 Delivery Room Air Progress Progress Note : Progress Note 47-year-old male with above history coming in due to left-sided chest wall pain after a fall and hitting the left side of his chest wall against the couch. ABCs were intact and vitals are stable on presentation. Physical exam with tenderness to palpation on the left anterior and lateral ribs. Chest x-ray ordered and interpreted by me showing no obvious rib fracture that is displaced, no pneumothorax. Patient given hydrocodone here for pain. Could have clinical rib fractures that are nondisplaced. We will give a prescription for hydrocodone for a few days so he can follow-up with his PCP. Diagnostic Imaging Diagonstic Imaging: Xray (chest and rib series) Departure Impression Primary Impression: Fall Qualified Codes: W19.XXXA - Unspecified fall, initial encounter Additional Impression: Contusion of rib on left side Qualified Codes: S20.212A - Contusion of left front wall of thorax, initial encounter Disposition: HOME, SELF-CARE Condition: Stable Departure-Patient Inst. Decision time for Depature: 11:00 Referrals: ERROL SINGLETARY MD (PCP/Family) Primary Care Physician Patient Instructions: Blunt Chest Trauma ED Add. Discharge Instructions: There does not appear to be any significantly displaced rib fractures. You likely have some bruised ribs which can be quite painful. Pain medications were sent to your pharmacy. Follow back up with your regular doctor if you are not seeing improvement after the next week or so. Scripts Lidocaine (Lidocaine 5% Patch) 5 % Adh..patch 1 EACH TP Q12H PRN for Neuropathic pain MDD 2 for 7 Days, #14 PATCH 2 patches max for 12 hours, then 12 hours patch-free period. Prov: ALLAN VALLEJO MD 12/24/22 Cyclobenzaprine HCl (Cyclobenzaprine HCl) 10 Mg Tablet 10 MG PO Q8H PRN for SPASMS for 4 Days, #12 TAB 0 Refills Prov: ALLAN VALLEJO MD 12/24/22 Hydrocodone/Acetaminophen (Hydrocodone-Acetamin 5-325 mg) 5 Mg-325 Mg Tablet 1 TAB PO Q8H PRN for PAIN-MODERATE (5-7) for 3 Days, #9 TAB Prov: ALLAN VALLEJO MD 12/24/22 Work/School Note: Family Work Note Patient Received Medical Care In the Emergency Department On: Dec 24, 2022 Patient Will Be Able to Return to Work/School On: Dec 25, 2022 ALLAN VALLEJO MD Dec 24, 2022 10:34
[2022-12-24] MEDS ORDERED: ACHD5005 PO ×2 (10:57→11:04)
[2022-12-24] MEDS ORDERED: CYCL10TA25 PO ×2 (10:57→11:04)
[2022-12-24] MEDS ORDERED: LIDO700A45 TP (11:04)
--- NOTE | 2022-12-24 11:20 | Diagnostic Imaging Report ---
CLINICAL INDICATION: Patient is status post fall with left-sided pain. Patient struck left ribs. EXAMS: Chest x-ray, AP and lateral views. X-ray left rib series. Of note, patient was in too much pain to continue imaging. COMPARISONS: Chest x-ray dated 09/07/2019. FINDINGS: LUNGS/ PLEURA: Lungs are clear. There is no pneumothorax. There is no pleural effusion. MEDIASTINUM: Unremarkable. PULMONARY VASCULATURE: Unremarkable. HEART: Unremarkable. BONES/EXTRATHORACIC SOFT TISSUE: Unremarkable. LIMITED LEFT RIB SERIES: There is no rib fracture or abnormality. IMPRESSION: 1: There is no radiographic evidence of acute cardiopulmonary process. 2: Limited exam of the left ribs. There is no rib fracture as visualized. Dictated by: Dictated on workstation # [id number]
== END 2022-12-24 11:13 | disposition home or self-care (01) ==
LOC: EDUNIT# 10:15 → ER FS 10:16
DX: S20.212A Contusion of left front wall of thorax, initial encounter (principal); S50.811A Abrasion of right forearm, initial encounter; I25.10 Atherosclerotic heart disease of native coronary artery without angina pectoris; F17.210 Nicotine dependence, cigarettes, uncomplicated; Z95.5 Presence of coronary angioplasty implant and graft; Z79.02 Long term (current) use of antithrombotics/antiplatelets; Z28.310 Unvaccinated for COVID-19; W18.30XA Fall on same level, unspecified, initial encounter; W22.8XXA Striking against or struck by other objects, initial encounter
CPT/HCPCS: 71101

== ENCOUNTER 2023-03-09 09:12 | Emergency (ER) | payer MEDICAID ==
[~2023-03-09] VITALS: Ht 182 cm; Wt 65.0 kg
[~2023-03-09 09:12] MED LIST changes: -INSU100I48 SC; +INSU100I64 SC; +LIDO700A45 TP; +POTA-185 PO; -POTA10TA PO; +ROPI0.5T37 PO; -ROPI0.5T4 PO
--- NOTE | 2023-03-09 09:18 | ED General ---
General Stated Complaint: CHEST PAIN|SOB History of Present Illness Date Seen by Provider: Mar 09, 2023 Time Seen by Provider: 09:17 Initial Comments 47-year-old male with PMH of chronic marijuana abuse/CAD with stents placed in 2021 as per patient/HTN/DM 2/SZD/CKD 3/CHF/Crohn's disease, is here with complaints of shortness of breath and chest pain which began today morning. Patient has been smoking marijuana every day for very long time. Patient's chest pain and shortness of breath has been coming and going today, and patient reports that it has been increasing in severity. Patient states that he took all of his morning medications today. Denies fever and chills, cough, congestion, abdominal pain. Patient is on a blood thinner but he cannot remember which one. Patient states that he is allergic to aspirin. Allergies and Home Medications Allergies Coded Allergies: Penicillins (Verified Allergy, Unknown, 09/14/20) aspirin (Unverified Adverse Reaction, Severe, swelling throat, 11/05/18) shellfish derived (Unverified Adverse Reaction, Severe, THROAT SWELLING, 09/14/20) Patient Home Medication List Home Medication List Reviewed: Yes Albuterol Sulfate (Proventil Hfa) 6.7 Gm Hfa.aer.ad, 2 PUFF INH Q4H PRN for SHORTNESS OF BREATH, (Reported) Entered as Reported by: UYEN CORONA on 03/21/22 1212 Albuterol Sulfate (Albuterol Sulfate) 2.5 Mg/3 Ml (0.083 %) Vial.neb, 2.5 MG INH Q6H PRN for SHORTNESS OF BREATH, (Reported) Entered as Reported by: NITZA SIN on 03/31/22 0932 Amlodipine Besylate (Amlodipine Besylate) 10 Mg Tablet, 10 MG PO DAILY, (Reported) Entered as Reported by: UYEN CORONA on 03/21/22 1212 Atorvastatin Calcium (Atorvastatin Calcium) 20 Mg Tablet, 20 MG PO DAILY, (Reported) Entered as Reported by: UYEN CORONA on 03/21/22 1212 Clopidogrel Bisulfate (Clopidogrel) 75 Mg Tablet, 75 MG PO 1200 Prescribed by: MARC BLEDSOE JR, MD on 03/31/22 1058 Cyclobenzaprine HCl (Cyclobenzaprine HCl) 10 Mg Tablet, 10 MG PO Q8H PRN for SPASMS Prescribed by: ALLAN VALLEJO on 12/24/22 1104 Docusate Sodium (Colace) 100 Mg Capsule, 100 MG PO BID PRN for CONSTIPATION-1ST LINE, (Reported) Entered as Reported by: NITZA SIN on 03/31/22 0932 Famotidine (Famotidine) 40 Mg Tablet, 40 MG PO 1900, (Reported) Entered as Reported by: UYEN CORONA on 03/21/22 121 Furosemide (Furosemide) 20 Mg Tablet, 20 MG PO BID EVERY 48 HOURS, (Reported) Entered as Reported by: UYEN CORONA on 03/21/22 121 Furosemide (Furosemide) 20 Mg Tablet, 40 MG PO BID EVERY 48 HOURS, (Reported) Entered as Reported by: UYEN CORONA on 03/21/22 1215 Hydralazine HCl (Hydralazine HCl) 50 Mg Tablet, 50 MG PO DAILY, (Reported) Entered as Reported by: UYEN CORONA on 03/21/22 121 Hydralazine HCl (Hydralazine HCl) 50 Mg Tablet, 50 MG PO 1900 PRN for BLOOD PRESSURE, (Reported) Entered as Reported by: UYEN CORONA on 03/21/22 121 Hydrocodone/Acetaminophen (Hydrocodone-Acetamin 5-325 mg) 5 Mg-325 Mg Tablet, 1 TAB PO Q8H PRN for PAIN-MODERATE (5-7) Prescribed by: ALLAN VALLEJO on 12/24/22 1104 Insulin Lispro (Insulin Lispro Kwikpen U-100) 100 Unit/Ml Insuln.pen, UNITS SC PC, (Reported) Entered as Reported by: UYEN CORONA on 03/21/22 121 Iron Polysaccharide Complex (Polysaccharide Iron) 150 Mg Iron Capsule, 150 MG PO DAILY, (Reported) Entered as Reported by: UYEN CORONA on 03/21/22 1237 Lidocaine (Lidocaine 5% Patch) 5 % Adh..patch, 1 EACH TP Q12H PRN for Neuropathic pain Prescribed by: ALLAN VALLEJO on 12/24/22 1104 Lorazepam (Ativan) 0.5 Mg Tablet, 0.5 MG PO 0700,1500, (Reported) Entered as Reported by: UYEN CORONA on 03/21/22 121 Lorazepam (Ativan) 0.5 Mg Tablet, 0.5 MG PO HS PRN for ANXIETY, (Reported) Entered as Reported by: UYEN CORONA on 03/21/22 121 Metoprolol Tartrate (Metoprolol Tartrate) 25 Mg Tablet, 12.5 MG PO BID WITH MEALS, (Reported) Entered as Reported by: UYEN CORONA on 03/21/22 121 Morphine Sulfate (Morphine Sulfate ER) 15 Mg Tablet.er, 30 MG PO DAILY, (Reported) Entered as Reported by: UYEN CORONA on 03/21/22 121 Morphine Sulfate (Morphine Sulfate ER) 15 Mg Tablet.er, 15 MG PO HS, (Reported) Entered as Reported by: UYEN CORONA on 03/21/221211 Omeprazole (Omeprazole) 40 Mg Capsule.dr, 40 MG PO DAILY, (Reported) Entered as Reported by: NELSON SUMNER on 09/14/20 180 Ondansetron HCl (Ondansetron HCl) 4 Mg/5 Ml Solution, 5 ML PO Q8H PRN for NAUSEA/VOMITING-1ST LINE, (Reported) Entered as Reported by: UYEN CORONA on 03/21/221211 Oxycodone HCl/Acetaminophen (Percocet 5-325 mg Tablet) 1 Each Tablet, 1 TAB PO Q4H Prescribed by: ZIA VORA on 04/22/222053 Phenytoin Sodium Extended (Phenytoin Sodium Extended) 100 Mg Capsule, 100 MG PO 0700,1700, (Reported) Entered as Reported by: UYEN CORONA on 03/21/22 121 Potassium Chloride (K-Tab ER) 10 Meq Tablet.er, 10 MEQ PO DAILY, (Reported) Entered as Reported by: UYEN CORONA on 03/21/221211 Promethazine HCl (Promethazine Tablet) 25 Mg Tablet, 25 MG PO DAILY, (Reported) Entered as Reported by: UYEN CORONA on 03/21/221211 Promethazine HCl (Promethazine Tablet) 25 Mg Tablet, 25 MG PO HS PRN for NAUSEA/VOMITING-2ND LINE, (Reported) Entered as Reported by: UYEN CORONA on 03/21/22 121 Ropinirole HCl (Ropinirole HCl) 0.5 Mg Tablet, 1 MG PO HS, (Reported) Entered as Reported by: UYEN CORONA on 03/21/22 121 Sodium Bicarbonate (Sodium Bicarbonate) 650 Mg Tablet, 650 MG PO TID, (Reported) Entered as Reported by: UYEN CORONA on 03/21/22 121 Sucralfate (Sucralfate) 1 Gram Tablet, 1 GM PO BIDAC, (Reported) Entered as Reported by: UYEN CORONA on 03/21/22 121 Sulfamethoxazole/Trimethoprim (Bactrim Ds Tablet) 800 Mg-160 Mg Tablet, 1 EACH PO BID Prescribed by: GABBIE ZACARIAS MD on 10/14/221817 Tamsulosin HCl (Flomax) 0.4 Mg Cap, 0.4 MG PO DAILY, (Reported) Entered as Reported by: UYEN CORONA on 03/21/22 121 Venlafaxine HCl (Venlafaxine HCl) 75 Mg Tab, 75 MG PO 0700,1500, (Reported) Entered as Reported by: UYEN CORONA on 03/21/22 121 Review of Systems Review of Systems Constitutional: no symptoms reported EENTM: no symptoms reported Respiratory: short of breath Cardiovascular: chest pain Gastrointestinal: nausea Genitourinary: no symptoms reported Musculoskeletal: no symptoms reported Skin: no symptoms reported Psychiatric/Neurological: No Symptoms Reported Hematologic/Lymphatic: No Symptoms Reported Immunological/Allergic: no symptoms reported Past Oqrusbl-Ridygs-Kqtsjg Hx Immunizations Up To Date Tetanus Booster (TDap): Unknown First/Initial COVID19 Vaccinat: NO COVID VACCINE, DECLINED Second COVID19 Vaccination Yuri: NO COVID VACCINE, DECLINED Third COVID19 Vaccination Date: NO COVID VACCINE, DECLINED Seasonal Allergies Seasonal Allergies: No Past Medical History Surgery/Hospitalization HX: gallbladder, CHF, Crohn's, GI ulcers, IDDM, CAD with stent Surgeries: Yes (Abscess buttocks-MRSA, jaw fx) Gallbladder Respiratory: No Currently Using CPAP: No Currently Using BIPAP: No Cardiac: Yes Hypertension Neurological: Yes Neuropathy, Seizure Disorder Genitourinary: No Renal Failure Gastrointestinal: Yes Crohns Disease Musculoskeletal: Yes (chronic pain/neuropathy also from "feet to shoulders") Chronic Back Pain Endocrine: Yes Diabetes, Insulin dep HEENT: No Dysphagia Loss of Vision: Denies Hearing Impairment: Denies Cancer: No Psychosocial: Yes Anxiety, Depression Integumentary: Yes (MRSA buttocks ) Blood Disorders: No Physical Exam Vital Signs Vital Signs - First Documented 03/09/23 09:41 Temp 36.2 Pulse 100 Resp 16 B/P (MAP) 262/136 (178) Pulse Ox 98 O2 Delivery Room Air Capillary Refill : Height, Weight, BMI Height: 6'0" Weight: 148lbs. oz. 67.181657cb; 18.00 BMI Method:Stated General Appearance: Mild Distress, Thin, Other (Dry mucous membranes and tenting of skin present) HEENT: PERRL/EOMI, Normal ENT Inspection Neck: Full Range of Motion, Normal Inspection, Non Tender, Supple Respiratory: Chest Non Tender, Lungs Clear, Normal Breath Sounds, No Accessory Muscle Use Cardiovascular: Regular Rate, Rhythm, No Edema Gastrointestinal: Normal Bowel Sounds, Non Tender, Soft Back: Normal Inspection, No CVA Tenderness, No Vertebral Tenderness Extremity: Normal Range of Motion Neurologic/Psychiatric: Alert, Oriented x3, No Motor/Sensory Deficits, Normal Mood/Affect Focused Exam Lactate Level 03/09/23 09:29: Lactic Acid Level 1.34 Lactic Acid Level Laboratory Tests Test 03/09/23 09:29 Lactic Acid Level 1.34 MMOL/L (0.50-2.00) Progress/Results/Core Measures Suspected Sepsis SIRS Temperature: Pulse: Respiratory Rate: Laboratory Tests 03/09/23 09:29: White Blood Count 10.6 Blood Pressure / Mean: 03/09/23 09:29: Lactic Acid Level 1.34 Laboratory Tests 03/09/23 09:29: Creatinine 2.68H, Platelet Count 622H, Total Bilirubin 0.2 Results/Orders Lab Results Laboratory Tests Test 03/09/23 09:29 Range/Units White Blood Count 10.6 4.3-11.0 10^3/uL Red Blood Count 4.42 4.30-5.52 10^6/uL Hemoglobin 12.3 L 13.3-17.7 g/dL Hematocrit 38 L 40-54 % Mean Corpuscular Volume 87 80-99 fL Mean Corpuscular Hemoglobin 28 25-34 pg Mean Corpuscular Hemoglobin Concent 32 32-36 g/dL Red Cell Distribution Width 14.7 H 10.0-14.5 % Platelet Count 622 H 130-400 10^3/uL Mean Platelet Volume 10.1 9.0-12.2 fL Immature Granulocyte % (Auto) 1 % Neutrophils (%) (Auto) 62 42-75 % Lymphocytes (%) (Auto) 25 12-44 % Monocytes (%) (Auto) 7 0-12 % Eosinophils (%) (Auto) 4 0-10 % Basophils (%) (Auto) 1 0-10 % Neutrophils # (Auto) 6.6 1.8-7.8 10^3/uL Lymphocytes # (Auto) 2.7 1.0-4.0 10^3/uL Monocytes # (Auto) 0.7 0.0-1.0 10^3/uL Eosinophils # (Auto) 0.4 H 0.0-0.3 10^3/uL Basophils # (Auto) 0.1 0.0-0.1 10^3/uL Immature Granulocyte # (Auto) 0.1 0.0-0.1 10^3/uL Sodium Level 140 135-145 MMOL/L Potassium Level 4.0 3.6-5.0 MMOL/L Chloride Level 102 98-107 MMOL/L Carbon Dioxide Level 26 21-32 MMOL/L Anion Gap 12 5-14 MMOL/L Blood Urea Nitrogen 33 H 7-18 MG/DL Creatinine 2.68 H 0.60-1.30 MG/DL Estimat Glomerular Filtration Rate 28 BUN/Creatinine Ratio 12 Glucose Level 180 H 70-105 MG/DL Lactic Acid Level 1.34 0.50-2.00 MMOL/L Calcium Level 9.8 8.5-10.1 MG/DL Corrected Calcium 9.8 8.5-10.1 MG/DL Magnesium Level 2.3 1.6-2.4 MG/DL Total Bilirubin 0.2 0.1-1.0 MG/DL Aspartate Amino Transf (AST/SGOT) 10 5-34 U/L Alanine Aminotransferase (ALT/SGPT) 9 0-55 U/L Alkaline Phosphatase 128 40-136 U/L Troponin I < 0.30 <0.30 NG/ML Total Protein 6.9 6.4-8.2 GM/DL Albumin 4.0 3.2-4.5 GM/DL Influenza Type A (RT-PCR) Not Detected Not Detecte Influenza Type B (RT-PCR) Not Detected Not Detecte SARS-CoV-2 RNA (RT-PCR) Not Detected Not Detecte Cristina Koenig - GABBIE ZACARIAS MD Continuous Ekg Monitoring (03/09/23 09:18) Ekg Tracing (03/09/23 09:18) Chest 1 View Ap/Pa Only (03/09/23 09:18) Cbc With Automated Diff (03/09/23 09:18) Comprehensive Metabolic Panel (03/09/23 09:18) Lactic Acid Analyzer (03/09/23 09:18) Magnesium (03/09/23 09:18) Influenza A And B By Pcr (03/09/23 09:18) Troponin I Fs (03/09/23 09:18) Covid 19 Inhouse Test (03/09/23 09:18) Ondansetron Injection (Ondansetron Inj (03/09/23 09:30) Pantoprazole Injection (Pantoprazole Inj (03/09/23 09:30) Hydralazine Injection (Hydralazine Injec (03/09/23 09:30) Vital Signs/I&O 03/09/23 09:41 Temp 36.2 Pulse 100 Resp 16 B/P (MAP) 262/136 (178) Pulse Ox 98 O2 Delivery Room Air Capillary Refill : Progress Note : Progress Note 1. CHEST PAIN/ SOB: ACS RULE OUT PLAN/ HYPERTENSIVE URGENCY/ MARIJUANA ABUSE/ CYCLICAL VOMITING FROM MARIJUANA: - CXR: - EKG: - Troponin: - CBC/ CMP: normal WBC - UA/ UDS: - Protonix iv/ Zofran iv/ Hydralazine iv: -Patient is allergic to aspirin - Pt left AMA before getting any medications. RIsks and benefits explained to him, pt left anyway ECG Initial ECG Impression Date: Mar 09, 2023 Initial ECG Impression Time: 09:20 Initial ECG Rhythm: Normal Sinus Initial ECG Impression: Nonspecific Changes Departure Impression Primary Impression: Cyclical vomiting syndrome Additional Impressions: Marijuana abuse Chest pain Left against medical advice Disposition: 07 AGAINST MEDICAL ADVICE Condition: Against Medical Advice Departure-Patient Inst. Referrals: SELF,ERROL GONZALES (PCP/Family) Primary Care Physician GABBIE ZACARIAS MD Mar 09, 2023 09:18
[2023-03-09] MEDS ORDERED: PANTOPRAZOLE INJECTION 40 MG VIAL IV ONE (09:30)
[2023-03-09] MEDS ORDERED: hydrALAZINE INJECTION 20 MG/ML VIAL IV ONE (09:30)
[2023-03-09] MEDS ORDERED: ONDANSETRON INJECTION 4 MG/2 ML (SDV) IVP ONE (09:30)
[2023-03-09 09:41] VITALS: BP 262/136
[2023-03-09 09:41] LABS: BASOPHILS # (AUTO) 0.1 10^3/uL (0.0-0.1); BASOPHILS % (AUTO) 1 % (0-10); EOSINOPHILS # (AUTO) 0.4 10^3/uL (0.0-0.3); EOSINOPHILS % (AUTO) 4 % (0-10); HEMATOCRIT 38 % (40-54); HEMOGLOBIN 12.3 g/dL (13.3-17.7); LYMPHOCYTES # (AUTO) 2.7 10^3/uL (1.0-4.0); LYMPHOCYTES % (AUTO) 25 % (12-44); MEAN CORPUSCULAR HEMOGLOBIN 28 pg (25-34); MEAN CORPUSCULAR HGB CONC 32 g/dL (32-36); MEAN CORPUSCULAR VOLUME 87 fL (80-99); MEAN PLATELET VOLUME 10.1 fL (9.0-12.2); MONOCYTES # (AUTO) 0.7 10^3/uL (0.0-1.0); MONOCYTES % (AUTO) 7 % (0-12); NEUTROPHILS # (AUTO) 6.6 10^3/uL (1.8-7.8); NEUTROPHILS % (AUTO) 62 % (42-75); PLATELET COUNT 622 10^3/uL (130-400); WHITE BLOOD COUNT 10.6 10^3/uL (4.3-11.0)
[2023-03-09 10:03] LABS: BILIRUBIN,TOTAL 0.2 MG/DL (0.1-1.0); BUN/CREATININE RATIO 12; CALCIUM 9.8 MG/DL (8.5-10.1); CARBON DIOXIDE 26 MMOL/L (21-32); CHLORIDE 102 MMOL/L (98-107); CREATININE SERUM 2.68 MG/DL (0.60-1.30); GFR ESTIMATED 28; GLUCOSE 180 MG/DL (70-105); MAGNESIUM 2.3 MG/DL (1.6-2.4); SODIUM 140 MMOL/L (135-145)
[2023-03-09 10:04] LABS: ALANINE AMINOTRANSFERASE 9 U/L (0-55); ALKALINE PHOSPHATASE 128 U/L (40-136); TOTAL PROTEIN 6.9 GM/DL (6.4-8.2)
--- NOTE | 2023-03-09 10:38 | Diagnostic Imaging Report ---
CLINICAL INDICATION: Patient with shortness of air and chest pain. EXAM: Portable chest x-ray upright view. COMPARISON: Chest x-ray dated 03/20/2022. FINDINGS: Lungs/pleura: Lungs are clear. There is no pneumothorax. There is no pleural effusion. Mediastinum: Unremarkable. Pulmonary vasculature: Unremarkable. Heart: Unremarkable. Bones/extrathoracic soft tissue: Unremarkable. IMPRESSION: There is no radiographic evidence of acute cardiopulmonary process. Dictated by: Dictated on workstation # [id number]
== END 2023-03-09 09:50 | disposition left against medical advice (07) ==
LOC: EDUNIT# 09:12 → ER FS 09:15
DX: F12.10 Cannabis abuse, uncomplicated (principal); R11.15 Cyclical vomiting syndrome unrelated to migraine; R07.9 Chest pain, unspecified; E11.22 Type 2 diabetes mellitus with diabetic chronic kidney disease; I13.0 Hypertensive heart and chronic kidney disease with heart failure and stage 1 through stage 4 chronic kidney disease, or unspecified chronic kidney disease; N18.30 Chronic kidney disease, stage 3 unspecified; I50.9 Heart failure, unspecified; Z79.4 Long term (current) use of insulin; Z28.310 Unvaccinated for COVID-19; Z20.822 Contact with and (suspected) exposure to COVID-19
CPT/HCPCS: 36415; 71045; 80053; 83605; 83735; 84484; 85025; 87636; 93005

== ENCOUNTER 2023-04-17 14:06 | Emergency (ER) | payer MEDICAID ==
[~2023-04-17] VITALS: Ht 182.9 cm; Wt 57.2 kg
[2023-04-17 14:17] VITALS: BP 134/76
[2023-04-17] MEDS ORDERED: PANTOPRAZOLE INJECTION 40 MG VIAL IV STA (14:29)
[2023-04-17] MEDS ORDERED: NS IV 1000 ML 1,000 ML IV STA ×2 (14:29→15:38)
[2023-04-17] MEDS ORDERED: ONDANSETRON INJECTION 4 MG/2 ML (SDV) IVP STA (14:29)
[2023-04-17] MEDS ORDERED: KETOROLAC INJ 15 MG/ML VIAL IVP STA (14:29)
--- NOTE | 2023-04-17 14:31 | ED GI ---
General Chief Complaint: Abdominal/GI Problems Stated Complaint: DIARRHEA; VOMITING; ABD PAIN Source of Information: Patient, Caregiver History of Present Illness Date Seen by Provider: Apr 17, 2023 Time Seen by Provider: 14:10 Initial Comments 48-year-old male presenting with complaints of nausea, vomiting, diarrhea and abdominal pain since Monday. He was seen in urgent care on Monday and they told him he had a UTI but did not want to start antibiotics until they have blood work. They are reported that his blood work had clotted so they were not able to give him an antibiotic. When he tried to follow-up today they told him to go to the emergency department. He has not had fever at home. He has been keeping his medications down in the last 2 days. Timing/Duration: 3-4 Days Severity/Quality: Moderate, Cramping Location: Generalized Abdomen Activities at Onset: None Modifying Factors: Worsens With Movement, Worsens With Palpation Associated Symptoms: No Back Pain, No Chest Pain, No Diaphoresis, No Fever/Chills; Fatigue, Nausea/Vomiting; No Shortness of Air, No Swelling/Mass in Abdomen, No Syncope; Weakness Allergies and Home Medications Allergies Coded Allergies: Penicillins (Verified Allergy, Unknown, 09/14/20) aspirin (Unverified Adverse Reaction, Severe, swelling throat, 11/05/18) shellfish derived (Unverified Adverse Reaction, Severe, THROAT SWELLING, 09/14/20) Patient Home Medication List Home Medication List Reviewed: Yes Albuterol Sulfate (Proventil Hfa) 6.7 Gm Hfa.aer.ad, 2 PUFF INH Q4H PRN for SHORTNESS OF BREATH, (Reported) Entered as Reported by: UYEN CORONA on 03/21/22 1212 Albuterol Sulfate (Albuterol Sulfate) 2.5 Mg/3 Ml (0.083 %) Vial.neb, 2.5 MG INH Q6H PRN for SHORTNESS OF BREATH, (Reported) Entered as Reported by: NITZA SIN on 03/31/22 0932 Amlodipine Besylate (Amlodipine Besylate) 10 Mg Tablet, 10 MG PO DAILY, (Reported) Entered as Reported by: UYEN CORONA on 03/21/22 1212 Atorvastatin Calcium (Atorvastatin Calcium) 20 Mg Tablet, 20 MG PO DAILY, (Reported) Entered as Reported by: UYEN CORONA on 03/21/22 1212 Clopidogrel Bisulfate (Clopidogrel) 75 Mg Tablet, 75 MG PO 1200 Prescribed by: MARC BLEDSOE JR, MD on 03/31/22 1058 Cyclobenzaprine HCl (Cyclobenzaprine HCl) 10 Mg Tablet, 10 MG PO Q8H PRN for SPASMS Prescribed by: ALLAN VALLEJO on 12/24/22 1104 Docusate Sodium (Colace) 100 Mg Capsule, 100 MG PO BID PRN for CONSTIPATION-1ST LINE, (Reported) Entered as Reported by: NITZA SIN on 03/31/22 0932 Famotidine (Famotidine) 40 Mg Tablet, 40 MG PO 1900, (Reported) Entered as Reported by: UYEN CORONA on 03/21/22 121 Furosemide (Furosemide) 20 Mg Tablet, 20 MG PO BID EVERY 48 HOURS, (Reported) Entered as Reported by: UYEN CORONA on 03/21/22 121 Furosemide (Furosemide) 20 Mg Tablet, 40 MG PO BID EVERY 48 HOURS, (Reported) Entered as Reported by: UYEN CORONA on 03/21/22 1215 Hydralazine HCl (Hydralazine HCl) 50 Mg Tablet, 50 MG PO DAILY, (Reported) Entered as Reported by: UYEN CORONA on 03/21/22 121 Hydralazine HCl (Hydralazine HCl) 50 Mg Tablet, 50 MG PO 1900 PRN for BLOOD PRESSURE, (Reported) Entered as Reported by: UYEN CORONA on 03/21/22 121 Hydrocodone/Acetaminophen (Hydrocodone-Acetamin 5-325 mg) 5 Mg-325 Mg Tablet, 1 TAB PO Q8H PRN for PAIN-MODERATE (5-7) Prescribed by: ALLAN VALLEJO on 12/24/22 1104 Insulin Lispro (Insulin Lispro Kwikpen U-100) 100 Unit/Ml Insuln.pen, UNITS SC PC, (Reported) Entered as Reported by: UYEN CORONA on 03/21/22 1212 Iron Polysaccharide Complex (Polysaccharide Iron) 150 Mg Iron Capsule, 150 MG PO DAILY, (Reported) Entered as Reported by: UYEN CORONA on 03/21/22 1237 Levofloxacin (Levofloxacin) 500 Mg Tablet, 500 MG PO Q48H Prescribed by: RENETTA COREAS on 04/17/23 165 Lidocaine (Lidocaine 5% Patch) 5 % Adh..patch, 1 EACH TP Q12H PRN for Neuropathic pain Prescribed by: ALLAN VALLEJO on 12/24/22 1104 Lorazepam (Ativan) 0.5 Mg Tablet, 0.5 MG PO 0700,1500, (Reported) Entered as Reported by: UYEN CORONA on 03/21/22 121 Lorazepam (Ativan) 0.5 Mg Tablet, 0.5 MG PO HS PRN for ANXIETY, (Reported) Entered as Reported by: UYEN CORONA on 03/21/22 121 Metoprolol Tartrate (Metoprolol Tartrate) 25 Mg Tablet, 12.5 MG PO BID WITH MEALS, (Reported) Entered as Reported by: UYEN CORONA on 03/21/22 121 Morphine Sulfate (Morphine Sulfate ER) 15 Mg Tablet.er, 30 MG PO DAILY, (Reported) Entered as Reported by: UYEN CORONA on 03/21/22 121 Morphine Sulfate (Morphine Sulfate ER) 15 Mg Tablet.er, 15 MG PO HS, (Reported) Entered as Reported by: UYEN CORONA on 03/21/22 121 Omeprazole (Omeprazole) 40 Mg Capsule.dr, 40 MG PO DAILY, (Reported) Entered as Reported by: NELSON SUMNER on 09/14/20 180 Ondansetron (Ondansetron Odt) 4 Mg Tab.rapdis, 4 MG PO Q6H PRN for NAUSEA/VOMITING Prescribed by: RENETTA COREAS on 04/17/23 165 Ondansetron HCl (Ondansetron HCl) 4 Mg/5 Ml Solution, 5 ML PO Q8H PRN for NAUSEA/VOMITING-1ST LINE, (Reported) Entered as Reported by: UYEN CORONA on 03/21/22 121 Oxycodone HCl/Acetaminophen (Percocet 5-325 mg Tablet) 1 Each Tablet, 1 TAB PO Q4H Prescribed by: ZIA VORA on 04/22/222053 Phenytoin Sodium Extended (Phenytoin Sodium Extended) 100 Mg Capsule, 100 MG PO 0700,1700, (Reported) Entered as Reported by: UYEN CORONA on 03/21/22 121 Potassium Chloride (K-Tab ER) 10 Meq Tablet.er, 10 MEQ PO DAILY, (Reported) Entered as Reported by: UYEN CORONA on 03/21/221211 Promethazine HCl (Promethazine Tablet) 25 Mg Tablet, 25 MG PO DAILY, (Reported) Entered as Reported by: UYEN CORONA on 03/21/221211 Promethazine HCl (Promethazine Tablet) 25 Mg Tablet, 25 MG PO HS PRN for NAUSEA/VOMITING-2ND LINE, (Reported) Entered as Reported by: UYEN CORONA on 03/21/221211 Ropinirole HCl (Ropinirole HCl) 0.5 Mg Tablet, 1 MG PO HS, (Reported) Entered as Reported by: UYEN CORONA on 03/21/221211 Sodium Bicarbonate (Sodium Bicarbonate) 650 Mg Tablet, 650 MG PO TID, (Reported) Entered as Reported by: UYEN COORNA on 03/21/221211 Sucralfate (Sucralfate) 1 Gram Tablet, 1 GM PO BIDAC, (Reported) Entered as Reported by: UYEN CORONA on 03/21/221211 Sulfamethoxazole/Trimethoprim (Bactrim Ds Tablet) 800 Mg-160 Mg Tablet, 1 EACH PO BID Prescribed by: GABBIE ZACARIAS MD on 10/14/221817 Tamsulosin HCl (Flomax) 0.4 Mg Cap, 0.4 MG PO DAILY, (Reported) Entered as Reported by: UYEN CORONA on 03/21/221211 Venlafaxine HCl (Venlafaxine HCl) 75 Mg Tab, 75 MG PO 0700,1500, (Reported) Entered as Reported by: UYEN CORONA on 03/21/221211 Review of Systems Review of Systems Constitutional: No chills, No fever; malaise, weakness EENTM: No Symptoms Reported Respiratory: No Symptoms Reported Cardiovascular: No Symptoms Reported Gastrointestinal: See HPI Genitourinary: Denies Frequency, Denies Urgency; Other (difficulty emptying bladder since he had urologic procedure done over a year ago) Musculoskeletal: no symptoms reported Skin: no symptoms reported Psychiatric/Neurological: No Symptoms Reported Past Isclshy-Cfryef-Kwifec Hx Immunizations Up To Date Tetanus Booster (TDap): Unknown First/Initial COVID19 Vaccinat: NO COVID VACCINE, DECLINED Second COVID19 Vaccination Yuri: NO COVID VACCINE, DECLINED Third COVID19 Vaccination Date: NO COVID VACCINE, DECLINED Seasonal Allergies Seasonal Allergies: No Past Medical History Surgery/Hospitalization HX: gallbladder, CHF, Crohn's, GI ulcers, IDDM, CAD with stent Surgeries: Yes (Abscess buttocks-MRSA, jaw fx) Gallbladder Respiratory: No Currently Using CPAP: No Currently Using BIPAP: No Cardiac: Yes Hypertension Neurological: Yes Neuropathy, Seizure Disorder Genitourinary: No Renal Failure Gastrointestinal: Yes Crohns Disease Musculoskeletal: Yes (chronic pain/neuropathy also from "feet to shoulders") Chronic Back Pain Endocrine: Yes Diabetes, Insulin dep HEENT: No Dysphagia Loss of Vision: Denies Hearing Impairment: Denies Cancer: No Psychosocial: Yes Anxiety, Depression Integumentary: Yes (MRSA buttocks ) Blood Disorders: No Physical Exam Vital Signs Vital Signs - First Documented 04/17/23 14:17 Temp 36.4 Pulse 78 Resp 19 B/P (MAP) 134/76 (95) O2 Delivery Room Air Capillary Refill : Height/Weight/BMI Height: 6'0" Weight: 148lbs. oz. 67.082447et; 19.00 BMI Method:Stated General Appearance: cachetic, other (chronically ill appearing) HEENT: PERRL/EOMI, pharynx normal Respiratory: chest non-tender, lungs clear, normal breath sounds, no respiratory distress, no accessory muscle use Cardiovascular: normal peripheral pulses, regular rate, rhythm Gastrointestinal: soft, no pulsatile mass, abnormal bowel sounds (hyperactive bowel sounds); No distended; guarding; No rebound; tenderness Rectal: deferred Neurologic/Psychiatric: alert, oriented x 3 Skin: warm/dry Focused Exam Lactate Level 04/17/23 14:30: Lactic Acid Level 0.80 Lactic Acid Level Laboratory Tests Test 04/17/23 14:30 Lactic Acid Level 0.80 MMOL/L (0.50-2.00) Progress/Results/Core Measures Results/Orders Lab Results Laboratory Tests Test 04/17/23 14:30 04/17/23 15:28 Range/Units White Blood Count 27.2 H 4.3-11.0 10^3/uL Red Blood Count 4.14 L 4.30-5.52 10^6/uL Hemoglobin 11.5 L 13.3-17.7 g/dL Hematocrit 35 L 40-54 % Mean Corpuscular Volume 84 80-99 fL Mean Corpuscular Hemoglobin 28 25-34 pg Mean Corpuscular Hemoglobin Concent 33 32-36 g/dL Red Cell Distribution Width 15.2 H 10.0-14.5 % Platelet Count 690 H 130-400 10^3/uL Mean Platelet Volume 9.8 9.0-12.2 fL Immature Granulocyte % (Auto) 1 % Neutrophils (%) (Auto) 89 H 42-75 % Lymphocytes (%) (Auto) 6 L 12-44 % Monocytes (%) (Auto) 4 0-12 % Eosinophils (%) (Auto) 0 0-10 % Basophils (%) (Auto) 1 0-10 % Neutrophils # (Auto) 24.0 H 1.8-7.8 10^3/uL Lymphocytes # (Auto) 1.6 1.0-4.0 10^3/uL Monocytes # (Auto) 1.0 0.0-1.0 10^3/uL Eosinophils # (Auto) 0.1 0.0-0.3 10^3/uL Basophils # (Auto) 0.2 H 0.0-0.1 10^3/uL Immature Granulocyte # (Auto) 0.2 H 0.0-0.1 10^3/uL Neutrophils % (Manual) 91 % Lymphocytes % (Manual) 5 % Monocytes % (Manual) 4 % Platelet Estimate INCREASED Percent Immature Platelet Fraction 3.0 0.0-7.6 % Poikilocytosis SLIGHT Anisocytosis SLIGHT Sodium Level 141 135-145 MMOL/L Potassium Level 3.9 3.6-5.0 MMOL/L Chloride Level 102 98-107 MMOL/L Carbon Dioxide Level 26 21-32 MMOL/L Anion Gap 13 5-14 MMOL/L Blood Urea Nitrogen 44 H 7-18 MG/DL Creatinine 3.65 H 0.60-1.30 MG/DL Estimat Glomerular Filtration Rate 20 BUN/Creatinine Ratio 12 Glucose Level 174 H 70-105 MG/DL Lactic Acid Level 0.80 0.50-2.00 MMOL/L Calcium Level 8.8 8.5-10.1 MG/DL Corrected Calcium 9.0 8.5-10.1 MG/DL Total Bilirubin < 0.2 0.1-1.0 MG/DL Aspartate Amino Transf (AST/SGOT) 9 5-34 U/L Alanine Aminotransferase (ALT/SGPT) 5 0-55 U/L Alkaline Phosphatase 114 40-136 U/L C-Reactive Protein < 0.30 <0.50 MG/DL Total Protein 7.0 6.4-8.2 GM/DL Albumin 3.7 3.2-4.5 GM/DL Lipase 17 8-78 U/L Urine Color YELLOW Urine Clarity CLEAR Urine pH 6.0 5-9 Urine Specific [place] 1.020 1.016-1.022 Urine Protein 3+ H NEGATIVE Urine Glucose (UA) 1+ H NEGATIVE Urine Ketones NEGATIVE NEGATIVE Urine Nitrite NEGATIVE NEGATIVE Urine Bilirubin NEGATIVE NEGATIVE Urine Urobilinogen 0.2 < = 1.0 MG/DL Urine Leukocyte Esterase NEGATIVE NEGATIVE Urine RBC (Auto) TRACE-I H NEGATIVE Urine RBC RARE /HPF Urine WBC NONE /HPF Urine Crystals NONE /LPF Urine Bacteria NEGATIVE /HPF Urine Casts NONE /LPF Urine Mucus NEGATIVE /LPF Urine Culture Indicated NO Urine Opiates Screen NEGATIVE NEGATIVE Urine Oxycodone Screen NEGATIVE NEGATIVE Urine Methadone Screen NEGATIVE NEGATIVE Urine Propoxyphene Screen NEGATIVE NEGATIVE Urine Barbiturates Screen POSITIVE H NEGATIVE Ur Tricyclic Antidepressants Screen NEGATIVE NEGATIVE Urine Phencyclidine Screen NEGATIVE NEGATIVE Urine Amphetamines Screen NEGATIVE NEGATIVE Urine Methamphetamines Screen NEGATIVE NEGATIVE Urine Benzodiazepines Screen POSITIVE H NEGATIVE Urine Cocaine Screen NEGATIVE NEGATIVE Urine Cannabinoids Screen POSITIVE H NEGATIVE My Orders Orders - RENETTA COREAS MD Comprehensive Metabolic Panel (04/17/23 14:28) Lipase (04/17/23 14:28) Ua Culture If Indicated (04/17/23 14:28) Ed Iv/Invasive Line Start (04/17/23 14:28) Cbc And Automated Diff (04/17/23 14:28) Ct Abdomen/Pelvis Wo (04/17/23 14:28) Drug Screen Stat (Urine) (04/17/23 14:28) Crp Fs (04/17/23 14:28) Ns Iv 1000 Ml (Ns Iv 1000 Ml) (04/17/23 14:29) Ondansetron Injection (Ondansetron Inj (04/17/23 14:29) Pantoprazole Injection (Pantoprazole Inj (04/17/23 14:29) Ketorolac Injection (Ketorolac Injection (04/17/23 14:29) Manual Differential (04/17/23 14:30) Straight Cath For Spec.-Adult (04/17/23 15:25) Blood Culture (04/17/23 15:25) Lactic Acid Analyzer (04/17/23 15:25) Levofloxacin 500 Mg/100 Ml Iv (Levofloxa (04/17/23 15:38) Ns Iv 1000 Ml (Ns Iv 1000 Ml) (04/17/23 15:38) Hydralazine Injection (Hydralazine Injec (04/17/23 16:18) Amlodipine Tablet (Amlodipine Tablet) (04/17/23 16:27) Vital Signs/I&O 04/17/23 14:17 Temp 36.4 Pulse 78 Resp 19 B/P (MAP) 134/76 (95) O2 Delivery Room Air Progress Progress Note #1: Progress Note Differential diagnosis includes Crohn's exacerbation, pyelonephritis, cystitis, gastroenteritis, bowel obstruction. Obtain peripheral IV access and send labs for complete blood count, comprehensive metabolic profile, lipase, blood cultures, lactic acid, CRP. CT scan of the abdomen pelvis without IV contrast to help look for obstruction, pyelonephritis, Crohn's exacerbation. Administer normal saline 1 L IV fluid carlos humera for hydration, Zofran 4 mg IV for nausea and vomiting, pantoprazole 40 mg IV for gastritis, Toradol 15 mg IV x1 for abdominal pain. Progress Note #2: Progress Note Labs showed elevated white blood cell count of 27.2 thousand. He does have a slight left shift but there is no bandemia. He has chronic renal insufficiency with baseline creatinine at 2.6-2.8 but today is creatinine is 3.6. This could be related to some dehydration as he reports having vomiting and diarrhea. He has a full bladder on the CT scan but there is no signs of colon inflammation. He does have some thickening of the distal esophagus that appeared stable from previous imaging. His CRP is not elevated as it is less than 0.3. Lactic acid came back normal at 0.8. As patient was not able to urinate a straight cath to drain his bladder was used. With his elevated white blood cell count will administer Levaquin 500 mg IV x1 for possible UTI versus gastroenterology infection. Progress Note #3: Progress Note Urinalysis from straight cath came back showing no leukocyte Estrace, nitrates, white blood cells, bacteria to indicate a UTI. With him having the vomiting and diarrhea and complaints of Crohn's type symptoms will do a short course of Le vaquin 500 mg every other day x3 doses with the first dose IV here in the ED. If he is keeping down oral intake we will plan on trying to discharge to home with medicine for nausea and the 2 additional doses of Levaquin to be taken every other day. His blood pressure is running high at 170-216/100. Patient denies any chest pain, headache, blurred vision. Staff called and checked with his caregiver and she reports he has only had 1 of his blood pressure medications today, metoprolol. Will administer Hydralazine 10 mg IV along with Amlodipine 10 mg po. Will have patient try oral intake here in ED to see if he can keep things down. If he is tolerating po will anticipate discharge to home with 2 more doses of Levaquin 500 mg and anti-emetic to help keep his stomach settled so he can eat and drink better. Progress Note #4: Time: 16:55 Progress Note Blood pressure down to 152/95. His antibiotic and finished infusing and he is kept down oral intake here in the ED. When staff went to shut off the IV pump from his antibiotic he was rude to the staff and said that he was ready to leave. Medications are already been sent to the pharmacy and I was just waiting on his blood pressure to improve and antibiotic to finish. We will print his discharge papers so that he could be discharged home. Encourage oral intake. Prescribed Zofran ODT 4 mg every 6 hours. Nausea and vomiting as well as Levaquin every 48 hours x2 more doses. Diagnostic Imaging Diagonstic Imaging: CT Plain Films/CT/US/NM/MRI: abdomen, pelvis Comments [facility], [place] NAME: [facility] REC#: [id number] PT STATUS: REG ER : 1975 PHYSICIAN: RENETTA COREAS MD ADMIT DATE: 04/17/23/ER FS Draft Date of Exam:04/17/23 CT ABDOMEN/PELVIS WO PROCEDURE: CT abdomen and pelvis without contrast. TECHNIQUE: Multiple contiguous axial images were obtained through the abdomen and pelvis without the use of intravenous contrast. Auto Exposure Controls were utilized during the CT exam to meet ALARA standards for radiation dose reduction. INDICATION: Nausea, vomiting and diarrhea with abdominal pain. COMPARISON is made prior CT 10/15/2020. The lung bases are clear. Distal esophageal circumferential mural thickening is again noted. There does appear to be moderate fluid-filled distention to the stomach. The liver is unremarkable. The gallbladder is surgically absent. The pancreas and spleen are unremarkable. No adrenal mass is detected. Hyperdense lesion lower pole left kidney measures 8 mm. This may represent a hemorrhagic cyst. Aorta is calcified but nonaneurysmal. The small and large bowel loops appear to be normal caliber and nonobstructed. There is moderate distention to the bladder. No free fluid or fluid collection is seen. No inflammatory changes are seen. IMPRESSION: 1. Continued circumferential mural thickening of the distal esophagus. 2. Moderate fluid-filled distention to the stomach but normal-appearing small and large bowel without evidence of intestinal obstruction. 3. No other significant abnormality is detected. Dictated on workstation # [id number] Dict: 04/17/23 1449 Trans: 04/17/23 1455 [facility] [id number] Interpreted by: DARYN CEDEÑO MD Electronically signed by: Departure Impression Primary Impression: Gastroenteritis Additional Impressions: Dehydration Elevated blood pressure reading with diagnosis of hypertension Disposition: HOME, SELF-CARE Condition: Stable Departure-Patient Inst. Decision time for Depature: 16:57 Referrals: ERROL SINGLETARY MD (PCP/Family) Primary Care Physician Patient Instructions: High Blood Pressure ED, Dehydration, Adult ED, Diarrhea, Adult ED Add. Discharge Instructions: Take medicine to help with nausea and vomiting. Try to keep sipping on fluids and stay better hydrated. Take your medicine as prescribed. Check back with primary care provider for continued concerns. Take the additional doses of antibiotic on Monday and Monday. All discharge instructions reviewed with patient and/or family. Voiced understanding. Scripts Levofloxacin (Levofloxacin) 500 Mg Tablet 500 MG PO Q48H for 4 Days, #2 TAB 0 Refills 500 mg by mouth on Monday and Monday Prov: RENETTA COREAS MD 04/17/23 Ondansetron (Ondansetron Odt) 4 Mg Tab.rapdis 4 MG PO Q6H PRN for NAUSEA/VOMITING for 5 Days, #20 TAB 0 Refills Prov: RENETTA COREAS MD 04/17/23 RENETTA COREAS MD Apr 17, 2023 14:31
[2023-04-17 14:45] LABS: BASOPHILS # (AUTO) 0.2 10^3/uL (0.0-0.1); BASOPHILS % (AUTO) 1 % (0-10); EOSINOPHILS # (AUTO) 0.1 10^3/uL (0.0-0.3); EOSINOPHILS % (AUTO) 0 % (0-10); HEMATOCRIT 35 % (40-54); HEMOGLOBIN 11.5 g/dL (13.3-17.7); LYMPHOCYTES # (AUTO) 1.6 10^3/uL (1.0-4.0); LYMPHOCYTES % (AUTO) 6 % (12-44); MEAN CORPUSCULAR HEMOGLOBIN 28 pg (25-34); MEAN CORPUSCULAR HGB CONC 33 g/dL (32-36); MEAN CORPUSCULAR VOLUME 84 fL (80-99); MEAN PLATELET VOLUME 9.8 fL (9.0-12.2); MONOCYTES % (AUTO) 4 % (0-12); NEUTROPHILS % (AUTO) 89 % (42-75); PLATELET COUNT 690 10^3/uL (130-400); WHITE BLOOD COUNT 27.2 10^3/uL (4.3-11.0)
--- NOTE | 2023-04-17 14:56 | Diagnostic Imaging Report ---
PROCEDURE: CT abdomen and pelvis without contrast. TECHNIQUE: Multiple contiguous axial images were obtained through the abdomen and pelvis without the use of intravenous contrast. Auto Exposure Controls were utilized during the CT exam to meet ALARA standards for radiation dose reduction. INDICATION: Nausea, vomiting and diarrhea with abdominal pain. COMPARISON is made prior CT 10/15/2020. The lung bases are clear. Distal esophageal circumferential mural thickening is again noted. There does appear to be moderate fluid-filled distention to the stomach. The liver is unremarkable. The gallbladder is surgically absent. The pancreas and spleen are unremarkable. No adrenal mass is detected. Hyperdense lesion lower pole left kidney measures 8 mm. This may represent a hemorrhagic cyst. Aorta is calcified but nonaneurysmal. The small and large bowel loops appear to be normal caliber and nonobstructed. There is moderate distention to the bladder. No free fluid or fluid collection is seen. No inflammatory changes are seen. IMPRESSION: 1. Continued circumferential mural thickening of the distal esophagus. 2. Moderate fluid-filled distention to the stomach but normal-appearing small and large bowel without evidence of intestinal obstruction. 3. No other significant abnormality is detected. Dictated by: Dictated on workstation # [id number]
[2023-04-17 15:00] LABS: CARBON DIOXIDE 26 MMOL/L (21-32); CHLORIDE 102 MMOL/L (98-107); POTASSIUM 3.9 MMOL/L (3.6-5.0); SODIUM 141 MMOL/L (135-145)
[2023-04-17 15:01] LABS: ALANINE AMINOTRANSFERASE 5 U/L (0-55); ALBUMIN 3.7 GM/DL (3.2-4.5); ALKALINE PHOSPHATASE 114 U/L (40-136); BILIRUBIN,TOTAL < 0.2 MG/DL (0.1-1.0); BUN/CREATININE RATIO 12; CALCIUM 8.8 MG/DL (8.5-10.1); CREATININE SERUM 3.65 MG/DL (0.60-1.30); GFR ESTIMATED 20; GLUCOSE 174 MG/DL (70-105); LIPASE 17 U/L (8-78)
[2023-04-17 15:03] LABS: ANISOCYTOSIS SLIGHT; LYMPHOCYTES % (MANUAL) 5 %; MONOCYTES % (MANUAL) 4 %; NEUTROPHILS % (MANUAL) 91 %; PLATELET ESTIMATE INCREASED; POIKILOCYTOSIS SLIGHT
[2023-04-17 15:53] LABS: BILIRUBIN,URINE NEGATIVE (NEGATIVE); CLARITY,URINE CLEAR; COLOR,URINE YELLOW; GLUCOSE, URINE (UA) 1+ (NEGATIVE); KETONES,URINE NEGATIVE (NEGATIVE); LEUKOCYTE ESTERASE ,URINE NEGATIVE (NEGATIVE); NITRITE,URINE NEGATIVE (NEGATIVE); PROTEIN,URINE 3+ (NEGATIVE)
[2023-04-17 15:57] LABS: BACTERIA,URINE NEGATIVE /HPF; RBC,URINE RARE /HPF
[2023-04-17 16:03] LABS: AMPHETAMINE SCREEN, URINE NEGATIVE (NEGATIVE); BARBITURATE SCREEN URINE POSITIVE (NEGATIVE); CANNABINOID SCREEN, URINE POSITIVE (NEGATIVE); COCAINE SCREEN URINE NEGATIVE (NEGATIVE); METHADONE STAT NEGATIVE (NEGATIVE); OPIATE SCREEN URINE NEGATIVE (NEGATIVE); OXYCODONE STAT NEGATIVE (NEGATIVE); PROPOXYPHENE STAT NEGATIVE (NEGATIVE); TRICYCLIC ANTIDEPRESSANTS SCRE NEGATIVE (NEGATIVE)
[2023-04-17] MEDS ORDERED: hydrALAZINE INJECTION 20 MG/ML VIAL IV STA (16:18)
[2023-04-17] MEDS ORDERED: amLODIPine 10 MG TABLET PO STA (16:27)
[2023-04-17] MEDS ORDERED: ONDA4TAB11 PO (16:53)
[2023-04-17] MEDS ORDERED: LEVO-55 PO (16:53)
== END 2023-04-17 17:03 | disposition home or self-care (01) ==
LOC: EDUNIT# 14:06 → ER FS 14:09
DX: K52.9 Noninfective gastroenteritis and colitis, unspecified (principal); E86.0 Dehydration; I10 Essential (primary) hypertension; E11.9 Type 2 diabetes mellitus without complications; Z90.49 Acquired absence of other specified parts of digestive tract; Z88.0 Allergy status to penicillin; Z28.310 Unvaccinated for COVID-19; Z79.4 Long term (current) use of insulin
CPT/HCPCS: 36415; 51701; 74176; 80053; 80306; 81000; 83605; 83690; 85007; 85027; 86141; 87040

== ENCOUNTER → 2023-05-15 | Outpatient (CLI) | payer MEDICAID ==
[~2023-05-15] MED LIST changes: +LEVO-55 PO
[2023-05-15 13:16] LABS: HEMOGLOBIN 9.3 g/dL (13.3-17.7); MEAN PLATELET VOLUME 9.7 fL (9.0-12.2); WHITE BLOOD COUNT 9.8 10^3/uL (4.3-11.0)
[2023-05-15 15:00] LABS: ALBUMIN 3.7 GM/DL (3.2-4.5); CALCIUM 8.7 MG/DL (8.5-10.1); CREATININE SERUM 4.23 MG/DL (0.60-1.30); POTASSIUM 4.3 MMOL/L (3.6-5.0)
[2023-05-16 00:19] LABS: PHOSPHORUS 4.5 MG/DL (2.3-4.7)
[2023-05-16 00:22] LABS: URIC ACID 6.6 MG/DL (2.6-7.2)
[2023-05-16 17:51] LABS: BILIRUBIN,URINE NEGATIVE (NEGATIVE); CLARITY,URINE CLEAR; COLOR,URINE YELLOW; GLUCOSE, URINE (UA) TRACE (NEGATIVE); KETONES,URINE NEGATIVE (NEGATIVE); LEUKOCYTE ESTERASE ,URINE NEGATIVE (NEGATIVE); NITRITE,URINE NEGATIVE (NEGATIVE); PROTEIN,URINE 2+ (NEGATIVE)
[2023-05-16 17:56] LABS: BACTERIA,URINE NEGATIVE /HPF; RBC,URINE 0-2 /HPF
[2023-05-17 15:10] LABS: URINE CREATININE FOR RATIO 55 MG/DL (30-125)
[2023-05-17 15:11] LABS: URINE PROTEIN FOR RATIO ONLY 188 MG/DL (6-12)
== END ==
LOC: LAB FS 12:47
PROVIDERS: ATTEND Internal Medicine Nephrology
DX: I12.9 Hypertensive chronic kidney disease with stage 1 through stage 4 chronic kidney disease, or unspecified chronic kidney disease (principal); N18.32 Chronic kidney disease, stage 3b; N40.0 Benign prostatic hyperplasia without lower urinary tract symptoms
CPT/HCPCS: 36415; 80069; 81000; 82306; 82570; 83970; 84156; 84550; 85027

== ENCOUNTER → 2023-05-16 | Outpatient (CLI) | payer MEDICAID | LOC: LABNPT 16:38 | PROVIDERS: ATTEND Internal Medicine Nephrology | DX: I12.9 Hypertensive chronic kidney disease with stage 1 through stage 4 chronic kidney disease, or unspecified chronic kidney disease (principal); N18.30 Chronic kidney disease, stage 3 unspecified; N40.0 Benign prostatic hyperplasia without lower urinary tract symptoms; N17.9 Acute kidney failure, unspecified ==

== ENCOUNTER 2023-06-13 10:45 | Emergency (ER) | payer MEDICAID ==
[~2023-06-13 10:45] MED LIST changes: -VENL37.52 PO; +[UNRECOGNIZED DRUG - CODE] PO
[2023-06-13] MEDS ORDERED: FAMOTIDINE INJ 20MG/2ML VIAL IV STA (10:55)
[2023-06-13] MEDS ORDERED: ONDANSETRON INJECTION 4 MG/2 ML (SDV) IVP ONE (11:00)
[2023-06-13 11:01] LABS: BASOPHILS # (AUTO) 0.2 10^3/uL (0.0-0.1); BASOPHILS % (AUTO) 1 % (0-10); EOSINOPHILS # (AUTO) 0.1 10^3/uL (0.0-0.3); EOSINOPHILS % (AUTO) 1 % (0-10); HEMATOCRIT 27 % (40-54); HEMOGLOBIN 8.9 g/dL (13.3-17.7); LYMPHOCYTES # (AUTO) 2.8 10^3/uL (1.0-4.0); LYMPHOCYTES % (AUTO) 12 % (12-44); MEAN CORPUSCULAR HEMOGLOBIN 27 pg (25-34); MEAN CORPUSCULAR HGB CONC 33 g/dL (32-36); MEAN CORPUSCULAR VOLUME 82 fL (80-99); MEAN PLATELET VOLUME 9.9 fL (9.0-12.2); MONOCYTES # (AUTO) 1.1 10^3/uL (0.0-1.0); MONOCYTES % (AUTO) 5 % (0-12); NEUTROPHILS # (AUTO) 19.4 10^3/uL (1.8-7.8); NEUTROPHILS % (AUTO) 82 % (42-75); PLATELET COUNT 713 10^3/uL (130-400); WHITE BLOOD COUNT 23.8 10^3/uL (4.3-11.0)
--- NOTE | 2023-06-13 11:05 | ED General ---
General Chief Complaint: Allergic Reaction Stated Complaint: N/V Nursing Triage Note: Patient has been vomiting - he took liquid zofran and immodium and he took liquid zofran and immodum and he started to have facial swelling . History of Present Illness Date Seen by Provider: Jun 13, 2023 Time Seen by Provider: 10:50 Initial Comments 48 yr M with PMH of alcohol addiction and numerous rehab admissions and walk- outs, is brought in by EMS with c/o lip swelling and lip bleeding since thus morning. EMS reports giving pt solumedrol 125mg / subcutaneous epi 0.3/ Benadryl 25mg vi in the field prior to brining him to the ER. Pt's O2 has been stable at all times, and he is able to converse and answer all questions. Pt is able to swallow and is not drooling. Denies SOB, chest pain, palpitations. Pt apparently has been having coffee ground emesis as well for the past few days. Pt's last drink was today morning at 8 AM. Patient's gave him Zofran and Imodium after she saw that his lips are swelling. Allergies and Home Medications Allergies Coded Allergies: Penicillins (Verified Allergy, Unknown, 09/14/20) aspirin (Unverified Adverse Reaction, Severe, swelling throat, 11/05/18) shellfish derived (Unverified Adverse Reaction, Severe, THROAT SWELLING, 09/14/20) Patient Home Medication List Home Medication List Reviewed: Yes Albuterol Sulfate (Proventil Hfa) 6.7 Gm Hfa.aer.ad, 2 PUFF INH Q4H PRN for SHORTNESS OF BREATH, (Reported) Entered as Reported by: UYEN CORONA on 03/21/22 1212 Albuterol Sulfate (Albuterol Sulfate) 2.5 Mg/3 Ml (0.083 %) Vial.neb, 2.5 MG INH Q6H PRN for SHORTNESS OF BREATH, (Reported) Entered as Reported by: NITZA SIN on 03/31/22 0932 Amlodipine Besylate (Amlodipine Besylate) 10 Mg Tablet, 10 MG PO DAILY, (Reported) Entered as Reported by: UYEN CORONA on 03/21/22 1212 Atorvastatin Calcium (Atorvastatin Calcium) 20 Mg Tablet, 20 MG PO DAILY, (Reported) Entered as Reported by: UYEN CORONA on 03/21/22 1212 Clopidogrel Bisulfate (Clopidogrel) 75 Mg Tablet, 75 MG PO 1200 Prescribed by: MARC BLEDSOE JR, MD on 03/31/22 1058 Cyclobenzaprine HCl (Cyclobenzaprine HCl) 10 Mg Tablet, 10 MG PO Q8H PRN for SPASMS Prescribed by: ALLAN VALLEJO on 12/24/22 1104 Docusate Sodium (Colace) 100 Mg Capsule, 100 MG PO BID PRN for CONSTIPATION-1ST LINE, (Reported) Entered as Reported by: NITZA SIN on 03/31/22 0932 Famotidine (Famotidine) 40 Mg Tablet, 40 MG PO 1900, (Reported) Entered as Reported by: UYEN CORONA on 03/21/22 121 Furosemide (Furosemide) 20 Mg Tablet, 20 MG PO BID EVERY 48 HOURS, (Reported) Entered as Reported by: UYEN CORONA on 03/21/22 121 Furosemide (Furosemide) 20 Mg Tablet, 40 MG PO BID EVERY 48 HOURS, (Reported) Entered as Reported by: UYEN CORONA on 03/21/22 1215 Hydralazine HCl (Hydralazine HCl) 50 Mg Tablet, 50 MG PO DAILY, (Reported) Entered as Reported by: UYEN CORONA on 03/21/22 121 Hydralazine HCl (Hydralazine HCl) 50 Mg Tablet, 50 MG PO 1900 PRN for BLOOD PRESSURE, (Reported) Entered as Reported by: UYEN CORONA on 03/21/22 1212 Hydrocodone/Acetaminophen (Hydrocodone-Acetamin 5-325 mg) 5 Mg-325 Mg Tablet, 1 TAB PO Q8H PRN for PAIN-MODERATE (5-7) Prescribed by: ALLAN VALLEJO on 12/24/22 1104 Insulin Lispro (Insulin Lispro Kwikpen U-100) 100 Unit/Ml Insuln.pen, UNITS SC PC, (Reported) Entered as Reported by: UYEN CORONA on 03/21/22 1212 Iron Polysaccharide Complex (Polysaccharide Iron) 150 Mg Iron Capsule, 150 MG PO DAILY, (Reported) Entered as Reported by: UYEN CORONA on 03/21/22 1237 Levofloxacin (Levofloxacin) 500 Mg Tablet, 500 MG PO Q48H Prescribed by: RENETTA COREAS on 04/17/23 165 Lidocaine (Lidocaine 5% Patch) 5 % Adh..patch, 1 EACH TP Q12H PRN for Neuropathic pain Prescribed by: ALLAN VALLEJO on 12/24/22 1104 Lorazepam (Ativan) 0.5 Mg Tablet, 0.5 MG PO 0700,1500, (Reported) Entered as Reported by: UYEN CORONA on 03/21/22 121 Lorazepam (Ativan) 0.5 Mg Tablet, 0.5 MG PO HS PRN for ANXIETY, (Reported) Entered as Reported by: UYEN CORONA on 03/21/22 121 Metoprolol Tartrate (Metoprolol Tartrate) 25 Mg Tablet, 12.5 MG PO BID WITH MEALS, (Reported) Entered as Reported by: UYEN CORONA on 03/21/22 121 Morphine Sulfate (Morphine Sulfate ER) 15 Mg Tablet.er, 30 MG PO DAILY, (Reported) Entered as Reported by: UYEN CORONA on 03/21/22 121 Morphine Sulfate (Morphine Sulfate ER) 15 Mg Tablet.er, 15 MG PO HS, (Reported) Entered as Reported by: UYEN CORONA on 03/21/22 121 Omeprazole (Omeprazole) 40 Mg Capsule.dr, 40 MG PO DAILY, (Reported) Entered as Reported by: NELSON SUMNER on 09/14/20 180 Ondansetron (Ondansetron Odt) 4 Mg Tab.rapdis, 4 MG PO Q6H PRN for NAUSEA/VOMITING Prescribed by: RENETTA COREAS on 04/17/23 165 Ondansetron HCl (Ondansetron HCl) 4 Mg/5 Ml Solution, 5 ML PO Q8H PRN for NAUSEA/VOMITING-1ST LINE, (Reported) Entered as Reported by: UYEN CORONA on 03/21/22 121 Oxycodone HCl/Acetaminophen (Percocet 5-325 mg Tablet) 1 Each Tablet, 1 TAB PO Q4H Prescribed by: ZIA VORA on 04/22/222053 Phenytoin Sodium Extended (Phenytoin Sodium Extended) 100 Mg Capsule, 100 MG PO 0700,1700, (Reported) Entered as Reported by: UYEN CORONA on 03/21/22 121 Potassium Chloride (K-Tab ER) 10 Meq Tablet.er, 10 MEQ PO DAILY, (Reported) Entered as Reported by: UYEN CORONA on 03/21/221211 Promethazine HCl (Promethazine Tablet) 25 Mg Tablet, 25 MG PO DAILY, (Reported) Entered as Reported by: UYEN CORONA on 03/21/221211 Promethazine HCl (Promethazine Tablet) 25 Mg Tablet, 25 MG PO HS PRN for NAUSEA/VOMITING-2ND LINE, (Reported) Entered as Reported by: UYEN CORONA on 03/21/221211 Ropinirole HCl (Ropinirole HCl) 0.5 Mg Tablet, 1 MG PO HS, (Reported) Entered as Reported by: UYEN CORONA on 03/21/221211 Sodium Bicarbonate (Sodium Bicarbonate) 650 Mg Tablet, 650 MG PO TID, (Reported) Entered as Reported by: UYEN CORONA on 03/21/221211 Sucralfate (Sucralfate) 1 Gram Tablet, 1 GM PO BIDAC, (Reported) Entered as Reported by: UYEN CORONA on 03/21/221211 Sulfamethoxazole/Trimethoprim (Bactrim Ds Tablet) 800 Mg-160 Mg Tablet, 1 EACH PO BID Prescribed by: GABBIE ZACARIAS MD on 10/14/221817 Tamsulosin HCl (Flomax) 0.4 Mg Cap, 0.4 MG PO DAILY, (Reported) Entered as Reported by: UYEN CORONA on 03/21/221211 Venlafaxine HCl (Venlafaxine HCl) 75 Mg Tab, 75 MG PO 0700,1500, (Reported) Entered as Reported by: UYEN CORONA on 03/21/221211 Review of Systems Review of Systems Constitutional: no symptoms reported EENTM: mouth swelling Cardiovascular: no symptoms reported Gastrointestinal: hematemesis, vomiting Skin: no symptoms reported Past Yyepesr-Izpayb-Pvlscl Hx Immunizations Up To Date Tetanus Booster (TDap): Unknown First/Initial COVID19 Vaccinat: NO COVID VACCINE, DECLINED Second COVID19 Vaccination Yuri: NO COVID VACCINE, DECLINED Third COVID19 Vaccination Date: NO COVID VACCINE, DECLINED Seasonal Allergies Seasonal Allergies: No Past Medical History Surgery/Hospitalization HX: gallbladder, CHF, Crohn's, GI ulcers, IDDM, CAD with stent Surgeries: Yes (Abscess buttocks-MRSA, jaw fx) Gallbladder Respiratory: No Currently Using CPAP: No Currently Using BIPAP: No Cardiac: Yes Hypertension Neurological: Yes Neuropathy, Seizure Disorder Genitourinary: No Renal Failure Gastrointestinal: Yes Crohns Disease Musculoskeletal: Yes (chronic pain/neuropathy also from "feet to shoulders") Chronic Back Pain Endocrine: Yes Diabetes, Insulin dep HEENT: No Dysphagia Loss of Vision: Denies Hearing Impairment: Denies Cancer: No Psychosocial: Yes Anxiety, Depression Integumentary: Yes (MRSA buttocks ) Blood Disorders: No Physical Exam Vital Signs Vital Signs - First Documented 06/13/23 10:49 Temp 34.0 Pulse 90 Resp 18 B/P (MAP) 224/99 (140) Pulse Ox 95 O2 Delivery Room Air Capillary Refill : Height, Weight, BMI Height: 6'0" Weight: 148lbs. oz. 67.381329we; 17.00 BMI Method:Stated General Appearance: Chronically ill HEENT: PERRL/EOMI, Pharynx Normal (pharynx and uvula not showing any edema at this time.), Other (Edema of upper and lower lip and mild swelling of tongue. Pt has residue of coffee ground emesis around his mouth and tongue. He is NOT vomiting in the ER) Neck: Full Range of Motion Respiratory: Chest Non Tender, Lungs Clear, Normal Breath Sounds, No Accessory Muscle Use, No Respiratory Distress, Accessory Muscle Use Cardiovascular: Regular Rate, Rhythm Gastrointestinal: Normal Bowel Sounds, Non Tender, Soft Back: No CVA Tenderness Neurologic/Psychiatric: Alert, Oriented x3, No Motor/Sensory Deficits Progress/Results/Core Measures Suspected Sepsis SIRS Temperature: Pulse: 90 Respiratory Rate: 18 Blood Pressure 224 /99 Mean: 140 Results/Orders My Orders Orders - GABBIE ZACARIAS MD Alcohol (06/13/23 10:51) Cbc And Automated Diff (06/13/23 10:51) Comprehensive Metabolic Panel (06/13/23 10:51) Drug Screen Stat (Urine) (06/13/23 10:51) Lactic Acid Analyzer (06/13/23 10:51) Magnesium (06/13/23 10:51) Protime With Inr (06/13/23 10:51) Partial Thromboplastin Time (06/13/23 10:51) Ua Culture If Indicated (06/13/23 10:51) Troponin I Fs (06/13/23 10:51) Ondansetron Injection (Ondansetron Inj (06/13/23 11:00) Famotidine Injection (Famotidine Injec (06/13/23 10:55) Chest 1 View Ap/Pa Only (06/13/23 10:56) Vital Signs/I&O 06/13/23 10:49 Temp 34.0 Pulse 90 Resp 18 B/P (MAP) 224/99 (140) Pulse Ox 95 O2 Delivery Room Air Capillary Refill : Blood Pressure Mean: 140 Progress Note : Progress Note 1. ACUTE ANGIOEDEMA: LIKELY DUE TO NOEL INHIBITOR - Stop Lisinopril - EMS gave solumedrol 125mg iv/ subcutaneous epi 0.3/ Benadryl 25mg iv in the field - In the ER, pt was given Pepcid 20mg iv/ Zofran 4mg iv/ TXA 1gm iv STAT -Patient's oxygen saturation has been stable at 95% on room air and his angioedema is limited to his upper and lower lips as well is mild swelling of his tongue. Uvula and posterior pharynx are not showing any signs of edema at this time. Patient is able to speak and answer questions and is denying feeling shortness of breath or having any throat tightness. - Careful and close monitoring of airway - Discussed with E-ICU via phone at [facility], Dr. Jimenez at 10:50 AM, and was advised airway monitroing and immediate transfer for FFP. - We are a stand-alone ED and we do not carry any blood products that is needed for this patient. Patient needs immediate FFP, and will be needing an ER to ER transfer. -Called [facility] in [place] and discussed with Dr Vides, who refused transfer due to full ER and lack of GI surgery, then called [facility] for transfer to [facility] ER and accepting ER physician is Dr Rodriguez. - Patient will be transferred by flight since there are no ambulance in the [facility] that are available at this time to take the patient emergently 2. CHRONIC ALCOHOLISM WITH UPPER GI BLEED: - CXR: see report below - CBC shows an elevated white count of 23.8, hemoglobin of 8.9, platelets of 713 - CT ABD without contrast since his creatinine is 4.10 - Protonix bolus 80mg iv given in ER - Cefepime 1gm iv and Flagyl 500mg iv given in ER - We do not have a Protonix drip so will give 8mg of Protonix an hour to equal the time he will be in the ER, in place of that. - Pt's last alcohol drink was 8 AM today morning - s. ETOH is <10 - NS IVF running Diagnostic Imaging Diagonstic Imaging: Xray, CT Plain Films/CT/US/NM/MRI: chest, abdomen Comments [facility] [place], [place] NAME: ROBLES [facility] REC#: [id number] PT STATUS: REG ER : 1975 PHYSICIAN: GABBIE ZACARIAS MD ADMIT DATE: 06/13/23/ER FS Signed Date of Exam:06/13/23 CHEST 1 VIEW AP/PA ONLY EXAMINATION: Chest, 1 view. HISTORY: Dyspnea. COMPARISON: 03/09/2023. FINDINGS: The lung volumes are normal. Scattered prominent interstitial markings are seen throughout the lungs. No focal consolidation is seen. No large pleural effusion or pneumothorax is seen. The cardiomediastinal silhouette is normal in size and contour. No acute osseous abnormality is seen. IMPRESSION: Prominent interstitial markings are scattered throughout the lungs which may represent edema or infection. No focal consolidations. Dictated by: Dictated on workstation # [id number] Dict: 06/13/23 1134 Trans: 06/13/23 1137 [id number] Interpreted by: ADITYA MCMULLEN DO Electronically signed by: ADITYA MCMULLEN DO 06/13/23 1137 Departure Communication (Admissions) Time/Spoke to Consulting Phy: 10:55 Discussed with E-ICU consult: Dr. Jimenez, and advised airway monitoring and immediate transfer for FFP. Impression Primary Impression: NOEL inhibitor-aggravated angioedema Additional Impressions: Upper GI bleed Chronic alcoholism Disposition: 02 XFER SHT-TRM HOSP Condition: Critical Admissions Decision to Admit Reason: Admit from ER (General) Decision to Admit/Date: Jun 13, 2023 Time/Decision to Admit Time: 10:50 Transfer [facility] Medically Cleared for Xfer: Yes Transfer Reason: Exceeds level of care Time Spoke to Accepting Phy: 11:10 Transfer Progress Notes ER to ER transfer, accepted by Dr. Rodriguez Transfer Facility: [facility] Method of Transfer: Air Departure-Patient Inst. Referrals: SELF,ERROL GONZALES (PCP/Family) Primary Care Physician GABBIE ZACARIAS MD Jun 13, 2023 11:05
[2023-06-13 11:08] VITALS: BP 179/111
[2023-06-13] MEDS ORDERED: PANTOPRAZOLE INJECTION 200 MG in NS (IVPB) 100 ML 100 ML IV STA (11:11)
[2023-06-13] MEDS ORDERED: PANTOPRAZOLE INJECTION 40 MG VIAL IV ONE (11:15)
[2023-06-13 11:23] LABS: BAND NEUTROPHILS 7 %; HYPOCHROMASIA 1+; LYMPHOCYTES % (MANUAL) 13 %; METAMYELOCYTES % 1 %; MONOCYTES % (MANUAL) 6 %; NEUTROPHILS % (MANUAL) 73 %; PLATELET ESTIMATE INCREASED; POIKILOCYTOSIS 1+
[2023-06-13 11:24] LABS: MICROCYTOSIS SLIGHT
[2023-06-13 11:25] LABS: INR 0.9 (0.8-1.4); PROTHROMBIN TIME PATIENT 12.9 SEC (12.2-14.7)
[2023-06-13 11:26] LABS: BUN/CREATININE RATIO 15; CARBON DIOXIDE 25 MMOL/L (21-32); CHLORIDE 100 MMOL/L (98-107); GFR ESTIMATED 17; GLUCOSE 218 MG/DL (70-105); POTASSIUM 3.1 MMOL/L (3.6-5.0); SODIUM 142 MMOL/L (135-145)
[2023-06-13 11:27] LABS: ALANINE AMINOTRANSFERASE 5 U/L (0-55); ALBUMIN 3.7 GM/DL (3.2-4.5); ALKALINE PHOSPHATASE 133 U/L (40-136); BILIRUBIN,TOTAL < 0.2 MG/DL (0.1-1.0); CALCIUM 9.3 MG/DL (8.5-10.1); MAGNESIUM 1.9 MG/DL (1.6-2.4); TOTAL PROTEIN 7.4 GM/DL (6.4-8.2)
[2023-06-13] MEDS ORDERED: HOLD METFORMIN - RECEIVED CONTRAST 20 ML VIAL IV SCH (11:30)
[2023-06-13] MEDS ORDERED: TRANEXAMIC ACID INJECTION 1,000 MG in NS (IVPB) 50 ML 50 ML IV ONE (11:30)
[2023-06-13] MEDS ORDERED: NS 100 ML (IVPB) BAG IV ONE (11:30)
[2023-06-13] MEDS ORDERED: CEFEPIME INJECTION 1,000 MG in NS (IVPB) 50 ML 50 ML IV ONE (11:30)
[2023-06-13] MEDS ORDERED: IOHEXOL 350 MG/ML 100 ML (OMNIPAQUE 350) VIAL IV ONE (11:30)
[2023-06-13] MEDS ORDERED: metroNIDAZOLE 500MG/100ML IVPB 100 ML IV ONE (11:30)
--- NOTE | 2023-06-13 11:36 | Diagnostic Imaging Report ---
EXAMINATION: Chest, 1 view. HISTORY: Dyspnea. COMPARISON: 03/09/2023. FINDINGS: The lung volumes are normal. Scattered prominent interstitial markings are seen throughout the lungs. No focal consolidation is seen. No large pleural effusion or pneumothorax is seen. The cardiomediastinal silhouette is normal in size and contour. No acute osseous abnormality is seen. IMPRESSION: Prominent interstitial markings are scattered throughout the lungs which may represent edema or infection. No focal consolidations. Dictated by: Dictated on workstation # [id number]
--- NOTE | 2023-06-13 12:09 | Diagnostic Imaging Report ---
PROCEDURE: CT abdomen and pelvis without contrast. TECHNIQUE: Multiple contiguous axial images were obtained through the abdomen and pelvis without the use of intravenous contrast. Auto Exposure Controls were utilized during the CT exam to meet ALARA standards for radiation dose reduction. INDICATION: Nausea and vomiting. COMPARISON: 04/17/2023. FINDINGS: The heart is unremarkable. Bilateral pleural effusions are seen with bibasilar opacities. The liver, spleen, pancreas, adrenal glands, and kidneys have a normal noncontrast CT appearance. The gallbladder is surgically absent. There is no pathologically enlarged mesenteric or retroperitoneal adenopathy. There is persistent wall thickening of the distal esophagus. Persistent distention of the stomach is seen with ingested contents. No small bowel obstruction. No free fluid or free air. No acute osseous abnormalities. The urinary bladder is moderately distended with mild bladder wall thickening. No bladder calculi. There is no free air, loculated collection, or adenopathy in the pelvis. IMPRESSION: 1. Persistent distention of the stomach with ingested contents. Recommend placement of an enteric tube to decompress and endoscopy to further evaluate. 2. Wall thickening of the distal esophagus, similar to the prior exam. This is suggestive of esophagitis. Endoscopy could also be performed to evaluate this. 3. Development of bilateral pleural effusions with bibasilar opacities. 4. Distended urinary bladder with bladder wall thickening. This can be seen with cystitis. Recommend correlation with UA. Dictated on workstation # [id number]
== END 2023-06-13 12:09 | disposition other institution (70) ==
LOC: EDUNIT# 10:45 → ER FS 10:46
DX: K92.2 Gastrointestinal hemorrhage, unspecified (principal); T46.4X5A Adverse effect of angiotensin-converting-enzyme inhibitors, initial encounter; F10.20 Alcohol dependence, uncomplicated; E11.9 Type 2 diabetes mellitus without complications; Z90.49 Acquired absence of other specified parts of digestive tract; Z79.4 Long term (current) use of insulin
CPT/HCPCS: 36415; 71045; 74176; 80053; 83605; 83735; 84484; 85007; 85027; 85610; 85730; 87040; G0480; 80320